=== PATIENT | male | born 1960 | race Caucasian/White ===

== ENCOUNTER 2019-11-23 12:22 | Outpatient (CLI) | payer OTHER, MEDICARE, SELFPAY ==
[2019-11-23 12:43] LABS: Basophils Absolute Auto 0.1 K/mm3 (0.0-0.1); Basophils Percent Auto 0.6 % (0.2-1.2); Eosinophils Absolute Auto 0.2 K/mm3 (0-0.3); Eosinophils Percent Auto 2.2 % (0-4.4); Hematocrit 44.9 % (42.0-52.0); Hemoglobin 15.6 g/dL (14.0-18.0); Immature Granulocyte Absolute 0.02 K/mm3 (0.00-0.031); Immature Granulocyte Percent A 0.2 % (0-0.5); Lymphocytes Absolute Auto 2.57 K/mm3 (0.9-3.2); Lymphocytes Percent Auto 30.2 % (18.3-44.2); Mean Corpuscular HGB Conc 34.7 g/dl (32-36); Mean Corpuscular Hemoglobin 30.1 pg (26-34); Mean Corpuscular Volume 86.5 fl (80-100); Mean Platelet Volume 9.2 fl (7.4-10.4); Monocytes Absolute Auto 0.7 K/mm3 (0.1-0.6); Monocytes Percent Auto 8.5 % (2.6-8.5); Neutrophils Percent Auto 58.3 % (45.5-73.1); Platelet Count Result 249 k/mm3 (150-375); Red Blood Count 5.19 M/mm3 (4.6-6.20); Red Cell Distribution Width 13.9 % (11.5-14.5); White Blood Count 8.5 K/mm3 (4.5-10.0)
== END 2019-11-23 12:23 | disposition home or self-care (01) ==
LOC: ANHLAB 12:32
PROVIDERS: PCP Family Medicine; Visit Provider Internal Medicine Hematology & Oncology
DX: D75.1 Secondary polycythemia (principal); R06.89 Other abnormalities of breathing
CPT/HCPCS: 36415; 85025

== ENCOUNTER 2020-10-27 12:49 | Emergency (ER) | payer OTHER, MEDICARE, SELFPAY ==
[2020-10-27 13:04] VITALS: BP 145/97; PULSE 85; RESP 18; TEMP 36.8; O2SAT 98
--- NOTE | 2020-10-27 14:15 | ED.EPISTAXIS ---
HPI - Epistaxis General Chief complaint: Epistaxis Stated complaint: bloody nose Source: patient Mode of arrival: ambulatory Limitations: no limitations History of Present Illness HPI Narrative: This is a 60-year-old male that presents with epistaxis currently a on presentation had a mild trickle of blood from his left nostril. Apparently patient did go to the emergency room at [facility] in [place] and was treated with Afrin at that time. Patient over the last few hours had a mild nosebleed. Currently, not having any current nose bleeds no headaches no blurry vision no cough no congestion no fever or chills. Patient is currently not on blood thinners does take occasional ibuprofen. MD complaint: epistaxis Location: left nostril Onset (ago): hour(s) Context: history of previous and hypertension Treatment prior to arrival: nose pinching and head tilted back Related Data Home Medications Medication Instructions Recorded Confirmed cyclobenzaprine 10 mg PO TID PRN 10/27/20 10/27/20 furosemide 20 mg PO DAILY 10/27/20 10/27/20 hydrocodone-acetaminophen 1 tablet PO Q4H PRN 10/27/20 10/27/20 lamotrigine 100 mg PO DAILY 10/27/20 10/27/20 Allergies Allergy/AdvReac Type Severity Reaction Status Date / Time methotrexate Allergy Unknown Hives / Verified 07/22/17 14:29 Red Face Review of Systems Review of Systems: All systems reviewed & are unremarkable except as noted in HPI and below PMFSH Past Medical History Medical History HTN (hypertension) Exam Const: General: no acute distress Orientation/consciousness: patient oriented x3 HENMT: Head: normal to inspection General nose exam: Epistaxis present Other: upon visualize of left nostril appears erythematous with no current or active bleeding no visualized bleeding from any blood vessels. Eyes: Conjunctivae: conjunctivae normal Pupils: Equal, round and reactive pupils present Neck: Neck: normal visual inspection, no lymphadenopathy and no meningeal signs Chest: Chest palpation & inspection: normal inspection of the chest Cardio: Rate: regular rate Rhythm: regular rhythm GI: Auscultation: normal bowel sounds Skin: General skin exam: normal color Rashes: no rashes Neuro: General: patient oriented x3 Extrem: General: normal to inspection Psych: Appearance: grossly normal Mental Status: mental status grossly normal Affect: normal affect Course Course Emergency Course: Reassessment of patient after having a nose clamp there is some erythema of his left nostril but no visualized vessels no bleeding currently, advised patient to follow-up with his primary care physician can moisten nostrils and coat with Vaseline, advised also to minimize nose blowing are sneezing if possible. Vital Signs Vital signs: Vital Signs Temperature 36.8 C 10/27/20 13:04 Pulse Rate 85 10/27/20 13:04 Respiratory Rate 18 10/27/20 13:04 Blood Pressure 145/97 H 10/27/20 13:04 Pulse Oximetry 98 10/27/20 13:04 Temperature 36.8 C 10/27/20 13:04 Pulse Rate 85 10/27/20 13:04 Respiratory Rate 18 10/27/20 13:04 Blood Pressure 145/97 H 10/27/20 13:04 Pulse Oximetry 98 10/27/20 13:04 Critical Care Time Critical Care Time Critical Care Time: No Discharge Plan Discharge Clinical Impression: Epistaxis Patient Disposition: Home, Self-Care Condition: Stable Instructions: Antibiotic Form, Nosebleed (ED) Additional Instructions: Follow-up with primary care physician. Advised to use coating of Vaseline and to be applied with a Q-tip to keep nostrils moistened. Prescriptions: No Action cyclobenzaprine 10 mg tablet 10 mg PO TID PRN (Reason: Pain) RF: 0 hydrocodone-acetaminophen 10-325 mg tablet 1 tablet PO Q4H PRN (Reason: Pain) RF: 0 furosemide 20 mg tablet 20 mg PO DAILY RF: 0 lamotrigine 100 mg tablet 100 mg PO DAILY RF: 0 Foll
== END 2020-10-27 14:27 | disposition home or self-care (01) ==
PROVIDERS: Emergency Provider Emergency Medicine; PCP Emergency Medicine
DX: R04.0 Epistaxis (principal)
CPT/HCPCS: 99281; 99282

== ENCOUNTER 2021-12-07 15:54 | Emergency (ER) | payer MEDICARE, SELFPAY ==
[2021-12-07 16:10] VITALS: BP 145/92; PULSE 67; RESP 20; TEMP 35.7; O2SAT 100
--- NOTE | 2021-12-07 16:25 | ED.ALLEREA ---
HPI - Allergic Reaction General Chief complaint: Allergic Reaction Stated complaint: skin itching, blurry eyes-reaction to meds Source: patient Mode of arrival: ambulatory Limitations: no limitations History of Present Illness HPI narrative: this is a 61-year-old gentleman that presents with generalized itching with no rash no shortness of breath no audible wheezing no abdominal pain no nausea vomiting no fever chills. Patient did take Benadryl about 2hours prior to his arrival to the ER. Patient recently had a dose adjustment of his duloxetine by his primary care physician. MD complaint: allergic reaction Onset (ago): hour(s) Exposure: other ( possible increase in medication) Symptoms: itching Severity: mild Treatment prior to arrival: benadryl Previous Allergic Reaction History: none Related Data Home Medications Medication Instructions Recorded Confirmed cyclobenzaprine 10 mg PO TID PRN 10/27/20 10/27/20 furosemide 20 mg PO DAILY 10/27/20 10/27/20 hydrocodone-acetaminophen 1 tablet PO Q4H PRN 10/27/20 10/27/20 lamotrigine 100 mg PO DAILY 10/27/20 10/27/20 Allergies Allergy/AdvReac Type Severity Reaction Status Date / Time methotrexate Allergy Unknown Hives / Verified 07/22/17 14:29 Red Face Review of Systems Review of Systems: All systems reviewed & are unremarkable except as noted in HPI and below PMFSH Past Medical History Medical History HTN (hypertension) Exam Const: General: no acute distress HENMT: Head: normal to inspection Eyes: Conjunctivae: conjunctivae normal Pupils: Equal, round and reactive pupils present Neck: Neck: normal visual inspection, no lymphadenopathy and no meningeal signs Chest: Chest palpation & inspection: normal inspection of the chest Resp: Effort & Inspection: normal respiratory effort Cardio: Rate: regular rate Rhythm: regular rhythm GI: GI Palp: Yes Soft to palpation Percussion: Yes normal to percussion Urinary Catheter: Urinary Catheter: patent and draining Back/Spine/Pelvis: Back: no CVA tenderness Skin: General skin exam: normal color Rashes: no rashes Neuro: General: patient oriented x3 Extrem: General: normal to inspection and no pedal edema Psych: Affect: normal affect Attitude: cooperative Course Course Emergency Course: Patient received 80mg IM Depo-Medrol advised to take Benadryl at home and will prescribe prednisone p.o. and advised patient to discontinue duloxetine and to call his primary care physician to make them aware and possible medication change. Critical Care Time Critical Care Time Critical Care Time: No Discharge Plan Discharge Clinical Impression: Allergic reaction Qualifiers: Encounter type: initial encounter Qualified Code(s): T78.40XA - Allergy, unspecified, initial encounter Patient Disposition: Home, Self-Care Condition: Stable Instructions: Antibiotic Form, Contact Dermatitis (ED) Additional Instructions: Discontinue duloxetine, but call primary care physician to make them aware. And take medicine as prescribed. Prescriptions: New methylprednisolone [Medrol (Aris)] 4 mg tablets,dose pack See Rx Instructions .ROUTE .COMPLEX Qty: 21 RF: 0 diphenhydramine HCl [Benadryl] 25 mg capsule 25 mg PO Q6H PRN (Reason: itching) Qty: 20 RF: 0 No Action cyclobenzaprine 10 mg tablet 10 mg PO TID PRN (Reason: Pain) RF: 0 hydrocodone-acetaminophen 10-325 mg tablet 1 tablet PO Q4H PRN (Reason: Pain) RF: 0 furosemide 20 mg tablet 20 mg PO DAILY RF: 0 lamotrigine 100 mg tablet 100 mg PO DAILY RF: 0 Follow-up/Referrals: Lorenzo,Roberto Caban MD [Primary Care Provider] - Time of Disposition: 16:28
[2021-12-07] MEDS: methylPREDNISolone ACETATE 40 MG/ML VIAL 80 MG IM (16:35)
[2021-12-07 16:47] VITALS: BP 140/88; PULSE 70; RESP 18; TEMP 36.6; O2SAT 99
== END 2021-12-07 16:53 | disposition home or self-care (01) ==
PROVIDERS: Emergency Provider Emergency Medicine; PCP Emergency Medicine
DX: T78.40XA Allergy, unspecified, initial encounter (principal); I10 Essential (primary) hypertension
CPT/HCPCS: 96372; 99283; J1030

== ENCOUNTER 2022-01-19 11:48 | Outpatient (CLI) | payer MEDICARE, SELFPAY ==
--- NOTE | ~2022-01-19 | US_ITS ---
EXAMINATION: US soft tissue head and neck DATE: 01/19/2022 12:11 INDICATION: Left neck lump. TECHNIQUE: Multiple grayscale and Doppler ultrasound images of the neck were obtained. COMPARISON: None FINDINGS: In the left submandibular gland, there is a 1.1 x 0.9 x 0.8 cm irregular mixed solid and cy stic mass. IMPRESSION: 1. 1.1 cm mixed solid and cystic mass in left submandibular gland. The differential diagnosis include s benign masses such as benign mixed tumor or inflammation/infection and primary malignancy. Consider ultrasound-guided fine-needle aspiration. Reviewed, dictated and finalized at location A. IMPRESSION: 1. 1.1 cm mixed solid and cystic mass in left submandibular gland. The differen tial diagnosis includes benign masses such as benign mixed tumor or inflammatio n/infection and primary malignancy. Consider ultrasound-guided fine-needle aspi ration.
== END 2022-01-19 11:49 | disposition home or self-care (01) ==
LOC: CHSIMG 11:50
PROVIDERS: PCP Nurse Practitioner Family; Visit Provider Nurse Practitioner Family
DX: R22.1 Localized swelling, mass and lump, neck (principal)
CPT/HCPCS: 76536

== ENCOUNTER 2022-02-07 12:38 | Outpatient (CLI) | payer MEDICARE, SELFPAY ==
--- NOTE | ~2022-02-07 | US_ITS ---
US soft tissue head and neck DATE: 02/07/2022 13:54 INDICATION: Patient presented for biopsy of 1.1 cm mixed solid and cystic mass of left submandibular gland noted on January 19, 2022 ultrasound examination TECHNIQUE: Real-time imaging and color flow imaging of left submandibular gland COMPARISON: 01/19/2022 left neck ultrasound examination FINDINGS: The previously reported 1.1 cm mixed solid and cystic mass of the left submandibular gland is diminished in size and fluid component since 01/19/2022, currently measuring approximately 5 mm, com pared to up to 10.6 mm on 01/19/2022. Interval diminished size suggests benign process. IMPRESSION: Biopsy canceled due to interval substantially diminished size since 01/19/2022 Reviewed, dictated and finalized at [facility]. Reviewed, dictated and finalized at location A.
== END 2022-02-07 12:39 | disposition home or self-care (01) ==
LOC: CHSIMG 12:40
PROVIDERS: PCP Family Medicine; Visit Provider Nurse Practitioner Family
DX: R22.1 Localized swelling, mass and lump, neck (principal)
CPT/HCPCS: 76536

== ENCOUNTER 2022-03-05 09:15 | Outpatient (CLI) | payer MEDICARE, SELFPAY ==
[2022-03-05 09:30] LABS: Hematocrit 43.2 % (40.0-54.0); Hemoglobin 14.5 g/dL (14.0-18.0); Mean Corpuscular HGB Conc 33.6 g/dL (32.0-36.0); Mean Corpuscular Hemoglobin 32.2 pg (27.0-31.0); Mean Platelet Volume 8.9 fl (8.7-11.0); Platelet Count Result 293 K/mm3 (150-420); Red Cell Distribution Width 13.2 % (11.6-14.4)
[2022-03-05 10:16] LABS: Anion Gap 8 mmol/L (8-16); Blood Urea Nitrogen 11 mg/dL (7-18); Calcium 9.2 mg/dL (8.5-10.1); Carbon Dioxide 32 mmol/L (21-32); Chloride 100 mmol/L (98-108); Creatine Kinase 114 U/L (39-308); Estimated Glomerular Filt Rate > 60; Ferritin 226 ng/mL (26-388); Folic Acid 18.2 ng/mL (8.6->20); Free T4 Free Thyroxine 1.17 ng/dL (0.76-1.46); Glucose 97 mg/dL (70-99); Magnesium 2.1 mg/dL (1.8-2.4); Osmolality Calculated 289 mOsm/kg (285-295); Sodium 140 mmol/L (136-145); Thyroid Stimulating Hormone 1.22 uIU/mL (0.36-3.74); Vitamin B12 1745 pg/mL (193-986)
[2022-03-05 10:18] LABS: Band Neutrophils Percent 0 % (0-6); Basophils Absolute Manual 0.08 K/mm3 (0-0.1); Basophils Percent Manual 1 % (0-1); Eosinophils Absolute Manual 0.24 K/mm3 (0.02-0.5); Eosinophils Percent Manual 3 % (1-6); Lymphocytes Absolute Manual 2.16 K/mm3 (1.1-4.5); Lymphocytes Percent Manual 27 % (18-44); Monocytes Absolute Manual 1.04 K/mm3 (0.1-0.90); Monocytes Percent Manual 13 % (3-9); Neutrophils Absolute Manual 4.48 K/mm3 (1.3-6.7); Neutrophils Percent Manual 56 % (46-73); Total Cells Counted 100
[2022-03-05 10:19] LABS: Platelet Estimate Adequate (Adequate)
[2022-03-05 10:44] LABS: Erythrocyte Sedimentation Rate 18 mm/hr (0-20)
[2022-03-05 17:30] LABS: Alanine Aminotransferase 27 U/L (16-63); Albumin Level 3.9 g/dL (3.4-5.0); Alkaline Phosphatase 88 U/L (46-116); Aspartate Amino Transferase 24 U/L (15-37); Bilirubin Direct 0.2 mg/dL (0-0.2); Bilirubin,Total 0.9 mg/dL (0.00-1.00); Total Protein 7.6 g/dL (6.4-8.2)
[2022-03-07 14:05] LABS: Vitamin D 25 Hydroxy 31 ng/mL (30-100)
== END 2022-03-05 09:16 | disposition home or self-care (01) ==
LOC: CHSLAB 09:19
PROVIDERS: PCP Nurse Practitioner Family; Visit Provider Internal Medicine Rheumatology
DX: E55.9 Vitamin D deficiency, unspecified (principal); E53.8 Deficiency of other specified B group vitamins; D50.9 Iron deficiency anemia, unspecified; R53.83 Other fatigue; M79.10 Myalgia, unspecified site
CPT/HCPCS: 36415; 80048; 80076; 81596; 82306; 82550; 82607; 82728; 82746; 83735; 84439; 84443; 84550; 85025; 85652

== ENCOUNTER 2022-03-09 18:01 | Emergency (ER) | payer MEDICARE, SELFPAY ==
--- NOTE | ~2022-03-09 | XR_ITS ---
EXAMINATION: XR chest 2V DATE: 03/09/2022 18:41 INDICATION: Dyspnea. TECHNIQUE: Frontal and lateral views of the chest were obtained on 3 radiographs. COMPARISON: None. FINDINGS: The chest demonstrates clear lungs without pneumonia, pleural effusion, or pneumothorax. Th e heart size is normal. IMPRESSION: 1. No acute cardiopulmonary disease. Reviewed, dictated and finalized at location A.
--- NOTE | ~2022-03-09 | CT_ITS ---
EXAMINATION: CTA chest PE protocol DATE: 03/09/2022 19:48 INDICATION: Dyspnea. TECHNIQUE: Computed tomography angiography (CTA) of the chest was performed with 100 mL Omnipaque-350 intravenous contrast timed to evaluate the pulmonary arteries. Coronal maximum intensity projection 3D-reconstructions were created by the technologist. Automated exposure control and iterative reconst ruction technique were employed. The dose-length product was 1038.55 mGy-cm. COMPARISON: Chest 2 views 03/09/2022 FINDINGS: The lungs demonstrate mild atelectasis. Right lung lower lobe herniates between two of the ribs. A calcified left lung nodule and calcified left hilar lymph nodes are consistent with old granu lomatous disease. No pleural effusion. The heart size is normal. No pericardial effusion. There are s ubsegmental emboli in right middle lobe and right lower lobe. There are bridging endplate osteophytes at multiple levels in the spine, consistent with diffuse idiopathic skeletal hyperostosis (DISH). Th ere is an old healed right rib fracture. IMPRESSION: 1. Acute subsegmental pulmonary emboli in right middle lobe and right lower lobe. I called this resul t to Dr. Self. Reviewed, dictated and finalized at location A. IMPRESSION: 1. Acute subsegmental pulmonary emboli in right middle lobe and right lower lob e. I called this result to Dr. Self.
--- NOTE | 2022-03-09 18:18 | ED.SOB ---
HPI - SOB/Dyspnea General Chief Complaint: Shortness of Breath/Dyspnea Stated Complaint: sent by PCP for possible blood clot Time Seen by Provider: 03/09/22 18:18 Source: patient and RN notes reviewed Mode of arrival: ambulatory Limitations: no limitations History of Present Illness MD elicited complaint: shortness of breath Pertinent past history: COPD, asthma and diabetes Onset (ago): day(s) (3) Context: occurred during exertion Timing: constant Severity: moderate Exacerbating factors: exertion Known history of: COPD and asthma Associated symptoms: denies other symptoms Treatment prior to arrival: none Related Data Home oxygen amount: none Home Medications Medication Instructions Recorded Confirmed hydrocodone 10 mg-acetaminophen 1 tablet PO Q4H PRN 01/16/22 03/09/22 325 mg tablet upadacitinib 15 mg tablet,extended 15 mg PO DAILY 01/16/22 03/09/22 release 24 hr gabapentin 1,200 mg PO TID 03/09/22 03/09/22 Allergies Allergy/AdvReac Type Severity Reaction Status Date / Time methotrexate Allergy Unknown Hives / Verified 03/07/22 11:08 Red Face Review of Systems Review of Systems: All systems reviewed & are unremarkable except as noted in HPI and below Constitutional: Constitutional: Denies chills and Denies fever(s) ENT: Denies sore throat Cardiovascular: Cardiovascular: Denies chest pain Respiratory: Respiratory: Denies cough and Denies wheezing Gastrointestinal: Gastrointestinal: Denies diarrhea, Denies nausea and Denies vomiting PMFSH Past Medical History Medical History (Updated 03/09/22 @ 20:04 by Wilian Self MD) Asthma COPD (chronic obstructive pulmonary disease) Fibromyalgia HTN (hypertension) Medical marijuana use Morbid obesity CLAUDIO (obstructive sleep apnea) Peripheral neuropathy Rheumatoid arthritis Salivary gland tumor Surgical History Surgical History History of appendectomy History of colonoscopy (~10/2014) History of foot surgery right foot toes cut off in [place] History of incision and drainage (~12/2019) perirectal abscess Social History Social History Smoking status: Current every day smoker Alcohol intake: never Substance use: never Gender identity (if verbalized by the patient): Male Exam Const: General: healthy appearing, no acute distress and alert Nutritional Appearance: well nourished and obese morbidly obese Orientation/consciousness: patient oriented x3 HENMT: Head: normal to inspection Ears: external ears normal Eyes: Conjunctivae: conjunctivae normal Pupils: Equal, round and reactive pupils present EOM: EOMs intact bilaterally Neck: Neck: normal visual inspection Resp: Effort & Inspection: normal respiratory effort Auscultation: clear to auscultation bilaterally Cardio: Rate: regular rate Rhythm: regular rhythm GI: GI Palp: Yes Soft to palpation and No Tenderness to palpation present (GI) Auscultation: normal bowel sounds Back/Spine/Pelvis: Cervical Spine: cervical ROM normal Thoracic/Lumbar Spine: thoraco-lumbar ROM normal Skin: General skin exam: normal color Rashes: no rashes Neuro: General: patient oriented x3, moves all extremities, no focal motor deficits and CN's II-XI intact bilaterally Speech: normal speech Gait exam (Neuro): Normal gait present Extrem: General: normal to inspection and no clubbing, cyanosis or edema Psych: Mental Status: mental status grossly normal Affect: normal affect Attitude: cooperative Thought content: Yes Normal thought content present Course Vital Signs Vital signs: Vital Signs Temperature 36.6 C 03/09/22 18:24 Pulse Rate 70 03/09/22 18:24 Respiratory Rate 18 03/09/22 18:24 Blood Pressure 179/104 H 03/09/22 18:24 Pulse Oximetry 93 03/09/22 18:24 Temperature 36.6 C 03/09/22 20:11 Pulse Rate 78 03/09/22 20:11 Respiratory Rate 20
[2022-03-09 18:24] VITALS: BP 179/104; PULSE 70; RESP 18; TEMP 36.6; O2SAT 93
[2022-03-09 18:38] VITALS: PULSE 73
[2022-03-09 18:39] LABS: Basophils Absolute Auto 0.05 K/mm3 (0.00-0.10); Basophils Percent Auto 0.6 % (0.0-1.0); Eosinophils Absolute Auto 0.24 K/mm3 (0.02-0.50); Hematocrit 42.5 % (40.0-54.0); Hemoglobin 14.3 g/dL (14.0-18.0); Immature Granulocyte Absolute 0.03 K/mm3 (0.00-0.00); Immature Granulocyte Percent A 0.4 % (0.0-0.0); Lymphocytes Absolute Auto 2.19 K/mm3 (1.10-4.50); Lymphocytes Percent Auto 27.7 % (18.0-42.0); Mean Corpuscular HGB Conc 33.6 g/dL (32.0-36.0); Mean Corpuscular Hemoglobin 31.8 pg (27.0-31.0); Mean Corpuscular Volume 94.7 fL (78.0-102.0); Monocytes Absolute Auto 0.97 K/mm3 (0.10-0.90); Monocytes Percent Auto 12.2 % (2.0-11.0); Neutrophils Absolute Auto 4.4 K/mm3 (1.7-7.2); Neutrophils Percent Auto 56.1 % (50.0-70.0); Platelet Count Result 327 K/mm3 (150-420); Red Blood Count 4.49 M/mm3 (4.70-6.10); Red Cell Distribution Width 13.2 % (11.6-14.4); White Blood Count 7.9 K/mm3 (4.8-10.8)
[2022-03-09 18:48] LABS: CRP 2.2 mg/dL (0.0-0.9)
[2022-03-09 18:54] LABS: D Dimer 1.06 mg/L (0.19-0.50)
[2022-03-09 19:00] VITALS: BP 169/90; PULSE 72; RESP 16; TEMP 36.1; O2SAT 95
[2022-03-09 19:01] LABS: Alanine Aminotransferase 36 U/L (16-63); Albumin Level 3.6 g/dL (3.4-5.0); Alkaline Phosphatase 84 U/L (46-116); Anion Gap 7 mmol/L (8-16); Aspartate Amino Transferase 23 U/L (15-37); Bilirubin,Total 0.4 mg/dL (0.00-1.00); Blood Urea Nitrogen 13 mg/dL (7-18); Calcium 9.2 mg/dL (8.5-10.1); Carbon Dioxide 29 mmol/L (21-32); Chloride 103 mmol/L (98-108); Estimated CRCL calculation 94 ml/min; Estimated Glomerular Filt Rate > 60; Glucose 104 mg/dL (70-99); Magnesium 2.1 mg/dL (1.8-2.4); NT Pro B Type Natriuretic Pept 58 pg/mL (0-125); Osmolality Calculated 288 mOsm/kg (285-295); Potassium 4.2 mmol/L (3.5-5.1); Sodium 139 mmol/L (136-145); Total Protein 7.2 g/dL (6.4-8.2)
--- NOTE | 2022-03-09 19:13 | PC.NURSE ---
report to [email or web address]
[2022-03-09 19:41] LABS: Influenza A QL RT-PCR Negative (Negative); Influenza B QL RT-PCR Negative (Negative); SARS-CoV-2 RNA PCR Negative (Negative)
[2022-03-09 19:44] VITALS: BP 168/88; PULSE 78; RESP 20; O2SAT 95
[2022-03-09] MEDS: APIXABAN 2.5 MG TABLET 10 MG PO (20:01)
[2022-03-09 20:11] VITALS: BP 168/90; PULSE 78; RESP 20; TEMP 36.6; O2SAT 95
== END 2022-03-09 20:25 | disposition home or self-care (01) ==
PROVIDERS: Emergency Provider Emergency Medicine; PCP Nurse Practitioner Family
DX: I26.94 Multiple subsegmental thrombotic pulmonary emboli without acute cor pulmonale (principal); J44.9 Chronic obstructive pulmonary disease, unspecified; I10 Essential (primary) hypertension; E66.01 Morbid (severe) obesity due to excess calories; M06.9 Rheumatoid arthritis, unspecified; M79.7 Fibromyalgia; G62.9 Polyneuropathy, unspecified; G47.33 Obstructive sleep apnea (adult) (pediatric); F17.200 Nicotine dependence, unspecified, uncomplicated; Z20.822 Contact with and (suspected) exposure to COVID-19
CPT/HCPCS: 36415; 71046; 71275; 80053; 83735; 83880; 85025; 85380; 86140; 87502; 99284; A9270; C9803; Q9967; U0003; U0005

== ENCOUNTER 2022-03-29 12:28 | Outpatient (CLI) | payer MEDICARE, SELFPAY ==
--- NOTE | ~2022-03-29 | DEXA_ITS ---
Bone Density Report Name: NIYAH ADAMS Age: 61 Sex: Male Ethnicity: White Date of : 1960 Indication: parental hip fracture; height loss; history of glucocorticoids; prior fracture; asthma or emphysema; rheumatoid arthritis; secondary osteoporosis; Referring Provider: TANIA ROWAN Study: Bone densitometry was performed. Exam Date: March 29, 2022 Accession number: [id number] Bone Density: Region BMD T-score Z-score Classification AP Spine(L1, L2, L3) 1.217 1.3 2.0 Normal Femoral Neck (Left) 0.917 -0.1 0.9 Normal Total Hip (Left) 1.127 0.6 1.1 Normal Femoral Neck (Right) 0.882 -0.4 0.6 Normal Total Hip (Right) 1.120 0.6 1.1 Normal Femoral Neck Mean 0.899 -0.2 0.8 Normal Total Hip Mean 1.123 0.6 1.1 Normal World Health Organization criteria for BMD impression classify patients as: Normal (T-score at or above -1.0), Osteopenia (T-score between -1.0 and -2.5), or Osteoporosis (T-score at or below -2.5). 10-year Fracture Risk: FRAX not reported because: All T-scores for Spine Total, Hip Total, Femoral Neck at or above -1.0 Clinical Information Provided by Patient: Has had a low trauma fracture Parent has had a hip fracture Smokes Has taken Glucocorticoids Has rheumatoid arthritis Has secondary osteoporosis Has used the following medications: Fosamax (i.e. alendronate), Calcium Has the following medical conditions: Asthma or Emphysema Patient maximum height was 69 Drinks caffeinated beverages Impression: The patient has normal bone mass. The patient has risk factors, including: parental hip fracture, smoking, previous fracture, history of glucocorticoid therapy. Discussion: BONE DENSITY IS ABOVE THE MINIMUM DESIRABLE LEVEL AT ALL SKELETAL SITES TESTED. This patient?s bone mineral density is above the minimum desirable level (T-score -1.0 or better) at all sites measured. The patient should follow a healthful lifestyle (good nutrition with adequate calcium and vitamin D, and appropriate weight-bearing exercise). Follow-Up: Consider repeating this study in 5 years or sooner if there is some new clinical indication. Reported by: Dr. Pablo Schuster on 03/29/2022 12:56:00 PM. Reviewed, dictated and finalized at location [facility] SANTOS
== END 2022-03-29 12:29 | disposition home or self-care (01) ==
LOC: CHSIMG 12:30
PROVIDERS: PCP Nurse Practitioner Family; Visit Provider Internal Medicine Rheumatology
DX: Z79.52 Long term (current) use of systemic steroids (principal)
CPT/HCPCS: 77080

== ENCOUNTER 2022-04-06 10:25 | Outpatient (CLI) | payer MEDICARE, SELFPAY ==
--- NOTE | ~2022-04-06 | US_ITS ---
EXAMINATION:US venous doppler LE BI INDICATION:Bilateral lower extremity pain and swelling TECHNIQUE: Multiple grayscale, color flow and Doppler images of the right and left lower extremity de ep venous systems were obtained and reviewed. COMPARISON:No prior studies for comparison. FINDINGS: The common femoral, superficial femoral and popliteal veins demonstrate normal respiratory variation, augmentation and compressibility. Color flow is also seen within the posterior tibial, pe roneal, greater saphenous and profunda veins. IMPRESSION: 1: No lower extremity deep venous thrombosis. Reviewed, dictated and finalized at location A.
== END 2022-04-06 10:26 | disposition home or self-care (01) ==
LOC: CHSIMG 10:28
PROVIDERS: PCP Nurse Practitioner Family; Visit Provider Nurse Practitioner Family
DX: I26.99 Other pulmonary embolism without acute cor pulmonale (principal); M79.89 Other specified soft tissue disorders
CPT/HCPCS: 93970

== ENCOUNTER 2022-04-08 16:12 | Emergency (ER) | payer MEDICARE, SELFPAY ==
--- NOTE | ~2022-04-08 | XR_ITS ---
EXAM: XR finger 2nd LT min 2V DATE: 04/08/2022 17:19 HISTORY: distal flexion . COMPARISON: None available. FINDINGS: Normal mineralization. No fracture or dislocation. The left second digit DIP is held in sl ight flexion. No lytic or blastic lesion. Joint spaces are maintained. No erosion or periosteal irwin e. Soft tissues within normal limits. IMPRESSION: Left second digit DIP flexion deformity, may reflect extensor tendon injury. No fracture or dislocation. Reviewed, dictated and finalized at location K. IMPRESSION: Left second digit DIP flexion deformity, may reflect extensor tendo n injury. No fracture or dislocation.
[2022-04-08 16:40] VITALS: BP 155/97; PULSE 86; RESP 18; TEMP 36.6; O2SAT 97
--- NOTE | 2022-04-08 17:08 | ED.UPPEXIN ---
HPI - Extremity Injury (Upper) General Chief Complaint: Extremity Injury, Upper Stated Complaint: finger injury Time Seen by Provider: 04/08/22 16:16 Source: patient and RN notes reviewed Mode of arrival: ambulatory Limitations: no limitations History of Present Illness MD complaint: injury to: left and finger (distal index finger) Onset (ago): hour(s) (1) Other injuries: none Place: home Severity: mild Severity scale (1-10): 2 Relieving factors: immobilization Exacerbating factors: movement of extremity Associated symptoms: denies other symptoms Related Data Home Medications Medication Instructions Recorded Confirmed hydrocodone 10 mg-acetaminophen 1 tablet PO Q4H PRN Back Pain 01/16/22 03/20/22 325 mg tablet gabapentin 600 mg tablet 1,200 mg PO TID 03/09/22 03/20/22 escitalopram oxalate 10 mg tablet 20 mg PO DAILY 03/20/22 03/20/22 lamotrigine 100 mg tablet 100 mg PO .hs 03/20/22 03/20/22 lamotrigine 25 mg tablet 25 mg PO DAILY 03/20/22 03/20/22 meloxicam 15 mg tablet 15 mg PO DAILY 03/20/22 03/20/22 ftjvakbq-[id number] acid 0.4 1 tablet PO DAILY 03/20/22 03/20/22 mg-lycopene 300 mcg-lutein 250 mcg tablet (Anai Mora) turmeric root extract 500 mg 1,000 mg PO DAILY 03/20/22 03/20/22 capsule Allergies Allergy/AdvReac Type Severity Reaction Status Date / Time methotrexate Allergy Unknown Hives / Verified 04/08/22 17:19 Red Face Review of Systems Review of Systems: All systems reviewed & are unremarkable except as noted in HPI and below Constitutional: Constitutional: Reports no additional constitutional complaints Eyes: Eyes: Reports no additional eye complaints ENT: Reports system reviewed and no additional complaints, except as documented Cardiovascular: Cardiovascular: Reports no additional cardiovascular complaints Respiratory: Respiratory: Reports no additional respiratory complaints Gastrointestinal: Gastrointestinal: Reports no additional gastrointestinal complaints Musculoskeletal: Musculoskeletal: Reports no additional musculoskeletal complaints Integumentary/Breasts: Skin/Breast: Reports system reviewed and no additional complaints, except as docu Neurologic: Reports system reviewed and no additional complaints, except as documented Psychiatric: Psychiatric: Reports no additional psychiatric complaints Endocrine: Endocrine: Reports no additional endocrine complaints Hematologic/Lymphatic: Hematologic/Lymphatic: Reports no additional hematologic/lymphatic complaints Allergic/Immunologic: Allergic/Immunologic: Reports no additional allergic/immunologic complaints PMFSH Past Medical History Medical History Asthma Benign paroxysmal positional vertigo COPD (chronic obstructive pulmonary disease) Fibromyalgia Finger tendinitis HTN (hypertension) Medical marijuana use Morbid obesity Nondependent alcohol abuse, in remission CLAUDIO (obstructive sleep apnea) Peripheral neuropathy Personal history of tobacco use Rheumatoid arthritis Salivary gland tumor Surgical History Surgical History History of appendectomy History of colonoscopy (~10/2014) History of foot surgery right foot toes cut off in Jr [facility] History of incision and drainage (~12/2019) perirectal abscess Social History Social History Smoking status: Current every day smoker Alcohol intake: never Substance use: never Gender identity (if verbalized by the patient): Male Exam Const: General: healthy appearing and no acute distress Nutritional Appearance: well nourished Orientation/consciousness: patient oriented x3 Limitations: no limitations HENMT: Head: normal to inspection Ears: external ears normal, TM's normal bilaterally and EAC's normal General nose exam: Normal external nose present and Normal nares present Face and sinus: n
[2022-04-08] MEDS: ACETAMINOPHEN 325 MG TABLET 650 MG PO (17:34)
[2022-04-08 17:42] VITALS: BP 142/81; PULSE 87; RESP 18; TEMP 36.6; O2SAT 98
== END 2022-04-08 17:47 | disposition home or self-care (01) ==
PROVIDERS: Emergency Provider Emergency Medicine; PCP Nurse Practitioner Family
DX: S56.412A Strain of extensor muscle, fascia and tendon of left index finger at forearm level, initial encounter (principal); M79.645 Pain in left finger(s)
CPT/HCPCS: 29130; 73140; 99283; A4565; A9270

== ENCOUNTER 2022-06-08 12:55 | Outpatient (CLI) | payer MEDICARE, SELFPAY ==
--- NOTE | 2022-06-08 12:58 | ECHO_ITS ---
Patient Info Name: Sarabjit Long Age: 62 years : 1960 Gender: Male Ht: 67 in Wt: 314 lbs BSA: 2.68 m2 HR: 81 bpm BP: 149 / 86 mmHg Heart Rhythm: Sinus Rhythm Technical Quality: Fair Exam Date: 06/08/2022 12:54 PM Exam Location: [facility] [place] Patient Status: Outpatient Admit Date: 06/08/2022 Staff Ordering Physician: Rashmi Ramon NP Fireworks Inspector: Sandra Martinez RDCS Attending Provider: Rashmi Ramon NP Referring Physician: Yenny CASTAÑEDA; Exam Type: CA echo doppler color flow Study Info Indications R06.02 - Shortness of breath Complete two-dimensional, color flow and Doppler transthoracic echocardiogram is performed. Summary 1. Complete two-dimensional, color flow and Doppler transthoracic echocardiogram is performed. 2. Left ventricular chamber dimension is normal. 3. Left ventricular systolic function is normal, estimated at 55-60%. 4. The left ventricular diastolic function is grade I diastolic dysfunction. 5. E/e' 7 is not elevated. 6. No pulmonary hypertension, estimated pulmonary arterial systolic pressure is 18 mmHg. Left Ventricle E/e' 7 is not elevated. Left ventricular chamber dimension is normal. Left ventricular systolic function is normal, estimated at 55-60%. The left ventricular diastolic function is grade I diastolic dysfunction. Right Ventricle Right ventricular systolic function is normal and with normal TAPSE 2.2 cm. Right ventricular chamber dimension is normal. Left Atria Left atrial chamber dimension is normal. Right Atria Right atrial chamber dimension is normal. Aortic Valve The aortic valve is trileaflet. There is no aortic valve stenosis. There is no aortic valve regurgitation. Pulmonic Valve There is no pulmonic regurgitation. Mitral Valve There is no mitral valve stenosis. There is no mitral valve regurgitation. Tricuspid Valve There is no tricuspid valve regurgitation. No pulmonary hypertension, estimated pulmonary arterial systolic pressure is 18 mmHg. Pericardium/Pleural There is no pericardial effusion. Inferior Vena Cava Normal inferior vena cava with >50% collapse upon inspiration consistent with normal right atrial pressure, 5 mmHg. Aorta The aortic root size at the sinus of Valsalva is normal. Left Ventricular Outflow Tract Name Value Normal LVOT 2D LVOT Diameter 2.1 cm LVOT Doppler LVOT Peak Velocity 95 cm/s LVOT Peak Gradient 4 mmHg LVOT Mean Gradient 2 mmHg LVOT VTI 16 cm LVOT VTI/AV VTI Ratio 0.7 LVOT Stroke Volume 54 ml Pulmonic Valve Name Value Normal PV Doppler PV Peak Velocity 124 cm/s PV Peak Gradient 6 mmHg Mitral Valve
== END 2022-06-08 12:56 | disposition home or self-care (01) ==
LOC: CHSCARD 12:58
PROVIDERS: PCP Nurse Practitioner Family; Visit Provider Nurse Practitioner Family
DX: R06.02 Shortness of breath (principal); R63.5 Abnormal weight gain
CPT/HCPCS: 93306

== ENCOUNTER 2022-07-10 08:26 | Outpatient (CLI) | payer MEDICARE, SELFPAY ==
[2022-07-10 08:39] LABS: Basophils Absolute Auto 0.08 K/mm3 (0.00-0.10); Basophils Percent Auto 0.7 % (0.0-1.0); Eosinophils Absolute Auto 0.17 K/mm3 (0.02-0.50); Eosinophils Percent Auto 1.5 % (1.0-6.0); Hematocrit 45.4 % (40.0-54.0); Hemoglobin 15.2 g/dL (14.0-18.0); Immature Granulocyte Absolute 0.05 K/mm3 (0.00-0.00); Immature Granulocyte Percent A 0.4 % (0.0-0.0); Lymphocytes Absolute Auto 3.82 K/mm3 (1.10-4.50); Lymphocytes Percent Auto 32.9 % (18.0-42.0); Mean Corpuscular HGB Conc 33.5 g/dL (32.0-36.0); Mean Corpuscular Hemoglobin 29.5 pg (27.0-31.0); Monocytes Absolute Auto 1.08 K/mm3 (0.10-0.90); Monocytes Percent Auto 9.3 % (2.0-11.0); Neutrophils Absolute Auto 6.4 K/mm3 (1.7-7.2); Neutrophils Percent Auto 55.2 % (50.0-70.0); Platelet Count Result 339 K/mm3 (150-420); Red Blood Count 5.16 M/mm3 (4.70-6.10); Red Cell Distribution Width 14.2 % (11.6-14.4); White Blood Count 11.6 K/mm3 (4.8-10.8)
[2022-07-10 08:52] LABS: Hemoglobin A1C 5.7 % (<5.7)
[2022-07-10 09:28] LABS: Alanine Aminotransferase 37 U/L (16-63); Alkaline Phosphatase 83 U/L (46-116); Anion Gap 7 mmol/L (8-16); Aspartate Amino Transferase 21 U/L (15-37); Bilirubin,Total 0.4 mg/dL (0.00-1.00); Blood Urea Nitrogen 19 mg/dL (7-18); Calcium 8.9 mg/dL (8.5-10.1); Carbon Dioxide 29 mmol/L (21-32); Chloride 102 mmol/L (98-108); Estimated Glomerular Filt Rate > 60; NT Pro B Type Natriuretic Pept 44 pg/mL (0-125); Potassium 3.5 mmol/L (3.5-5.1); Sodium 138 mmol/L (136-145); Total Protein 6.9 g/dL (6.4-8.2)
[2022-07-10 09:36] LABS: Thyroid Stimulating Hormone Reflex 1.99 u/IU/mL (0.36-3.74)
[2022-07-10 09:37] LABS: Glucose 98 mg/dL (70-99); Osmolality Calculated 288 mOsm/kg (285-295)
== END 2022-07-10 08:27 | disposition home or self-care (01) ==
LOC: CHSLAB 08:29
PROVIDERS: Nurse Practitioner Family; PCP Family Medicine; Visit Provider Family Medicine
DX: R06.02 Shortness of breath (principal); R63.5 Abnormal weight gain; R73.09 Other abnormal glucose
CPT/HCPCS: 36415; 80053; 83036; 83880; 84443; 85025

== ENCOUNTER 2022-08-30 11:11 | Outpatient (CLI) | payer MEDICARE, SELFPAY ==
[2022-09-03 11:11] LABS: NIL 0.02 IU/mL; Quantiferon TB Plus, 1T NEGATIVE (NEGATIVE)
[2022-09-03 19:11] LABS: Hepatitis B Core Ab Total Nonreactive (Nonreactive)
[2022-09-03 19:12] LABS: Hepatitis B Surface Antigen Nonreactive (Nonreactive)
[2022-09-04 03:10] LABS: Hepatitis C Signal to Cutoff 0.01 ratio (<1.00); Hepatitis C Virus Antibody Nonreactive (Nonreactive)
== END 2022-08-30 11:12 | disposition home or self-care (01) ==
LOC: CHSLAB 11:13
PROVIDERS: PCP Family Medicine; Visit Provider Internal Medicine
DX: M05.79 Rheumatoid arthritis with rheumatoid factor of multiple sites without organ or systems involvement (principal); Z79.899 Other long term (current) drug therapy; R53.83 Other fatigue
CPT/HCPCS: 36415; 86480; 86704

== ENCOUNTER 2022-10-04 19:31 | Emergency (ER) | payer MEDICARE, SELFPAY ==
[2022-10-04 19:50] VITALS: BP 148/100; PULSE 70; RESP 16; TEMP 36.6; O2SAT 100
--- NOTE | 2022-10-04 20:14 | ED.ALLEREA ---
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 Currently there is no shortness of breath no audible wheezing no nausea vomiting no abdominal pain no shortness of breath. MD complaint: allergic reaction Onset (ago): hour(s) Exposure: medication Related Data Home Medications Medication Instructions Recorded Confirmed qfxmtvth-cww-ohibp acid 0.4 1 tablet PO DAILY 03/20/22 10/04/22 mg-lycopene 300 mcg-lutein 250 mcg tablet (Anai Mora) Allergies Allergy/AdvReac Type Severity Reaction Status Date / Time methotrexate Allergy Unknown Hives / Verified 10/11/22 07:50 Red Face Review of Systems Review of Systems: All systems reviewed & are unremarkable except as noted in HPI and below PMFSH Past Medical History Medical History Asthma Benign paroxysmal positional vertigo COPD (chronic obstructive pulmonary disease) Fibromyalgia Finger tendinitis HTN (hypertension) Medical marijuana use Morbid obesity Nondependent alcohol abuse, in remission CLAUDIO (obstructive sleep apnea) Peripheral neuropathy Personal history of tobacco use Rheumatoid arthritis Salivary gland tumor Surgical History Surgical History History of appendectomy History of colonoscopy (~10/2014) History of foot surgery right foot toes cut off in [facility] History of incision and drainage (~12/2019) perirectal abscess Social History Social History Smoking status: Current every day smoker Alcohol intake: never Substance use: never Gender identity (if verbalized by the patient): Male Exam Const: General: cooperative HENMT: Head: normal to inspection Ears: hearing grossly normal bilaterally Face/Nose/Sinus: Normal external nose present Mouth: Yes Normal oral and palatal mucosa present, Yes lip normal and Yes tongue normal Teeth and gingiva: gingiva normal Throat: posterior oropharynx normal and tonsils normal Eyes: General: appearance normal, both eyes and all related structures Alignment and Position: alignment normal Periorbital: periorbital findings normal Eyelids: eyelids normal Conjunctivae: conjunctivae normal Neck: Neck: normal visual inspection, full ROM, no lymphadenopathy and no meningeal signs Chest: Chest palpation & inspection: normal inspection of the chest Resp: Effort & Inspection: normal respiratory effort and able to speak in complete sentences Cardio: Jugular venous distension: no JVD Palpation: normal PMI Rate: regular rate Rhythm: regular rhythm GI: Inspection: normal to inspection : General: Yes bimanual renal exam normal bilaterally Back/Spine/Pelvis: Back: no CVA tenderness Skin: General skin exam: normal color Lesions: no lesions Rashes: no rashes Neuro: General: oriented to person, oriented to place, oriented to time, patient oriented x3, gait normal, tone normal and moves all extremities Extrem: General: normal to inspection, full ROM and capillary refill normal Psych: Appearance: grossly normal Mental Status: mental status grossly normal Speech and movement: Normal speech and movement present Course Course Emergency Course: Reassessment patient after a dose of IM Depo-Medrol, doing well no shortness of breath no audible wheezing no fever chills no nausea vomiting. Vital Signs Vital signs: Vital Signs Temperature 36.6 C 10/04/22
[2022-10-04] MEDS: methylPREDNISolone ACETATE 40 MG/ML VIAL 80 MG IM (20:51)
[2022-10-04 20:57] VITALS: BP 140/88; PULSE 88; RESP 16; TEMP 37; O2SAT 97
== END 2022-10-04 20:58 | disposition home or self-care (01) ==
PROVIDERS: Emergency Provider Emergency Medicine
DX: T78.40XA Allergy, unspecified, initial encounter (principal); M06.9 Rheumatoid arthritis, unspecified; J45.909 Unspecified asthma, uncomplicated; J44.9 Chronic obstructive pulmonary disease, unspecified; I10 Essential (primary) hypertension; G47.33 Obstructive sleep apnea (adult) (pediatric); M79.7 Fibromyalgia; G62.9 Polyneuropathy, unspecified; F17.200 Nicotine dependence, unspecified, uncomplicated; Z79.01 Long term (current) use of anticoagulants; Z79.51 Long term (current) use of inhaled steroids; Z79.891 Long term (current) use of opiate analgesic
CPT/HCPCS: 73140; 96372; 99283; J1030

== ENCOUNTER 2022-10-08 14:00 | Outpatient (CLI) | payer MEDICARE, SELFPAY | END 2022-10-08 14:01 | disposition home or self-care (01) | PROVIDERS: PCP Family Medicine; Visit Provider Internal Medicine | DX: Z51.81 Encounter for therapeutic drug level monitoring (principal); M05.79 Rheumatoid arthritis with rheumatoid factor of multiple sites without organ or systems involvement; Z79.899 Other long term (current) drug therapy | CPT/HCPCS: 36415; 81335 ==

== ENCOUNTER 2022-12-24 12:22 | Outpatient (CLI) | payer MEDICARE, SELFPAY ==
[2022-12-31 10:29] LABS: Barbiturates Negative; Oxidant Negative; pH 6.9
[2022-12-31 10:30] LABS: Benzodiazepines Negative; Cocaine Metabolite Negative; Marijuana Metabolite Negative; Methadone Metabolite Negative
[2022-12-31 10:31] LABS: Opiates Positive
[2022-12-31 10:32] LABS: Hydrocodone 940; Hydromorphone 520; Morphine Negative; Norhydrocodone 2800
== END 2022-12-24 12:23 | disposition home or self-care (01) ==
PROVIDERS: PCP Family Medicine; Visit Provider Internal Medicine
DX: M05.79 Rheumatoid arthritis with rheumatoid factor of multiple sites without organ or systems involvement (principal); Z79.899 Other long term (current) drug therapy
CPT/HCPCS: 80299; 80361; G0480

== ENCOUNTER 2023-04-17 14:55 | Outpatient (CLI) | payer MEDICARE, SELFPAY ==
[2023-04-17 15:16] LABS: Basophils Absolute Auto 0.04 K/mm3 (0.00-0.10); Basophils Percent Auto 0.4 % (0.0-1.0); Eosinophils Absolute Auto 0.07 K/mm3 (0.02-0.50); Eosinophils Percent Auto 0.7 % (1.0-6.0); Hemoglobin 15.6 g/dL (14.0-18.0); Immature Granulocyte Absolute 0.03 K/mm3 (0.00-0.00); Immature Granulocyte Percent A 0.3 % (0.0-0.0); Lymphocytes Absolute Auto 1.58 K/mm3 (1.10-4.50); Lymphocytes Percent Auto 15.9 % (18.0-42.0); Mean Corpuscular HGB Conc 34.7 g/dL (32.0-36.0); Mean Corpuscular Hemoglobin 32.8 pg (27.0-31.0); Mean Corpuscular Volume 94.5 fL (78.0-102.0); Mean Platelet Volume 9.5 fl (8.7-11.0); Monocytes Absolute Auto 0.67 K/mm3 (0.10-0.90); Monocytes Percent Auto 6.8 % (2.0-11.0); Neutrophils Absolute Auto 7.5 K/mm3 (1.7-7.2); Neutrophils Percent Auto 75.9 % (50.0-70.0); Platelet Count Result 282 K/mm3 (150-420); Red Blood Count 4.76 M/mm3 (4.70-6.10); Red Cell Distribution Width 12.9 % (11.6-14.4); White Blood Count 9.9 K/mm3 (4.8-10.8)
[2023-04-17 15:20] LABS: Appearance Urine Clear (Clear); Bilirubin Urine Negative (Negative); Blood Urine Negative (Negative); Color Urine Yellow (Yellow); Glucose Urine UA Negative (Negative); Ketones Urine Trace (Negative); Leukocyte Esterase Ur Negative (Negative); Nitrate Urine Negative (Negative); Protein Urine Negative (Negative); Specific Grav Ur 1.015 (1.010-1.020); pH Urine 6.5 (5.0-8.0)
[2023-04-17 15:24] LABS: Add Urine Microscopic? NO; RBC Urine None seen /hpf (0-2); WBC Urine None seen /hpf (0-3)
[2023-04-17 15:25] LABS: Bacteria Urine Trace /hpf; Mucus Urine Moderate /lpf
[2023-04-17 15:28] LABS: Hemoglobin A1C 5.4 % (<5.7)
[2023-04-17 16:10] LABS: HIV 1 P24 AG Negative (Negative); HIV 1/2 AB Negative (Negative)
[2023-04-17 16:27] LABS: Alanine Aminotransferase 42 U/L (16-63); Albumin Level 4.2 g/dL (3.4-5.0); Alkaline Phosphatase 58 U/L (46-116); Anion Gap 8 mmol/L (8-16); Aspartate Amino Transferase 10 U/L (15-37); Bilirubin,Total 0.8 mg/dL (0.00-1.00); Blood Urea Nitrogen 13 mg/dL (7-18); Calcium 9.2 mg/dL (8.5-10.1); Carbon Dioxide 31 mmol/L (21-32); Chloride 103 mmol/L (98-108); Estimated Glomerular Filt Rate > 60; Glucose 100 mg/dL (70-99); Osmolality Calculated 294 mOsm/kg (285-295); Potassium 4.4 mmol/L (3.5-5.1); Sodium 142 mmol/L (136-145); Total Protein 6.8 g/dL (6.4-8.2); Vitamin B12 706 pg/mL (193-986)
[2023-04-17 16:32] LABS: Folic Acid > 20.0 ng/mL (8.6->20)
[2023-04-19 13:33] LABS: NIL 0.01 IU/mL; Quantiferon TB Plus, 1T NEGATIVE (NEGATIVE); TB1-NIL 0.01 IU/mL
[2023-04-19 19:44] LABS: Hepatitis C RNA, Quant PCR <15 IU/mL
[2023-04-21 04:05] LABS: Hepatitis B Surface Antibody Nonreactive (Nonreactive)
[2023-04-21 06:43] LABS: Vitamin D 25 Hydroxy 29 ng/mL (30-100)
[2023-04-22 02:19] LABS: Hepatitis B Core Ab Total Nonreactive (Nonreactive)
[2023-04-22 02:20] LABS: Hepatitis B Surface Antigen Reactive (Nonreactive)
== END 2023-04-17 14:56 | disposition home or self-care (01) ==
LOC: CHSLAB 14:56
PROVIDERS: PCP Family Medicine; Visit Provider Internal Medicine Rheumatology
DX: E11.9 Type 2 diabetes mellitus without complications (principal); Z11.59 Encounter for screening for other viral diseases; M06.9 Rheumatoid arthritis, unspecified; E55.9 Vitamin D deficiency, unspecified; E53.8 Deficiency of other specified B group vitamins; Z51.81 Encounter for therapeutic drug level monitoring
CPT/HCPCS: 36415; 80053; 81003; 82306; 82607; 82746; 83036; 85025; 86480; 86703; 86704; 86706; 87340; 87522; 87806

== ENCOUNTER 2023-05-09 09:27 | Outpatient (CLI) | payer MEDICARE, SELFPAY ==
--- NOTE | ~2023-05-09 | US_ITS ---
Ultrasound of the right chest/flank CLINICAL HISTORY: Palpable mass TECHNIQUE: Sonographic imaging was performed of the right flank at the area of palpable concern. FINDINGS: At the area of palpable concern, there is heterogeneous area of possible soft tissue promin ence, the imaging features sonographically are very ill-defined. Visualized subjacent liver appears g rossly unremarkable. IMPRESSION: Heterogeneous possible masslike area at the area of clinical concern. This is very nonspecific and in distinct sonographically. If there is clinical concern for soft tissue mass or herniation, then cross -sectional imaging (MR or CT respectively) is advised to better assess. Reviewed, dictated and finalized at location . IMPRESSION: Heterogeneous possible masslike area at the area of clinical concern. This is v eunice nonspecific and indistinct sonographically. If there is clinical concern fo r soft tissue mass or herniation, then cross-sectional imaging (MR or CT respec tively) is advised to better assess.
== END 2023-05-09 09:28 | disposition home or self-care (01) ==
LOC: CHSIMG 09:28
PROVIDERS: PCP Family Medicine; Visit Provider Family Medicine
DX: M79.89 Other specified soft tissue disorders (principal)
CPT/HCPCS: 76604

== ENCOUNTER 2023-05-15 11:40 | Outpatient (CLI) | payer MEDICARE, SELFPAY ==
--- NOTE | ~2023-05-15 | CT_ITS ---
Clinical Indication: Right chest soft tissue mass CT Scan of the Chest with Contrast: Technique: Contiguous sections were acquired throughout the chest after intravenous administration of 75 cc of Omnipaque 350. Dose reduction technique was used on this scan by utilizing automated exposu re control and iterative reconstruction technique. The dose-length product (DLP) was 619.02 mGy-cm. COMPARISON: 03/09/2022 Findings: There is no evidence of any significant mediastinal, hilar or axillary lymphadenopathy. There is no f illing defect in the pulmonary arterial tree to suggest pulmonary embolus. There is no evidence of ao rtic dissection or aneurysm. There is no evidence of pleural or pericardial effusion. There is herniation of portion of the right lower lobe between the right eighth and ninth ribs, just superior to the diaphragm (coronal image 86 for example), similar to prior exam. No pulmonary nodule or consolidation seen. No pneumothorax. Images through the upper abdomen reveal no abnormalities. Impression: Herniation of portion of the right lower lobe between the right eighth and ninth ribs laterally, as d etailed above, similar to prior exam. No pulmonary nodule or consolidation. Reviewed, dictated and finalized at location . Impression: Herniation of portion of the right lower lobe between the right eighth and nint h ribs laterally, as detailed above, similar to prior exam. No pulmonary nodule or consolidation.
== END 2023-05-15 11:41 | disposition home or self-care (01) ==
LOC: CHSIMG 11:42
PROVIDERS: PCP Family Medicine; Visit Provider Family Medicine
DX: M79.89 Other specified soft tissue disorders (principal)
CPT/HCPCS: 71260; Q9967

== ENCOUNTER 2023-06-13 10:09 | Emergency (ER) | payer MEDICARE, SELFPAY ==
--- NOTE | ~2023-06-13 | XR_ITS ---
XR shoulder LT min 2V 06/13/2023 10:42 Indication: Left shoulder pain. Limited range of motion. Procedure: 4 views left shoulder Comparison: No prior studies for comparison. Findings: There is severe left glenohumeral joint osteoarthritis. No fracture, subluxation or disloca tion. No significant soft tissue abnormality. No foreign bodies. Impression: 1: Severe left glenohumeral joint osteoarthritis. Reviewed, dictated and finalized at location L. Impression: 1: Severe left glenohumeral joint osteoarthritis.
--- NOTE | ~2023-06-13 | XR_ITS ---
XR chest 2V 06/13/2023 10:42 Indication: Cough with wheezing Procedure: 2 view chest Comparison: 03/09/2022 Findings: Heart size normal. No focal air space disease, pulmonary edema, pleural effusion or suspect ed pneumothorax. No acute osseous abnormality. There is dextroscoliosis. Impression: 1: No acute cardiopulmonary disease. Reviewed, dictated and finalized at location L. Impression: 1: No acute cardiopulmonary disease.
[2023-06-13 10:14] VITALS: BP 123/82; PULSE 86; RESP 20; TEMP 36.6; O2SAT 98
--- NOTE | 2023-06-13 10:15 | ED.GENADULT ---
HPI - General Adult General Chief complaint: Extremity Injury, Upper Stated complaint: left arm pain Source: patient and family Mode of arrival: ambulatory Limitations: no limitations History of Present Illness HPI narrative: Patient woke up this morning around 6:00 a.m. pain left shoulder hurts to move radiates down his biceps says he has some numbness in his left hand but no numbness anywhere else denies any change in his back or neck pain rates the pain as a 8/10. Took [place] earlier this morning. Could not drive himself off her move his arm it hurts so much. Denies any other symptoms of cough shortness of breath chest pain nausea vomiting diaphoresis. Denies any Problems walking talking seeing or hearing dizziness lightheadedness rash or itching lumps or bumps or swelling. Denies any problems eating or drinking voiding or stooling or any other complaints. Related Data Home Medications Medication Instructions Recorded Confirmed pnjqsodh-fxe-uagpi acid 0.4 1 tablet PO DAILY 03/20/22 06/13/23 mg-lycopene 300 mcg-lutein 250 mcg tablet (Anai Mora) cyclobenzaprine 10 mg tablet 10 mg PO TID PRN Muscle Spasm 06/13/23 06/13/23 hydrocodone 10 mg-acetaminophen 1 tablet PO DAILY 06/13/23 06/13/23 325 mg tablet lamotrigine 100 mg tablet 100 mg PO DAILY 06/13/23 06/13/23 lisinopril 10 mg tablet 10 mg PO DAILY 06/13/23 06/13/23 rivaroxaban 10 mg tablet (Xarelto) 10 mg PO DAILY 06/13/23 06/13/23 venlafaxine 75 mg capsule,extended 75 mg PO DAILY 06/13/23 06/13/23 release 24 hr Allergies Allergy/AdvReac Type Severity Reaction Status Date / Time tocilizumab [From Actemra] Allergy Severe Itching Verified 06/13/23 10:20 methotrexate Allergy Unknown Hives / Verified 06/13/23 10:20 Red Face Review of Systems Review of Systems: All systems reviewed & are unremarkable except as noted in HPI and below PMFSH Past Medical History Medical History (Updated 06/13/23 @ 11:53 by Roberto Riggins MD) Asthma Benign paroxysmal positional vertigo COPD (chronic obstructive pulmonary disease) Fibromyalgia Finger tendinitis HTN (hypertension) Medical marijuana use Morbid obesity Nondependent alcohol abuse, in remission CLAUDIO (obstructive sleep apnea) Peripheral neuropathy Personal history of tobacco use Rheumatoid arthritis Salivary gland tumor Surgical History Surgical History History of appendectomy History of colonoscopy (~10/2014) History of foot surgery right foot toes cut off in [facility] [employer] History of incision and drainage (~12/2019) perirectal abscess Social History Social History Smoking status: Current every day smoker Alcohol intake: never Substance use: never Living arrangements: with family Gender identity (if verbalized by the patient): Male Exam Narrative: White male patient no apparent distress unless he tries to move the left shoulder, than he has left shoulder pain.? Head normocephalic, atraumatic.? Eyes conjunctiva pink sclera nonicteric.? Extraocular movements are intact.? Ears externally normal.? Oropharynx is clear with moist mucous membranes without exudates.? Neck is supple full range of motion, nontender no lymphadenopathy.? Back is nontender.? Lungs are clear.? Heart is regular rate and rhythm without murmurs gallops or rubs.? Chest wall is nontender.? Abdomen is soft and nontender no hepatosplenomegaly or masses no CVA tenderness no abdominal bruits.? Extremities no cyanosis clubbing or edema. Left shoulder diffusely tender pain with any range of motion. Left elbow is nontender and has full range of motion is not tender with movement. His wrist and hand has full range of motion. Radial pulses +2. He has decreased light touch to his left hand compared to his right hand. Deltoid nerve testing was normal for motor and sensation the left shoulder.? Skin is warm and dry wi
[2023-06-13] MEDS: HYDROcodone/acetaminophen (*CRX) 10-325 MG TABLET 1 TAB PO (10:34)
[2023-06-13 12:00] VITALS: BP 118/79; PULSE 70; RESP 20; TEMP 36.9; O2SAT 97
== END 2023-06-13 12:02 | disposition home or self-care (01) ==
PROVIDERS: Emergency Provider Emergency Medicine; PCP Family Medicine
DX: M19.012 Primary osteoarthritis, left shoulder (principal); F17.200 Nicotine dependence, unspecified, uncomplicated; Z79.891 Long term (current) use of opiate analgesic; Z79.899 Other long term (current) drug therapy; Z79.01 Long term (current) use of anticoagulants
CPT/HCPCS: 71046; 73030; 99284; A9270

== ENCOUNTER 2023-07-23 11:30 | Outpatient (CLI) | payer MEDICARE, SELFPAY ==
[2023-07-23 12:23] LABS: Prostate Specific Antigen 0.4 ng/mL (< OR = 4.0)
== END 2023-07-23 11:31 | disposition home or self-care (01) ==
LOC: CHSLAB 11:32
PROVIDERS: PCP Family Medicine; Visit Provider Family Medicine
DX: Z12.5 Encounter for screening for malignant neoplasm of prostate (principal); Z87.898 Personal history of other specified conditions
CPT/HCPCS: 36415; 84153; G0103

== ENCOUNTER 2023-10-10 09:26 | Outpatient (CLI) | payer MEDICARE, SELFPAY ==
[2023-10-10 09:41] LABS: Basophils Absolute Auto 0.08 K/mm3 (0.00-0.10); Eosinophils Absolute Auto 0.17 K/mm3 (0.02-0.50); Hemoglobin 14.8 g/dL (14.0-18.0); Immature Granulocyte Absolute 0.04 K/mm3 (0.00-0.00); Immature Granulocyte Percent A 0.5 % (0.0-0.0); Lymphocytes Absolute Auto 2.77 K/mm3 (1.10-4.50); Lymphocytes Percent Auto 33.2 % (18.0-42.0); Mean Corpuscular HGB Conc 33.6 g/dL (32.0-36.0); Mean Corpuscular Hemoglobin 30.5 pg (27.0-31.0); Mean Corpuscular Volume 90.5 fL (78.0-102.0); Mean Platelet Volume 8.9 fl (8.7-11.0); Monocytes Percent Auto 8.4 % (2.0-11.0); Neutrophils Absolute Auto 4.6 K/mm3 (1.7-7.2); Neutrophils Percent Auto 54.9 % (50.0-70.0); Platelet Count Result 314 K/mm3 (150-420); Red Blood Count 4.86 M/mm3 (4.70-6.10); Red Cell Distribution Width 13.5 % (11.6-14.4); White Blood Count 8.4 K/mm3 (4.8-10.8)
[2023-10-10 10:24] LABS: Alanine Aminotransferase 26 U/L (16-63); Albumin Level 3.7 g/dL (3.4-5.0); Alkaline Phosphatase 80 U/L (46-116); Anion Gap 6 mmol/L (8-16); Aspartate Amino Transferase 16 U/L (15-37); Bilirubin,Total 0.4 mg/dL (0.00-1.00); Blood Urea Nitrogen 10 mg/dL (7-18); CRP 1.3 mg/dL (0.0-0.9); Calcium 9.1 mg/dL (8.5-10.1); Carbon Dioxide 32 mmol/L (21-32); Chloride 101 mmol/L (98-108); Estimated Glomerular Filt Rate > 60; Glucose 93 mg/dL (70-99); Osmolality Calculated 287 mOsm/kg (285-295); Potassium 4.1 mmol/L (3.5-5.1); Prostate Specific Antigen 0.3 ng/mL (< OR = 4.0); Sodium 139 mmol/L (136-145); Total Protein 6.8 g/dL (6.4-8.2)
[2023-10-10 10:30] LABS: Thyroid Stimulating Hormone Reflex 1.23 u/IU/mL (0.36-3.74)
== END 2023-10-10 09:27 | disposition home or self-care (01) ==
LOC: CHSLAB 09:27
PROVIDERS: PCP Family Medicine; Visit Provider Family Medicine
DX: R35.1 Nocturia (principal); E11.9 Type 2 diabetes mellitus without complications; M06.9 Rheumatoid arthritis, unspecified; Z12.5 Encounter for screening for malignant neoplasm of prostate; Z87.898 Personal history of other specified conditions
CPT/HCPCS: 36415; 80053; 84153; 84443; 85025; 86140; G0103

== ENCOUNTER 2023-10-14 12:28 | Outpatient (NON) | payer MEDICARE, SELFPAY ==
[2023-10-14 13:13] LABS: Occult Blood Negative (Negative)
[2023-10-14 13:13] LABS: Occult Blood Negative (Negative)
[2023-10-14 13:14] LABS: Occult Blood Negative (Negative)
== END 2023-10-14 12:29 | disposition home or self-care (01) ==
LOC: CHSLAB 12:31
PROVIDERS: Visit Provider Family Medicine
DX: R63.4 Abnormal weight loss (principal)
CPT/HCPCS: 82272

== ENCOUNTER 2024-03-17 08:49 | Outpatient (CLI) | payer MEDICARE, SELFPAY ==
--- NOTE | ~2024-03-17 | XR_ITS ---
Clinical Indication: Shortness of breath PA and lateral views of the chest: Comparison: 06/13/2023 Findings: The lungs are clear, without evidence of focal consolidation or pleural effusion. Cardiome diastinal silhouette is within normal limits. Bones and soft tissues are unremarkable. Impression: Normal chest. Reviewed, dictated and finalized at location . Impression: Normal chest.
[2024-03-17 09:20] LABS: Basophils Absolute Auto 0.06 K/mm3 (0.00-0.10); Basophils Percent Auto 0.6 % (0.0-1.0); Eosinophils Absolute Auto 0.25 K/mm3 (0.02-0.50); Eosinophils Percent Auto 2.6 % (1.0-6.0); Hematocrit 42.5 % (40.0-54.0); Hemoglobin 13.7 g/dL (14.0-18.0); Immature Granulocyte Absolute 0.03 K/mm3 (0.00-0.00); Immature Granulocyte Percent A 0.3 % (0.0-0.0); Lymphocytes Absolute Auto 2.54 K/mm3 (1.10-4.50); Lymphocytes Percent Auto 26.6 % (18.0-42.0); Mean Corpuscular HGB Conc 32.2 g/dL (32-36); Mean Corpuscular Hemoglobin 30.8 pg (27.0-31.0); Mean Corpuscular Volume 95.5 fL (78.0-102.0); Mean Platelet Volume 8.7 fl (8.7-11.0); Monocytes Absolute Auto 0.94 K/mm3 (0.10-0.90); Monocytes Percent Auto 9.8 % (2.0-11.0); Neutrophils Absolute Auto 5.74 K/mm3 (1.70-7.20); Neutrophils Percent Auto 60.1 % (50.0-70.0); Platelet Count Result 244 K/mm3 (150-420); Red Blood Count 4.45 M/mm3 (4.70-6.10); Red Cell Distribution Width 13.6 % (11.6-14.4); White Blood Count 9.6 K/mm3 (4.8-10.8)
[2024-03-17 09:42] LABS: Alanine Aminotransferase 24 U/L (16-63); Albumin Level 3.7 g/dL (3.4-5.0); Alkaline Phosphatase 51 U/L (46-116); Anion Gap 10 mmol/L (4-12); Aspartate Amino Transferase 20 U/L (15-37); Blood Urea Nitrogen 12 mg/dL (7-18); Calcium 8.8 mg/dL (8.5-10.1); Carbon Dioxide 31 mmol/L (21-32); Chloride 102 mmol/L (98-108); Estimated Glomerular Filt Rate > 60; Glucose 90 mg/dL (70-99); NT Pro B Type Natriuretic Pept 58 pg/mL (0-125); Osmolality Calculated 295 mOsm/kg (285-295); Potassium 3.7 mmol/L (3.5-5.1); Sodium 143 mmol/L (136-145); Total Protein 6.5 g/dL (6.4-8.2); Troponin I 6.6 ng/L (0.00-60.4)
[2024-03-17 10:00] LABS: SARS-CoV-2 RNA PCR Negative (Negative)
[2024-03-17 10:03] LABS: Influenza A QL RT-PCR Negative (Negative); Influenza B QL RT-PCR Negative (Negative); RSV RNA, RT-PCR Negative (Negative)
== END 2024-03-17 08:50 | disposition home or self-care (01) ==
LOC: CHSLAB 08:50
PROVIDERS: PCP Family Medicine; Visit Provider Family Medicine
DX: R06.00 Dyspnea, unspecified (principal); R06.02 Shortness of breath
CPT/HCPCS: 36415; 71046; 80053; 83880; 84484; 85025; 87637

== ENCOUNTER 2024-05-12 07:04 | Outpatient (CLI) | payer MEDICARE, SELFPAY ==
[2024-05-12 08:09] LABS: Cholesterol 169 mg/dL (0-200); HDL Direct 53 mg/dL (40-60); LDL Cholesterol Calculated 89 mg/dL (<130); Triglycerides 136 mg/dL (0-150)
== END 2024-05-12 07:05 | disposition home or self-care (01) ==
LOC: CHSLAB 07:07
PROVIDERS: PCP Family Medicine; Visit Provider Internal Medicine Rheumatology
DX: E78.5 Hyperlipidemia, unspecified (principal)
CPT/HCPCS: 36415; 80061

== ENCOUNTER 2024-07-08 12:23 | Outpatient (CLI) | payer MEDICARE, SELFPAY ==
--- NOTE | ~2024-07-08 | CT_ITS ---
EXAMINATION: CT abdomen pelvis w con DATE: 07/08/2024 13:54 INDICATION: Right groin abscess. TECHNIQUE: Computed tomography (CT) of the abdomen and pelvis was performed with 100 mL Omnipaque 350 intravenous contrast. Automated exposure control and iterative reconstruction technique were employe d. The dose-length product was 1629.40 mGy-cm. COMPARISON: None. FINDINGS: The visualized portions of the lung bases are clear without pneumonia or pleural effusion. The heart size is normal. No pericardial effusion. Calcifications in the liver and spleen are consist ent with old granulomatous disease. The gallbladder is distended. The pancreas, adrenal glands, and k idneys are normal. There is a left inguinal hernia containing fat. There are no dilated loops of gisel l. The appendix is not visualized. There are no pathologically enlarged lymph nodes. There is no free intraperitoneal fluid. There is an umbilical hernia containing fat. There are bilateral hydroceles. There is moderate lower lumbar spondylosis. IMPRESSION: 1. No abscess. 2. Gallbladder distention, which may be secondary to fasting. Correlate with physical exam to exclude acute cholecystitis. Reviewed, dictated and finalized at location A. IMPRESSION: 1. No abscess. 2. Gallbladder distention, which may be secondary to fasting. Correlate with ph ysical exam to exclude acute cholecystitis.
[2024-07-08 12:42] LABS: Basophils Absolute Auto 0.07 K/mm3 (0.00-0.10); Basophils Percent Auto 0.9 % (0.0-1.0); Eosinophils Percent Auto 2.5 % (1.0-6.0); Hematocrit 44.6 % (37.0-46.0); Hemoglobin 15.7 g/dL (12.4-15.3); Immature Granulocyte Absolute 0.02 K/mm3 (0.00-0.00); Immature Granulocyte Percent A 0.3 % (0.0-0.0); Lymphocytes Absolute Auto 2.79 K/mm3 (1.10-4.50); Lymphocytes Percent Auto 35.5 % (18.0-42.0); Mean Corpuscular HGB Conc 35.2 g/dL (32-36); Mean Corpuscular Hemoglobin 32.4 pg (27.0-31.0); Monocytes Absolute Auto 1.05 K/mm3 (0.10-0.90); Monocytes Percent Auto 13.4 % (2.0-11.0); Neutrophils Absolute Auto 3.72 K/mm3 (1.70-7.20); Neutrophils Percent Auto 47.4 % (50.0-70.0); Platelet Count Result 265 K/mm3 (150-420); Red Blood Count 4.85 M/mm3 (4.70-6.10); Red Cell Distribution Width 12.9 % (11.6-14.4); White Blood Count 7.9 K/mm3 (4.8-10.8)
[2024-07-08 13:32] LABS: Estimated Glomerular Filt Rate > 60
[2024-07-08 13:36] LABS: Alanine Aminotransferase 46 U/L (16-63); Albumin Level 4.5 g/dL (3.4-5.0); Alkaline Phosphatase 62 U/L (46-116); Anion Gap 10 mmol/L (4-12); Aspartate Amino Transferase 26 U/L (15-37); Bilirubin,Total 1.6 mg/dL (0.00-1.00); Blood Urea Nitrogen 10 mg/dL (7-18); Calcium 9.7 mg/dL (8.5-10.1); Carbon Dioxide 31 mmol/L (21-32); Chloride 100 mmol/L (98-108); Glucose 95 mg/dL (70-99); Osmolality Calculated 291 mOsm/kg (285-295); Sodium 141 mmol/L (136-145)
== END 2024-07-08 12:24 | disposition home or self-care (01) ==
LOC: CHSLAB 12:24
PROVIDERS: PCP Nurse Practitioner Family; Visit Provider Nurse Practitioner Family
DX: L02.214 Cutaneous abscess of groin (principal)
CPT/HCPCS: 36415; 74177; 80053; 85025; 87070; 87075; 87147; 87205; Q9967

== ENCOUNTER 2024-08-10 14:13 | Outpatient (CLI) | payer MEDICARE, SELFPAY ==
--- NOTE | ~2024-08-10 | XR_ITS ---
EXAMINATION: XR foot RT min 3V DATE: 08/10/2024 14:36 INDICATION: Right foot pain TECHNIQUE: Dorsoplantar, two oblique and lateral views of the right foot were obtained. COMPARISON: None. FINDINGS: Right great toe amputation across the head of the first proximal phalanx with corticated osteotomy ma rgin. Bone alignment is otherwise normal. No fracture. No cortical erosions, osteolysis or periosteal reaction to suggest osteomyelitis. Mild polyarticular osteoarthritis at multiple joints in the mid a nd forefoot. Moderate-sized Achilles and plantar calcaneal spurs. Additional enthesophyte at the tip of the lateral malleolus. Small heterotopic ossicle near the tip the medial malleolus likely sequela of chronic deltoid ligament sprain. IMPRESSION: 1. Mild polyarticular osteoarthritis in the right mid and forefoot with chronic partial right great t oe amputation. No acute osseous abnormality. Reviewed, dictated and finalized at location A. IMPRESSION: 1. Mild polyarticular osteoarthritis in the right mid and forefoot with chronic partial right great toe amputation. No acute osseous abnormality.
[2024-08-10 14:56] LABS: Alanine Aminotransferase 35 U/L (16-63); Albumin Level 4.2 g/dL (3.4-5.0); Alkaline Phosphatase 51 U/L (46-116); Anion Gap 12 mmol/L (4-12); Aspartate Amino Transferase 13 U/L (15-37); Blood Urea Nitrogen 11 mg/dL (7-18); Calcium 9.2 mg/dL (8.5-10.1); Carbon Dioxide 25 mmol/L (21-32); Chloride 104 mmol/L (98-108); Estimated Glomerular Filt Rate > 60; Glucose 121 mg/dL (70-99); Iron 134 ug/dL (65-175); Magnesium 2.1 mg/dL (1.8-2.4); Osmolality Calculated 292 mOsm/kg (285-295); Percent Iron Saturation 34 % (12-57); Potassium 4.2 mmol/L (3.5-5.1); Sodium 141 mmol/L (136-145)
== END 2024-08-10 14:14 | disposition home or self-care (01) ==
LOC: CHSLAB 14:14
PROVIDERS: PCP Family Medicine; Visit Provider Nurse Practitioner Family
DX: M79.671 Pain in right foot (principal); R25.2 Cramp and spasm; Z79.899 Other long term (current) drug therapy; M19.071 Primary osteoarthritis, right ankle and foot; Z89.411 Acquired absence of right great toe; R71.8 Other abnormality of red blood cells
CPT/HCPCS: 36415; 73630; 80053; 83540; 83550; 83735

== ENCOUNTER 2024-09-07 07:56 | Outpatient (CLI) | payer MEDICARE, SELFPAY ==
[2024-09-07 09:10] LABS: Vitamin B12 1256 pg/mL (193-986)
[2024-09-07 09:18] LABS: Folic Acid > 20.0 ng/mL (8.6->20)
[2024-09-08 10:17] LABS: Basophils Absolute Auto 0.04 K/mm3 (0.00-0.10); Basophils Percent Auto 0.6 % (0.0-1.0); Eosinophils Absolute Auto 0.29 K/mm3 (0.02-0.50); Eosinophils Percent Auto 4.6 % (1.0-6.0); Hematocrit 46.3 % (37.0-46.0); Hemoglobin 14.9 g/dL (12.4-15.3); Immature Granulocyte Absolute 0.02 K/mm3 (0.00-0.00); Immature Granulocyte Percent A 0.3 % (0.0-0.0); Lymphocytes Absolute Auto 2.87 K/mm3 (1.10-4.50); Lymphocytes Percent Auto 45.8 % (18.0-42.0); Mean Corpuscular HGB Conc 32.2 g/dL (32-36); Mean Corpuscular Hemoglobin 31.9 pg (27.0-31.0); Mean Corpuscular Volume 99.1 fL (78.0-102.0); Mean Platelet Volume 9.7 fl (8.7-11.0); Monocytes Absolute Auto 0.68 K/mm3 (0.10-0.90); Monocytes Percent Auto 10.9 % (2.0-11.0); Neutrophils Absolute Auto 2.36 K/mm3 (1.70-7.20); Neutrophils Percent Auto 37.8 % (50.0-70.0); Platelet Count Result 257 K/mm3 (150-420); Red Blood Count 4.67 M/mm3 (4.70-6.10); Red Cell Distribution Width 13.2 % (11.6-14.4); White Blood Count 6.3 K/mm3 (4.8-10.8)
[2024-09-08 10:21] LABS: Alanine Aminotransferase 41 U/L (16-63); Albumin Level 4.2 g/dL (3.4-5.0); Alkaline Phosphatase 50 U/L (46-116); Anion Gap 13 mmol/L (4-12); Aspartate Amino Transferase 22 U/L (15-37); Bilirubin Direct 0.2 mg/dL (0-0.2); Bilirubin,Total 1.2 mg/dL (0.00-1.00); Blood Urea Nitrogen 9 mg/dL (7-18); Calcium 8.9 mg/dL (8.5-10.1); Carbon Dioxide 26 mmol/L (21-32); Chloride 103 mmol/L (98-108); Estimated Glomerular Filt Rate > 60; Glucose 102 mg/dL (70-99); Osmolality Calculated 292 mOsm/kg (285-295); Potassium 3.8 mmol/L (3.5-5.1); Sodium 142 mmol/L (136-145); Total Protein 6.5 g/dL (6.4-8.2)
== END 2024-09-07 07:57 | disposition home or self-care (01) ==
LOC: CHSLAB 07:57
PROVIDERS: Internal Medicine Rheumatology; PCP Family Medicine; Visit Provider Family Medicine
DX: E53.8 Deficiency of other specified B group vitamins (principal)
CPT/HCPCS: 36415; 80048; 80076; 82607; 82746; 85025

== ENCOUNTER 2024-10-01 07:13 | Outpatient (CLI) | payer MEDICARE, SELFPAY | END 2024-10-01 07:14 | disposition home or self-care (01) | LOC: CHSIMG 07:17 | PROVIDERS: PCP Family Medicine; Visit Provider Family Medicine | DX: Z51.81 Encounter for therapeutic drug level monitoring (principal); M75.101 Unspecified rotator cuff tear or rupture of right shoulder, not specified as traumatic | CPT/HCPCS: 99199 ==

== ENCOUNTER 2024-10-22 08:51 | Emergency (ER) | payer MEDICARE, SELFPAY ==
[2024-10-22] VITALS (13 sets, daily range): BP systolic 103–131; BP diastolic 59–86; PULSE 62–75; RESP 13–20; TEMP 36.1; O2SAT 93–97
--- NOTE | ~2024-10-22 | XR_ITS ---
EXAMINATION: XR chest 1V portable DATE: 10/22/2024 09:35 INDICATION: Left sided chest pain TECHNIQUE: frontal view of the chest was obtained. COMPARISON: Chest radiograph dated 03/17/2024 FINDINGS: The lungs remain clear with no focal airspace opacities, pulmonary edema, pleural effusion or pneumot horax. The cardiomediastinal silhouette is normal. IMPRESSION: 1. No acute cardiopulmonary disease. Reviewed, dictated and finalized at location B. ANICAL SYSTEMS DESIGN ENGINEER
--- NOTE | 2024-10-22 08:57 | ECG_ITS ---
Test Date: 2024-10-22 09:08:16 Measurements Intervals Ira Rate: 68 P: 69 MN: 175 QRS: 78 QRSD: 90 T: 64 QT: 365 QTc: 389 Interpretive Statements SINUS RHYTHM No previous ECG available for comparison Electronically Signed On 10-23-2024 12:28:21 DEVELOPMENT MGR by Mala Arevalo M.D.
--- NOTE | 2024-10-22 09:14 | ED.CHESTPAIN ---
HPI - Chest Pain General Chief Complaint: Chest Pain Stated Complaint: chest pain, headache Time Seen by Provider: 10/22/24 08:57 Source: patient and family Mode of arrival: ambulatory Limitations: no limitations History of Present Illness HPI narrative: Patient is a 64-year-old male with some left-sided chest pain with intermittent events that started about a month ago. He was having chest pain this morning and decided to come to the ER for further evaluation. No associated symptoms such as shortness of breath. The pain is sharp and comes in episodes lasting a few minutes. He takes Xarelto for prior blood clots. Patient has been having constipation issues and that actually resolved some the pain when he relieves the stool. MD complaint: chest pain Pertinent past history: other ( rheumatoid arthritis, DVTs, hypertension) Onset (ago): month(s) (1) Timing of current episode: episodic, daily and now resolved Prior episodes: Yes Onset: during rest and during exertion Pain location: substernal and left chest Pain radiation: none Severity: moderate Pain scale (0-10): 4 Quality: sharp Relieving factors: nothing and other ( self-limiting) Exacerbating factors: nothing Context: history of DVT/PE ( Xarelto) Associated symptoms: other ( none) Treatment prior to arrival: none Risk Factors Coronary artery disease risk factors: hypertension Thoracic aortic dissection risk factors: none Pulmonary embolism risk factors: history of deep vein thrombosis ( on Xarelto) Related Data Home Medications ?Medication ?Instructions ?Recorded ?Confirmed ?Last Taken ?Type lrmtphrb-yef-hcfqc acid 0.4 1 tablet PO DAILY 03/20/22 10/15/24 Unknown History mg-lycopene 300 mcg-lutein [facility] tocilizumab 162 mg/0.9 mL 162 mg subcut WEEKLY 03/17/24 10/15/24 Unknown History subcutaneous syringe (Actemra) Allergies Allergy/AdvReac Type Severity Reaction Status Date / Time methotrexate Allergy Unknown Hives / Verified 10/22/24 09:35 Red Face Review of Systems Review of Systems: All systems reviewed & are unremarkable except as noted in HPI and below Constitutional: Constitutional: Reports no additional constitutional complaints Eyes: Eyes: Reports no additional eye complaints ENT: Reports system reviewed and no additional complaints, except as documented Cardiovascular: Cardiovascular: Reports no additional cardiovascular complaints Respiratory: Respiratory: Reports no additional respiratory complaints Gastrointestinal: Gastrointestinal: Reports no additional gastrointestinal complaints Genitourinary: Genitourinary: Reports no additional male genitourinary complaints Musculoskeletal: Musculoskeletal: Reports no additional musculoskeletal complaints Integumentary/Breasts: Skin/Breast: Reports system reviewed and no additional complaints, except as docu Neurologic: Reports system reviewed and no additional complaints, except as documented Psychiatric: Psychiatric: Reports no additional psychiatric complaints Endocrine: Endocrine: Reports no additional endocrine complaints Hematologic/Lymphatic: Hematologic/Lymphatic: Reports no additional hematologic/lymphatic complaints Allergic/Immunologic: Allergic/Immunologic: Reports no additional allergic/immunologic complaints [facility] Past Medical History Medical History Finger tendinitis Personal history of tobacco use Nondependent alcohol abuse, in remission Benign paroxysmal positional vertigo Salivary gland tumor Medical marijuana use CLAUDIO (obstructive sleep apnea) Rheumatoid arthritis Peripheral neuropathy Morbid obesity Fibromyalgia Asthma COPD (chronic obstructive pulmonary disease) HTN (hypertension) Surgical History Surgical History History of incision and drainage (~12/2019) perirectal abscess History of foot surgery right foot toes cut off in Jr [employer] History of colonoscopy (~10/2014) History of appendectomy Social History Social History Smoking status: Current every day smoker Alcohol intake: never Substance use: never Living arrangements: with family Gender identity (if verbalized by the patient): Male Exam Const: General: healthy appearing Nutritional Appearance: well nourished Orientation/consciousness: patient oriented x3 Limitations: no limitations HENMT: Head: normal to inspection Ears: external ears normal Face/Nose/Sinus: Normal external nose present Eyes: Conjunctivae: conjunctivae normal Pupils: Equal, round and reactive pupils present EOM: EOMs intact bilaterally Neck: Neck: normal visual inspection Chest: Chest palpation & inspection: normal inspection of the chest Resp: Effort & Inspection: normal respiratory effort and not labored Auscultation: clear to auscultation bilaterally and no crackles Cardio: Rate: regular rate Rhythm: regular rhythm Heart sounds: no murmurs GI: Inspection: non-distended GI Palp: Yes Soft to palpation and No Tenderness to palpation present (GI) Auscultation: normal bowel sounds : General: Yes bladder normal to palpation Back/Spine/Pelvis: Back: no CVA tenderness Skin: General skin exam: normal color and jaundice Rashes: no rashes Wounds: no wounds Neuro: General: patient oriented x3 and moves all extremities Cranial nerves: Yes Nystagmus not present Speech: normal speech Gait exam (Neuro): Normal gait present Extrem: General: normal to inspection Psych: Mental Status: mental status grossly normal Affect: normal affect Attitude: cooperative Course Vital Signs Vital signs: Vital Signs Temperature 36.1 C L 10/22/24 08:57 Pulse Rate 71 10/22/24 08:57 Respiratory Rate 16 10/22/24 08:57 Blood Pressure 129/85 10/22/24 08:57 Pulse Oximetry 97 10/22/24 08:57 Oxygen Delivery Room Air 10/22/24 08:57 Temperature 36.1 C L 10/22/24 08:57 Pulse Rate 68 10/22/24 09:31 Respiratory Rate 16 10/22/24 09:31 Blood Pressure 131/79 10/22/24 09:25 Pulse Oximetry 96 10/22/24 09:31 Oxygen Delivery Room Air 10/22/24 09:25 MDM - Chest Pain MDM Narrative Medical decision making narrative: patient is a 64-year-old male with some intermittent chest pain. We will go ahead and do a cardiac workup at this time. Chest pain has resolved at this time. Using the restroom to have a bowel movement resolves a lot of his discomfort. Lab Data Attestation: I reviewed the patient's lab results. 10/22/24 09:28 10/22/24 09:28 Labs: Lab Results 10/22/24 10/22/24 Range/Units 09:00 09:28 WBC 8.8 (4.8-10.8) K/mm3 RBC 4.61 L (4.70-6.10) M/mm3 Hgb 14.5 (12.4-15.3) g/dL Hct 42.9 (37.0-46.0) % MCV 93.1 (78.0-102.0) fL MCH 31.5 H (27.0-31.0) pg MCHC 33.8 (32-36) g/dL RDW 13.2 (11.6-14.4) % Plt Count 298 (150-420) K/mm3 MPV 8.8 (8.7-11.0) fl Immature Gran % (Auto) 0.5 H (0.0-0.0) % Neut % (Auto) 53.7 (50.0-70.0) % Lymph % (Auto) 36.1 (18.0-42.0) % [place] % (Auto) 5.9 (2.0-11.0) % Eos % (Auto) 3.2 (1.0-6.0) % Baso % (Auto) 0.6 (0.0-1.0) % Lymph # (Auto) 3.16 (1.10-4.50) K/mm3 [place] # (Auto) 0.52 (0.10-0.90) K/mm3 Eos # (Auto) 0.28 (0.02-0.50) K/mm3 Baso # (Auto) 0.05 (0.00-0.10) K/mm3 Abs Immat Gran (auto) 0.04 H (0.00-0.00) K/mm3 Absolute Neuts (auto) 4.71 (1.70-7.20) K/mm3 Absolute Nucleated RBC 0.00 (0.00-0.00) K/mm3 Nucleated RBC % 0.0 (0-0.0) % PT 10.8 (9.50-12.1) Seconds INR 1.0 APTT 22.4 L (23.9-30.70) Sec Sodium 142 (136-145) mmol/L Potassium 3.8 (3.5-5.1) mmol/L Chloride 104 (98-108) mmol/L Carbon Dioxide 30 (21-32) mmol/L Anion Gap 8 (4-12) mmol/L BUN 18 (7-18) mg/dL Creatinine 1.05 (0.70-1.30) mg/dL Estim Creat Clear Calc 72 ml/min Estimated GFR > 60 (59 - ) Glucose 116 H (70-99) mg/dL Calculated Osmolality 296 H (285-295) mOsm/kg Calcium 8.9 (8.5-10.1) mg/dL Total Bilirubin 0.8 (0.00-1.00) mg/dL AST 14 L (15-37) U/L ALT 37 (16-63) U/L Alkaline Phosphatase 45 L (46-116) U/L Troponin I 6.5 (0.00-60.4) ng/L NT-Pro-B Natriuret Pep 96 (0-125) pg/mL Total Protein 6.0 L (6.4-8.2) g/dL Albumin 3.6 (3.4-5.0) g/dL Lipase 33 (16-77) U/L Urine Color Light yellow (Yellow) Urine Appearance Clear (Clear) Urine pH 6.0 (5.0-8.0) Ur Specific Walsh 1.020 (1.010-1.020) Urine Protein Negative (Negative) Urine Glucose (UA) Negative (Negative) Urine Ketones Negative (Negative) Ur Blood (Man) Negative (Negative) Urine Nitrate Negative (Negative) Urine Bilirubin Negative (Negative) Urine Urobilinogen 0.2 (0.2-1.0) mg/dL Leukocyte Esterase Rfl Negative (Negative) YARED/UL Imaging Data Attestation: I personally reviewed and interpreted this imaging study as follows: Radiologist's impression: Chest x-rays negative for acute process ECG Data EKG #1: Attestation: I personally reviewed and interpreted this ECG as follows: ECG completion date: 10/22/24 ECG completion time: 09:21 EKG Interpretation: normal rate, sinus rhythm, no ectopy, no ST changes, normal QRS, normal QT, NL axis and no acute changes Discharge Plan Discharge Clinical Impression: Atypical chest pain Patient Disposition: Home, Self-Care Condition: Stable Instructions: Chest Pain (ED) Additional Instructions: please follow-up with primary doctor in the next week. I suggest further cardiac testing such as a stress test as an outpatient. Patient Language: Latvian Prescriptions: No Action Actemra 162 mg/0.9 mL syringe 162 mg subcut WEEKLY diazepam 2 mg tablet 2 mg PO QHS PRN (Reason: anxiety) Qty: 3 0RF Sentry Senior 0.4 mg-300 mcg- 250 mcg tablet 1 tablet PO DAILY lidocaine (PF) 10 mg/mL (1 %) solution 4 ml intra-articular ONCE Qty: 1 0RF hydroxyzine HCl 25 mg tablet 25 mg PO TID PRN (Reason: itching) Qty: 30 0RF doxycycline hyclate 100 mg tablet 100 mg PO BID Qty: 10 0RF prednisone 50 mg tablet 50 mg PO DAILY Qty: 5 0RF hydrocodone-acetaminophen 10-325 mg tablet 1 tablet PO TID PRN (Reason: pain (scale score 7-10)) Qty: 10 0RF zinc oxide 20 % ointment 1 applic topical QID PRN (Reason: skin irritation) Qty: 500 0RF Xarelto 10 mg tablet 10 mg PO DAILY Qty: 90 0RF lisinopril 10 mg tablet See Rx Instructions .ROUTE .COMPLEX Qty: 90 0RF Dose Instruction: TAKE 1 TABLET BY MOUTH EVERY DAY Rx Instructions: TAKE 1 TABLET BY MOUTH EVERY DAY cyclobenzaprine 10 mg tablet See Rx Instructions .ROUTE .COMPLEX Qty: 90 1RF Dose Instruction: TAKE 1 TABLET BY MOUTH THREE TIMES A DAY NEEDED FOR PAIN Rx Instructions: TAKE 1 TABLET BY MOUTH THREE TIMES A DAY NEEDED FOR PAIN albuterol sulfate 90 mcg/actuation HFA aerosol inhaler 2 puff INHALATION Q4H MDD 12 puffs PRN (Reason: shortness of breath or wheezing) Qty: 8.5 0RF amitriptyline 50 mg tablet See Rx Instructions .ROUTE .COMPLEX Qty: 90 0RF Dose Instruction: TAKE 1 TABLET BY MOUTH AT BEDTIME Rx Instructions: TAKE 1 TABLET BY MOUTH AT BEDTIME ipratropium bromide 42 mcg (0.06 %) spray,non-aerosol 2 spray intranasal TID PRN (Reason: allergy symptoms) Qty: 15 5RF Rx Instructions: administer into each nostril lamotrigine 100 mg tablet See Rx Instructions .ROUTE .COMPLEX Qty: 90 1RF Dose Instruction: TAKE 1 TABLET BY MOUTH EVERYDAY AT BEDTIME Rx Instructions: TAKE 1 TABLET BY MOUTH EVERYDAY AT BEDTIME Follow-up/Referrals: Dinesh Castillo DO [Primary Care Provider] - Time of Disposition: 10:07
[2024-10-22 09:20] LABS: Add Urine Microscopic? NO; Appearance Urine Clear (Clear); Bilirubin Urine Negative (Negative); Blood Urine Negative (Negative); Color Urine Light Yellow (Yellow); Glucose Urine UA Negative (Negative); Ketones Urine Negative (Negative); Leukocyte Esterase Ur Negative LEU/UL (Negative); Nitrate Urine Negative (Negative); Protein Urine Negative (Negative); Urobilinogen Urine 0.2 mg/dL (0.2-1.0)
[2024-10-22 09:34] LABS: Basophils Absolute Auto 0.05 K/mm3 (0.00-0.10); Basophils Percent Auto 0.6 % (0.0-1.0); Eosinophils Absolute Auto 0.28 K/mm3 (0.02-0.50); Eosinophils Percent Auto 3.2 % (1.0-6.0); Hematocrit 42.9 % (37.0-46.0); Hemoglobin 14.5 g/dL (12.4-15.3); Immature Granulocyte Absolute 0.04 K/mm3 (0.00-0.00); Immature Granulocyte Percent A 0.5 % (0.0-0.0); Lymphocytes Absolute Auto 3.16 K/mm3 (1.10-4.50); Lymphocytes Percent Auto 36.1 % (18.0-42.0); Mean Corpuscular HGB Conc 33.8 g/dL (32-36); Mean Corpuscular Hemoglobin 31.5 pg (27.0-31.0); Mean Corpuscular Volume 93.1 fL (78.0-102.0); Mean Platelet Volume 8.8 fl (8.7-11.0); Monocytes Absolute Auto 0.52 K/mm3 (0.10-0.90); Monocytes Percent Auto 5.9 % (2.0-11.0); Neutrophils Absolute Auto 4.71 K/mm3 (1.70-7.20); Neutrophils Percent Auto 53.7 % (50.0-70.0); Platelet Count Result 298 K/mm3 (150-420); Red Blood Count 4.61 M/mm3 (4.70-6.10); Red Cell Distribution Width 13.2 % (11.6-14.4); White Blood Count 8.8 K/mm3 (4.8-10.8)
[2024-10-22 09:48] LABS: Partial Thromboplastin Time 22.4 Sec (23.9-30.70); Prothrombin Time 10.8 Seconds (9.50-12.1)
[2024-10-22 10:00] LABS: Alanine Aminotransferase 37 U/L (16-63); Albumin Level 3.6 g/dL (3.4-5.0); Alkaline Phosphatase 45 U/L (46-116); Anion Gap 8 mmol/L (4-12); Aspartate Amino Transferase 14 U/L (15-37); Bilirubin,Total 0.8 mg/dL (0.00-1.00); Blood Urea Nitrogen 18 mg/dL (7-18); Calcium 8.9 mg/dL (8.5-10.1); Carbon Dioxide 30 mmol/L (21-32); Chloride 104 mmol/L (98-108); Estimated CRCL calculation 72 ml/min; Estimated Glomerular Filt Rate > 60; Glucose 116 mg/dL (70-99); Lipase 33 U/L (16-77); NT Pro B Type Natriuretic Pept 96 pg/mL (0-125); Osmolality Calculated 296 mOsm/kg (285-295); Potassium 3.8 mmol/L (3.5-5.1); Sodium 142 mmol/L (136-145)
[2024-10-22 10:01] LABS: Troponin I 6.5 ng/L (0.00-60.4)
== END 2024-10-22 10:17 | disposition home or self-care (01) ==
PROVIDERS: Emergency Provider Emergency Medicine; PCP Family Medicine
DX: R07.89 Other chest pain (principal); I10 Essential (primary) hypertension; M06.9 Rheumatoid arthritis, unspecified; Z86.718 Personal history of other venous thrombosis and embolism; F17.210 Nicotine dependence, cigarettes, uncomplicated; Z79.01 Long term (current) use of anticoagulants
CPT/HCPCS: 36415; 71045; 80053; 81003; 83690; 83880; 84484; 85025; 85610; 85730; 93005; 99284

== ENCOUNTER 2024-11-10 13:23 | Outpatient (CLI) | payer MEDICARE, SELFPAY ==
--- NOTE | ~2024-11-10 | US_ITS ---
EXAM: Focused ultrasound examination of the soft tissues of the left upper extremity HISTORY: R22.32 - Localized swelling, mass and lump, left upper limb TECHNIQUE: Sonographic evaluation of the soft tissues of the left upper extremity were performed asse ssing grayscale appearance and color Doppler flow. COMPARISON: None. FINDINGS: Sonographic evaluation of the soft tissues of the left upper cavity demonstrate benign fibrofatty and fibromuscular elements without a cystic or solid lesion of concern. IMPRESSION: No sonographic abnormality is appreciated on focused ultrasound examination of the area of clinical c oncern within the left upper extremity, as detailed above.. Reviewed, dictated and finalized at location A. STRINGER IMPRESSION: No sonographic abnormality is appreciated on focused ultrasound examination of the area of clinical concern within the left upper extremity, as detailed above ..
[2024-11-10 13:50] LABS: Basophils Absolute Auto 0.06 K/mm3 (0.00-0.10); Basophils Percent Auto 0.6 % (0.0-1.0); Eosinophils Absolute Auto 0.07 K/mm3 (0.02-0.50); Eosinophils Percent Auto 0.7 % (1.0-6.0); Hematocrit 46.3 % (37.0-46.0); Hemoglobin 15.5 g/dL (12.4-15.3); Immature Granulocyte Absolute 0.04 K/mm3 (0.00-0.00); Immature Granulocyte Percent A 0.4 % (0.0-0.0); Lymphocytes Absolute Auto 1.59 K/mm3 (1.10-4.50); Mean Corpuscular HGB Conc 33.5 g/dL (32-36); Mean Corpuscular Hemoglobin 31.4 pg (27.0-31.0); Mean Corpuscular Volume 93.7 fL (78.0-102.0); Mean Platelet Volume 8.4 fl (8.7-11.0); Monocytes Absolute Auto 0.66 K/mm3 (0.10-0.90); Neutrophils Absolute Auto 6.95 K/mm3 (1.70-7.20); Neutrophils Percent Auto 74.3 % (50.0-70.0); Platelet Count Result 295 K/mm3 (150-420); Red Blood Count 4.94 M/mm3 (4.70-6.10); Red Cell Distribution Width 13.1 % (11.6-14.4); White Blood Count 9.4 K/mm3 (4.8-10.8)
[2024-11-10 14:37] LABS: Alanine Aminotransferase 35 U/L (16-63); Albumin Level 4.3 g/dL (3.4-5.0); Alkaline Phosphatase 50 U/L (46-116); Anion Gap 6 mmol/L (4-12); Aspartate Amino Transferase 15 U/L (15-37); Bilirubin Direct 0.2 mg/dL (0-0.2); Bilirubin,Total 1.2 mg/dL (0.00-1.00); Blood Urea Nitrogen 15 mg/dL (7-18); Calcium 9.8 mg/dL (8.5-10.1); Carbon Dioxide 32 mmol/L (21-32); Chloride 100 mmol/L (98-108); Estimated Glomerular Filt Rate > 60; Glucose 97 mg/dL (70-99); Osmolality Calculated 286 mOsm/kg (285-295); Potassium 4.5 mmol/L (3.5-5.1); Sodium 138 mmol/L (136-145); Total Protein 6.9 g/dL (6.4-8.2)
== END 2024-11-10 13:24 | disposition home or self-care (01) ==
LOC: CHSIMG 13:25
PROVIDERS: PCP Nurse Practitioner Family; Visit Provider Nurse Practitioner Family
DX: R22.32 Localized swelling, mass and lump, left upper limb (principal); Z51.81 Encounter for therapeutic drug level monitoring
CPT/HCPCS: 36415; 76882; 80048; 80076; 85025

== ENCOUNTER 2024-12-15 09:22 | Outpatient (CLI) | payer MEDICARE, SELFPAY ==
--- NOTE | ~2024-12-15 | CT_ITS ---
EXAMINATION: CT diagnostic chest w con DATE: 12/15/2024 11:05 INDICATION: LowCHST/UPABD distention w/pain TECHNIQUE: Computed tomography (CT) of the chest was performed with 100 mL Omnipaque-350 intravenous contrast. Additional 3D reconstructions utilizing coronal maximum intensity projection (MIP) were per formed. Automated exposure control and iterative reconstruction technique were employed. The dose-marion gth product was 1350.99 mGy-cm. COMPARISON: 05/15/2023 FINDINGS: Again seen is widening of the with lateral intercostal space between the right eighth and ninth ribs both of which demonstrate old healed fractures. There is unchanged mild herniation of the right lower lobe into the widened intercostal space. This extends caudally with herniation of right upper quadra nt fat into the defect resulting from the widened intercostal space. This appears to result from dist raction of an either fracture or surgical defect of the ninth rib costal cartilage. There are a coupl e small calcified nodules in the left lower lobe which along with calcified bilateral hilar and media stinal lymph nodes are consistent with old granulomatous disease. No other suspicious noncalcified pu lmonary nodules, pneumonia, pulmonary edema or pleural effusion. Heart size is normal. Small amount o f atherosclerotic coronary artery calcific lesion. No pericardial effusion. Thoracic aorta is normal in caliber with no dissection. No pathologically enlarged thoracic lymphadenopathy. Mild bilateral gy necomastia. A few small hepatic and splenic calcifications consistent with old granulomatous disease. Gallbladder, pancreas, bilateral adrenal glands and left kidney are normal. 2 mm nonobstructing righ t renal stone. Visualized portions of bowels are unremarkable. Mild thoracic and lumbar spondylosis w ith bridging osteophytes at multiple levels consistent with diffuse idiopathic skeletal hyperostosis (DISH). IMPRESSION: 1. Chronic herniation of a portion of the right lower lobe and more caudal right upper quadrant intra -abdominal fat into the widened intercostal space between the right eighth and ninth ribs. This appea rs to result from distraction of either a chronic fracture or surgical defect of the anterior ninth r ib costal cartilage. 2. No acute cardiopulmonary disease. Reviewed, dictated and finalized at location B. GENCY CARE ATTENDANT IMPRESSION: 1. Chronic herniation of a portion of the right lower lobe and more caudal righ t upper quadrant intra-abdominal fat into the widened intercostal space between the right eighth and ninth ribs. This appears to result from distraction of ei ther a chronic fracture or surgical defect of the anterior ninth rib costal car tilage. 2. No acute cardiopulmonary disease.
[2024-12-15 09:52] LABS: Basophils Absolute Auto 0.06 K/mm3 (0.00-0.10); Basophils Percent Auto 0.6 % (0.0-1.0); Eosinophils Absolute Auto 0.18 K/mm3 (0.02-0.50); Eosinophils Percent Auto 1.9 % (1.0-6.0); Hemoglobin 14.3 g/dL (12.4-15.3); Immature Granulocyte Absolute 0.03 K/mm3 (0.00-0.00); Immature Granulocyte Percent A 0.3 % (0.0-0.0); Lymphocytes Absolute Auto 2.05 K/mm3 (1.10-4.50); Lymphocytes Percent Auto 21.6 % (18.0-42.0); Mean Corpuscular HGB Conc 33.3 g/dL (32-36); Mean Corpuscular Hemoglobin 31.8 pg (27.0-31.0); Mean Corpuscular Volume 95.6 fL (78.0-102.0); Mean Platelet Volume 9.2 fl (8.7-11.0); Monocytes Percent Auto 11.5 % (2.0-11.0); Neutrophils Absolute Auto 6.09 K/mm3 (1.70-7.20); Neutrophils Percent Auto 64.1 % (50.0-70.0); Platelet Count Result 257 K/mm3 (150-420); Red Cell Distribution Width 12.7 % (11.6-14.4); White Blood Count 9.5 K/mm3 (4.8-10.8)
[2024-12-15 09:57] LABS: Monocytes Absolute Auto 2.05 K/mm3 (0.10-0.90)
[2024-12-15 10:05] LABS: Estimated Glomerular Filt Rate > 60
[2024-12-15 10:08] LABS: Alanine Aminotransferase 35 U/L (16-63); Albumin Level 3.8 g/dL (3.4-5.0); Alkaline Phosphatase 82 U/L (46-116); Anion Gap 7 mmol/L (4-12); Aspartate Amino Transferase 19 U/L (15-37); Bilirubin Direct 0.2 mg/dL (0-0.2); Bilirubin,Total 0.9 mg/dL (0.00-1.00); Blood Urea Nitrogen 14 mg/dL (7-18); Calcium 9.1 mg/dL (8.5-10.1); Carbon Dioxide 31 mmol/L (21-32); Chloride 104 mmol/L (98-108); Glucose 96 mg/dL (70-99); Osmolality Calculated 294 mOsm/kg (285-295); Potassium 3.8 mmol/L (3.5-5.1); Sodium 142 mmol/L (136-145); Total Protein 7.2 g/dL (6.4-8.2)
--- OUTSIDE RECORDS SUMMARY | 2024-12-15 10:22 | XMS_ITS | Clinical Summary ---
Author Organization [facility] [place] Address [address] [place] [address] Care Team Providers Care Food Editor Name Role Phone Cynthia Cano MD Primary Care Provider [phone] Allergies Active Allergy Reactions Criticality Noted Date Comments Methotrexate Analogues Rash Low 11/23/2019 Medications HYDROcodone-aceta minophen (NORCO) 10-325 mg Tablet Take 1 Tablet by mouth every 4 hours as needed for Pain, Moderate. Active glucosamine-chond roitin (ARTHX DS) 500-400 mg Capsule Take 1 Capsule by mouth 2 times daily as needed. Active pneumococcal polysaccharide vaccine, PPSV23, (Pneumovax 23) 25 mcg/0.5 mL Syringe Pneumovax 23 25 mcg/0.5 mL injection syringe TO BE ADMINISTERED BY PHARMACIST FOR IMMUNIZATION Active folic acid (FOLVITE) 1 mg tablet folic acid 1 mg tablet Active flu vaccine quadrivalent (6 mo+)(PF)(FUARIX QUAD,FLULAVAL QUAD/FLUZONE QUAD) 60 mcg/0.5 mL IM syringe Fluzone Quad (PF) 60 mcg (15 mcg x 4)/0.5 mL IM syringe TO BE ADMINISTERED BY PHARMACIST FOR IMMUNIZATION Active cycloSPORINE (Restasis) 0.05 % emulsion Restasis 0.05 % eye drops in a dropperette Active cyclobenzaprine (FLEXERIL) 10 mg tablet cyclobenzaprine 10 mg tablet TAKE 1 TABLET BY MOUTH 3 TIMES A DAY NEEDED FOR BACK SPASMS Active nicotine (NICODERM CQ) 21 mg/24 hr patch Apply 1 Patch to skin as directed every 24 hours. 30 Patch 1 11/23/19 20 Active albuterol sulfate 90 mcg/Actuation inhaler Take 2 Puffs by inhalation. 06/11/20 22 Active lisinopriL (PRINIVIL) 10 mg tablet Take 10 mg by mouth daily. Active rivaroxaban (Xarelto) 10 mg Tablet Take 10 mg by mouth daily with supper. Active Active Problems Problem Noted Date Diagnosed Date History of pulmonary embolism 06/07/2023 RA (rheumatoid arthritis) 06/07/2023 Herniation of right lung 06/07/2023 Morbid obesity with BMI of 40.0-44.9, adult 06/21 Obesity (BMI 35.0-39.9 without comorbidity) 06/21 Tobacco use 07/02/2017 Encounters Date Type Department Care Team Description 12/14/2024 Orders Only [facility] Cardiovas and Thor Surg at [facility] [place] [address] [facility] [id number] [place] [address] Christie Gauthier, PAM Herniation of right lung (Primary Dx) from Last 3 Months Family History Medical History Relation Name Comments No Known Problems Brother No Known Problems Father Cancer Mother No Known Problems Sister 1 No Known Problems Sister 2 No Known Problems Sister 3 Relation Name Status Comments Brother Alive Father Alive Mother Sister 1 Alive Sister 2 Alive Sister 3 Alive Social History Tobacco Use Types Packs/Day Years Used Date Smoking Tobacco: Every Day Cigarettes 1 30 Tobacco Cessation:Ready to Q uit: Not Asked; Counseling Given: Not Answered Alcohol Use Standard Drinks/Week Comments No 0 (1 standard drink = 0.6 oz pur e alcohol) Sex and Gender Information Value Date Recorded Sex Assigned at Not on file Legal Sex Male 10:34 AM CDT Gender Identity Not on file Sexual Orientation Not on file Last Filed Vital Signs Vital Sign Reading Time Taken Comments Blood Pressure 108/70 06/07/2023 10:37 AM CDT Pulse 91 06/07/2023 10:37 AM CDT Temperature 36.6 C (97.8 F) 09/20/2022 2:08 PM INSTRUCTIONAL LEADER Respiratory Rate 18 09/20/2022 2:08 PM INSTRUCTIONAL LEADER Oxygen Saturation 99% 06/07/2023 10:37 AM CDT Inhaled Oxygen Concentration - - Weight 122.5 kg (270 lb) 06/07/2023 10:37 AM CDT Height 175.3 cm (5' 9 ) 06/07/2023 10:37 AM CDT Body Mass Index 39.87 06/07/2023 10:37 AM CDT Plan of Treatment Health Maintenance Due Date Last Done Comments Pre-Diabetes and Diabetes Screening 1960 FIT-DNA Q 3 years 2004 FIT/FOBT Q 1 year 2004 Flex Sig/CT Colonography Q 5 years 2004 ZOSTER VACCINE (2 of 3) 11/15/2014 09/20/2014 RSV VACCINE (60+ or ) (1 - Risk 60-74 years 1-dose series) 2019 COLORECTAL SCREENING 04/10/2022 04/10/2012 Colorectal Cancer Screening 04/10/2022 INFLUENZA VACCINE (#1) 2024 , 10/10/2019, 10/26/2016 PNEUMOCOCCAL VACCINE 65+ YEA RS (3 of 3 - PCV20 or PCV21) 10/12/2024 10/12/2019, 10/26/2016, 10/06/2014 Medicare Advantage ([place]) Prev entative Visit/Annual Wellness Visit 10/21/2024 DTAP/TDAP/TD VACCINES (2 - T d or Tdap) 07/31/2031 07/31/[address] [place] [id number] [facility] [id number] Care Teams Food Editor Relationship Specialty Start Date End Date Cynthia Cano MD PCP - General Family Practice 06/20/17
--- OUTSIDE RECORDS SUMMARY | 2024-12-15 10:22 | XMS_ITS ---
Author Organization [facility] Address [address] [place], [place] [id number] Care Team Providers Care Technology Applications Teacher Name Role Phone RADHA CYNTHIA Unavailable [phone] Wendy Mitchell Unavailable Unavailable REASON FOR VISIT bilateral ft pain Vital Signs Height 70.00 in 09/26/2023 Weight 300 lbs 09/26/2023 BMI 43.04 kg/m2 09/26/2023 Height-cm 177.80 cm 09/26/2023 Weight-kg 136.08 kg 09/26/2023 Encounters Encounter Location Date Provider Diagnosis [facility] [address], [place] [id number] 09/26/2023 CYNTHIA GARCIA Other hammer toe(s) (acquired), right foot M20.41 ; Metatarsalgia of left foot M77.42 ; Other hammer toe(s) (acquired), left foot M20.42 ; Acquired keratosis [keratoderma] palmaris et plantaris L85.1 ; Unspecified atherosclerosis of [place] arteries of extremities, bilateral legs I70.203 ; Pain in right foot M79.671 and Pain in left foot M79.672 Assessments Encounter Date Diagnosis (ICD Code) Assessment Notes Treatment Notes Treatment Clinical Notes Section Notes 09/26/2023 Other hammer toe(s) (acquired), right foot (ICD-10 - M20.41) The patient was educated regarding how to mechanically stabilize their deformity. The patient was given education about shoe recommendations specific for the condition. The patient was educated about custom orthotics and how appropriate shoes and orthotics can prevent further worsening of the deformity. The patient was educated about how bad shoe habits can worsen the condition. NSAIDS, P.T., injections and other conservative treatments were discussed. Both surgical and non surgical treatments were discussed, but conservative options were emphasized. 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 After removal of overlying extensive hyperkeratosis, healthy tissue was noted and care was taken to assure that no undermining or probing was present. It should be noted that no probing was noted and no infection or drainage was noted. 09/26/2023 Unspecified atherosclerosis of g[place] arteries of extremities, bilateral legs (ICD-10 - I70.203) Patient educated on risks and aggravating factors of PVD, including conservative treatment options such as a diet and exercise regimen to aid in slowing progression of vascular disease 09/26/2023 Pain in right foot (ICD-10 - M79.671) 09/26/2023 Pain in left foot (ICD-10 - M79.672) Plan Of Treatment Treatment Notes Assessment Notes Other hammer toe(s) (acquired), right fo ot The patient was educated regarding how to mechanically stabilize their deformity. The patient was given education about shoe recommendations specific for the condition. The patient was educated about custom orthotics and how appropriate shoes and orthotics can prevent further worsening of the deformity. The patient was educated about how bad shoe habits can worsen the condition. NSAIDS, P.T., injections and other conservative treatments were discussed. Both surgical and non surgical treatments were discussed, but conservative options were emphasized. 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 After removal of overlying extensive hyperkeratosis, healthy tissue was noted and care was taken to assure that no undermining or probing was present. It should be noted that no probing was noted and no infection or drainage was noted. Unspecified atherosclerosis of g[place] arteries of extremities, bilateral legs Patient educated on risks and aggravating factors of PVD, including conservative treatment options such as a diet and exercise regimen to aid in slowing progression of vascular disease Next Appt Details Follow Up: 3 Months, Reason: Progress Notes * NIYAH ADAMS LDOB:[birth year] (63 yo M)Acc No.[id number]:09/26/2023 Patient: NIYAH COLORADO Provider: Mane GARCIA :1960 A ge:63 Y S ex:Male Date:09/26/2023 Address:[address] [place] [address] [place] [id number] Subjective: * Chief Complaints: * 1 . Bilateral ft pain. * HPI: H PI: New Complaint E stablished patient presents with a new complaint. P atient complains of lumps on his left foot for the last few years. Patient states he is having pain to bottom of left foot at callus site underneath outside of foot. 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 States the pain to left ball of foot is worse when walking bare foot. Pt complains of constant pain in the ball of his right foot. D uration of problem is years.. * ROS: G eneral / Constitutional: Patient denies w eakness. R espiratory: Patient denies c hronic cough, shortness of breath, sputum production. C ardiovascular: Patient denies c hest pain, history of [place], irregular heartbeat. M usculoskeletal: Patient complains of h ammertoes. P eripheral Vascular: Patient denies b lanching of skin, cold extremities, decreased sensation in extremities. S kin: Patient complains of c alluses and corns. N eurologic: Patient denies d izziness, gait abnormality, headache.? * Medical History: Objective: * Vitals: W t:300lbs, Wt-k.08 kg, Ht: 70.00 in, Ht-cm: 177.80 cm, BMI:43.04Index, Body Surface Area: 2.59. * Examination: P hysical Examination: V ascular: Dorsalis Pedis pulse noted at 1/4 right foot and 1/4 left foot and Posterior Tibial pulse noted at 1/4 right foot and 1/4 left foot, Capillary refill times noted to be less than three seconds x ten, Temperature gradient noted to be warm to cool to bilateral foot, pedal hair present to bilateral foot and no varicosities are noted Dermatologic: there are no open lesions, no signs of active clinical infection, no erythema noted, no ecchymoses, nails are at hygienic length x ten, hyperkeratotic lesions noted sub fifth metatarsal head bilateral foot Musculoskeletal: there is no pain to palpation onto nail plate x ten, no calf pain noted bilaterally, arch height noted at 2/5 non-weight bearing bilaterally, first metatarsophalangeal joint range of motion 30 deg non-weight bearing bilaterally, pain to palpation hyperkeratotic lesion sub fifth metatarsal head bilateral foot, flexible fifth digit hammer toe deformity noted to bilateral foot reducible with kelikian push up test Neurology: protective sensation intact to light touch bilateral digits one through five, vibratory sensation intact to first metatarsophalangeal joint bilaterally. Assessment: * Assessment: 1. O ther hammer toe(s) (acquired), right foot - M20.41 (Primary) 2 . M etatarsalgia of left foot - M77.42 3 . O ther hammer toe(s) (acquired), left foot - M20.42 4 . A cquired keratosis [keratoderma] palmaris et plantaris - L85.1 5 . U nspecified atherosclerosis of g[place] arteries of extremities, bilateral legs - I70.203 6 . P ain in right foot - M79.671 7 . P ain in left foot - M79.672 Plan: * Treatment: 2. 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 After removal of overlying extensive hyperkeratosis, healthy tissue was noted and care was taken to assure that no undermining or probing was present. It should be noted that no probing was noted and no infection or drainage was noted. 3. U nspecified atherosclerosis of g[place] arteries of extremities, bilateral legs Notes: Patient educated on risks and aggravating factors of PVD, including conservative treatment options such as a diet and exercise regimen to aid in slowing progression of vascular disease ? * Procedure Codes: 2 9540 STRAPPING OF ANKLE AND/OR FT, Modifiers: LT * Follow Up: 3 Months * Billing Information: * Visit Code: 57340 Office Visit, Est Pt., Level 3. * Procedure Codes: 09098 STRAPPING OF ANKLE AND/OR FT. Modifiers: LT * SS DATABASE DEVELOPER Sign off status: Completed true * Provider: Mane GARCIA Date: 1 11/27/2022 Generated for Maida mirza/Mark/Zuleyka on: 0 12/15/2024 10:22 AM ACCESS DATABASE DEVELOPER History and Physical Notes * HPI (History of Present Illness) Category Sub-Category Detail Notes Category Not es HPI New Complaint Established sis ent presents with a new complaint.Patient complains of lumps on his left foot for the last few years. Patient states he is having pain to bottom of left foot at callus site underneath outside of foot. 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 States the pain to left ball of foot is worse when walking bare foot. Pt complains of constant pain in the ball of his right foot.Duration of problem is years. Examination Category Sub-Category Detail Notes Category Not es Physical Examination Vascular: Dorsalis Pedis pulse noted at 1/4 right foot and 1/4 left foot and Posterior Tibial pulse noted at 1/4 right foot and 1/4 left foot, Capillary refill times noted to be less than three seconds x ten, Temperature gradient noted to be warm to cool to bilateral foot, pedal hair present to bilateral foot and no varicosities are noted Dermatologic: there are no open lesions, no signs of active clinical infection, no erythema noted, no ecchymoses, nails are at hygienic length x ten, hyperkeratotic lesions noted sub fifth metatarsal head bilateral foot Musculoskeletal: there is no pain to palpation onto nail plate x ten, no calf pain noted bilaterally, arch height noted at 2/5 non-weight bearing bilaterally, first metatarsophalangeal joint range of motion 30 deg non-weight bearing bilaterally, pain to palpation hyperkeratotic lesion sub fifth metatarsal head bilateral foot, flexible fifth digit hammer toe deformity noted to bilateral foot reducible with kelikian push up test Neurology: protective sensation intact to light touch bilateral digits one through five, vibratory sensation intact to first metatarsophalangeal joint bilaterally
--- OUTSIDE RECORDS SUMMARY | 2024-12-15 10:22 | XMS_ITS | Encounter Summary ---
Author Organization [facility] Address 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 Encounter Details Date Type Department Care Team (Late st Contact Info) Description 12/14/2024 Orders Only [facility] Cardiovas and Thor Surg at [facility] [address] [place] [address] Christie Gauthier NP [address] [address] Herniation of right lung (Primary Dx) Social History Tobacco Use Types Packs/Day Years Used Date Smoking Tobacco: Every Day Cigarettes 1 30 Alcohol Use Standard Drinks/Week Comments No 0 (1 standard drink = 0.6 oz pur e alcohol) Sex and Gender Information Value Date Recorded Sex Assigned at Not on file Legal Sex Male 10:34 AM CDT Gender Identity Not on file Sexual Orientation Not on file documented as of this encounter Plan of Treatment Scheduled Orders Name Type Priority Associated Diagnoses Orde r Schedule CT CHEST W CONTRAST Imaging Routine Herniation of right lung Expected: 12/15/2024 (Approximate), Expires: 12/14/2025 documented as of this encounter Visit Diagnoses Diagnosis Herniation of right lung- Primary documented in this encounter Care Teams Layout Mechanic Relationship Specialty Start Date End Date Cynthia Cano MD PCP - General Family Practice 06/20/17 documented as of this encounter
--- OUTSIDE RECORDS SUMMARY | 2024-12-15 10:23 | XMS_ITS | Referral Summary ---
Author Organization [facility] [employer] Address [address] [place] [address] Care Team Providers Care Dip Brazier Name Role Phone Unknown, Provider Primary Care Provider Unavaila ble Source Comments [facility] [employer],non-owned Affiliates and Associated Physician Practices is amultiple site organization consisting of ambulatory clinics and hospital sitesin [place], [place], [place] and [place]. This disclosure is being madepursuant to the Care Everywhere program and may not contain all information available regarding this patient. Last updated 18.[facility] [employer] Immunizations Name Administration Dates Next Due FLU VACCINE QUAD IIV4 PF ID 10/26/2016 Pneumococcal Pcv13 Conj 10/26/2016 Social History Tobacco Use Types Packs/Day Years Used Date Smoking Tobacco: Never Assessed Sex and Gender Information Value Date Recorded Sex Assigned at Not on file Gender Identity Not on file Sexual Orientation Not on file Plan of Treatment Not on file Care Teams Dip Brazier Relationship Specialty Start Date End Date Unknown, Provider PCP - General 10/26/16
--- OUTSIDE RECORDS SUMMARY | 2024-12-15 10:23 | XMS_ITS | Clinical Summary ---
Author Organization [facility] Address [address] [place] [address] Care Team Providers Care Grout Machine Tender Name Role Phone Luisito Mcmillan MD Unavailable [phone] Kvng Liu MD Unavailable Andi Plasencia MD Unavailable [phone] Chris Wu MD Unavailable Morgan Land MD Unavailable [phone] Dinesh Castillo DO Primary Care Provider [phone] Allergies No known active allergies Medications cyclobenzaprine 10 MG tabletIndicatio ns:Fibromyalgia Take 1 tablet (10 mg total) by mouth 3 (three) times daily as needed for Muscle Spasms. 90 tablet 11/07/2021 Active HYDROcodone-nimco taminophen 10-325 MG tabletIndicatio ns:Chronic Pain Take 1 tablet by mouth every 6 (six) hours as needed for Pain. Indications: Chronic Pain 120 tablet 11/07/2021 Active lisinopril (PRINIVIL) 10 MG tablet Take 1 tablet (10 mg total) by mouth daily. 01/03/2023 Active XARELTO 10 MG Tab tablet Take 1 tablet (10 mg total) by mouth daily. 03/27/2023 Active ipratropium (ATROVENT) 0.06 % nasal spray 1 spray by Nasal route nightly. 06/18/2023 Active amitriptyline (ELAVIL) 50 MG tablet Take 1 tablet (50 mg total) by mouth nightly at bedtime. at bedtime. 10/10/2023 Active Eszopiclone 3 MG Tab 3 mg. 12/31/2023 Active lamoTRIgine (LAMICTAL) 100 MG tablet Take 1 tablet (100 mg total) by mouth nightly at bedtime. at bedtime. 05/01/2024 Active predniSONE (DELTASONE) 1 MG tablet Take 2 tablets (2 mg total) by mouth daily. 03/09/2024 Active tocilizumab (ACTEMRA) injection Inject 0.9 mLs (162 mg total) into the skin every 7 days. Active Active Problems Problem Noted Date Diagnosed Date Lumbar radiculopathy 04/04/2023 Overview (04/04/2023): Added automatically from request for surgery [id number] Sprain of lateral collateral ligament of left knee, initial encounter 11/10/2021 Bipolar disorder, in partial remission, most recent episode depressed ([facility]) 09/27/2021 Primary osteoarthritis of right knee 08/25/2021 Bilateral primary osteoarthritis of knee 021 Assessment & Plan (12/21/2020 11:36 AM CHRISTIAN SCIENCE NURSE): Will continue meloxicam. Physical therapy order placed. Will call patient once we receive pre auth for synvisc. 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 Plasencia. Multifactorial: Obstructive sleep apnea, obesity, chronic cigarette smoking. CLAUDIO (obstructive sleep apnea) 01/13/2019 Essential hypertension 01/13/2019 Dyspnea on exertion 01/13/2019 Morbid obesity with body mas s index of 40.0-44.9 in adult ([facility]) 07/09/2017 Cigarette nicotine dependence without complicati on 07/02/2017 Right flank pain 03/06/2017 Rheumatoid arthritis ([facility]) 7 Fibrosis, lung ([facility]) 11/27/2016 Overview (12/17/2019): Description: on ct scan Contusion of rib 11/27/2016 Smokers' cough ([facility]) 11/27/2016 Depressive disorder 08/19/2013 Overview (09/16/2020): Anxiety and depression History of substance abuse ([facility]) Overview (03/16/2020): Hx of substance abuse Benign prostatic hyperplasia 08/19/2013 Overview (03/16/2020): BPH (benign prostatic hyperplasia) Chronic obstructive lung disease ([facility]) Resolved Problems Problem Noted Date Diagnosed Date Resolved Date Current smoker 12/21/2020 09/27/2021 Assessment & Plan (12/21/2020 11:35 AM CHRISTIAN SCIENCE NURSE): We discussed smoking cessation. Should TKA be necessary in the future smoking will increase the risk of postoperative complication and infection. Recommended patient discuss smoking cessation with PCP. Dry eyes 09/16/2020 09/27/2021 Expiratory wheezing 09/16/2020 12/03/19 21 Fatigue 09/16/2020 09/27/2021 Foreign body in foot 09/16/2020 021 Pain in joint 09/16/2020 09/27/2021 Hip pain 09/16/2020 09/27/2021 Streptococcal sore throat 09/16/2020 Bipolar affective disorder, currently depressed, moderate ([facility]) 03/19/2020 Perineal abscess 01/06/2020 03/16/2020 Abscess 12/24/2019 03/16/2020 Overview (12/24/2019): Added automatically from request for surgery [id number] Low back pain 12/17/2019 09/27/2021 Gastroesophageal reflux dise ase with esophagitis 12/17/2019 12/03/2020 Chronic pain of both knees 12/17/2019 1 11/28/2020 Neck pain 12/17/2019 09/27/2021 Prostate cancer screening 12/17/2019 Syncope and collapse 01/13/2019 020 Tobacco abuse counseling 01/13/2019 Pharyngitis 12/04/2016 12/03/2020 Abnormal chest xray 11/27/2016 12/17/19 20 Obesity, morbid, BMI 40.0-49 .9 ([facility]) 11/27/2016 09/27/2021 Assessment & Plan (12/21/2020 11:40 AM CHRISTIAN SCIENCE NURSE): We discussed the adverse effects of weight on osteoarthritis of the knee. We discussed the need to decrease BMI to <40 to decrease risk of post operative complications if in the future he would like to proceed with TKA. Sleep apnea 11/27/2016 09/27/2021 Encounter for preventive health examination 04/13/2016 12/17/2019 Hypogonadism 08/19/2013 09/27/2021 Overview (09/16/2020): Hypogonadism male Finding of prostate 03/12/2012 12/03/19 21 Encounters Date Type Department Care Team Description 11/27/2024 9:40 AM CHRISTIAN SCIENCE NURSE - 11/27/2024 10:00 AM [facility] Surgery [facility] [place] [address] [id number] Judi Livingston MD INJECTION EPIDURAL TRANSFORAMINAL l45 and [id number] 11/27/2024 8:50 AM CHRISTIAN SCIENCE NURSE - 11/27/2024 9:45 AM CHRISTIAN SCIENCE NURSE Hospital Encounter [facility] [place] [address] [id number] Judi Livingston MD Discharge Disposition: Home or Self Care (Routine Discharge) 11/27/2024 Travel 11/24/2024 Telephone [facility] [place] [address] [id number] Madelaine Verdin, RN Follow Up (/) 11/03/2024 2:15 PM CHRISTIAN SCIENCE NURSE Office Visit [facility] [address] [place] [id number] Letty Mcdonald, CORPORATE PLANNING MANAGER-BC Injection; Knee Pain (BILATERAL) 11/03/2024 Travel from Last 3 Months Immunizations Name Administration Dates Next Due Fluzone 6 Months+ Quad (0.5 mL Prefilled Syringe) 06/15/2020,10/10/2019 Influenza (Generic) 08/14/2013 Influenza Adult (Generic) 06/15/2020,10/26/2016, 08/14/2013 PFIZER COVID-19 (ORIGINAL FO RMULATION, PURPLE CAP) mRNA, LNP-S, PF, 30 MCG/0.3 ML DOSE 05/20/2021 Pneumococcal (Pneumovax 23) 10/12/2019, 4 Pneumococcal (Prevnar 13) 10/26/2016 Tdap (Generic) 07/31/2021 Zoster (Zostavax) 31146 Unt/0.65Ml 09/20/2014 Family History Medical History Relation Comments Diabetes Brother No Known Problems Father Heart Disease Mother Stroke Mother COVID Son choked Downs Son Heart Son Relation Status Comments Brother Alive Father Alive no issues Mother Son Social History Tobacco Use Types Packs/Day Years Used Date Smoking Tobacco: Every Day Cigarettes 1 53.2 Started: 1971 Smokeless Tobacco: Never Tobacco Cessation:Ready to Q uit: Not Asked; Counseling Given: Not Answered Comments:quit for 2 years in 2014, back smoking again. Recommended smoking cessatio, he verbalized understanding of benefits of quitting. Alcohol Use Standard Drinks/Week Comments No 0 (1 standard drink = 0.6 oz pur e alcohol) AUDIT-C Answer Date Recorded Frequency of Alcohol Consumption Never 01/12/2019 Average Number of Drinks Not on file 019 Frequency of Binge Drinking Not on file 12/20 PHQ-2 Answer Date Recorded PHQ-2 Score - If the patient scores above 3, please move on to questions 3-9 3 11/07/2021 Sex and Gender Information Value Date Recorded Sex Assigned at Male 11/27/2024 8:48 AM CHRISTIAN SCIENCE NURSE Legal Sex Male 6:03 PM CDT Gender Identity Not on file Sexual Orientation Not on file Last Filed Vital Signs Vital Sign Reading Time Taken Comments Blood Pressure 148/83 11/27/2024 9:41 AM CHRISTIAN SCIENCE NURSE Pulse 81 11/27/2024 9:41 AM CHRISTIAN SCIENCE NURSE Temperature 37.1 C (98.7 F) 11/27/2024 9:10 AM CHRISTIAN SCIENCE NURSE Respiratory Rate 20 11/27/2024 9:41 AM CHRISTIAN SCIENCE NURSE Oxygen Saturation 100% 11/27/2024 9:41 AM CHRISTIAN SCIENCE NURSE Inhaled Oxygen Concentration - - Weight 127.5 kg (281 lb) 11/27/2024 9:10 AM CHRISTIAN SCIENCE NURSE Height 175.3 cm (5' 9 ) 11/27/2024 9:10 AM CHRISTIAN SCIENCE NURSE Body Mass Index 41.5 11/27/2024 9:10 AM CHRISTIAN SCIENCE NURSE Plan of Treatment Health Maintenance Due Date Last Done Comments Colorectal Cancer Screening Colonoscopy (10 Years) 1960 Zoster Vaccines (2 of 3) 11/15/2014 09/20/2014 RSV Immunization or 60+ Years (1 - Risk 60-74 years 1-dose series) 2019 Lung Cancer Screening 12/14/2021 12/14/2020 COVID-19 Vaccine ( - 2023- season) 2024 07/01/2021, 05/20/2021 Influenza Adult (#1) 2024 06/15/2020, 06/15/2020, 10/10/2019, Additional history exists Pneumococcal Vaccine: 65+ Years (3 of 3 - PPSV23 or PCV20) 10/12/2024 10/12/2019, 10/26/2016, 10/06/2014 Pneumococcal Vaccine: Pediatrics (0 to 5 Years) and At-Risk Patients (6 to 64 Years) (3 of 3 - PPSV23 or PCV20) 10/12/2024 10/12/2019, 10/26/2016, 10/06/2014 PHQ-2 ([facility]ician [facility]) 10/21/2024 DTaP, Tdap and Td Vaccines (2 - Td or Tdap) 07/31/2031 07/31/2021 Hepatitis C Completed 11/10/2019 AAA SCREENING Completed 08/01/2021, 11/22, 07/04/2020 Meningococcal B Vaccine Aged Out No l onger eligible based on patient's age to complete this topic Meningococcal Vaccine Aged Out No mark kamar eligible based on patient's age to complete this topic RSV Immunizations Under 20 Months Aged Out No longer eligible based on patient's age to complete this topic Medical Devices Implanted Type Area Rubber Cutter And Shape Carver Device Identifier Shelf Expiration Date Model / Serial / Lot Medt Implantable Loop Recorder-2018 Implanted:10/06 by Chris Wu MD (Quantity not on file) Explanted:Qty: 1 on 07/12/2020 by Chris Wu MD Implantable Loop Recorder [employer] CARDIAC RHYTHM AND HEART FAILURE - DIV M [id number] / [id number] / Procedures Procedure Name Priority Date/Time Associated Diagnosis Comments NJX AA&/STRD TFRML EPI LUMBAR/SACRAL 1 LEVEL 11/27/2024 9:26 AM CHRISTIAN SCIENCE NURSE Lumbar radiculopathy XR PAIN CLINIC C-ARM Today 11/27/2024 8:55 AM CHRISTIAN SCIENCE NURSE CTA CHEST Routine 08/01/2021 11:51 AM CDT Mass of right chest wall Intercostal pain CT CHEST W CON Routine 12/14/2020 11:28 AM CHRISTIAN SCIENCE NURSE Mass of right chest wall HEPATITIS C ANTIBODY Routine 11/10/2019 12:06 PM CHRISTIAN SCIENCE NURSE Screening examination for poliomyelitis from Last 3 Months or Most Recently Relevant to Health Maintenance Results * XR PAIN CLINIC C-ARM (11/27/2024 8:55 AM CHRISTIAN SCIENCE NURSE) Narrative Radiology, Technologist - 11/27/2024 8:55 AM CHRISTIAN SCIENCE NURSE This report does not contain a radiologist's interpretation. Please review associated procedure and/or operative report. Judi Livingston MD GENERAL IMAGING Final Result * CTA CHEST (08/01/2021 11:51 AM CDT) Anatomical Region Laterality Modality Chest Computed Tomogra phy 08/01/2021 3:22 PM CDT Impressions 08/01/2021 3:34 PM CDT IMPRESSION: 1. No CT evidence of proximal pulmonary arterial emboli. Exam is slightly limited due to respiratory motion. 2. No infiltrate or effusion. No pneumothorax. Mild scar formation in right lung base. This mild scar is adjacent to prior healed rib fractures. Probably due to posttraumatic change is a small area of lung herniation adjacent to the right eighth rib. Seen on axial images #74 through 79 of 137. This area of benign lung herniation measures 5.8 x 1.6 cm. Markers placed on study. 3. No chest wall mass. Overlying muscular planes are well-maintained. 4. Atherosclerotic aorta without dilatation. No pericardial effusion. No pathologic lymphadenopathy or pulmonary nodules. 5. Upper abdomen with normal adrenals. Fatty superior liver. Mild elevation of the right hemidiaphragm. Normal gallbladder. Degenerative change in thoracic spine. Referred By: WENDY VALERIO Interpreted By: Gus Tijerina, 08/01/2021 3:22 PM Narrative 08/01/2021 3:34 PM CDT IMAGING STUDIES: CTA CHEST DATE: 08/01/2021 10:42 AM COMPARISON STUDIES: No comparisons. CLINICAL HISTORY: Chest pain, nonspecific . Pain in the right upper chest. Recent fall. Mass of the right chest wall. CONTRAST: 100 cc Isovue 370 IV. Radiation dose reduction technique was utilized. Procedure Note Tony Tijerina MD - 08/01/2021 IMAGING STUDIES: CTA CHEST DATE: 08/01/2021 10:42 AM COMPARISON STUDIES: No comparisons. CLINICAL HISTORY: Chest pain, nonspecific . Pain in the right upperchest. Recent fall. Mass of the right chest wall. CONTRAST: 100 cc Isovue 370 IV. Radiation dose reduction technique wasutilized. IMPRESSION: 1. No CT evidence of proximal pulmonary arterial emboli. Exam isslightly limited due to respiratory motion. 2. No infiltrate or effusion. No pneumothorax. Mild scar formation inright lung base. This mild scar is adjacent to prior healed rib fractures.Probably due to posttraumatic change is a small area of lung herniationadjacent to the right eighth rib. Seen on axial images #74 through 79 of137. This area of benign lung herniation measures 5.8 x 1.6 cm. Markersplaced on study. 3. No chest wall mass. Overlying muscular planes are well-maintained. 4. Atherosclerotic aorta without dilatation. No pericardial effusion. Nopathologic lymphadenopathy or pulmonary nodules. 5. Upper abdomen with normal adrenals. Fatty superior liver. Mildelevation of the right hemidiaphragm. Normal gallbladder. Degenerativechange in thoracic spine. Referred By: WENDY VALERIO Interpreted By: Gus Tijerina, 08/01/2021 3:22 PM us Wendy Valerio FUEL TRUCK DRIVER CT Final Resul t * CT CHEST W CON (12/14/2020 11:28 AM CHRISTIAN SCIENCE NURSE) Anatomical Region Laterality Modality Chest Computed Tomogra phy 12/14/2020 12:2 1 PM CHRISTIAN SCIENCE NURSE Impressions 12/14/2020 12:27 PM CHRISTIAN SCIENCE NURSE IMPRESSION: Healed right posterior ninth and lateral eighth rib fractures. There is widening, laterally between the right eighth and ninth rib and the lung protrudes through this region. There is also asymmetry with fat protruding laterally along the right flank of the upper abdomen with eventration of the musculature. This combination of findings may account for the palpable abnormality. No subcutaneous mass or drainable fluid collection. No airspace disease or significant soft tissue attenuation pulmonary nodule or mass. Scattered interstitial fibrosis with bibasilar predominance, worse on the right. No endotracheal lesion. Normal heart size. Hepatic fatty infiltration. Adrenal glands are unremarkable. Multilevel degenerative changes present within spine. Referred By: WENDY VALERIO Interpreted By: Cristhian Fletcher, 12/14/2020 12:21 PM Narrative 12/14/2020 12:27 PM CHRISTIAN SCIENCE NURSE IMAGING STUDIES: CT CHEST W CON DATE: 12/14/2020 11:00 AM INDICATION: Chest wall pain Soft tissue mass, chest, US/xray nondiagnostic . COMPARISON: CT abdomen and pelvis 07/04/2020. CONTRAST DOSE: 75 mL Isovue-370 IV Radiation dose reduction technique was utilized. Procedure Note Cristhian Fletcher MD - 12/14/2020 IMAGING STUDIES: CT CHEST W CON DATE: 12/14/2020 11:00 AM INDICATION: Chest wall pain Soft tissue mass, chest, US/xray nondiagnostic . COMPARISON: CT abdomen and pelvis 07/04/2020. CONTRAST DOSE: 75 mL Isovue-370 IV Radiation dose reduction technique was utilized. IMPRESSION: Healed right posterior ninth and lateral eighth rib fractures. There is widening, laterally between the right eighth and ninth rib andthe lung protrudes through this region. There is also asymmetry with fat protruding laterally along the right flank of the upper abdomen with eventration of the musculature. This combination of findings may account for the palpable abnormality. No subcutaneous mass or drainable fluid collection. No airspace disease or significant soft tissue attenuation pulmonarynodule or mass. Scattered interstitial fibrosis with bibasilar predominance,worse on the right. No endotracheal lesion. Normal heart size. Hepatic fatty infiltration. Adrenal glands are unremarkable. Multilevel degenerative changes present within spine. Referred By: WENDY VALERIO Interpreted By: Cristhian Fletcher, 12/14/2020 12:21 PM Wendy Valerio FUEL TRUCK DRIVER CT Final Resul t * HEPATITIS C ANTIBODY (11/10/2019 12:06 PM CHRISTIAN SCIENCE NURSE) HEPATITIS C AB NON-REACTI VE NON-REACTI VE 11/10/2019 8:33 PM CHRISTIAN SCIENCE NURSE [facility] 11/10/2019 12:0 6 PM CHRISTIAN SCIENCE NURSE us Kvng Liu MD LABORATORY Final Result [facility] [address] [place] [address], [place] [phone] from Last 3 Months or Most Recently Relevant to Health Maintenance Insurance [employer] Care Teams Grout Machine Tender Relationship Specialty Start Date End Date Dinesh Castillo DO [address] [place] [address] PCP - General FAMILY PRACTICE 04/27/22 Luisito Mcmillan MD [facility] [address] [place], [place] [id number] [place] Blood [facility] Technologist CARDIOVASCULAR DISEASE 12/31/18 [place] [address] [place] [address] Referring Physician RHEUMATOLOGY 12/17/19 Andi Plasencia MD [address] [facility] [address] [place] [address] Consulting Physician HEMATOLOGY/ONCOLOGY 12/17/19 Chris Wu MD [address] [facility] [address] [place], [place] [id number] Consulting Physician CLINICAL CARDIAC ELECTROPHYSIOLOGY 12/17/19 Morgan Land MD [address] [address] UROLOGY 07/14/21
--- OUTSIDE RECORDS SUMMARY | 2024-12-15 10:23 | XMS_ITS | Patient Health Record ---
Author Organization [facility] Address [address] [place], [place] [id number] Care Team Providers Care Air Traffic Supervisor Name Role Phone CYNTHIA GARCIA Unavailable [phone] Wendy Mitchell Unavailable Unavailable Reason For Referral No Information Plan Of Treatment No Information Insurance Providers Payer Name Payer Address Payer Phone Subscriber Number Group Number Insured Name Patient Relationship to Insured Coverage Start Date Coverage End Date [facility] [address] [address] [place], [place] [id number] NIYAH ADAMS Self - patient is the insured
--- OUTSIDE RECORDS SUMMARY | 2024-12-15 10:23 | XMS_ITS | Clinical Summary ---
Author Organization [facility] Care Team Providers Care Wet Finisher Wool Name Role Phone Unavailable Primary Care Provider Unavailabl e Medications omeprazole (PRILOSEC) 40 MG CAPSULE DELAYED RELEASE Take 40 mg by mouth daily. Active Social History Tobacco Use Types Packs/Day Years Used Date Smoking Tobacco: Never Assessed Sex and Gender Information Value Date Recorded Sex Assigned at Not on file Legal Sex Male 9:14 PM CDT Gender Identity Not on file Sexual Orientation Not on file Plan of Treatment Health Maintenance Due Date Last Done Comments Hepatitis C Virus (HCV) Screening 1960 TdaP Immunization 1960 Colonoscopy 2004 Colorectal Cancer Screening 2004 Cologuard 2009 Immunochemical Fecal Occult Blood 2009 Pneumococcal Immunization (5 0+ years) (1 of 1 - PCV) 2009 Zoster Immunization (1 of 2) 2009 PSA Discussion 2014 Influenza Immunization (#1) 2024 SARS-COV-2 Immunization ( - 2023- season) 2024 Respiratory Syncytial Virus (RSV) Immunization (Adult) (1 - 1-dose 75+ series) 2034 Hepatitis B Immunization Aged Out No longer eligible based on patient's age to complete this topic Meningococcal Immunization (ACWY) Aged Out No longer eligible based on patient's age to complete this topic Pneumococcal Immunization Combined Aged Out No longer eligible based on patient's age to complete this topic Rotavirus Immunization Aged Out No lo nger eligible based on patient's age to complete this topic
--- OUTSIDE RECORDS SUMMARY | 2024-12-15 10:23 | XMS_ITS | Encounter Summary ---
Author Organization [facility] Address [facility] [place] [address] Care Team Providers Care Flame Cutter Name Role Phone Luisito Mcmillan MD Unavailable [phone] Cynthia Meadows MD Primary Care Provider [phone] Kvng Liu MD Unavailable Andi Plasencia MD Unavailable [phone] Chris Wu MD Unavailable Roberto Ventura MD Primary Care Provider [phone] Wendy Mitchell TAILERCPA Primary Care Provider Unav ailable EmeryMorgan ackerman MD Unavailable [phone] [facility] Primary Care Provider + Dinesh Castillo DO Primary Care Provider [phone] Encounter Details Date Type Department Care Team (Late st Contact Info) Description 03/28/2019 Abstract [facility] CONVERSION [address] [place] [address] , Generic Conversion, Social History Tobacco Use Types Packs/Day Years Used Date Smoking Tobacco: Every Day Cigarettes Smokeless Tobacco: Never Alcohol Use Standard Drinks/Week Comments No 0 (1 standard drink = 0.6 oz pur e alcohol) AUDIT-C Answer Date Recorded Frequency of Alcohol Consumption Never 01/12/2019 Average Number of Drinks Not on file 019 Frequency of Binge Drinking Not on file 12/20 Sex and Gender Information Value Date Recorded Sex Assigned at Male 11/27/2024 8:48 AM CALL WORKER PERSON Legal Sex Male 6:03 PM CDT Gender Identity Not on file Sexual Orientation Not on file documented as of this encounter Plan of Treatment Not on file documented as of this encounter Visit Diagnoses Not on filedocumented in this encounter Care Teams Flame Cutter Relationship Specialty Start Date End Date Cynthia Meadows MD [address] [place] [address] PCP - General FAMILY PRACTICE 01/01/19 12/16/19 Roberto Ventura MD [facility] [address] [place] [address] PCP - General INTERNAL MEDICINE 12/17/19 07/10/20 Wendy Mitchell NP [facility] [address] [place] [address] PCP - General NURSE PRACTITIONER 07/11/20 09/04/21 [facility] [address] [place], [place] [address] PCP - General Nurse Practitioner [facility] 09/05/2104/26 Dinesh Castillo DO [address] [place], [place] [phone] PCP - General FAMILY PRACTICE 04/27/22 Luisito Mcmillan MD [facility] [address] [place], [place] [phone] [place] Director CARDIOVASCULAR DISEASE 12/31/18 [place] [address] [place] [address] Referring Physician RHEUMATOLOGY 12/17/19 Andi Plasencia MD [address] [facility] [address] [place] [address] Consulting Physician HEMATOLOGY/ONCOLOGY 12/17/19 Chris Wu MD [facility]. [address] [id number] Consulting Physician CLINICAL CARDIAC ELECTROPHYSIOLOGY 12/17/19 Morgan Land MD [address] [address] UROLOGY 07/14/21 documented as of this encounter
--- OUTSIDE RECORDS SUMMARY | 2024-12-15 10:23 | XMS_ITS | Encounter Summary ---
Author Organization [facility] Address [facility] [place] [address] Care Team Providers Care Marketing Operations Coordinator Name Role Phone Unknown, Provider Primary Care Provider Unavaila ble Encounter Details Date Type Department Care Team (Late st Contact Info) Description 08/03/2024 Lab Requisition [facility] - DermPath Lab [address] [place] [address] Ki Dover MD [facility] DERMATOLOGY [address] [place] [phone] Neoplasm of uncertain behavior of skin Social History Tobacco Use Types Packs/Day Years Used Date Smoking Tobacco: Never Assessed Sex and Gender Information Value Date Recorded Sex Assigned at Not on file Gender Identity Not on file Sexual Orientation Not on file documented as of this encounter Plan of Treatment Not on file documented as of this encounter Procedures Procedure Name Priority Date/Time Associated Diagnosis Comments DERMATOPATHOLOGY Routine 08/03/2024 3:33 AM CDT Neoplasm of uncertain behavior of skin documented in this encounter Results * DERMATOPATHOLOGY (08/03/2024 3:33 AM CDT) Case Report Dermatopathology Report Case: [id number] Authorizing Provider: Ki Dover MD Collected: 08/03/2024 03:33 AM Ordering Location: [facility] - Received: 08/04/2024 11:08 AM DermPath Lab Pathologist: Yen Arredondo MD Specimen: Skin, right frontal scalp 11:27 AM T DERMATOPATHOLOGY LABORATORY Final Diagnosis Specimen A. SKIN, right frontal scalp: HYPERPLASTIC (HYPERTROPHIC) ACTINIC KERATOSIS, LICHENOID (L57.0) 11:27 AM T DERMATOPATHOLOGY LABORATORY Clinical History SCC vs ISK 11:27 AM T DERMATOPATHOLOGY LABORATORY Gross Description Specimen A: Received is one formalin filled container labeled with the patient's name and designated right frontal scalp. The specimen consists of a shave biopsy measuring 8x7x2 mm. Jar 0. 11:27 AM T DERMATOPATHOLOGY LABORATORY Microscopic Description Specimen A. SKIN, right frontal scalp: There is hyperkeratosis alternating with parakeratosis. There is epidermal hyperplasia with disorderly maturation of keratinocytes with nuclear pleomorphism confined to the lower half of the epidermis. The dermis shows a band-like, chronic inflammatory infiltrate with occasional apoptotic keratinocytes and some basal vacuolar alteration. 11:27 AM T DERMATOPATHOLOGY LABORATORY Disclaimer An external and internal positive and negative controls are appropriate for the histochemical, immunohistochemical and immunofluorescence stain(s) in this case (if any), except where stated explicitly. The performance characteristics of the stain(s) cited in this report were developed and its performance characteristic determined by the Dermatopathology Laboratory at [facility], directed by Dr. Philippe Klein. These tests need not be, and therefore are not, approved by the [place] Food and Drug Administration. The tests are used for clinical purposes. Billing Codes Specimen Charges Stain Charges 82208 1 11:27 AM CDT DERMATOPATHOLOGY LABORATORY Embedded Images 11:27 AM CDT DERMATOPATHOLOGY LABORATORY Pathology/Cytolo gy TISSUE SPECIMEN FROM SKIN / Unknown 08/03/2024 3:33 AM CDT 08/04/2024 11:08 AM CDT Ki Dover MD LAB - PATHOLOGY/CYTO LOGY ORDERABLES DERMATOPATHOLOGY LABORATORY [facility] - Department of Dermatology [address], [address] [phone] documented in this encounter Visit Diagnoses Diagnosis Neoplasm of uncertain behavior of skin documented in this encounter Care Teams Marketing Operations Coordinator Relationship Specialty Start Date End Date Unknown, Provider PCP - General 10/26/16 documented as of this encounter
--- OUTSIDE RECORDS SUMMARY | 2024-12-15 10:23 | XMS_ITS ---
Author Organization [facility] Address [address] [place], [place] [phone] Care Team Providers Care Jv Baseball Coach Name Role Phone CYNTHIA GARCIA Unavailable [phone] Wendy Mitchell Unavailable Unavailable REASON FOR VISIT *General care Encounters Encounter Location Date Provider Diagnosis [place] [place], [place] [id number] 11/28/2023 CYNTHIA GARCIA Plan Of Treatment No Information Progress Notes * NIYAH ADAMS LDOB:[birth year] (64 yo M)Acc No.[id number]:11/28/2023 Patient: Yadiel RASMUSSENNIYAH Provider: Mane GARCIA :1960 A ge:63 Y S ex:Male Date:11/28/2023 Address:[address] [place], [place] [id number] Subjective: * Chief Complaints: * 1 . *General care. * Medical History: Objective: * Vitals: Assessment: Plan: * Treatment: * Billing Information: * Visit Code: * Procedure Codes: * Electronic signature of DOUG GARCIA DPM on 12/15/2024 at 10:22 AM EXECUTIVE ADMINISTRATOR Sign off status: Pending * Provider: Mane GARCIA Date: 11/28/2023 Generated for Maida mirza/Mark/Zuleyka on: 12/15/2024 10:22 AM EXECUTIVE ADMINISTRATOR
--- OUTSIDE RECORDS SUMMARY | 2024-12-15 10:23 | XMS_ITS | Encounter Summary ---
Author Organization [facility] Address [facility] [place] [address] Care Team Providers Care Technology Program Manager Name Role Phone Luisito Mcmillan MD Unavailable [phone] Kvng Liu MD Unavailable Andi Plasencia MD Unavailable [phone] Chris Wu MD Unavailable Morgan Land MD Unavailable [phone] Dinesh Castillo DO Primary Care Provider [phone] Reason for Visit * Reason Onset Date Comments Joint Pain 06/01/2022 He was wanting t o know about getting a brace for his RIGHT knee Encounter Details Date Type Department Care Team (Late st Contact Info) Description 06/01/2022 Telephone [facility] [address] [id number] [place] [phone] Jesenia Jeronimo LPN Joint Pain (He was wanting to know about getting a brace for his RIGHT knee) Social History Tobacco Use Types Packs/Day Years Used Date Smoking Tobacco: Every Day Cigarettes 1 53.2 Started: 1972 Smokeless Tobacco: Never Comments:quit for 2 years in 2014, back [...] Sex Assigned at Male 11/27/2024 8:48 AM WHITE SUGAR PAN TANK OPERATOR Legal Sex Male 6:03 PM CDT Gender Identity Not on file Sexual Orientation Not on file COVID-19 Exposure Response Date Recorded In the last 10 days, have yo u been in contact with someone who was confirmed or suspected to have Coronavirus/COVID-19? No / Unsure 05/02/2022 12:14 PM CDT documented as of this encounter Progress Notes * Jesenia Jeronimo LPN - 06/01/2022 2:34 PM CDT Spoke with patient got him an appointment set up for 06/12/2022 at 11:15am * ASHUTOSH Durán - 06/01/2022 2:18 PM CDT He will need to come back in to be seen to see if his examination demonstrates a need for a Playmaker brace as well as documentation for his insurance to approve of the brace. * Jesenia Jeronimo LPN - 06/01/2022 1:51 PM CDT Patient called and is wanting to know if he can get a play maker brace for his RIGHT knee. He stated that he already has one for the LEFT. documented in this encounter Plan of Treatment Not on file documented as of this encounter Visit Diagnoses Not on filedocumented in this encounter Additional Health Concerns Assessment Noted Time PHQ-9 Depression Total Score: 16 022 4:21 PM WHITE SUGAR PAN TANK OPERATOR documented as of this encounter Care Teams Technology Program Manager Relationship Specialty Start Date End Date Dinesh Castillo DO [address] [place] [address] PCP - General FAMILY PRACTICE 04/27/22 Luisito Mcmillan MD Three [facility]. [address] [place] [address] Anselmo Egg Processor CARDIOVASCULAR DISEASE 12/31/18 [place] [address] [place], [place] [phone] Referring Physician RHEUMATOLOGY 12/17/19 Andi Plasencia MD [address] [address] Consulting Physician HEMATOLOGY/ONCOLOGY 12/17/19 Chris Wu MD [facility]. [facility] [address] [place] [address] Consulting Physician CLINICAL CARDIAC ELECTROPHYSIOLOGY 12/17/19 Morgan Land MD Three [facility]. [facility] [address] [place] [address] UROLOGY 07/14/21 documented as of this encounter
--- OUTSIDE RECORDS SUMMARY | 2024-12-15 10:23 | XMS_ITS | Encounter Summary ---
Author Organization [facility] Address [facility] [place] [address] Care Team Providers Care Purchasing Administrative Assistant Name Role Phone Luisito Mcmillan MD Unavailable [phone] Kvng Liu MD Unavailable Andi Plasencia MD Unavailable [phone] Chris Wu MD Unavailable Morgan Land MD Unavailable [phone] Stefanie Franco [facility] Primary Care Provider + Dinesh Castillo DO Primary Care Provider [phone] Encounter Details Date Type Department Care Team (Late st Contact Info) Description 03/15/2022 Telephone [facility] [place] [address] [id number] Taryn Marshall, RN Social History Tobacco Use Types Packs/Day Years [...] Sex Assigned at Male 11/27/2024 8:48 AM MINER PICK Legal Sex Male 6:03 PM CDT Gender Identity Not on file Sexual Orientation Not on file documented as of this encounter Plan of Treatment Not on file documented as of this encounter Visit Diagnoses Not on filedocumented in this encounter Additional Health Concerns Assessment Noted Time PHQ-9 Depression Total Score: 16 022 4:21 PM MINER PICK documented as of this encounter Care Teams Purchasing Administrative Assistant Relationship Specialty Start Date End Date Stefanie [facility]. [address] [place], [place] [address] PCP - General Nurse Practitioner Family 09/05/2104/26 Dinesh Castillo DO [address] [place], [place] [phone] PCP - General FAMILY PRACTICE 04/27/22 Luisito Mcmillan MD [facility]. [address] [place], [place] [phone] [place] Checkering Machine Adjuster CARDIOVASCULAR DISEASE 12/31/18 [place] [address] [place] [address] Referring Physician RHEUMATOLOGY 12/17/19 Andi Plasencia MD [facility] [address] [place] [phone] Consulting Physician HEMATOLOGY/ONCOLOGY 12/17/19 Chris Wu MD [facility]. [address] [place], [place] [address] Consulting Physician CLINICAL CARDIAC ELECTROPHYSIOLOGY 12/17/19 Morgan Land MD [facility]. [address] [address] UROLOGY 07/14/21 documented as of this encounter
--- OUTSIDE RECORDS SUMMARY | 2024-12-15 10:23 | XMS_ITS | Encounter Summary ---
Author Organization [facility] Address [facility] [place] [address] Care Team Providers Care Power Barker Name Role Phone Luisito Mcmillan MD Unavailable [phone] Kvng Liu MD Unavailable Andi Plasencia MD Unavailable [phone] Chris Wu MD Unavailable Morgan Land MD Unavailable [phone] Stefanie Franco [facility] Primary Care Provider + Dinesh Castillo DO Primary Care Provider [phone] Reason for Visit * Reason Onset Date Comments Follow Up 03/15/2022 Encounter Details Date Type Department Care Team (Late st Contact Info) Description 03/15/2022 Telephone [facility] Interventional [place] [address] [id number] Taryn Marshall, RN Follow Up Social History Tobacco Use Types Packs/Day Years [...] Sex Assigned at Male 11/27/2024 8:48 AM CREATIVE STRATEGIST Legal Sex Male 6:03 PM CDT Gender Identity Not on file Sexual Orientation Not on file documented as of this encounter Progress Notes * Taryn Marshall RN - 03/15/2022 12:17 PM CDT THIS NURSE CALLED PT TO OBTAIN % OF RELIEF. PT STATED HE HAS 100% RELIEF FOR A FEW HOURS AT A TIME,OTHERWISE, HIS BASELINE % OF RELIEF IS 65%. THE PT STATED HIS ACTIVITIES HAVE IMPROVED, HE IS SLEEPING WELL, AND DOING HIS STRETCHES. PT IS TAKING HYDROCODONE FOR PAIN. PT ALSO MENTIONED HE HAS RECENTLY BEEN PLACED ON ELIQUIS. THIS NURSE EXPLAINED TO PT THAT WE WILL NEED TO DISCUSS THIS WITH THE ORDERING PROVIDER WE NEED AN AUTHORIZATION TO HOLD THE BLOOD THINNERBEFORE HE CAN COME IN FOR AN INJECTION. PT HAS BEEN TAKEN OFF OF SCHEDULE AT THIS TIME. documented in this encounter Plan of Treatment Not on file documented as of this encounter Visit Diagnoses Not on filedocumented in this encounter Additional Health Concerns Assessment Noted Time PHQ-9 Depression Total Score: 16 022 4:21 PM CREATIVE STRATEGIST documented as of this encounter Care Teams Power Barker Relationship Specialty Start Date End Date Stefan[facility] [address] [place] [address] PCP - General Nurse Practitioner Family 09/05/2104/26 Dinesh Castillo DO [address] [place] [address] PCP - General FAMILY PRACTICE 04/27/22 Luisito Mcmillan MD [facility]. [facility] [address] [place] [address] [place] Outside Plant Field Engineer CARDIOVASCULAR DISEASE 12/31/18 [place] [address] [place] [address] Referring Physician RHEUMATOLOGY 12/17/19 Andi Plasencia MD [address] [facility] [address] [place] [address] Consulting Physician HEMATOLOGY/ONCOLOGY 12/17/19 Chris Wu MD [address] [phone] Consulting Physician CLINICAL CARDIAC ELECTROPHYSIOLOGY 12/17/19 Morgan Land MD [address] [address] UROLOGY 07/14/21 documented as of this encounter
--- OUTSIDE RECORDS SUMMARY | 2024-12-15 10:23 | XMS_ITS | Encounter Summary ---
Author Organization [facility] Address [facility] [place] [address] Care Team Providers Care Dressage Instructor Name Role Phone Luisito Mcmillan MD Unavailable [phone] Cynthia Meadows MD Primary Care Provider [phone] Kvng Liu MD Unavailable Andi Plasencia MD Unavailable [phone] Chris Wu MD Unavailable Roberto Ventura MD Primary Care Provider [phone] Wendy Mitchell TICKET AGENT Primary Care Provider Unav ailable Morgan Land MD Unavailable [phone] Stefanie Franco [facility] Primary Care Provider + Dinesh Castillo DO Primary Care Provider [phone] Encounter Details Date Type Department Care Team (Late st Contact Info) Description 12/15/2015 Abstract [facility] CONVERSION [address] [place], [place] [phone] , Wesley Cadet MD Social History Tobacco Use Types Packs/Day Years Used Date Smoking Tobacco: Never Assessed Sex and Gender Information Value Date Recorded Sex Assigned at Male 11/27/2024 8:48 AM PMO PROJECT MANAGER Legal Sex Male 6:03 PM CDT Gender Identity Not on file Sexual Orientation Not on file documented as of this encounter Plan of Treatment Not on file documented as of this encounter Visit Diagnoses Not on filedocumented in this encounter Care Teams Dressage Instructor Relationship Specialty Start Date End Date Cynthia Meadows MD [address] [place] [address] PCP - General FAMILY PRACTICE 01/01/19 12/16/19 Roberto Ventura MD [facility] [address] [place] [address] PCP - General INTERNAL MEDICINE 12/17/19 07/10/20 Wendy Mitchell NP [facility] [address] [place] [address] PCP - General NURSE PRACTITIONER 07/11/20 09/04/21 [facility] [address] [place] [address] PCP - General Nurse Practitioner [facility] 09/05/2104/26 Dinesh Castillo DO [address] [place] [address] PCP - General FAMILY PRACTICE 04/27/22 Luisito Mcmillan MD [facility] [address] [place], [place] [address] [employer]aughter Technical Sme CARDIOVASCULAR DISEASE 12/31/18 [place] [address] [place] [address] Referring Physician RHEUMATOLOGY 12/17/19 Andi Plasencia MD [address] [facility] [address] [place] [address] Consulting Physician HEMATOLOGY/ONCOLOGY 12/17/19 Chris Wu MD Three [facility]. [address] [address] Consulting Physician CLINICAL CARDIAC ELECTROPHYSIOLOGY 12/17/19 Morgan Land MD Three [facility]. [address] [address] UROLOGY 07/14/21 documented as of this encounter
--- OUTSIDE RECORDS SUMMARY | 2024-12-15 10:23 | XMS_ITS | Patient Health Summary ---
Author Organization [facility] Address [address] [place] [address] Care Team Providers Care Slash Trimmer Name Role Phone Unknown, Provider Primary Care Provider Unavaila ble Note from [facility],non-owned Affiliates and Associated Physician Practices is amultiple site organization consisting of ambulatory clinics and hospital sitesin [place], [place], [place] and [place]. This disclosure is being madepursuant to the Care Everywhere program and may not contain all information available regarding this patient. Last updated 18.[facility] Immunizations * FLU VACCINE QUAD IIV4 PF ID(Given 10/26/2016) * Pneumococcal Pcv13 Conj(Given 10/26/2016) Social History Tobacco Use Types Packs/Day Years Used Date Smoking Tobacco: Never Assessed Sex and Gender Information Value Date Recorded Sex Assigned at Not on file Gender Identity Not on file Sexual Orientation Not on file Procedures * DERMATOPATHOLOGY(Performed 08/03/2024) Performed for Neoplasm of uncertain behavior of skin Results * DERMATOPATHOLOGY (08/03/2024 3:33 AM CDT) Case Report Dermatopathology Report Case: [id number] Authorizing Provider: Ki Dover MD Collected: 08/03/2024 03:33 AM Ordering Location: [facility] - Received: 08/04/2024 11:08 AM DermPath Lab Pathologist: Yen Arredondo MD Specimen: Skin, right frontal scalp 11:27 AM CDT DERMATOPATHOLOGY LABORATORY Final Diagnosis Specimen A. SKIN, right frontal scalp: HYPERPLASTIC (HYPERTROPHIC) ACTINIC KERATOSIS, LICHENOID (L57.0) 11:27 AM CDT DERMATOPATHOLOGY LABORATORY Clinical History SCC vs ISK 11:27 AM CDT DERMATOPATHOLOGY LABORATORY Gross Description Specimen A: Received is one formalin filled container labeled with the patient's name and designated right frontal scalp. The specimen consists of a shave biopsy measuring 8x7x2 mm. Jar 0. 11:27 AM CDT DERMATOPATHOLOGY LABORATORY Microscopic Description Specimen A. SKIN, right frontal scalp: There is hyperkeratosis alternating with parakeratosis. There is epidermal hyperplasia with disorderly maturation of keratinocytes with nuclear pleomorphism confined to the lower half of the epidermis. The dermis shows a band-like, chronic inflammatory infiltrate with occasional apoptotic keratinocytes and some basal vacuolar alteration. 11:27 AM CDT DERMATOPATHOLOGY LABORATORY Disclaimer An external and internal positive and negative controls are appropriate for the histochemical, immunohistochemical and immunofluorescence stain(s) in this case (if any), except where stated explicitly. The performance characteristics of the stain(s) cited in this report were developed and its performance characteristic determined by the Dermatopathology Laboratory at [facility], directed by Dr. Philippe Klein. These tests need not be, and therefore are not, approved by the [place] Food and Drug Administration. The tests are used for clinical purposes. Billing Codes Specimen Charges Stain Charges 33737 1 11:27 AM CDT DERMATOPATHOLOGY LABORATORY Embedded Images 11:27 AM CDT DERMATOPATHOLOGY LABORATORY Pathology/Cytolo gy TISSUE SPECIMEN FROM SKIN / Unknown 08/03/2024 3:33 AM CDT 08/04/2024 11:08 AM CDT Ki Dover MD LAB - PATHOLOGY/CYTO LOGY ORDERABLES DERMATOPATHOLOGY LABORATORY [facility] - Department of Dermatology [address] [phone] Care Teams Slash Trimmer Relationship Specialty Start Date End Date Unknown, Provider PCP - General 10/26/16
--- OUTSIDE RECORDS SUMMARY | 2024-12-15 10:23 | XMS_ITS | Encounter Summary ---
Author Organization [facility] Address [facility] [place] [address] Care Team Providers Care Life Teacher Name Role Phone Luisito Mcmillan MD Unavailable [phone] Cynthia Meadows MD Primary Care Provider [phone] Kvng Liu MD Unavailable Andi Plasencia MD Unavailable [phone] Chris Wu MD Unavailable Roberto Ventura MD Primary Care Provider [phone] Wendy Mitchell BRINE TANK SEPARATOR OPERATOR Primary Care Provider Unav ailable Morgan Land MD Unavailable [phone] Stefanei Franco [facility] Primary Care Provider + Dinesh Castillo DO Primary Care Provider [phone] Encounter Details Date Type Department Care Team (Late st Contact Info) Description 04/03/2016 Abstract [facility] CONVERSION [address] [place], [place] [phone] , Wesley Cadet MD Social History Tobacco Use Types Packs/Day Years Used Date Smoking Tobacco: Never Assessed Sex and Gender Information Value Date Recorded Sex Assigned at Male 11/27/2024 8:48 AM BEADER Legal Sex Male 6:03 PM CDT Gender Identity Not on file Sexual Orientation Not on file documented as of this encounter Plan of Treatment Not on file documented as of this encounter Visit Diagnoses Not on filedocumented in this encounter Care Teams Life Teacher Relationship Specialty Start Date End Date Cynthia Meadows MD [address] [place] [address] PCP - General FAMILY PRACTICE 01/01/19 12/16/19 Roberto Ventura MD [facility] [address] [place] [address] PCP - General INTERNAL MEDICINE 12/17/19 07/10/20 Wendy Mitchell NP [facility] [address] [place] [address] PCP - General NURSE PRACTITIONER 07/11/20 09/04/21 [facility] [address] [place] [address] PCP - General Nurse Practitioner [facility] 09/05/2104/26 Dinesh Castillo DO [address] [place] [address] PCP - General FAMILY PRACTICE 04/27/22 Luisito Mcmillan MD [facility] [address] [place], [place] [address] [employer] Fire Specialist CARDIOVASCULAR DISEASE 12/31/18 [place] [address] [place] [address] Referring Physician RHEUMATOLOGY 12/17/19 Andi Plasencia MD [address] [facility] [address] [place] [address] Consulting Physician HEMATOLOGY/ONCOLOGY 12/17/19 Chris Wu MD Three [facility]. [address] [address] Consulting Physician CLINICAL CARDIAC ELECTROPHYSIOLOGY 12/17/19 Morgan Land MD Three [facility]. [address] [address] UROLOGY 07/14/21 documented as of this encounter
--- OUTSIDE RECORDS SUMMARY | 2024-12-15 10:23 | XMS_ITS | Clinical Summary ---
Author Organization [facility] Address [address] [place] [address] Care Team Providers Care Relay Shop Tester Name Role Phone Unknown, Provider Primary Care Provider Unavaila ble Source Comments [facility],non-owned Affiliates and Associated Physician Practices is amultiple site organization consisting of ambulatory clinics and hospital sitesin [place], [place], [place] and [place]. This disclosure is being madepursuant to the Care Everywhere program and may not contain all information available regarding this patient. Last updated 18.[facility] Immunizations Name Administration Dates Next Due FLU VACCINE QUAD IIV4 PF ID 10/26/2016 Pneumococcal Pcv13 Conj 10/26/2016 Social History Tobacco Use Types Packs/Day Years Used Date Smoking Tobacco: Never Assessed Sex and Gender Information Value Date Recorded Sex Assigned at Not on file Gender Identity Not on file Sexual Orientation Not on file Plan of Treatment Health Maintenance Due Date Last Done Comments COLOGUARD (AGES 45-75) - COL ON CA SCREENING 1959 COLON MONITORING 1959 COLONOSCOPY - COLON CA SCREENING 1959 CT COLONOGRAPHY - COLON CA SCREENING 1959 Colorectal Cancer Screening 1959 FIT - COLON CA SCREENING 1959 FLEX SIG - COLON CA SCREENING 1959 LIPID TESTING 1959 HIV SCREENING 1974 HEPATITIS C SCREENING 04/30/1977 DTAP/TDAP/TD VACCINES (1 - Tdap) 1978 ZOSTER VACCINE (1 of 2) 2009 PNEUMOCOCCAL VACCINE 50+ (2 of 2 - PPSV23) 10/26/2017 10/26/2016 COVID-19 VACCINE (1 - 2024-2 5 season) 2024 INFLUENZA VACCINE (#1) 2024 10/26/2016 DEPRESSION SCREENING 10/21/2024 MEDICARE AWV CALENDAR YEAR 2024 Respiratory Syncytial Virus (RSV) Vaccine Pt: or over 60 yrs (1 - 1-dose 75+ series) 2034 HEPATITIS B VACCINE Aged Out No longe r eligible based on patient's age to complete this topic HIB VACCINE Aged Out No longer eligi ble based on patient's age to complete this topic HPV VACCINE Aged Out No longer eligi ble based on patient's age to complete this topic MENINGOCOCCAL (Group B) VACCINE Aged Out No longer eligible based on patient's age to complete this topic MENINGOCOCCAL VACCINE Aged Out No mark kamar eligible based on patient's age to complete this topic Care Teams Relay Shop Tester Relationship Specialty Start Date End Date Unknown, Provider PCP - General 10/26/16
--- OUTSIDE RECORDS SUMMARY | 2024-12-15 10:23 | XMS_ITS | CONTINUITY OF CARE DOCUMENT ---
Author Name belle odonnell Address Unknown Organization [facility] Address [address] [place] [address] [address] [place] [address] Phone [phone] Care Team Providers Care Procedures Analyst Name Role Phone belle odonnell Unavailable Unavailable INSURANCE PROVIDERS Payer name Policy type / Coverage type [place] red constitution party ID CIGROSE American [employer] 2 Go insurance Wish [id number]
--- OUTSIDE RECORDS SUMMARY | 2024-12-15 10:23 | XMS_ITS | Encounter Summary ---
Author Organization [facility] Address Critical access [facility] [place] [address] Care Team Providers Care Piano Technician Name Role Phone Luisito Mcmillan MD Unavailable [phone] Kvng Liu MD Unavailable Andi Plasencia MD Unavailable [phone] Chris Wu MD Unavailable [place] Land MD Unavailable [phone] Dinesh Castillo DO Primary Care Provider [phone] Encounter Details Date Type Department Care Team (Late st Contact Info) Description 05/27/2023 Therapy Plan [facility] [address] [place] [address] Kvng Liu MD [address] [place] [address] Social History Tobacco Use Types Packs/Day Years [...] Sex Assigned at Male 11/27/2024 8:48 AM VICE PRESIDENT DIVERSITY Legal Sex Male 6:03 PM CDT Gender Identity Not on file Sexual Orientation Not on file documented as of this encounter Plan of Treatment Not on file documented as of this encounter Visit Diagnoses Diagnosis Rheumatoid arthritis (CMS/HCC HHS/HCC)- Primary documented in this encounter Additional Health Concerns Assessment Noted Time PHQ-9 Depression Total Score: 16 022 4:21 PM VICE PRESIDENT DIVERSITY documented as of this encounter Care Teams Piano Technician Relationship Specialty Start Date End Date Dinesh Castillo DO [address] [place] [address] PCP - General FAMILY PRACTICE 04/27/22 Luisito Mcmillan MD [facility] [place] [address] [place] Unix Consultant CARDIOVASCULAR DISEASE 12/31/18 [place] [address] [place], [place] [id number] Referring Physician RHEUMATOLOGY 12/17/19 Andi Plasencia MD [address] [facility] [address] [place] [address] Consulting Physician HEMATOLOGY/ONCOLOGY 12/17/19 hCris Wu MD [facility]. [address] [place], [place] [address] Consulting Physician CLINICAL CARDIAC ELECTROPHYSIOLOGY 12/17/19 [place] Land MD [facility]. [address] [place] [address] UROLOGY 07/14/21 documented as of this encounter
--- OUTSIDE RECORDS SUMMARY | 2024-12-15 10:23 | XMS_ITS | Encounter Summary ---
Author Organization [facility] Address On license of [facility] [place] [address] Care Team Providers Care Clinical Education Assistant Name Role Phone Luisito Mcmillan MD Unavailable [phone] Cynthia Meadows MD Primary Care Provider [phone] Kvng Liu MD Unavailable Andi Plasencia MD Unavailable [phone] Chris Wu MD Unavailable Roberto Ventura MD Primary Care Provider [phone] Wendy Mitchell NP Primary Care Provider Unav ailable [place] MD Unavailable Stefanie Franco [facility] Primary Care Provider + Dinesh Castillo DO Primary Care Provider [phone] Encounter Details Date Type Department Care Team (Late st Contact Info) Description 01/22/2019 [facility] at [address] [address] Larry Quezada [place] Social History Tobacco Use Types Packs/Day Years [...] Sex Assigned at Male 11/27/2024 8:48 AM CRAS Legal Sex Male 6:03 PM CDT Gender Identity Not on file Sexual Orientation Not on file documented as of this encounter Plan of Treatment Not on file documented as of this encounter Procedures Procedure Name Priority Date/Time Associated Diagnosis Comments CRP (OUTSIDE LAB) Routine 12/18/2018 CBC (OUTSIDE LAB) Routine 12/18/2018 BASIC METABOLIC PANEL Routine 12/18/2018 LIPID PANEL Routine 12/18/2018 THYROID STIM HORMONE TSH Routine 12/18/2018 CK (CPK) Routine 12/18/2018 documented in this encounter Results * CRP (OUTSIDE LAB) (12/18/2018) CRP 0.90 12/18/2018 [facility] LAB-OUTSIDE/ABSTRACTED Final Result * CK (CPK) (12/18/2018) CPK 140 12/18/2018 [facility] LABORATORY Final Result * LIPID PANEL (12/18/2018) CHOLESTEROL 147 HDL 29 TRIGLYCERIDES 220 NON HDL CHOLESTEROL 118 LDL (CALCULATED) 74 12/18/2018 [facility] LABORATORY Final Result * BASIC METABOLIC PANEL (12/18/2018) SODIUM S/P/B 141 POTASSIUM S/P/B 4.3 CO2 27.5 CHLORIDE S/P/B 102 GLUCOSE 99 mg/dL CALCIUM S/P/B 8.5 BUN 12 CREATININE S/P/B 0.96 0.7 - 1.3 EGFR AFR. AMER. >90 EGFR NON-AFR. AMER. 86 <=90 12/18/2018 [facility] LABORAT[facility] Final Result * THYROID STIM HORMONE, TSH (12/18/2018) TSH 0.749 12/18/2018 us [facility] LABORATORY Final Result * CBC (OUTSIDE LAB) (12/18/2018) WBC 6.9 HGB 15.2 HCT 44.4 PLT 236 12/18/2018 us [facility] Abstract LAB-OUTSIDE/ABSTRACTED Edite d Result - Final documented in this encounter Visit Diagnoses Not on filedocumented in this encounter Care Teams Clinical Education Assistant Relationship Specialty Start Date End Date Cynthia Meadows MD [address] [place] [address] PCP - General FAMILY PRACTICE 01/01/19 12/16/19 Roberto Ventura MD [address] [address] PCP - General INTERNAL MEDICINE 12/17/19 07/10/20 Wendy Mitchell, BRAZER ASSEMBLER [address] [address] PCP - General NURSE PRACTITIONER 07/11/20 09/04/21 Stefanie Franco FNP- [address] [address] PCP - General Nurse Practitioner Family 09/05/2104/26 Dinesh Castillo DO [facility] [place] [address] PCP - General FAMILY PRACTICE 04/27/22 Luisito Mcmillan MD [facility]. [address] [place] [address] [place] Personal Counselor CARDIOVASCULAR DISEASE 12/31/18 [place] [address] [place] [address] Referring Physician RHEUMATOLOGY 12/17/19 Andi Plasencia MD [address] [facility] [address] [place] [address] Consulting Physician HEMATOLOGY/ONCOLOGY 12/17/19 Chris Wu MD [facility]. [address] [place] [address] Consulting Physician CLINICAL CARDIAC ELECTROPHYSIOLOGY 12/17/19 [place] Land MD [facility]. [address] [place] [address] UROLOGY 07/14/21 documented as of this encounter
== END 2024-12-15 09:23 | disposition home or self-care (01) ==
PROVIDERS: PCP Nurse Practitioner Family
DX: Z51.81 Encounter for therapeutic drug level monitoring (principal); R92.8 Other abnormal and inconclusive findings on diagnostic imaging of breast
CPT/HCPCS: 36415; 71260; 74160; 80048; 80076; 85025; Q9967

== ENCOUNTER 2025-03-11 07:22 | Emergency (ER) | payer MEDICARE, SELFPAY ==
[2025-03-11] VITALS (48 sets, daily range): BP systolic 75–157; BP diastolic 53–124; PULSE 66–83; RESP 12–22; TEMP 36.4–36.6; O2SAT 91–100
--- NOTE | ~2025-03-11 | XR_ITS ---
EXAMINATION: XR chest 1V portable 03/11/2025 07:50 INDICATION: Chest pain PROCEDURE: AP portable chest COMPARISON: Comparison to multiple prior studies sequentially, with oldest reviewed study dated 06/13. FINDINGS: The lungs are clear. The cardiomediastinal silhouette is within normal limits. There are no pleural effusions. There is no pneumothorax suspected. IMPRESSION: 1: NO ACUTE CARDIOPULMONARY DISEASE. Reviewed, dictated and finalized at location []
--- NOTE | 2025-03-11 07:25 | ECG_ITS ---
Test Date: 2025-03-11 07:25:13 Measurements Intervals [place] Rate: 77 P: 70 SD: 165 QRS: 70 QRSD: 81 T: 68 QT: 341 QTc: 387 Interpretive Statements SINUS RHYTHM WITH OCCASIONAL VENTRICULAR PREMATURE COMPLEXES Compared to ECG 10/22/2024 09:08:16 Ventricular premature complex(es) now present Electronically Signed On 03-11-2025 14:06:41 CDT by Tal Alfaro M.D.
--- OUTSIDE RECORDS SUMMARY | 2025-03-11 07:25 | XMS_ITS | Patient Health Record ---
Author Organization [facility] Address [address] [place] [address] Care Team Providers Care Flat Finisher Name Role Phone Elvira Tucker Primary Care Provider [phone] Reason For Referral No Information Medications Medication SIG (Take, Route, Frequency, Duration) Notes Start Date End Date Status LORazepam 1 MG 1 daily Orally Once a day for 30 days 05/29/2016 Active LaMICtal 100 MG 1 tablet Orally once daily for 30 days 10/03/2016 Active LaMICtal ODT 100 MG one table Orally Onc e a day for 30 days 05/29/2016 Active HYDROcodone-Acetaminophen 10-325 MG 1 tablet as needed Orally every 6 hrs Active Gabapentin 100 MG 1 capsule Orally Thr ee times a day Active LORazepam 1 MG 1/2 - 1 tablet Orall y Once a day prn for 30 days 10/03/2016 Active Problems Problem Type SNOMED Code ICD Code Onset Dates Problem Status W/U Status Risk Notes Problem [id number] Mood disorder (F39) Active confirmed Plan Of Treatment No Information Insurance Providers Payer Name Payer Address Payer Phone Subscriber Number Group Number Insured Name Patient Relationship to Insured Coverage Start Date Coverage End Date [facility] [address] [place] [address] [phone] [id number] Sarabjit Long Self - patient is the insured 6 Medical (General) History Medical History History ICD Code Parkison's Disease
--- OUTSIDE RECORDS SUMMARY | 2025-03-11 07:25 | XMS_ITS | Clinical Summary ---
Author Organization [facility] Address [address] [place] [address] Care Team Providers Care Manager Financial Planning Name Role Phone Cynthia Cano MD Primary Care Provider [phone] Allergies Active Allergy Reactions Criticality Noted Date [...] mg by mouth daily with supper. Active predniSONE (DELTASONE) 5 mg tablet Take 15 mg by mouth 1 time daily as needed for Pain. RA flare Active lamoTRIgine (LaMICtal) 100 mg tablet Take 100 mg by mouth daily at bedtime. Active multivitamin (DAILY-SHUN) tablet Take 1 Tablet by mouth daily. Active Active Problems Problem Noted Date Diagnosed Date History of pulmonary embolism 06/07/2023 RA (rheumatoid arthritis) 06/07/2023 Herniation of right lung 06/07/2023 Morbid obesity with BMI of 40.0-44.9, adult 06/21 Obesity (BMI 35.0-39.9 without comorbidity) 06/21 Tobacco use 07/02/2017 Encounters Date Type Department Care Team Description 03/11/2025 External Device Data [facility] ABSTRACTION Provider, Abstract 03/10/2025 External Device Data [facility] ABSTRACTION Provider, Abstract 01/06/2025 External Device Data [facility] ABSTRACTION Provider, Abstract 12/26/2024 External Device Data [facility] ABSTRACTION Provider, Abstract 12/25/2024 External Device Data [facility] ABSTRACTION Provider, Abstract 12/22/2024 1:15 PM LEAD TELLER Office Visit [facility] Cardiovas and Thor Surg at [address] [phone] Wilian Zambrano MD Herniation of right lung (Primary Dx) 12/15/2024 Orders Only [facility] Thor Surg at [address] [phone] Christie Gauthier NP Herniation of right lung (Primary Dx) 12/14/2024 Orders Only [facility] Thor Surg at [address] [phone] Christie Gauthier NP Herniation of right lung (Primary Dx) from [...] Used Date Smoking Tobacco: Every Day Cigarettes 0.8 30 Alcohol Use Standard Drinks/Week Comments No 0 (1 standard drink = 0.6 oz pur e alcohol) Sex and Gender Information Value Date Recorded Sex Assigned at Not on file Legal Sex Male 10:34 AM CDT Gender Identity Not on file Sexual Orientation Not on file Last Filed Vital Signs Vital Sign Reading Time Taken Comments Blood Pressure 124/76 12/22/2024 1:26 PM LEAD TELLER Pulse 76 12/22/2024 1:26 PM LEAD TELLER Temperature 36.6 C (97.8 F) 09/20/2022 2:08 PM LEAD TELLER Respiratory Rate 18 09/20/2022 2:08 PM LEAD TELLER Oxygen Saturation 96% 12/22/2024 1:26 PM LEAD TELLER Inhaled Oxygen Concentration - - Weight 124.7 kg (275 lb) 12/22/2024 1:26 PM LEAD TELLER Height 175.3 cm (5' 9 ) 12/22/2024 1:26 PM LEAD TELLER Body Mass Index 40.61 12/22/2024 1:26 PM LEAD TELLER Plan of Treatment Health Maintenance Due Date Last Done Comments Pre-Diabetes and Diabetes Screening 1959 FIT-DNA Q 3 years 2004 FIT/FOBT Q 1 year 2004 Flex Sig/CT Colonography Q 5 years 2004 Lung Cancer Screening 2009 ZOSTER VACCINE (2 of 3) 11/15/2014 09/20/2014 RSV VACCINE (60+ or ) (1 - Risk 60-74 years 1-dose series) 2019 COLORECTAL SCREENING 04/10/2022 04/10/2012 Colorectal Cancer Screening 04/10/2022 INFLUENZA VACCINE (#1) 2024 , 10/10/2019, 10/26/2016 PNEUMOCOCCAL VACCINE 50+ YEA RS (3 of 3 - PCV20 or PCV21) 10/12/2024 10/12/2019, 10/26/2016, 10/06/2014 DTAP/TDAP/TD VACCINES (2 - T d or Tdap) 07/31/2031 07/31/2021 Abdominal Aortic Aneurysm (A AA) Screening Completed 08/09/2020, 07/04/2020 Insurance 61Lety Francis JOSSIE DAVALOS, [facility] [id number] [id number] [facility] [id number] Care Teams Manager Financial Planning Relationship Specialty Start Date End Date Cynthia Cano MD PCP - General Family Practice 06/20/17
--- OUTSIDE RECORDS SUMMARY | 2025-03-11 07:25 | XMS_ITS | Encounter Summary ---
Author Organization [facility] Address [address] [place] [address] Care Team Providers Care Independent Contractor Name Role Phone Cynthia Cano MD Primary Care Provider [phone] Encounter Details Date Type Department Care Team (Late st Contact Info) Description 03/10/2025 External Device Data [facility] ABSTRACTION Provider, Abstract NO ADDRESS ON FILE Social History Tobacco Use Types Packs/Day Years [...] on filedocumented in this encounter Care Teams Independent Contractor Relationship Specialty Start Date End Date Cynthia Cano MD PCP - General Family Practice 06/20/17 documented as of this encounter
--- OUTSIDE RECORDS SUMMARY | 2025-03-11 07:25 | XMS_ITS | Clinical Summary ---
Author Organization [facility] Address [address] [place] [address] Care Team Providers Care Before And After School Daycare Worker Name Role Phone Unknown, Provider Primary Care Provider Unavaila ble Source Comments [facility],non-owned Affiliates and Associated Physician Practices is amultiple site organization consisting of ambulatory clinics and hospital sitesin [place], [place], [place] and [place]. This disclosure is being madepursuant to the Care Everywhere program and may not contain all information available regarding this patient. 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 Gender Identity Not on file Sexual Orientation [...] 2 - PPSV23) 10/26/2017 10/26/2016 COVID-19 VACCINE (2023-2 5 season) 2024 DEPRESSION SCREENING 10/21/2024 MEDICARE AWV CALENDAR YEAR 2024 INFLUENZA VACCINE (Season Ended) 2025 10/26/19 17 Respiratory Syncytial Virus (RSV) Vaccine Pt: or [...] to complete this topic MENINGOCOCCAL (Group B) VACC INE SHARED DECISION-MAKING Aged Out No longer eligibl e based on patient's age to complete this topic MENINGOCOCCAL GROUPS A/C/Y/W VACCINE Aged Out No longer eligible b ased on patient's age to complete this topic Insurance [facility] Address: [facility] [id number] [place] [address] MEDICARE MEDICARE UHC MANAGED MEDICARE ADV Care Teams Before And After School Daycare Worker Relationship Specialty Start Date End Date Unknown, Provider PCP - General 10/26/16
--- OUTSIDE RECORDS SUMMARY | 2025-03-11 07:25 | XMS_ITS | Encounter Summary ---
Author Organization [facility] Address [facility] [place] [address] Care Team Providers Care Nuclear Medicine Medical Director Name Role Phone Unknown, Provider Primary Care Provider Unavaila ble Encounter Details Date Type Department Care Team (Late st Contact Info) Description 08/03/2024 Lab Requisition [facility] - DermPath Lab [address] [place] [address] iK Dover MD [facility] DERMATOLOGY [address] [place] [phone] Neoplasm of uncertain behavior of skin Social History Tobacco Use Types Packs/Day Years Used Date Smoking Tobacco: Never Assessed Sex and Gender Information Value Date Recorded Sex Assigned at Not on file Legal Sex Male 1:07 PM TOWER HAND Gender Identity Not on file Sexual Orientation Not on file documented as of this encounter Plan of Treatment Not on file documented as of this encounter Procedures Procedure Name Priority Date/Time Associated Diagnosis Comments DERMATOPATHOLOGY Routine 08/03/2024 3:33 AM CDT Neoplasm of uncertain behavior of skin documented in this encounter Results * DERMATOPATHOLOGY (08/03/2024 3:33 AM CDT) Case Report Dermatopathology Report Case: [id number] Authorizing Provider: Ki Dover MD Collected: 08/03/2024 03:33 AM Ordering Location: [facility] - Received: 08/04/2024 11:08 AM DermPath Lab Pathologist: Yen Arredondo MD Specimen: Skin, right frontal scalp 11:27 AM CDT DERMATOPATHOLOGY LABORATORY Final Diagnosis Specimen A. SKIN, right frontal scalp: HYPERPLASTIC (HYPERTROPHIC) ACTINIC KERATOSIS, LICHENOID (L57.0) 11:27 AM CDT DERMATOPATHOLOGY LABORATORY at 1127 CDT Clinical History SCC vs ISK 11:27 AM [...] characteristic determined by the Dermatopathology Laboratory at [facility], directed by Dr. Philippe Klein. These tests need not be, and therefore are not, approved by the [place] Food and Drug Administration. The tests are used for clinical purposes. Billing Codes Specimen Charges Stain Charges 42301 1 11:27 AM CDT DERMATOPATHOLOGY LABORATORY Embedded Images 11:27 AM CDT DERMATOPATHOLOGY LABORATORY Pathology/Cytolo gy TISSUE SPECIMEN FROM SKIN / Unknown 08/03/2024 3:33 AM CDT 08/04/2024 11:08 AM CDT us Ki Dover MD LAB - PATHOLOGY/CYTOLOGY [facility]DE [facility]GE Final Result DERMATOPATHOLOGY LABORATORY Stephen - Department of Dermatology [facility] [address] [facility], [address] [phone] documented in this encounter Visit Diagnoses Diagnosis Neoplasm of uncertain behavior of skin documented in this encounter Care Teams Nuclear Medicine Medical Director Relationship Specialty Start Date End Date Unknown, Provider PCP - General 10/26/16 documented as of this encounter
--- OUTSIDE RECORDS SUMMARY | 2025-03-11 07:25 | XMS_ITS | CONTINUITY OF CARE DOCUMENT ---
Author Name belle odonnell Address Unknown Organization [facility] Address [address] [place] [address] [address] [place] [address] Phone [phone] Care Team Providers Care Archery Equipment Hay Sorter Name Role Phone belle odonnell Unavailable Unavailable INSURANCE PROVIDERS Payer name Policy type / Coverage type [place] red democrat ID CIGROSE [employer] insurance [employer] [id number]
--- OUTSIDE RECORDS SUMMARY | 2025-03-11 07:25 | XMS_ITS | Clinical Summary ---
Author Organization [facility] Care Team Providers Care Motor Equipment Commanding Officer Name Role Phone Unavailable Primary Care Provider [...] Immunization (#1) 2024 SARS-COV-2 Immunization ( - 2023-25 season) 2024 Respiratory Syncytial Virus (RSV) Immunization [...]
--- OUTSIDE RECORDS SUMMARY | 2025-03-11 07:25 | XMS_ITS | Patient Health Record ---
Author Organization [facility] Address [address] [place], [place] [id number] Care Team Providers Care Third Shift Lieutenant Name Role Phone CYNTHIA GARCIA Unavailable [phone] Wendy Mitchell Unavailable Unavailable Reason For Referral No Information Plan Of Treatment No Information Insurance Providers Payer Name Payer Address Payer Phone Subscriber Number Group Number Insured Name Patient Relationship to Insured Coverage Start Date Coverage End Date [facility] [address] [address] [place], [place] [id number] NIYAH ADAMS Self - patient is the insured
--- OUTSIDE RECORDS SUMMARY | 2025-03-11 07:25 | XMS_ITS ---
Author Organization [facility] Address [address] [place], [place] [id number] Care Team Providers Care Open Pit Quarry Supervisor Name Role Phone CYNTHIA GARCIA Unavailable [phone] Wendy Mitchell Unavailable Unavailable REASON FOR VISIT *General care Encounters Encounter Location Date Provider Diagnosis [place] [address] [place], [place] [id number] 11/28/2023 CYNTHIA GARCIA Plan Of Treatment No Information Progress Notes * NIYAH ADAMS LDOB:[birth year] (64 yo M)Acc No.[id number]:11/28/2023 Patient: Yadiel RASMUSSENNIYAH Provider: Mane GARCIA :1960 A ge:63 Y S ex:Male Date:11/28/2023 Address:[address] [place], [place] [id number] Subjective: * Chief Complaints: * 1 . *General care. * Medical History: Objective: * Vitals: Assessment: Plan: * Treatment: * Billing Information: * Visit Code: * Procedure Codes: * Electronic signature of DOUG GARCIA DPM on 03/11/2025 at 07:25 AM CDT Sign off status: Pending * Provider: Mane GARCIA Date: 0 11/28/2023 Generated for Maida mirza/Mark/Zuleyka on: 0 03/11/2025 07:25 AM CDT
--- OUTSIDE RECORDS SUMMARY | 2025-03-11 07:25 | XMS_ITS | Encounter Summary ---
Author Organization [employer] Address [address] [place] [address] Care Team Providers Care Fly Rail Operator Name Role Phone Cynthia Cano MD Primary Care Provider [phone] Encounter Details Date Type Department Care Team (Late st Contact Info) Description 03/11/2025 External Device Data STL ABSTRACTION [...] on filedocumented in this encounter Care Teams Fly Rail Operator Relationship Specialty Start Date End Date Cynthia Cano MD PCP - General Family Practice 06/20/17 documented as of this encounter
[2025-03-11] MEDS: ASPIRIN 81 MG CHEWABLE TABLET 324 MG PO (07:43)
[2025-03-11] MEDS: NITROGLYCERIN SL 0.4 MG TABLET SUBLINGUAL (07:44)
[2025-03-11 07:48] LABS: Hematocrit 46.5 % (37.0-46.0); Mean Corpuscular HGB Conc 30.1 g/dL (32-36); Mean Corpuscular Volume 103.1 fL (78.0-102.0); Mean Platelet Volume 9.1 fl (8.7-11.0); Platelet Count Result 284 K/mm3 (150-420); Red Blood Count 4.51 M/mm3 (4.70-6.10); Red Cell Distribution Width 13.3 % (11.6-14.4); White Blood Count 12.2 K/mm3 (4.8-10.8)
[2025-03-11] MEDS: SODIUM CHLORIDE 0.9% IV 1,000 ML 999 ML IV CONT (07:50)
[2025-03-11 07:59] LABS: Band Neutrophils Percent 0 % (0-6); Lymphocytes Absolute Manual 3.17 K/mm3 (1.1-4.5); Lymphocytes Percent Manual 26 % (18-44); Monocytes Absolute Manual 0.73 K/mm3 (0.1-0.90); Monocytes Percent Manual 6 % (3-9); Neutrophils Absolute Manual 8.29 K/mm3 (1.3-6.7); Neutrophils Percent Manual 68 % (46-73); Platelet Estimate Adequate (Adequate); Total Cells Counted 100
[2025-03-11 08:01] LABS: Alanine Aminotransferase 26 U/L (6-50); Albumin Level 4.6 g/dL (3.5-5.1); Alkaline Phosphatase 79 U/L (38-126); Anion Gap 4 mmol/L (4-12); Aspartate Amino Transferase 27 U/L (17-59); Bilirubin,Total 0.9 mg/dL (0.2-1.3); Blood Urea Nitrogen 11 mg/dL (9-20); Calcium 9.2 mg/dL (8.4-10.2); Carbon Dioxide 31 mmol/L (22-30); Chloride 104 mmol/L (98-107); D Dimer 0.19 mg/L (0.19-0.50); Estimated CRCL calculation 109 ml/min; Estimated Glomerular Filt Rate > 60; Glucose 80 mg/dL (65-110); INR 0.9; Lipase 68 U/L (23-300); Osmolality Calculated 286 mOsm/kg (285-295); Potassium 4.2 mmol/L (3.4-5.0); Prothrombin Time 10.3 Seconds (9.50-12.1); Sodium 139 mmol/L (137-145); Total Protein 7.1 g/dL (6.3-8.2)
--- OUTSIDE RECORDS SUMMARY | 2025-03-11 08:09 | XMS_ITS | Clinical Summary ---
Author Organization [facility] Address [address] [place] [address] Care Team Providers Care Metal Casket Assembler Name Role Phone Unknown, Provider Primary Care Provider Unavaila ble Source Comments [facility],non-owned Affiliates and Associated Physician Practices is amultiple site organization consisting of ambulatory clinics and hospital sitesin [place], [place], [place] and [place]. This disclosure is being madepursuant to the Care Everywhere program and may not contain all information available regarding this patient. 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
--- OUTSIDE RECORDS SUMMARY | 2025-03-11 08:09 | XMS_ITS | Encounter Summary ---
Author Organization [facility] Address [address] [place] [address] Care Team Providers Care Global Account Executive Name Role Phone Cynthia Cano MD Primary Care Provider [phone] Encounter Details Date Type Department Care Team [...] on filedocumented in this encounter Care Teams Global Account Executive Relationship Specialty Start Date End Date Cynthia Cano MD PCP - General Family Practice 06/20/17 documented as of this encounter
--- OUTSIDE RECORDS SUMMARY | 2025-03-11 08:09 | XMS_ITS | Clinical Summary ---
Author Organization [facility] [place] Address [address] [place] [address] Care Team Providers Care Sales And Service Officer Name Role Phone Cynthia Cano MD Primary Care Provider [phone] Allergies Active Allergy Reactions Criticality Noted Date [...] STL ABSTRACTION Provider, Abstract 12/22/2024 1:15 PM LENS DOTTER Office Visit [facility] at [address] [phone] Wilian Zambrano MD Herniation of right lung (Primary Dx) 12/15/2024 Orders Only [facility] at [address] [phone] Christie Gauthier NP Herniation of right lung (Primary Dx) 12/14/2024 Orders Only [facility] at [address] [phone] Christie Gauthier NP Herniation of right lung [...] Comments Blood Pressure 124/76 12/22/2024 1:26 PM LENS DOTTER Pulse 76 12/22/2024 1:26 PM LENS DOTTER Temperature 36.6 C (97.8 F) 09/20/2022 2:08 PM LENS DOTTER Respiratory Rate 18 09/20/2022 2:08 PM LENS DOTTER Oxygen Saturation 96% 12/22/2024 1:26 PM LENS DOTTER Inhaled Oxygen Concentration - - Weight 124.7 kg (275 lb) 12/22/2024 1:26 PM LENS DOTTER Height 175.3 cm (5' 9 ) 12/22/2024 1:26 PM LENS DOTTER Body Mass Index 40.61 12/22/2024 1:26 PM LENS DOTTER Plan of Treatment Health Maintenance Due Date [...] 08/09/2020, 07/04/2020 Insurance 61Lety Francis JOSSIE DAVALOS, [facility] [id number] [facility] [id number] Care Teams Sales And Service Officer Relationship Specialty Start Date End Date Cynthia Cano MD PCP - General Family Practice 06/20/17
--- OUTSIDE RECORDS SUMMARY | 2025-03-11 08:09 | XMS_ITS | Encounter Summary ---
Author Organization [employer] Address [address] [place] [address] Care Team Providers Care Horseback Riding Instructor Name Role Phone Cynthia Cano MD Primary Care Provider [phone] Encounter Details Date Type Department Care Team [...] on filedocumented in this encounter Care Teams Horseback Riding Instructor Relationship Specialty Start Date End Date Cynthia Cano MD PCP - General Family Practice 06/20/17 documented as of this encounter
--- OUTSIDE RECORDS SUMMARY | 2025-03-11 08:09 | XMS_ITS | CONTINUITY OF CARE DOCUMENT ---
Author Name belle odonnell Address Unknown Organization [facility] Address [address] [place] [address] [address] [place] [address] Phone [phone] Care Team Providers Care Park Recreation Manager Name Role Phone belle odonnell Unavailable Unavailable INSURANCE PROVIDERS Payer name Policy type / Coverage type [place] red constitution party ID [employer] [id number]
--- OUTSIDE RECORDS SUMMARY | 2025-03-11 08:09 | XMS_ITS | Clinical Summary ---
Author Organization [facility] Care Team Providers Care Scraper Hand Name Role Phone Unavailable Primary Care Provider [...]
--- OUTSIDE RECORDS SUMMARY | 2025-03-11 08:09 | XMS_ITS | Encounter Summary ---
Author Organization [facility] Address [facility] [facility] [place] [address] Care Team Providers Care Hand Presser Name Role Phone Unknown, Provider Primary Care Provider Unavaila ble Encounter Details Date Type Department Care Team (Late st Contact Info) Description 08/03/2024 Lab Requisition [facility] - DermPath Lab [address] [place] [address] Ki Dover MD [facility] [address] [place] [phone] Neoplasm of uncertain behavior of skin Social History Tobacco Use Types Packs/Day Years Used Date Smoking Tobacco: Never Assessed Sex and Gender Information Value Date Recorded Sex Assigned at Not on file Legal Sex Male 1:07 PM EXTRACT PULLER Gender Identity Not on file Sexual Orientation Not on file documented as of this encounter Plan of Treatment Not on file documented as of this encounter Procedures Procedure Name Priority Date/Time Associated Diagnosis Comments DERMATOPATHOLOGY Routine 08/03/2024 3:33 AM CDT Neoplasm of uncertain behavior of skin documented in this encounter Results * DERMATOPATHOLOGY (08/03/2024 3:33 AM CDT) Case Report Dermatopathology Report Case: [id number] Authorizing Provider: Ki Dover MD Collected: 08/03/2024 03:33 AM Ordering Location: [facility] - Received: 08/04/2024 11:08 [...] characteristic determined by the Dermatopathology Laboratory at [facility], directed by Dr. Philippe Klein. These tests need not be, and therefore are not, approved by the [place] Food and Drug Administration. The tests are used for clinical purposes. Billing Codes Specimen Charges Stain Charges 08486 1 11:27 AM CDT DERMATOPATHOLOGY LABORATORY Embedded Images 11:27 AM CDT DERMATOPATHOLOGY LABORATORY Pathology/Cytolo gy TISSUE SPECIMEN FROM SKIN / Unknown 08/03/2024 3:33 AM CDT 08/04/2024 11:08 AM CDT us Ki Dover MD LAB - PATHOLOGY/CYTOLOGY [facility]DE [facility]GE Final Result DERMATOPATHOLOGY LABORATORY [facility] - Department of Dermatology [facility] [address] [facility] [phone] documented in this encounter Visit Diagnoses Diagnosis Neoplasm of uncertain behavior of skin documented in this encounter Care Teams Hand Presser Relationship Specialty Start Date End Date Unknown, Provider PCP - General 10/26/16 documented as of this encounter
[2025-03-11 08:12] LABS: NT Pro B Type Natriuretic Pept < 20 pg/mL (19.9-100); Troponin I < 0.012 ng/mL (0.000-0.034)
--- NOTE | 2025-03-11 08:26 | ED.CHESTPAIN ---
HPI - Chest Pain General Chief Complaint: Chest Pain Stated Complaint: chestpain Time Seen by Provider: 03/11/25 07:23 Source: patient and family Mode of arrival: ambulatory Limitations: no limitations History of Present Illness HPI narrative: this is a 64-year-old male with no significant history for heart disease, is a smoker hypertensive and has a history of rheumatoid arthritis presents with left-sided chest discomfort reproducible with palpation midsternal with no radiation of his pain no shortness of breath no nausea vomiting no fever chills no cough for congestion. Pain started around 5 in the morning has been constant reproducible no abdominal pain no diarrhea constipation no dysuria. complaint: chest pain and chest discomfort Onset (ago): hour(s) Timing of current episode: constant Prior episodes: No Onset: during rest Pain location: substernal and left chest Pain radiation: none Severity: severe Quality: aching Relieving factors: nothing Risk Factors Coronary artery disease risk factors: smoking history and hypertension Related Data Home Medications ?Medication ?Instructions ?Recorded ?Confirmed ?Last Taken ?Type rbmxhyqa-olo-mtzqi acid 0.4 1 tablet PO DAILY 03/20/22 11/02/24 Unknown History mg-lycopene 300 mcg-lutein 250 mcg tablet ([facility]) apixaban 5 mg tablet 5 mg PO BID 02/17/25 Unknown History Allergies Allergy/AdvReac Type Severity Reaction Status Date / Time methotrexate Allergy Unknown Hives / Verified 03/11/25 07:32 Red Face Review of Systems Review of Systems: All systems reviewed & are unremarkable except as noted in HPI and below PMFSH Past Medical History Medical History Finger tendinitis Personal history of tobacco use Nondependent alcohol abuse, in remission Benign paroxysmal positional vertigo Salivary gland tumor Medical marijuana use CLAUDIO (obstructive sleep apnea) Rheumatoid arthritis Peripheral neuropathy Morbid obesity Fibromyalgia Asthma COPD (chronic obstructive pulmonary disease) HTN (hypertension) Surgical History Surgical History History of incision and drainage (~12/2019) perirectal abscess History of foot surgery right foot toes cut off in Jr High History of colonoscopy (~10/2014) History of appendectomy Social History Social History Smoking status: Current every day smoker Alcohol intake: never Substance use: never Living arrangements: with family Gender identity (if verbalized by the patient): Male Exam Const: General: healthy appearing and no acute distress Nutritional Appearance: well nourished and obese Orientation/consciousness: patient oriented x3 Limitations: no limitations HENMT: Head: normal to inspection Eyes: Conjunctivae: conjunctivae normal Neck: Neck: normal visual inspection, no lymphadenopathy and no meningeal signs Chest: Chest palpation & inspection: normal inspection of the chest Resp: Effort & Inspection: normal respiratory effort Auscultation: clear to auscultation bilaterally GI: GI Palp: Yes Soft to palpation Auscultation: normal bowel sounds : General: Yes bladder normal to palpation Skin: General skin exam: normal color Rashes: no rashes Wounds: no wounds Neuro: General: patient oriented x3, moves all extremities and no meningeal signs Extrem: General: normal to inspection and no clubbing, cyanosis or edema Course Course Emergency Course: Patient received triglyceride sublingual for 10 10 chest pain, after administration did not relieve his chest discomfort, chest discomfort is reproducible with palpation. EKG normal sinus rhythm occasional PVCs, troponins 1st set negative D-dimer is negative. Chest x-ray shows no acute cardiopulmonary abnormalities. White count elevated at 12.5. Patient received IV fluids after his blood pressure had decreased after receiving nitroglycerin sublingual. Patient currently receiving a normal saline fluid bolus. For pain administer 2mg of morphine IV. Vital Signs Vital signs: Vital Signs Pulse Rate 75 03/11/25 07:25 Temperature 36.6 C 03/11/25 09:00 Pulse Rate 83 03/11/25 11:47 Respiratory Rate 18 03/11/25 11:47 Blood Pressure 157/105 H 03/11/25 11:47 Pulse Oximetry 91 03/11/25 11:47 Oxygen Delivery Room Air 03/11/25 07:31 MDM - Chest Pain Lab Data 03/11/25 07:44 03/11/25 07:44 Labs: Lab Results 03/11/25 03/11/25 03/11/25 Range/Units 07:23 07:33 07:44 WBC 12.2 H (4.8-10.8) K/mm3 RBC 4.51 L (4.70-6.10) M/mm3 Hgb 14.0 (12.4-15.3) g/dL Hct 46.5 H (37.0-46.0) % MCV 103.1 H (78.0-102.0) fL MCH 31.0 (27.0-31.0) pg MCHC 30.1 L (32-36) g/dL RDW 13.3 (11.6-14.4) % Plt Count 284 (150-420) K/mm3 MPV 9.1 (8.7-11.0) fl Immature Gran % (Auto) Not Reportable Neut % (Auto) Not Reportable Lymph % (Auto) Not Reportable Baldwin % (Auto) Not Reportable Eos % (Auto) Not Reportable Baso % (Auto) Not Reportable Lymph # (Auto) Not Reportable Baldwin # (Auto) Not Reportable Eos # (Auto) Not Reportable Baso # (Auto) Not Reportable Abs Immat Gran (auto) Not Reportable Absolute Neuts (auto) Not Reportable Absolute Nucleated RBC Not Reportable Total Counted 100 Neutrophils % (Manual) 68 (46-73) % Band Neutrophils % 0 (0-6) % Lymphocytes % (Manual) 26 (18-44) % Monocytes % (Manual) 6 (3-9) % Nucleated RBC % Not Reportable Abs Neuts (Manual) 8.29 H (1.3-6.7) K/mm3 Abs Lymphs (Manual) 3.17 (1.1-4.5) K/mm3 Abs Monocytes (Manual) 0.73 (0.1-0.90) K/mm3 Platelet Estimate Adequate (Adequate) Schistocytes Not Reportable PT 10.3 (9.50-12.1) Seconds INR 0.9 APTT 28.0 (23.9-30.70) Sec D-Dimer 0.19 (0.19-0.50) mg/L Sodium 139 (137-145) mmol/L Potassium 4.2 (3.4-5.0) mmol/L Chloride 104 (98-107) mmol/L Carbon Dioxide 31 H (22-30) mmol/L Anion Gap 4 (4-12) mmol/L BUN 11 (9-20) mg/dL Creatinine 0.77 (0.7-1.3) mg/dL Estim Creat Clear Calc 109 ml/min Estimated GFR > 60 (59 - ) Glucose 80 (65-110) mg/dL Calculated Osmolality 286 (285-295) mOsm/kg Calcium 9.2 (8.4-10.2) mg/dL Total Bilirubin 0.9 (0.2-1.3) mg/dL AST 27 (17-59) U/L ALT 26 (6-50) U/L Alkaline Phosphatase 79 (38-126) U/L Troponin I < 0.012 (0.000-0.034) ng/mL NT-Pro-B Natriuret Pep < 20 (19.9-100) pg/mL Total Protein 7.1 (6.3-8.2) g/dL Albumin 4.6 (3.5-5.1) g/dL Lipase 68 (23-300) U/L Urine Color Yellow (Yellow) Urine Appearance Clear (Clear) Urine pH 6.0 (5.0-8.0) Ur Specific [place] 1.025 H (1.010-1.020) Urine Protein 1+ H (Negative) Urine Glucose (UA) Negative (Negative) Urine Ketones Negative (Negative) Ur Blood (Man) Negative (Negative) Urine Nitrate Negative (Negative) Urine Bilirubin Negative (Negative) Urine Urobilinogen 0.2 (0.2-1.0) mg/dL Leukocyte Esterase Rfl Negative (Negative) YARED/UL Urine RBC 3-5 H (0-2) /hpf Urine WBC None seen (0-3) /hpf Urine Bacteria Trace (None) /hpf Urine Mucus Moderate H /lpf Influenza A (RT-PCR) Negative (Negative) Influenza B (RT-PCR) Negative (Negative) RSV (RT-PCR) Negative (Negative) SARS-CoV-2 RNA (RT-PCR) Negative (Negative) 03/11/25 03/11/25 Range/Units 07:53 10:53 WBC (4.8-10.8) K/mm3 RBC (4.70-6.10) M/mm3 Hgb (12.4-15.3) g/dL Hct (37.0-46.0) % MCV (78.0-102.0) fL MCH (27.0-31.0) pg MCHC (32-36) g/dL RDW (11.6-14.4) % Plt Count (150-420) K/mm3 MPV (8.7-11.0) fl Immature Gran % (Auto) Neut % (Auto) Lymph % (Auto) Baldwin % (Auto) Eos % (Auto) Baso % (Auto) Lymph # (Auto) Baldwin # (Auto) Eos # (Auto) Baso # (Auto) Abs Immat Gran (auto) Absolute Neuts (auto) Absolute Nucleated RBC Total Counted Neutrophils % (Manual) (46-73) % Band Neutrophils % (0-6) % Lymphocytes % (Manual) (18-44) % Monocytes % (Manual) (3-9) % Nucleated RBC % Abs Neuts (Manual) (1.3-6.7) K/mm3 Abs Lymphs (Manual) (1.1-4.5) K/mm3 Abs Monocytes (Manual) (0.1-0.90) K/mm3 Platelet Estimate (Adequate) Schistocytes PT (9.50-12.1) Seconds INR APTT (23.9-30.70) Sec D-Dimer (0.19-0.50) mg/L Sodium (137-145) mmol/L Potassium (3.4-5.0) mmol/L Chloride (98-107) mmol/L Carbon Dioxide (22-30) mmol/L Anion Gap (4-12) mmol/L BUN (9-20) mg/dL Creatinine (0.7-1.3) mg/dL Estim Creat Clear Calc ml/min Estimated GFR (59 - ) Glucose (65-110) mg/dL Calculated Osmolality (285-295) mOsm/kg Calcium (8.4-10.2) mg/dL Total Bilirubin (0.2-1.3) mg/dL AST (17-59) U/L ALT (6-50) U/L Alkaline Phosphatase (38-126) U/L Troponin I < 0.012 (0.000-0.034) ng/mL NT-Pro-B Natriuret Pep Cancelled (19.9-100) pg/mL Total Protein (6.3-8.2) g/dL Albumin (3.5-5.1) g/dL Lipase (23-300) U/L Urine Color (Yellow) Urine Appearance (Clear) Urine pH (5.0-8.0) Ur Specific [place] (1.010-1.020) Urine Protein (Negative) Urine Glucose (UA) (Negative) Urine Ketones (Negative) Ur Blood (Man) (Negative) Urine Nitrate (Negative) Urine Bilirubin (Negative) Urine Urobilinogen (0.2-1.0) mg/dL Leukocyte Esterase Rfl (Negative) YARED/UL Urine RBC (0-2) /hpf Urine WBC (0-3) /hpf Urine Bacteria (None) /hpf Urine Mucus /lpf Influenza A (RT-PCR) (Negative) Influenza B (RT-PCR) (Negative) RSV (RT-PCR) (Negative) SARS-CoV-2 RNA (RT-PCR) (Negative) Critical Care Time Critical Care Time Critical Care Time: No Discharge Plan Discharge Clinical Impression: Atypical chest pain, URI, acute Patient Disposition: Home Condition: Stable Instructions: Antibiotic Form, Costochondritis (ED), Upper Respiratory Infection (ED), Chest Wall Pain (ED) Additional Instructions: advised to take Tylenol as needed for chest discomfort, take antibiotics and follow with primary care within the next 3 to 5 days for further evaluation and treatment. Patient Language: Faroese Prescriptions: No Action Sentry Senior 0.4 mg-300 mcg- 250 mcg tablet 1 tablet PO DAILY lidocaine (PF) 10 mg/mL (1 %) solution 4 ml intra-articular ONCE Qty: 1 0RF prednisone 50 mg tablet 50 mg PO DAILY Qty: 5 0RF hydrocodone-acetaminophen 10-325 mg tablet 1 tablet PO TID PRN (Reason: pain (scale score 7-10)) Qty: 10 0RF zinc oxide 20 % ointment 1 applic topical QID PRN (Reason: skin irritation) Qty: 500 0RF albuterol sulfate 90 mcg/actuation HFA aerosol inhaler 2 puff INHALATION Q4H MDD 12 puffs PRN (Reason: shortness of breath or wheezing) Qty: 8.5 0RF ipratropium bromide 42 mcg (0.06 %) spray,non-aerosol 2 spray intranasal TID PRN (Reason: allergy symptoms) Qty: 15 5RF Rx Instructions: administer into each nostril amitriptyline 50 mg tablet 100 mg .ROUTE .COMPLEX Qty: 90 1RF Rx Instructions: 100 mg; cyclobenzaprine 10 mg tablet See Rx Instructions .ROUTE .COMPLEX Qty: 90 1RF Dose Instruction: TAKE 1 TABLET BY MOUTH THREE TIMES A DAY NEEDED FOR PAIN Rx Instructions: TAKE 1 TABLET BY MOUTH THREE TIMES A DAY NEEDED FOR PAIN lisinopril 10 mg tablet See Rx Instructions .ROUTE .COMPLEX Qty: 90 0RF Dose Instruction: TAKE 1 TABLET BY MOUTH EVERY DAY Rx Instructions: TAKE 1 TABLET BY MOUTH EVERY DAY lamotrigine 100 mg tablet See Rx Instructions .ROUTE .COMPLEX Qty: 90 1RF Dose Instruction: TAKE 1 TABLET BY MOUTH EVERYDAY AT BEDTIME Rx Instructions: TAKE 1 TABLET BY MOUTH EVERYDAY AT BEDTIME apixaban 5 mg tablet 5 mg PO BID Follow-up/Referrals: Dinesh Castillo DO [Primary Care Provider] - Time of Disposition: 11:47
[2025-03-11] MEDS: MORPHINE SULFATE (*CRX) 2 MG/ML INJ IV PUSH (08:27)
[2025-03-11 08:47] LABS: Influenza A QL RT-PCR Negative (Negative); Influenza B QL RT-PCR Negative (Negative); RSV RNA, RT-PCR Negative (Negative); SARS-CoV-2 RNA PCR Negative (Negative)
[2025-03-11 08:49] LABS: Add Urine Microscopic? YES; Appearance Urine Clear (Clear); Bilirubin Urine Negative (Negative); Blood Urine Negative (Negative); Color Urine Yellow (Yellow); Glucose Urine UA Negative (Negative); Ketones Urine Negative (Negative); Leukocyte Esterase Ur Negative LEU/UL (Negative); Nitrate Urine Negative (Negative); Protein Urine 1+ (Negative); Specific Grav Ur 1.025 (1.010-1.020); Urobilinogen Urine 0.2 mg/dL (0.2-1.0)
[2025-03-11 08:56] LABS: Bacteria Urine Trace /hpf; Mucus Urine Moderate /lpf; WBC Urine None seen /hpf (0-3)
[2025-03-11 11:44] LABS: Troponin I < 0.012 ng/mL (0.000-0.034)
== END 2025-03-11 11:54 | disposition home or self-care (01) ==
PROVIDERS: Emergency Provider Emergency Medicine; PCP Family Medicine
DX: R07.89 Other chest pain (principal); J06.9 Acute upper respiratory infection, unspecified; I11.9 Hypertensive heart disease without heart failure; M06.9 Rheumatoid arthritis, unspecified; F17.200 Nicotine dependence, unspecified, uncomplicated; Z20.822 Contact with and (suspected) exposure to COVID-19
CPT/HCPCS: 36415; 71045; 80053; 81001; 83690; 83880; 84484; 85025; 85380; 85610; 85730; 87637; 93005; 96361; 96374; 99284; A9270; J2270; J7030

== ENCOUNTER 2025-04-09 08:38 | Outpatient (CLI) | payer MEDICARE, SELFPAY ==
--- NOTE | ~2025-04-09 | CT_ITS ---
Clinical Indication: Herniation of right lung CT Scan of the Chest with Contrast: Technique: Contiguous sections were acquired throughout the chest after intravenous administration of 75 cc of Omnipaque 350. Dose reduction technique was used on this scan by utilizing automated exposu re control and iterative reconstruction technique. The dose-length product (DLP) was 952.21 mGy-cm. COMPARISON: 12/15/2024 Findings: There is no evidence of any significant mediastinal, hilar or axillary lymphadenopathy. There is no f illing defect in the pulmonary arterial tree to suggest pulmonary embolus. There is no evidence of ao rtic dissection or aneurysm. There is no evidence of pleural or pericardial effusion. The lungs are clear. No pulmonary nodules or infiltrates are noted. There is stable herniation of the right lung laterally between the eighth and ninth ribs. Stable right-sided chronic rib fracture defo rmities. Images through the upper abdomen reveal no abnormalities. Impression: Stable herniation of right lung between the right eighth and ninth ribs. Reviewed, dictated and finalized at [facility]. Impression: Stable herniation of right lung between the right eighth and ninth ribs.
== END 2025-04-09 08:39 | disposition home or self-care (01) ==
LOC: CHSIMG 08:40
PROVIDERS: PCP Family Medicine
DX: J98.4 Other disorders of lung (principal)
CPT/HCPCS: 71260; Q9967

== ENCOUNTER 2025-05-10 12:43 | Outpatient (CLI) | payer MEDICARE, SELFPAY ==
--- NOTE | ~2025-05-10 | CT_ITS ---
EXAMINATION: CTA chest PE protocol DATE: 05/10/2025 14:31 CDT INDICATION: Chest pain TECHNIQUE: Computed tomographic angiography (CTA) of the chest was performed with 100 mL Omnipaque-35 0 intravenous contrast. The dose-length product was 982.11 mGy-cm. Maximum intensity projection 3D-re constructions of the aorta and other arteries were constructed by the technologist on a separate work station. COMPARISON: 04/09/2025 FINDINGS/OBSERVATIONS: PULMONARY ARTERIES: No filling defect is identified within the main or proximal pulmonary artery. The main pulmonary artery is not enlarged. THORACIC AORTA: No aneurysmal dilatation or dissection is present. The great vessels are intact LUNGS: Interval development of a large right-sided pleural effusion, with adjacent compressive atelec tasis, when compared with previous examination. Redemonstration of herniation of the right pulmonary parenchyma between the right eighth and ninth ri bs, unchanged from prior. MEDIASTINUM: No morphologically suspicious or pathologically enlarged lymph nodes are identified with in the mediastinum or bilateral axilla. BONES OF THE CHEST: No acute fracture. Redemonstration of a prior fracture deformity within the poste rior margin of the right ninth rib No lytic or blastic lesions. There are bridging endplate osteophytes at multiple levels in the spine, consistent with diffuse idio pathic skeletal hyperostosis (DISH). HEART: The heart is of normal size, without pericardial effusion. IMPRESSION: No pulmonary embolus. No thoracic aortic dissection. Interval development of a large right-sided pleural effusion with adjacent compressive atelectasis wh en compared with previous examination dated 04/09/2025. Redemonstration of herniation of the right pulmonary parenchyma between the right eighth and ninth ri bs, unchanged from prior. Reviewed, dictated and finalized at location A. IMPRESSION: No pulmonary embolus. No thoracic aortic dissection. Interval development of a large right-sided pleural effusion with adjacent comp ressive atelectasis when compared with previous examination dated 04/09/2025. Redemonstration of herniation of the right pulmonary parenchyma between the rig ht eighth and ninth ribs, unchanged from prior.
--- OUTSIDE RECORDS SUMMARY | 2025-05-10 12:49 | XMS_ITS | Clinical Summary ---
Author Organization [facility] Address [address] [place] [address] Care Team Providers Care Underground [employer]er Name Role Phone Luisito Mcmillan MD Unavailable [phone] Kvng Liu MD Unavailable Andi Plasencia MD Unavailable [phone] Chris Wu MD Unavailable Morgan Land MD Unavailable [phone] Dinesh Castillo DO Primary Care Provider [phone] Allergies No known active allergies Medications cyclobenzaprine [...] (04/04/2023): Added automatically from request for surgery [id number] Sprain of lateral collateral ligament of left knee, initial encounter 11/10/2021 Bipolar disorder, in partial remission, most recent episode depressed ([facility]) 09/27/2021 Primary osteoarthritis of right knee 08/25/2021 Antinuclear factor positive 09/16/2020 Chronic prostatitis 09/16/2020 Polyuria 09/16/2020 Primary osteoarthritis of left knee 09/16/2020 Assessment & Plan (02/03/2025 2:10 PM CDT): >>ASSESSMENT AND PLAN FOR BILATERAL PRIMARY OSTEOARTHRITIS OF KNEE WRITTEN ON 12/21/2020 11:36 AM BY RICKI SOTOMAYOR NP Will continue meloxicam. Physical therapy order placed. Will call patient once we receive pre auth for synvisc. 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 Plasencia. Multifactorial: Obstructive sleep apnea, obesity, chronic cigarette smoking. CLAUDIO (obstructive sleep apnea) 01/13/2019 Essential hypertension 01/13/2019 Dyspnea on exertion 01/13/2019 Morbid obesity with body mass index of 40.0-44.9 in adult 07/09/2017 Cigarette nicotine dependence without complicati on 07/02/2017 RA (rheumatoid arthritis) ([facility]) 03/0 04/2017 Fibrosis, lung ([facility]) 11/27/2016 Overview (12/17/2019): Description: on ct scan Depressive disorder 08/19/2013 Overview (09/16/2020): Anxiety and depression History of substance abuse 08/19/2013 Overview (03/16/2020): Hx of substance abuse Benign prostatic hyperplasia 08/19/2013 Overview (03/16/2020): BPH (benign prostatic hyperplasia) Chronic obstructive lung disease ([facility]) Resolved Problems Problem Noted Date Diagnosed Date Resolved Date Herniation of right lung 06/07/2023 History of pulmonary embolism 06/07/2023 02/03/2025 Current smoker 12/21/2020 09/27/2021 Assessment & Plan (12/21/2020 11:35 AM LOG DRIVER): We discussed smoking cessation. Should TKA be necessary in the future smoking will increase the risk of postoperative complication and infection. Recommended patient discuss smoking cessation with PCP. Dry eyes 09/16/2020 09/27/2021 Expiratory wheezing 09/16/2020 12/03/19 21 Fatigue 09/16/2020 09/27/2021 Foreign body in foot 09/16/2020 021 Pain in joint 09/16/2020 09/27/2021 Hip pain 09/16/2020 09/27/2021 Gastroesophageal reflux disease 09/16/2020 02/03/2025 Tension-type headache 09/16/20202024 Streptococcal sore throat 09/16/2020 Bipolar affective disorder, currently depressed, moderate ([facility]) 03/19/2020 Perineal abscess 01/06/2020 03/16/2020 Abscess 12/24/2019 03/16/2020 Overview (12/24/2019): Added automatically from request for surgery [id number] Other chronic pain 12/17/2019 5 Low back pain 12/17/2019 09/27/2021 Gastroesophageal reflux dise ase with esophagitis 12/17/2019 12/03/2020 Chronic pain of both knees 12/17/2019 1 11/28/2020 Neck pain 12/17/2019 09/27/2021 Prostate cancer screening 12/17/2019 Syncope and collapse 01/13/2019 020 Tobacco abuse counseling 01/13/2019 Right flank pain 03/06/2017 02/03/2025 Pharyngitis 12/04/2016 12/03/2020 Abnormal chest xray 11/27/2016 12/17/19 20 Obesity, morbid, BMI 40.0-49.9 11/27/2016 09/27/2021 Assessment & Plan (12/21/2020 11:40 AM LOG DRIVER): We discussed the adverse effects of weight on osteoarthritis of the knee. We discussed the need to decrease BMI to <40 to decrease risk of post operative complications if in the future he would like to proceed with TKA. Contusion of rib 11/27/2016 02/03/2025 Smokers' cough ([facility]) 11/27/2016 02/03/2025 Sleep apnea 11/27/2016 09/27/2021 Encounter for preventive health examination 04/13/2016 12/17/2019 Hypogonadism 08/19/2013 09/27/2021 Overview (09/16/2020): Hypogonadism male Finding of prostate 03/12/2012 12/03/19 21 Encounters Date Type Department Care Team Description 03/05/2025 Hospital Encounter [facility] [place] [address] [phone] Judi Livingston MD from Last 3 Months Immunizations Immunization Administration Dates Next Due Fluzone 6 Months+ Quad (0.5 mL Prefilled Syringe) 06/15/2020,10/10/2019 Influenza (Generic) 08/14/2013 Influenza Adult (Generic) 06/15/2020,10/26/2016, 08/14/2013 PFIZER COVID-19 (ORIGINAL FO RMULATION, PURPLE CAP) mRNA, LNP-S, PF, 30 MCG/0.3 ML DOSE 05/20/2021 Pneumococcal (Pneumovax 23) 10/12/2019, 4 Pneumococcal (Prevnar 13) 10/26/2016 Tdap (Generic) 07/31/2021 Zoster (Zostavax) 82905 Unt/0.65Ml 09/20/2014 Family History Medical History Relation Comments Diabetes Brother No Known Problems Father Heart Disease Mother Stroke Mother COVID Son choked Downs Son Heart Son Relation Status Comments Brother Alive Father Alive no issues Mother Son Social History Tobacco Use Types Packs/Day Years Used Date Smoking Tobacco: Every Day Cigarettes 1 53.6 Started: 1972 Smokeless Tobacco: Never Tobacco Cessation:Ready [...] Sex Assigned at Male 11/27/2024 8:48 AM LOG DRIVER Legal Sex Male 6:03 PM CDT Gender Identity Not on file Sexual Orientation Not on file Last Filed Vital Signs Vital Sign Reading Time Taken Comments Blood Pressure 148/83 11/27/2024 9:41 AM LOG DRIVER Pulse 81 11/27/2024 9:41 AM LOG DRIVER Temperature 37.1 C (98.7 F) 11/27/2024 9:10 AM LOG DRIVER Respiratory Rate 20 11/27/2024 9:41 AM LOG DRIVER Oxygen Saturation 100% 11/27/2024 9:41 AM LOG DRIVER Inhaled Oxygen Concentration - - Weight 127.5 kg (281 lb) 02/03/2025 1:19 PM CDT Height 175.3 cm (5' 9) 02/03/2025 1:19 PM CDT Body Mass Index 41.5 02/03/2025 1:19 PM CDT Plan of Treatment Health Maintenance Due Date Last Done Comments Colorectal Cancer Screening Colonoscopy (10 Years) 1960 Zoster Vaccines (2 of 3) 11/15/2014 09/20/2014 RSV Immunization or 60+ Years (1 - Risk 60-74 years 1-dose series) 2019 Lung Cancer Screening 12/14/2021 12/14/2020 Annual Medicare Wellness Visit 2024 COVID-19 Vaccine (3 - 2023-2 5 season) 2024 07/01/2021, 05/20/2021 Pneumococcal Vaccine: 50+ Years (3 of 3 - PCV20 or PCV21) 10/12/2024 10/12/2019, 10/26/2016, 10/06/2014 PHQ-2 (Physician [place]) 10/21/2024 DTaP, Tdap and Td Vaccines ( 2 - Td or Tdap) 07/31/2031 07/31/2021 Hepatitis C Completed 11/10/2019 AAA SCREENING Completed 08/01/2021, 12/14/2020, 07/04/2020 Meningococcal B Vaccine Aged Out No l onger eligible based on patient's age to complete this topic Meningococcal Vaccine Aged Out No mark kamar eligible based on patient's age to complete this topic RSV Immunizations Under 20 Months Aged Out No longer eligible b ased on patient's age to complete this topic Medical Devices Implanted Type Area Shoe Puller Device Identifier Shelf Expiration Date Model / Serial / Lot Medt Implantable Loop Recorder-2018 Implanted:10/06 by Chris Wu MD (Quantity not on file) Explanted:Qty: 1 on 07/12/2020 by Chris Wu MD Implantable Loop Recorder [employer] CARDIAC RHYTHM AND HEART FAILURE - DIV M [id number] / [id number] / Procedures Procedure Name Priority Date/Time Associated Diagnosis Comments CTA CHEST Routine 08/01/2021 11:51 AM CDT Mass of right chest wall Intercostal pain CT CHEST W CON Routine 12/14/2020 11:28 AM LOG DRIVER Mass of right chest wall HEPATITIS C ANTIBODY Routine 11/10/2019 12:06 PM LOG DRIVER Screening examination for poliomyelitis from Last 3 Months or Most Recently Relevant to Health Maintenance Results * CTA CHEST (08/01/2021 11:51 AM CDT) [...] [place], 08/01/2021 3:22 PM us Wendy Valerio SHIP ERECTOR CT Final Resul t * CT CHEST W CON (12/14/2020 11:28 AM LOG DRIVER) Anatomical Region Laterality Modality Chest Computed Tomogra phy 12/14/2020 12:2 1 PM LOG DRIVER Impressions 12/14/2020 12:27 PM LOG DRIVER IMPRESSION: Healed right posterior ninth and lateral [...] 12/14/2020 12:21 PM Narrative 12/14/2020 12:27 PM LOG DRIVER IMAGING STUDIES: CT CHEST W CON DATE: [...] Cristhian Fletcher, 12/14/2020 12:21 PM Wendy Valerio SHIP ERECTOR CT Final Resul t * HEPATITIS C ANTIBODY (11/10/2019 12:06 PM LOG DRIVER) HEPATITIS C AB NON-REACTI VE NON-REACTI VE 11/10/2019 8:33 PM LOG DRIVER [facility] 11/10/2019 12:0 6 PM LOG DRIVER Kvng Liu MD LABORATORY Final Result [facility] [address] [place] [address], from Last 3 Months or Most Recently Relevant to Health Maintenance Insurance [facility] Care Teams Underground Miner Relationship Specialty Start Date End Date Dinesh Castillo DO [address] [place] [address] PCP - General FAMILY PRACTICE 04/27/22 Luisito Mcmillan MD [address] [facility] [address] [place] [address] [place] Information And Referral Director CARDIOVASCULAR DISEASE 12/31/18 [place] [address] [place] [address] Referring Physician RHEUMATOLOGY 12/17/19 Andi Plasencia MD [address] [phone] Consulting Physician HEMATOLOGY/ONCOLOGY 12/17/19 Chris Wu MD [address] [address] Consulting Physician CLINICAL CARDIAC ELECTROPHYSIOLOGY 12/17/19 Morgan Land MD [address] [id number] UROLOGY 07/14/21
--- OUTSIDE RECORDS SUMMARY | 2025-05-10 12:49 | XMS_ITS | Clinical Summary ---
Author Organization [facility] [place] Address [address] [place] [address] Care Team Providers Care Scholarship Counselor Name Role Phone Cynthia Cano MD Primary Care Provider [phone] Allergies Active Allergy Reactions Criticality Noted Date Comments Methotrexate Analogues Rash Low 11/23/2019 Medications glucosamine-chond roitin (ARTHX DS) 500-400 mg Capsule [...] A DAY NEEDED FOR BACK SPASMS Active albuterol sulfate 90 mcg/Actuation inhaler Take 2 Puffs by inhalation. 022 Active lisinopriL (PRINIVIL) 10 mg tablet Take [...] Take 1 Tablet by mouth daily. Active amitriptyline (ELAVIL) 50 mg tablet Take 100 mg by mouth daily at bedtime. 023 Active acetaminophen (TYLENOL) 325 mg tablet Take 2 Tablets (650 mg) by mouth every 6 hours as needed for Pain, Mild / Temperature. 025 Active naloxone (NARCAN) 4 mg/spray [place], Non-Aerosol EMERGENCY USE ONLY: Administer 1 spray (4 mg) in one nostril one time. May repeat in alternating nostrils every 2-3 min until responsive or EMS arrives. 2 Each 3 025 Active HYDROcodone-aceta minophen (NORCO) 10-325 mg TabletIndications :Acute post-operative pain,Herniation of right lung Take 1 Tablet by mouth every 4 hours as needed for Pain, Moderate. Max Daily Amount: 6 Tablets 20 Tablet 025 Active traMADol (ULTRAM) 50 mg tabletIndications :Acute post-operative pain,Herniation of right lung Take 1 Tablet (50 mg) by mouth every 6 hours as needed for Pain or Pain, Moderate. 20 Tablet 025 2024 Active gabapentin (NEURONTIN) 300 mg capsuleIndication s:Acute post-operative pain,Herniation of right lung Take 1 Capsule (300 mg) by mouth 3 times daily. 270 Capsule 3 025 Active HYDROcodone-aceta minophen (NORCO) 10-325 mg Tablet Take 1 Tablet by mouth every 4 hours as needed for Pain, Moderate. 2024 Discontin ued(Reord er) traMADol (ULTRAM) 50 mg tabletIndications :Acute post-operative pain Take 1 Tablet (50 mg) by mouth every 6 hours as needed for break-through pain. 15 Tablet 5 1:25 PM CDT 025 2024 Discontin ued(Reord er) gabapentin (NEURONTIN) 100 mg capsule Take 1 Capsule (100 mg) by mouth every 8 hours. 90 Capsule 5 1:25 PM CDT 025 2024 Discontin ued(Alter boo therapy prescribe d) HYDROcodone-aceta minophen (NORCO) 5-325 mg tabletIndications :Acute post-operative pain Take 1 Tablet by mouth every 4 hours as needed for Pain, Moderate. Max Daily Amount: 6 Tablets 30 Tablet 025 2024 traMADol (ULTRAM) 50 mg tabletIndications :Acute post-operative pain Take 1 Tablet (50 mg) by mouth every 6 hours as needed for Pain, Mild or Pain, Break-Through. 15 Tablet 025 2024 traMADol (ULTRAM) 50 mg tabletIndications :Acute post-operative pain Take 1 Tablet (50 mg) by mouth every 6 hours as needed for Pain or Pain, Moderate. 20 Tablet 025 2024 Discontin ued(Reord er) Active Problems Problem Noted Date Diagnosed Date History of pulmonary embolism 06/07/2023 RA (rheumatoid arthritis) 06/07/2023 Herniation of right lung 06/07/2023 Morbid obesity with BMI of 40.0-44.9, adult 06/21 Obesity (BMI 35.0-39.9 without comorbidity) 06/21 Tobacco use 07/02/2017 Encounters Date Type Department Care Team Description 05/10/2025 Refill [facility] at [address] [phone] Janet Gardner, PAM Acute post-operative pain (Primary Dx); Herniation of right lung 05/06/2025 Telephone [facility] at [address] [phone] Christie Gauthier NP Pain 2025 External Device Data STL ABSTRACTION Provider, Abstract 05/04/2025 External Device Data STL ABSTRACTION Provider, Abstract 04/30/2025 Telephone [facility] Thor Surg at [address] [phone] Nick Zambrano MD Hospital Follow Up; Pain 04/26/2025 1:00 PM CDT Office Visit [facility] Thor [facility]urg at [facility] [address] [facility] [address] [place] [address] Christie Gauthier, PAM Herniation of right lung (Primary Dx); Acute post-operative pain 04/26/2025 Abstract [facility] at [facility] [address] [facility] [address] [place] [address] Ncik Zambrano MD 04/20/2025 External Device Data STL ABSTRACTION Provider, Abstract 04/20/2025 External Device Data STL ABSTRACTION Provider, Abstract 04/20/2025 External Device Data STL ABSTRACTION Provider, Abstract 04/19/2025 11:10 AM CDT - 04/19/2025 2:30 PM CDT Surgery [facility] CV Operating Room [address] [place] [phone] Nick Zambrano MD RIGHT CHEST WALL HERNIA REPAIR 04/19/2025 9:50 AM CDT Anesthesia Event [facility] CV Operating Room [address] [place] [phone] Josh Huizar MD Buechler, Anne H, ANP 04/19/2025 8:09 AM CDT - 04/20/2025 4:09 PM CDT Hospital Encounter [facility] Progressive Care [address] [place] [address] Nick Zambrano MD Discharge Disposition: Home or Self Care 04/06/2025 3:00 PM CDT - 04/06/2025 11:59 PM CDT Hospital Encounter [place] [id number] [place] [address] Nick Zambrano MD Discharge Disposition: Home or Self Care 04/06/2025 2:15 PM CDT Office Visit [facility] Thor Surg at [facility] [address] [facility] [address] [place] [address] Nick Zambrano MD Herniation of right lung (Primary Dx) 04/06/2025 External Device Data STL ABSTRACTION Provider, Abstract 03/16/2025 External Device Data STL ABSTRACTION Provider, Abstract 03/11/2025 External Device Data STL ABSTRACTION Provider, Abstract 03/10/2025 External Device Data STL ABSTRACTION Provider, Abstract from Last 3 Months Family History Medical [...] Smoking Tobacco: Every Day Cigarettes 0.8 30 Smokeless Tobacco: Never Tobacco Cessation:Ready to Q [...] Sign Reading Time Taken Comments Blood Pressure 125/79 04/20/2025 12:09 PM CDT Pulse 76 04/20/2025 12:09 PM CDT Temperature 37.1 C (98.7 F) 04/20/2025 12:09 PM CDT Respiratory Rate 16 04/20/2025 12:09 PM CDT Oxygen Saturation 95% 04/20/2025 2:40 PM CDT Inhaled Oxygen Concentration - - Weight 126.1 kg (278 lb) 04/19/2025 8:56 AM CDT Height 175.3 cm (5' 9) 04/19/2025 8:56 AM CDT Body Mass Index 41.05 04/19/2025 8:56 AM CDT Plan of Treatment Upcoming Encounters Date Type Department Care Team (Late st Contact Info) Description 05/18/2025 11:15 AM CDT Video Visit [facility] Thor [facility]urg at [facility] [address] [facility] [address] [place] [phone] Nick Zambrano MD [address] [facility] [address] [place] [address] Health Maintenance Due Date Last Done Comments Pre-Diabetes and Diabetes Screening 1960 FIT-DNA Q 3 years 2004 FIT/FOBT Q 1 year 2004 Flex Sig/CT Colonography Q 5 years 2004 Lung Cancer Screening 2009 ZOSTER VACCINE (2 of 3) 11/15/2014 09/20/2014 RSV VACCINE (60+ or ) (1 - Risk 60-74 years 1-dose series) 2019 COLORECTAL SCREENING 04/10/2022 04/10/2012 Colorectal Cancer Screening 04/10/2022 PNEUMOCOCCAL VACCINE 50+ YEA RS (3 of 3 - PCV20 or PCV21) 10/12/2024 10/12/2019, 10/26/2016, 10/06/2014 Medicare [place]) Prev entative Visit/Annual Wellness Visit 10/21/2024 INFLUENZA VACCINE (#1) 2025 0, 10/10/2019, 10/26/2016 DTAP/TDAP/TD VACCINES (2 - T d or Tdap) 07/31/2031 07/31/2021 Abdominal Aortic Aneurysm (A AA) Screening Completed 08/09/2020, 07/04/2020 Medical Devices Implanted Type Area Nurse Assistant Device Identifier Shelf Expiration Date Model / Serial / Lot Mesh 1s [id number] Vent Hernia [id number] - [id number] Implanted:Qty : 1 on 04/19/2025 by Nick Zambrano MD at [facility] Biological Right: Chest HUMERA BIO [id number] 05/20/2026 [id number] / / [id number] Procedures Procedure Name Priority Date/Time Associated Diagnosis Comments TELEMETRY REPORT 04/21/2025 4:36 PM CDT XR CHEST PA OR AP 1 VW Routine 04/20/2025 1:45 PM CDT XR CHEST PA OR AP 1 VW Routine 04/20/2025 7:08 AM CDT BASIC METABOLIC PANEL Routine 04/20/2025 4:11 AM CDT CBC WITH DIFFERENTIAL Routine 04/20/2025 4:11 AM CDT XR CHEST PA OR AP 1 VW Stat 04/19/2025 12:53 PM CDT IR INJECTION Routine 04/19/2025 12:15 PM CDT THORACOTOMY 04/19/2025 11:10 AM CDT CHEST WALL HERNIA ND RMVL NONINFCT MESH/PROSTH AA/PARASTOMAL HRNA RPR 04/19/2025 11:10 AM CDT CHEST WALL HERNIA ND ANES INSERT CATH, ART, PERCUT, SHORTTERM Routine 04/19/2025 10:30 AM CDT ND ANES INSERT ENDOTRACHEAL AIRWAY Routine 04/19/2025 10:08 AM CDT ND ANESTHESIA BLOCK PB PLACEHOLDER CHARGE Routine 04/19/2025 9:57 AM CDT VERIFICATION BLOOD GROUP Stat 04/19/2025 8:15 AM CDT Encounter for blood typing PERIPHERAL IV ADULT Routine 04/19/2025 7 :13 AM CDT ND ANES VNPNXR 3 YEARS/> PHYS/QHP SKILL Routine 04/19/2025 7:13 AM CDT EKG 12-LEAD Routine 04/06/2025 4:05 PM CDT TYPE AND SCREEN Routine 04/06/2025 3:37 PM CDT BASIC METABOLIC PANEL Routine 04/06/2025 3:37 PM CDT PROTIME-INR Routine 04/06/2025 3:37 PM CDT PTT Routine 04/06/2025 3:37 PM CDT CBC WITH DIFFERENTIAL Routine 04/06/2025 3:37 PM CDT from Last 3 Months Results * TELEMETRY REPORT (04/21/2025 4:36 PM CDT) us Provider Scanning ECG ORDERABLES Final Result * XR CHEST PA OR AP 1 VW (04/20/2025 1:45 PM CDT) Only the most recent of3 resultswithin the time period is included. Anatomical Region Laterality Modality Chest Computed Radiogr aphy 04/20/2025 2:31 PM CDT Impressions 04/21/2025 8:25 AM CDT IMPRESSION: No acute finding or significant change. No radiographic evidence of pneumothorax. DICTATION LOCATION: Location 4 Narrative 04/21/2025 8:25 AM CDT XR CHEST PA OR AP 1 VW Exam date: 04/20/2025 1:45 PM INDICATION: Post-Operative TECHNIQUE: AP view chest COMPARISON: 04/20/2025 FINDINGS: Lower inspiratory lung volumes. Cardiomediastinal silhouette is enlarged but unchanged. Similar appearance of central vascular congestion and interstitial opacities. There is bibasilar atelectasis versus infiltrate, similar. No radiographic evidence of pneumothorax. No pleural effusions. No acute osseous abnormality. Procedure Note Lynette Byrne MD - 04/21/2025 XR CHEST PA OR AP 1 VW Exam date: 04/20/2025 1:45 PM INDICATION: Post-Operative TECHNIQUE: AP view chest COMPARISON: 04/20/2025 FINDINGS: Lower inspiratory lung volumes. Cardiomediastinal silhouette is enlarged but unchanged. Similar appearance of central vascular congestion and interstitial opacities. There is bibasilar atelectasis versus infiltrate, similar. No radiographic evidence of pneumothorax. No pleural effusions. No acute osseous abnormality. IMPRESSION: No acute finding or significant change. No radiographic evidence of pneumothorax. DICTATION LOCATION: Location 4 Christie Gauthier NP DIAGNOSTIC IMAGING ORDERABL ES Final Result * (ABNORMAL) CBC WITH DIFFERENTIAL (04/20/2025 4:11 AM CDT) Only the most recent of2 resultswithin the time period is included. WBC 16.2(H) 4.0 - 9.8 K/uL 04/20/2025 4:55 AM CDT [facility] - [facility] RBC 4.67 4.50 - 5.40 M/uL 04/20/2025 4:55 AM CDT [facility] HEMOGLOBIN 14.2 13.6 - 16.5 g/dL 04/20/2025 4:55 AM CDT [facility] HEMATOCRIT 44.5 40.0 - 48.0 % 04/20/2025 4:55 AM CDT [facility] - . [facility] MCV 95.3 82.0 - 99.0 fL 04/20/2025 4:55 AM CDT [facility] MCH 30.4 27.2 - 32.6 pg 04/20/2025 4:55 AM CDT [facility] MCHC 31.9 31.5 - 35.5 g/dL 04/20/2025 4:55 AM CDT [facility] RDW 13.6 11.5 - 14.5 % 04/20/2025 4:55 AM CDT [facility] RDW-STDEV 47.6 37.1 - 48.7 fL 04/20/2025 4:55 AM CDT [facility] PLATELETS 315 140 - 350 K/uL 04/20/2025 4:55 AM CDT [facility] MPV 9.5 9.3 - 12.4 fL 04/20/2025 4:55 AM CDT [facility] - . [facility] NEUTROPHILS 78 % 04/20/2025 4:55 AM CDT [facility] LYMPHOCYTES 11 % 04/20/2025 4:55 AM CDT [facility] - [facility] MONOCYTES 10 % 04/20/2025 4:55 AM CDT [facility] EOSINOPHILS 0 % 04/20/2025 4:55 AM CDT [facility] BASOPHILS 0 % 04/20/2025 4:55 AM CDT [facility] IMMATURE GRANULOCYTES 0 % 04/20/2025 4:55 AM CDT [facility] - [facility] NEUTROPHIL ABSOLUTE 12.65(H) 1.90 - 7.00 K/uL 04/20/2025 4:55 AM CDT [facility]ORATORY SERVICES - [facility] LYMPHOCYTE ABSOLUTE 1.81 0.70 - 4.50 K/uL 04/20/2025 4:55 AM CDT [facility] MONOCYTE ABSOLUTE 1.63(H) 0.10 - 1.30 K/uL 04/20/2025 4:55 AM CDT [facility]ORATORY SERVICES - [facility] EOSINOPHIL ABSOLUTE 0.01 0.00 - 0.70 K/uL 04/20/2025 4:55 AM CDT [facility]ATORY SERVICES - [facility] BASOPHILS ABSOLUTE 0.02 0.00 - 0.20 K/uL 04/20/2025 4:55 AM CDT [facility]ATORY SERVICES - [facility] IMMATURE GRANULOCYTES ABSOLUTE 0.05(H) 0.00 - 0.03 K/uL 04/20/2025 4:55 AM CDT [facility]ATORY SERVICES - [facility] Blood Venipuncture / Unknown 04/20/2025 4:11 AM CDT 04/20/2025 4:40 AM CDT us Christie Gauthier NP HEMATOLOGY ORDERABLES Final Result [facility] [employer] [facility]# [id number] [address] [place], [place] [address] [place] [address] * (ABNORMAL) BASIC METABOLIC PANEL (04/20/2025 4:11 AM CDT) Only the most recent of2 resultswithin the time period is included. SODIUM 138 136 - 145 mmol/L 04/20/2025 5:32 AM CDT [facility]ORATORY SERVICES - . [facility] POTASSIUM 4.6 3.5 - 5.0 mmol/L 04/20/2025 5:32 AM CDT [facility] - . [facility] CHLORIDE 99 98 - 107 mmol/L 04/20/2025 5:32 AM CDT [facility]ATORY SERVICES - . [facility] CO2 28 22 - 29 mmol/L 04/20/2025 5:32 AM CDT [facility] LABORATORY SERVICES - . [facility] CALCIUM 8.9 8.6 - 10.2 mg/dL 04/20/2025 5:32 AM CDT [facility] LABORATORY [facility] BUN 11 8 - 23 mg/dL 04/20/2025 5:32 AM T [facility] LABORATORY [facility] CREATININE 0.84 0.67 - 1.17 mg/dL 04/20/2025 5:32 AM T [facility] GLUCOSE 118(H) 74 - 99 mg/dL 04/20/2025 5:32 AM T [facility] GFR >60 >=60 mL/min/1.7 3 sq meter 04/20/2025 5:32 AM T [facility] LABORATORY [facility] Comment:eGFR calculated with 2020 CKD-EPI equation. Vegetarian diet, extremely high or low muscle mass, and may affect results. Cystatin C with Glomerular Filtration Rate is a suitable alternative for these patients. ANION GAP 11 8 - 16 mmol/L 04/20/2025 5:32 AM T [facility] Blood Venipuncture / Unknown 04/20/2025 4:11 AM CDT 04/20/2025 4:40 AM CDT Christie Gauthier NP CHEMISTRY ORDERABLES Final Result [facility]# [id number] [address] [facility] [place] [id number] * IR INJECTION (04/19/2025 12:15 PM CDT) Narrative 04/20/2025 8:31 AM CDT Order information only. Exam was auto-finalized. us Josh Huizar MD IR ORDERABLES Final Result * ND ANES INSERT CATH, ART, PERCUT, SHORTTERM (04/19/2025 10:30 AM CDT) Narrative Josh Huizar MD - 04/19/2025 10:30 AM CDT Josh Huizar MD 04/19/2025 10:30 AM Arterial Line Insertion End Time: 04/19/2025 7:15 AM Patient location during procedure: OR Staffing Performed: Anesthesiologist (/) Authorized by: Josh Huizar MD Performed by: Josh Huizar MD time out called Patient was prepped and draped in usual sterile fashion Indications: multiple ABGs and hemodynamic monitoring Local Anesthetic: lidocaine 1% without epinephrine Anesthetic total: 1 mL Hand hygiene performed prior to procedure Sterile Barriers: cap and mask Preparation: skin prepped with ChloraPrep Skin prep agent dried: skin prep agent completely dried prior to procedure Patient position: flat Location: left radial Seldinger technique used Catheter type: radial kit Catheter size: 20 G Catheter Length (in.): 1.75Number of attempts: 1 Successful placement: yes Assessment: blood return through port Procedure uneventful Post-procedure: line secured, dressing applied and antibiotic disc placed Josh Huizar MD PROCEDURE/MINOR SURGICAL ORD ERABLES Final Result * ND ANES INSERT ENDOTRACHEAL AIRWAY (04/19/2025 10:08 AM CDT) Narrative Josh Huizar MD - 04/19/2025 10:08 AM CDT Josh Huizar MD 04/19/2025 10:29 AM Airway Date/Time: 04/19/2025 10:08 AM Location: OR Plan: routine intubation Patient Identity Confirmed by: Verbally with patient and armband Airway: not difficult Staffing Performed: Anesthesiologist (/) Authorized by: Josh Huizar MD Performed by: Josh Huizar MD Indications and Patient Condition: Indications for Airway Management: Anesthesia Sedation Level: general anesthesia Preoxygenated: yes Patient Position: Sniffing Mask Difficulty Assessment: 2 - vent by mask + OA or adjuvant +/- NMBA Oral Airway: 100mm Plan to extubate at end of case: Yes Final Airway Details: Final Airway Type: Endotracheal airway ETT - double lumen left Cuffed: Yes Technique Used for Successful ETT Placement: Direct laryngoscopy Devices/Methods Used in Placement: Intubating stylet Blade Type: curved blade Blade Size: 3 Insertion Site: Oral ETT Double Lumen (fr): 39 Measured from: Teeth Tube secured with: Tape Placement Verified by: auscultation, end tidal CO2 and chest rise Cormack-Lehane Classification: Grade IIb - view of arytenoids or posterior of glottis only Number of Attempts at Approach: 1 Additional Procedure Information: atraumatic and dentition unchanged Josh Huizar MD PROCEDURE/MINOR SURGICAL ORD ERABLES Final Result * ND ANESTHESIA BLOCK PB PLACEHOLDER CHARGE (04/19/2025 9:57 AM CDT) Narrative Josh Huizar MD - 04/19/2025 9:57 AM CDT Josh Huizar MD 04/19/2025 9:58 AM End time: 04/19/2025 9:52 AM Reason for block: at surgeon's request and post-op pain management Staffing Performed: Anesthesiologist (/) Authorized by: Josh Huizar MD Performed by: Josh Huizar MD Preanesthetic Checklist Completed: patient identified, IV checked, site marked, risks and benefits discussed, surgical consent, monitors and equipment checked, pre-op evaluation and timeout performed Hand hygiene performed prior to procedure Patient was prepped and draped in usual sterile fashion Patient position: Sitting Prep: ChloraPrep Patient monitoring: Continuous pulse oximetry, EKG, Heart rate and Non-invasive blood pressure Block Region: Truncal Block Block Type: Erector Spinae Laterality: Right Injection technique: Single-shot [employer] [facility] Identification: ultrasound guided Local injected: Bupivacaine 0.25% Total Volume Injected (mL): 40 Needle Needle type: Short-bevel Needle gauge: 21 G Needle length: 6 cm Needle localization: Ultrasound Guidance us Josh Huizar MD PROCEDURE/MINOR SURGICAL ORD ERABLES Final Result * VERIFICATION BLOOD GROUP (04/19/2025 8:15 AM CDT) ABO GROUP O 04/19/2025 10:03 AM CDT [email or web address] -- [facility] RH (D) TYPE Negative 04/19/2025 10:03 AM CDT [facility] -- [facility] Blood Venipuncture / Unknown 04/19/2025 8:15 AM CDT 04/19/2025 8:27 AM CDT Domingo Stewart MD BLOOD BANK ORDERABLES Final Result [facility]# [id number] [address] [place] [address] [place] [id number] * ND ANES VNPNXR 3 YEARS/> PHYS/QHP SKILL, PERIPHERAL IV ADULT (04/19/2025 7:13 AM CDT) Narrative Josh Huizar MD - 04/19/2025 7:13 AM CDT Josh Huizar MD 04/19/2025 10:29 AM Peripheral Line Insertion Date/Time: 04/19/2025 7:13 AM Patient location during procedure: OR Staffing Performed: Anesthesiologist (/) Authorized by: Josh Huizar MD Performed by: Josh Huizar MD Preparation: Skin prepped with alcohol Skin prep agent dried: skin prep agent completely dried prior to procedure Hand hygiene: hand hygiene performed prior to procedure Location: right dorsal forearm Catheter size: 18 gauge Number of attempts: 1 Successful placement: yes Assessment: effective initial placement and positive blood return Procedure uneventful Josh Huizar MD PROCEDURE/MINOR SURGICAL ORD ERABLES Final Result * EKG 12-LEAD (04/06/2025 4:05 PM CDT) 04/06/2025 4:05 PM CDT Narrative INTERFACE SYSTEM - 04/06/2025 4:[address] PM [address] [address] Test Date: 2025-04-06 Pat Name: NIYAH ADAMS Department: 100 Room: Gender: Male Agile Test Lead: Bomam1 : 1960 Requested By: NICK Huddleston Order Number: [id number] Andres MD: Sarthak Petersen Measurements Intervals Manning Rate: 70 P: 63 ND: 182 QRS: 67 QRSD: 94 T: 58 QT: 357 QTc: 385 Interpretive Statements SINUS RHYTHM Electronically Signed On 04-06-2025 16:55:31 CDT by Sarthak Petersen Procedure Note Sarthak Petersen MD - 04/06/[address] [address] Test Date: 2025-04-06 Pat Name: NIYAH ADAMS Department: 100 Room: Gender: Male Agile Test Lead: Hong : 1960 Requested By: NICK Huddleston Order Number: [id number] Reading MD: Sarthak Petersen Measurements Intervals Manning Rate: 70 P: 63 ND: 182 QRS: 67 QRSD: 94 T: 58 QT: 357 QTc: 385 Interpretive Statements SINUS RHYTHM Electronically Signed On 04-06-2025 16:55:31 CDT by Sarthak Petersen us Juanis Toscano ANP ECG ORDERABLES Final Result INTERFACE SYSTEM Refer to clinic/hospital department * (ABNORMAL) PTT (04/06/2025 3:37 PM CDT) PTT 37.0(H) 24.4 - 36.4 seconds 04/06/2025 4:25 PM CDT [facility] [employer] [facility] Comment: PTT Therapeutic Range: Heparin Level PTT (seconds) <0.10 units/mL <55.8 0.10 - 0.30 units/mL 55.8 - 74.3 0.30 - 0.70 units/mL* 74.3 - 111.2* 0.70 - 1.00 units/mL 111.2 - 138.9 *corresponds to therapeutic range for unfractionated heparin Blood Venipuncture / Unknown 04/06/2025 3:37 PM CDT 04/06/2025 4:05 PM CDT us Janet Gardner CAFE TEAM MEMBER HEMATOLOGY ORDERABLES Final Result [facility] [employer] [facility] CLIA# [id number] [address] [place] [id number] * (ABNORMAL) PROTIME-INR (04/06/2025 3:37 PM CDT) PROTIME 18.2(H) 12.7 - 15.1 Seconds 04/06/2025 4:25 PM CDT [facility] LABORATORY SERVICES - [facility] INR 1.5(H) 0.9 - 1.1 04/06/2025 4:25 PM CDT [facility] LAB[facility]ATORY SERVICES - [facility] Blood Venipuncture / Unknown 04/06/2025 3:37 PM CDT 04/06/2025 4:05 PM CDT Narrative [facility] LABORATORY SERVICES - [facility] - 04/06/2025 4:25 PM CDT INR Therapeutic Range: Adult: 2.0 - 3.0 for pulmonary embolism or prophylaxis against venous thrombosis or systemic embolization. 2.0 - 3.0 for patients with tissue heart valves. 2.5 - 3.5 for patients with mechanical heart valves or post VA. Pediatric (12 years and under): 1.5 - 3.0 Although the target range in children is not well established, INR values of 1.5 - 3.0 are recommended for most patients. Higher values have been used in children with prosthetic cardiac valves and hereditary clotting disorders. (<3 days) therapeutic ranges have not been established. us Janet Gardner NP HEMATOLOGY ORDERABLES Final Result [facility] [employer] [facility] CLIA# [id number] [address] [place] [address] * TYPE AND SCREEN (04/06/2025 3:37 PM CDT) ABO GROUP O 04/06/2025 5:31 PM CDT [facility] RH (D) TYPE Negative 04/06/2025 5:31 PM CDT [facility] ANTIBODY SCREEN Negative 04/06/2025 5:31 PM CDT [facility] Blood Venipuncture / Unknown 04/06/2025 3:37 PM CDT 04/06/2025 4:05 PM CDT us Nick Zambrano MD BLOOD BANK ORDERABLES Edited R esult - Final [facility] ST[place]IE PEGUEOR# [id number] [address] [place] S[place] [id number] from Last 3 Months Insurance Erick DAVALOS, [facility] [address] [facility] Address: [place] [address] [address] DAVALOS, [place] [address] RX [employer] RX Member Subscriber Plan / Payer (Ef fective 2021-Present) Name:Niyah Adams Relation to Subscriber:Self Name:Niyah Adams Payer ID:Not on file Group ID:[id number] Type:RX Medicare Part D Address: [place]ON[place] Advance Directives For more information, please contact: [phone] * Full Code (Latest Code Status on File) Date Activated Date Inactivated Comments 04/19/2025 1:49 PM 04/20/2025 6:19 PM * Full Code Date Activated Date Inactivated Comments 04/19/2025 8:12 AM 04/19/2025 1:49 PM Care Teams Scholarship Counselor Relationship Specialty Start Date End Date Cynthia Cano MD PCP - General Family Practice 06/20/17
--- OUTSIDE RECORDS SUMMARY | 2025-05-10 12:49 | XMS_ITS | Encounter Summary ---
Author Organization [facility] Address [facility] [place] [address] Care Team Providers Care Appellate Court Judge Name Role Phone Luisito Mcmillan MD Unavailable [phone] Kvng Liu MD Unavailable Andi Plasencia MD Unavailable [phone] Chris Wu MD Unavailable Morgan Land MD Unavailable [phone] Dinesh Castillo DO Primary Care Provider [phone] Reason for Visit * Reason Onset Date Comments Joint Pain 06/01/2022 He was wanting t o know about getting a brace for his RIGHT knee Encounter Details Date Type Department Care Team (Late st Contact Info) Description 06/01/2022 Telephone [facility] [place] [id number] [place] [id number] Jesenia Jeronimo LPN Joint Pain (He was wanting to know about getting a brace for his RIGHT knee) Social History Tobacco Use Types Packs/Day Years Used Date Smoking Tobacco: Every Day Cigarettes 1 53.6 Started: 1972 Smokeless Tobacco: Never Comments:quit for [...] Sex Assigned at Male 11/27/2024 8:48 AM PERSONNEL GENERALIST MANAGER Legal Sex Male 6:03 PM CDT [...] Depression Total Score: 16 022 4:21 PM PERSONNEL GENERALIST MANAGER documented as of this encounter Care Teams Appellate Court Judge Relationship Specialty Start Date End Date Dinesh Castillo DO [address] [place] [address] PCP - General FAMILY PRACTICE 04/27/22 Luisito Mcmillan MD Three [facility]. [address] [place] [address] [place] Leader Tier CARDIOVASCULAR DISEASE 12/31/18 [place] [address] [place], [place] [address] Referring Physician RHEUMATOLOGY 12/17/19 Anid Plasencia MD [address] [address] Consulting Physician HEMATOLOGY/ONCOLOGY 12/17/19 Chris Wu MD [facility]. [facility] [address] [place] [address] Consulting Physician CLINICAL CARDIAC ELECTROPHYSIOLOGY 12/17/19 Morgan Land MD Three [facility]. [facility] [address] [place] [address] UROLOGY 07/14/21 documented as of this encounter
--- OUTSIDE RECORDS SUMMARY | 2025-05-10 12:49 | XMS_ITS | Encounter Summary ---
Author Organization [facility] Address [facility] [place] [address] Care Team Providers Care Seals Engraver Name Role Phone Luisito Mcmillan MD Unavailable [phone] Cynthia Meadows MD Primary Care Provider [phone] Kvng Liu MD Unavailable Andi Plasencia MD Unavailable [phone] Chris Wu MD Unavailable Roberto Ventura MD Primary Care Provider [phone] Wendy Mitchell DEVELOPER ADVISOR Primary Care Provider Unav ailable EmeryMorgan ackerman MD Unavailable [phone] [facility] Primary Care Provider + Dinesh Castillo DO Primary Care Provider [phone] Encounter Details Date Type Department Care Team (Late st Contact Info) Description 03/28/2019 Abstract [facility] CONVERSION [address] [place] [address] , Generic Conversion, Social History [...] Sex Assigned at Male 11/27/2024 8:48 AM BINDERY PRODUCTION MANAGER Legal Sex Male 6:03 PM CDT Gender Identity Not on file Sexual Orientation Not on file documented as of this encounter Plan of Treatment Not on file documented as of this encounter Visit Diagnoses Not on filedocumented in this encounter Care Teams Seals Engraver Relationship Specialty Start Date End Date Cynthia Meadows MD [address] [place] [address] PCP - General FAMILY PRACTICE 01/01/19 12/16/19 Roberto Ventura MD [facility] [address] [place] [address] PCP - General INTERNAL MEDICINE 12/17/19 07/10/20 Wendy Mitchell NP [facility] [address] [place] [address] PCP - General NURSE PRACTITIONER 07/11/20 09/04/21 [facility] [address] [place], [place] [address] PCP - General Nurse Practitioner [facility] 09/05/2104/26 Dinesh Castillo DO [address] [place], [place] [address] PCP - General FAMILY PRACTICE 04/27/22 Luisito Mcmillan MD [facility] [address] [place], [place] [address] [place] Landscaping And Groundskeeping Laborer CARDIOVASCULAR DISEASE 12/31/18 [place] [address] [place] [address] Referring Physician RHEUMATOLOGY 12/17/19 Andi Plasencia MD [address] [facility] [address] [place] [address] Consulting Physician HEMATOLOGY/ONCOLOGY 12/17/19 Chris Wu MD [facility]. [address] [id number] Consulting Physician CLINICAL CARDIAC ELECTROPHYSIOLOGY 12/17/19 Morgan Land MD [address] [address] UROLOGY 07/14/21 documented as of this encounter
--- OUTSIDE RECORDS SUMMARY | 2025-05-10 12:49 | XMS_ITS | Encounter Summary ---
Author Organization [facility] Address [address] [place] [address] Care Team Providers Care Coal Drier Operator Name Role Phone Cynthia Cano MD Primary Care Provider [phone] Reason for Visit * Reason Onset Date Comments Medication Refill 05/10/2025 Encounter Details Date Type Department Care Team (Late st Contact Info) Description 05/10/2025 Refill [facility] Cardiovas and Thor Surg at [facility] [address] [facility] [address] [place] [address] Janet Gardner NP [address] [facility] [address] [place] [address] Acute post-operative pain (Primary Dx); Herniation of right lung Social History Tobacco Use Types Packs/Day Years Used Date Smoking Tobacco: Every Day Cigarettes 0.8 30 Smokeless Tobacco: Never Alcohol Use Standard Drinks/Week Comments No 0 (1 standard drink = 0.6 oz pur e alcohol) Sex and Gender Information Value Date Recorded Sex Assigned at Not on file Legal Sex Male 10:34 AM CDT Gender Identity Not on file Sexual Orientation Not on file documented as of this encounter Miscellaneous Notes * Telephone Encounter - Janet Gardner NP - 05/10/2025 10:00 AM CDT Pt calling for refills on gabapentin, tramadol, and norco. We will send in scripts. Increased gabapentin to 300 TID documented in this encounter Plan of Treatment Upcoming Encounters Date Type Department Care Team (Late st Contact Info) Description 05/18/2025 11:15 AM CDT Video Visit [facility] Cardiovas and Thor Surg at [facility] [address] [facility] [address] [place] [address] Wilian Zambrano MD [address] [facility] [address] [place] [address] documented as of this encounter Visit Diagnoses Diagnosis Acute post-operative pain- Primary Herniation of right lung documented in this encounter Care Teams Coal Drier Operator Relationship Specialty Start Date End Date Cynthia Cano MD PCP - General Family Practice 06/20/17 documented as of this encounter
--- OUTSIDE RECORDS SUMMARY | 2025-05-10 12:49 | XMS_ITS | Encounter Summary ---
Author Organization [facility] Address [facility] [place] [address] Care Team Providers Care Teaching Associate Name Role Phone Luisito Mcmillan MD Unavailable [phone] Kvng Liu MD Unavailable Andi Plasencia MD Unavailable [phone] Chris Wu MD Unavailable Morgan Land MD Unavailable [phone] Dinesh Castillo DO Primary Care Provider [phone] Encounter Details Date Type Department Care Team (Late st Contact Info) Description 05/27/2023 Therapy Plan [facility] [address] [place] [address] Kvng Liu MD [address] [place] [address] Social History Tobacco Use Types [...] Sex Assigned at Male 11/27/2024 8:48 AM ROBOTICS APPLICATION ENGINEER Legal Sex Male 6:03 PM CDT Gender Identity Not on file Sexual Orientation Not on file documented as of this encounter Plan of Treatment Not on file documented as of this encounter Visit Diagnoses Diagnosis Rheumatoid arthritis (CMS/HCC HHS/HCC)- Primary documented in this encounter Additional Health Concerns Assessment Noted Time PHQ-9 Depression Total Score: 16 022 4:21 PM ROBOTICS APPLICATION ENGINEER documented as of this encounter Care Teams Teaching Associate Relationship Specialty Start Date End Date Dinesh Castillo DO [address] [place] [address] PCP - General FAMILY PRACTICE 04/27/22 Luisito Mcmillan MD [facility]. [address] [place] [address] [place] Outside Machinist Helper CARDIOVASCULAR DISEASE 12/31/18 [place] [address] [place], [place] [address] Referring Physician RHEUMATOLOGY 12/17/19 Andi Plasencia MD [address] [facility] [address] [place] [address] Consulting Physician HEMATOLOGY/ONCOLOGY 12/17/19 Chris Wu MD [facility]. [address] [place], [place] [address] Consulting Physician CLINICAL CARDIAC ELECTROPHYSIOLOGY 12/17/19 Morgan Land MD [facility]. [address] [place] [address] UROLOGY 07/14/21 documented as of this encounter
--- OUTSIDE RECORDS SUMMARY | 2025-05-10 12:49 | XMS_ITS | Clinical Summary ---
Author Organization [facility] Care Team Providers Care Wheel Adjuster Name Role Phone Unavailable Primary Care Provider [...] Virus (HCV) Screening 1960 TdaP Immunization 1959 Cologuard 2004 Colonoscopy 2004 Colorectal Cancer Screening 2004 Immunochemical Fecal Occult Blood 2004 Pneumococcal Immunization (5 0+ years) (1 of 1 - PCV) 2009 Zoster Immunization (1 of 2) 2009 SARS-COV-2 Immunization ( - 2023- season) 2024 Influenza Immunization (#1) 2025 Respiratory Syncytial Virus (RSV) Immunization (Adult) (1 - 1-dose 75+ series) 2034 Hepatitis B Immunization Aged Out No longer eligible based on patient's age to complete this topic Human Papillomavirus (HPV) Immunization Aged Out No longer eligible b ased on patient's age to complete this topic Meningococcal Immunization (ACWY) Aged Out No longer eligible based on patient's age to complete this topic Rotavirus Immunization Aged Out No lo nger eligible based on patient's age to complete this topic
--- OUTSIDE RECORDS SUMMARY | 2025-05-10 12:49 | XMS_ITS | Encounter Summary ---
Author Organization [facility] Address [facility] [place] [address] Care Team Providers Care Harnessmaker Name Role Phone Luisito Mcmillan MD Unavailable [phone] Cynthia Meadows MD Primary Care Provider [phone] Kvng Liu MD Unavailable Andi Plasencia MD Unavailable [phone] Chris Wu MD Unavailable Roberto Ventura MD Primary Care Provider [phone] Wendy Mitchell LOGISTICS RESEARCH ENGINEER Primary Care Provider Unav ailable Morgan Land MD Unavailable [phone] Stefanie Franco [facility] Primary Care Provider + Dinesh Castillo DO Primary Care Provider Encounter Details Date Type Department Care Team (Late st Contact Info) Description 04/03/2016 Abstract [facility] CONVERSION [address] [place], [place] [id number] , Wesley Cadet MD Social History Tobacco Use Types Packs/Day Years Used Date Smoking Tobacco: Never Assessed Sex and Gender Information Value Date Recorded Sex Assigned at Male 11/27/2024 8:48 AM DEMO COORDINATOR Legal Sex Male 6:03 PM CDT Gender Identity Not on file Sexual Orientation Not on file documented as of this encounter Plan of Treatment Not on file documented as of this encounter Visit Diagnoses Not on filedocumented in this encounter Care Teams Harnessmaker Relationship Specialty Start Date End Date Cynthia Meadows MD [address] [place] [address] PCP - General FAMILY PRACTICE 01/01/19 12/16/19 Roberto Ventura MD [facility] [address] [place] [address] PCP - General INTERNAL MEDICINE 12/17/19 07/10/20 Wendy Mitchell NP [facility] [address] [place] [address] PCP - General NURSE PRACTITIONER 07/11/20 09/04/21 Stefanie Franco [facility] [address] [place] [address] PCP - General Nurse Practitioner [facility] 09/05/2104/26 Dinesh Castillo DO [address] [place] [address] PCP - General FAMILY PRACTICE 04/27/22 Luisito Mcmillan MD [facility] [address] [place], [place] [address] [place] Solar Manufacturer'S Representative CARDIOVASCULAR DISEASE 12/31/18 [place] [address] [place] [address] Referring Physician RHEUMATOLOGY 12/17/19 Andi Plasencia MD [address] [facility] [address] [place] [address] Consulting Physician HEMATOLOGY/ONCOLOGY 12/17/19 Chris Wu MD Three [facility]. [address] [address] Consulting Physician CLINICAL CARDIAC ELECTROPHYSIOLOGY 12/17/19 Morgan Land MD Three [facility]. [address] [address] UROLOGY 07/14/21 documented as of this encounter
--- OUTSIDE RECORDS SUMMARY | 2025-05-10 12:49 | XMS_ITS | Encounter Summary ---
Author Organization [facility] Address [facility] [place] [address] Care Team Providers Care Nursing Home Aide Name Role Phone Luisito Mcmillan MD Unavailable [phone] Kvng Liu MD Unavailable Andi Plasencia MD Unavailable [phone] Chris Wu MD Unavailable Morgan Land MD Unavailable [phone] Stefanie Franco [facility] Primary Care Provider + Dinesh Castillo DO Primary Care Provider [phone] Encounter Details Date Type Department Care Team (Late st Contact Info) Description 03/15/2022 Telephone [facility] [place] [address] [id number] Taryn Marshall, RN Social History Tobacco Use [...] Sex Assigned at Male 11/27/2024 8:48 AM HAT BAND ATTACHER Legal Sex Male 6:03 PM CDT Gender Identity Not on file Sexual Orientation Not on file documented as of this encounter Plan of Treatment Not on file documented as of this encounter Visit Diagnoses Not on filedocumented in this encounter Additional Health Concerns Assessment Noted Time PHQ-9 Depression Total Score: 16 022 4:21 PM HAT BAND ATTACHER documented as of this encounter Care Teams Nursing Home Aide Relationship Specialty Start Date End Date Stefanie Franco [facility]. [address] [place], [place] [address] PCP - General Nurse Practitioner Family 09/05/2104/26 Dinesh Castillo DO [address] [place], [place] [address] PCP - General FAMILY PRACTICE 04/27/22 Luisito Mcmillan MD [facility]. [address] [place], [place] [address] [place] Game Protector CARDIOVASCULAR DISEASE 12/31/18 [place] [address] [place] [address] Referring Physician RHEUMATOLOGY 12/17/19 Andi Plasencia MD [facility] [address] [place] [address] Consulting Physician HEMATOLOGY/ONCOLOGY 12/17/19 Chris Wu MD [facility]. [address] [place], [place] [address] Consulting Physician CLINICAL CARDIAC ELECTROPHYSIOLOGY 12/17/19 Morgan Land MD [facility]. [address] [address] UROLOGY 07/14/21 documented as of this encounter
--- OUTSIDE RECORDS SUMMARY | 2025-05-10 12:49 | XMS_ITS | Encounter Summary ---
Author Organization [facility] Address [facility] [place] [address] Care Team Providers Care Abe Teacher Name Role Phone Luisito Mcmillan MD Unavailable [phone] Kvng Liu MD Unavailable Andi Plasencia MD Unavailable [phone] Chris Wu MD Unavailable Morgan Land MD Unavailable [phone] Dinesh Castillo DO Primary Care Provider [phone] Reason for Visit * Auth/Cert (Routine) Specialty Diagnoses / Procedures Referred By Contac t Referred To Contact Diagnoses Lumbar radiculopathy lr Procedures NJX AA&/STRD TFRML EPI LUMBAR/SACRAL 1 LEVEL INJECTION EPIDURAL TRANSFORAMINAL l45 and l5s1 Judi Livingston MD Three [facility] [address] [place] [address] Phone: tel: fax: Referral ID Status Reason Start Date Expiration Date Visits Re quested Visits Authorized [id number] 1 1 Encounter Details Date Type Department Care Team (Late st Contact Info) Description 03/05/2025 Hospital Encounter [facility] [place] [address] [phone] Judi Livingston MD Three [facility] [address] [place] [address] Social History Tobacco Use Types Packs/Day Years [...] Sex Assigned at Male 11/27/2024 8:48 AM AUDIO/VIDEO TECHNICIAN Legal Sex Male 6:03 PM CDT Gender Identity Not on file Sexual Orientation Not on file documented as of this encounter Plan of Treatment Not on file documented as of this encounter Visit Diagnoses Diagnosis Lumbar radiculopathy- Primary Thoracic or lumbosacral neuritis or radiculitis, unspecified documented in this encounter Admitting Diagnoses Diagnosis Lumbar radiculopathy Thoracic or lumbosacral neuritis or radiculitis, unspecified documented in this encounter Additional Health Concerns Assessment Noted Time PHQ-9 Depression Total Score: 16 022 4:21 PM AUDIO/VIDEO TECHNICIAN documented as of this encounter Care Teams Abe Teacher Relationship Specialty Start Date End Date Dinesh Castillo DO [address] [place] [address] PCP - General FAMILY PRACTICE 04/27/22 Luisito Mcmillan MD [facility]. [address] [address] [place] Silk Screen Etcher CARDIOVASCULAR DISEASE 12/31/18 [place] [address] [place] [address] Referring Physician RHEUMATOLOGY 12/17/19 Andi Plasencia MD [address] [facility] [address] [place] [address] Consulting Physician HEMATOLOGY/ONCOLOGY 12/17/19 Chris Wu MD [address] [place] [address] [phone] Consulting Physician CLINICAL CARDIAC ELECTROPHYSIOLOGY 12/17/19 Morgan Land MD [address] [place] [address] [phone] UROLOGY 07/14/21 documented as of this encounter
--- OUTSIDE RECORDS SUMMARY | 2025-05-10 12:49 | XMS_ITS | Encounter Summary ---
Author Organization [facility] Address [facility] [place] [address] Care Team Providers Care Answering Service Telephone Operator Name Role Phone Luisito Mcmillan MD Unavailable [phone] Cynthia Meadows MD Primary Care Provider Kvng Liu MD Unavailable Andi Plasencia MD Unavailable [phone] Chris Wu MD Unavailable Roberto Ventura MD Primary Care Provider [phone] Wendy Mitchell SOLAR SALES REPRESENTATIVE Primary Care Provider Unav ailable Morgan Land MD Unavailable [phone] Stefanie Franco [facility] Primary Care Provider + Dinesh Castillo DO Primary Care Provider [phone] Encounter Details Date Type Department Care Team (Late st Contact Info) Description 12/15/2015 Abstract [facility] CONVERSION [address] [place], [place] [id number] , Wesley Cadet MD Social History Tobacco Use Types Packs/Day Years Used Date Smoking Tobacco: Never Assessed Sex and Gender Information Value Date Recorded Sex Assigned at Male 11/27/2024 8:48 AM PROFESSOR OF KINESIOLOGY Legal Sex Male 6:03 PM CDT Gender Identity Not on file Sexual Orientation Not on file documented as of this encounter Plan of Treatment Not on file documented as of this encounter Visit Diagnoses Not on filedocumented in this encounter Care Teams Answering Service Telephone Operator Relationship Specialty Start Date End Date Cynthia Meadows MD [address] [place] [address] PCP - General FAMILY PRACTICE 01/01/19 12/16/19 Roberto Ventura MD [facility] [address] [place] [address] PCP - General INTERNAL MEDICINE 12/17/19 07/10/20 Wendy Mitchell NP [facility] [address] [place] [address] PCP - General NURSE PRACTITIONER 07/11/20 09/04/21 Stefanie [facility] [address] [place] [address] PCP - General Nurse Practitioner [facility] 09/05/2104/26 Dinesh Castillo DO [address] [place] [address] PCP - General FAMILY PRACTICE 04/27/22 Luisito Mcmillan MD [facility] [address] [place], [place] [address] [place] Experimental Psychologist CARDIOVASCULAR DISEASE 12/31/18 [place] [address] [place] [address] Referring Physician RHEUMATOLOGY 12/17/19 Andi Plasencia MD [address] [facility] [address] [place] [address] Consulting Physician HEMATOLOGY/ONCOLOGY 12/17/19 Chris Wu MD Three [facility]. [address] [address] Consulting Physician CLINICAL CARDIAC ELECTROPHYSIOLOGY 12/17/19 Morgan Land MD Three [facility]. [address] [address] UROLOGY 07/14/21 documented as of this encounter
--- OUTSIDE RECORDS SUMMARY | 2025-05-10 12:49 | XMS_ITS | Clinical Summary ---
Author Organization [facility] Address [address] [place] [address] Care Team Providers Care Political Director Name Role Phone Unknown, Provider Primary Care Provider Unavaila ble Source Comments [facility],non-owned Affiliates and Associated Physician Practices is amultiple site organization consisting of ambulatory clinics and hospital sitesin [place], [place], [place] and [place]. This disclosure is being madepursuant to the Care Everywhere program and may not contain all information available regarding this patient. Last updated 18.[facility] [employer] Immunizations Immunization Administration Dates Next Due FLU VACCINE QUAD IIV4 PF ID 10/26/2016 Pneumococcal Pcv13 Conj 10/26/2016 Social History Tobacco Use Types Packs/Day Years Used Date Smoking Tobacco: Never Assessed Sex and Gender Information Value Date Recorded Sex Assigned at Not on file Legal Sex Male 1:07 PM MANUFACTURING DESIGN ENGINEER Gender Identity Not on file Sexual Orientation [...] PNEUMOCOCCAL VACCINE 50+ (2 of 2 - PCV20 or PCV21) 10/26/2017 10/26/2016 COVID-19 VACCINE ( - 2023-2 5 season) 2024 DEPRESSION SCREENING 10/21/2024 MEDICARE AWV CALENDAR YEAR 2024 INFLUENZA VACCINE (#1) 2025 10/26/2016 Respiratory Syncytial Virus (RSV) Vaccine Pt: or [...] age to complete this topic Insurance AET MEDICARE MEDICARE UHC MANAGED MEDICARE ADV Care Teams Political Director Relationship Specialty Start Date End Date Unknown, Provider PCP - General 10/26/16
--- OUTSIDE RECORDS SUMMARY | 2025-05-10 12:49 | XMS_ITS | Encounter Summary ---
Author Organization [facility] Address [facility]ly [facility], [facility] [place] [address] Care Team Providers Care Vehicle Operator Name Role Phone Luisito Mcmillan MD Unavailable [phone] Kvng Liu MD Unavailable Andi Plasencia MD Unavailable [phone] Chris Wu MD Unavailable Morgan Land MD Unavailable [phone] Stefanie Franco [facility] Primary Care Provider + Dinesh Castillo DO Primary Care Provider [phone] Reason for Visit * Reason Onset Date Comments Follow Up 03/15/2022 Encounter Details Date Type Department Care Team (Late st Contact Info) Description 03/15/2022 Telephone [facility] [place] [address] [id number] Taryn Marshall, RN Follow Up Social History [...] Sex Assigned at Male 11/27/2024 8:48 AM AGENT CONTRACT CLERK Legal Sex Male 6:03 PM CDT Gender [...] Depression Total Score: 16 022 4:21 PM AGENT CONTRACT CLERK documented as of this encounter Care Teams Vehicle Operator Relationship Specialty Start Date End Date Stefanie Franco [facility]. [facility] [address] [place] [address] PCP - General Nurse Practitioner Family 09/05/2104/26 Diensh Castillo DO [address] [place] [address] PCP - General FAMILY PRACTICE 04/27/22 Luisito Mcmillan MD [facility]. [facility] [address] [place] [address] [place] [facility] Bevel Operator CARDIOVASCULAR DISEASE 12/31/18 [place] [address] [place] [address] Referring Physician RHEUMATOLOGY 12/17/19 Andi Plasencia MD [address] [facility] [address] [place] [address] Consulting Physician HEMATOLOGY/ONCOLOGY 12/17/19 Chris Wu MD [address] [id number] Consulting Physician CLINICAL CARDIAC ELECTROPHYSIOLOGY 12/17/19 Morgan Land MD Three [address] [address] UROLOGY 07/14/21 documented as of this encounter
--- OUTSIDE RECORDS SUMMARY | 2025-05-10 12:49 | XMS_ITS | Encounter Summary ---
Author Organization [facility] Address [facility] [place] [address] Care Team Providers Care Dip Guider Stoves Name Role Phone Luisito Mcmillan MD Unavailable [phone] Cynthia Meadows MD Primary Care Provider [phone] Kvng Liu MD Unavailable Andi Plasencia MD Unavailable [phone] Chris Wu MD Unavailable Roberto Ventura MD Primary Care Provider [phone] Wendy Mitchell NP Primary Care Provider Unav ailable Morgan Land MD Unavailable [phone] Stefanie Franco [facility] Primary Care Provider + Dinesh Castillo DO Primary Care Provider [phone] Encounter Details Date Type Department Care Team (Late st Contact Info) Description 01/22/2019 [facility] at [address] [address] Larry Quezada MA Social History Tobacco Use [...] Sex Assigned at Male 11/27/2024 8:48 AM CERTIFIED PUBLIC ACCOUNTANT Legal Sex Male 6:03 PM CDT Gender [...] on filedocumented in this encounter Care Teams Dip Guider Stoves Relationship Specialty Start Date End Date Cynthia Meadows MD [address] [place] [address] PCP - General FAMILY PRACTICE 01/01/19 12/16/19 Roberto Ventura MD [address] [address] PCP - General INTERNAL MEDICINE 12/17/19 07/10/20 Wendy Mitchell, SLIP PRESSER [address] [address] PCP - General NURSE PRACTITIONER 07/11/20 09/04/21 Stefanie Franco FNP- [address] [address] PCP - General Nurse Practitioner Family 09/05/2104/26 Dinesh Castillo [place] [address] PCP - General FAMILY PRACTICE 04/27/22 Luisito Mcmillan MD [facility]. [place] [address] [place] [address] [place] [employer] Field Technician CARDIOVASCULAR DISEASE 12/31/18 [place] [address] [place] [address] Referring Physician RHEUMATOLOGY 12/17/19 Andi Plasencia MD [address] [facility] [address] [place] [address] Consulting Physician HEMATOLOGY/ONCOLOGY 12/17/19 Chris Wu MD [facility]. [place] [address] [place] [address] Consulting Physician CLINICAL CARDIAC ELECTROPHYSIOLOGY 12/17/19 Morgan Land MD [facility]. [place] [address] [place] [address] UROLOGY 07/14/21 documented as of this encounter
--- OUTSIDE RECORDS SUMMARY | 2025-05-10 12:49 | XMS_ITS | Encounter Summary ---
Author Organization [facility] Address [facility] [address] Care Team Providers Care Clinical Safety Specialist Name Role Phone Unknown, Provider Primary Care Provider Unavaila ble Encounter Details Date Type Department Care Team (Late st Contact Info) Description 08/03/2024 Lab Requisition [facility] - DermPath Lab [address] [place] [address] Ki Dover MD [facility] DERMATOLOGY [address] [place] [phone] Neoplasm of uncertain behavior of skin Social History Tobacco Use Types Packs/Day Years Used Date Smoking Tobacco: Never Assessed Sex and Gender Information Value Date Recorded Sex Assigned at Not on file Legal Sex Male 1:07 PM ASSISTANT COOK Gender Identity Not on file Sexual Orientation Not on file documented as of this encounter Plan of Treatment Not on file documented as of this encounter Procedures Procedure Name Priority Date/Time Associated Diagnosis Comments DERMATOPATHOLOGY Routine 08/03/2024 3:33 AM CDT Neoplasm of uncertain behavior of skin documented in this encounter Results * DERMATOPATHOLOGY (08/03/2024 3:33 AM CDT) Case Report Dermatopathology Report Case: [id number] Authorizing Provider: Ki Dover MD Collected: 08/03/2024 03:33 AM Ordering Location: [facility] - Received: 08/04/2024 11:08 [...] characteristic determined by the Dermatopathology Laboratory at [facility], directed by Dr. hPilippe Klein. These tests need not be, and therefore are not, approved by the [place] Food and Drug Administration. The tests are used for clinical purposes. Billing Codes Specimen Charges Stain Charges 71527 1 11:27 AM CDT DERMATOPATHOLOGY LABORATORY Embedded Images 11:27 AM CDT DERMATOPATHOLOGY LABORATORY Pathology/Cytolo gy TISSUE SPECIMEN FROM SKIN / Unknown 08/03/2024 3:33 AM CDT 08/04/2024 11:08 AM CDT us Ki Dover MD LAB - PATHOLOGY/CYTOLOGY ORDE GEORGE Final Result DERMATOPATHOLOGY LABORATORY [facility] - Department [facility] [address] [facility], 3rd Floor [address] [phone] documented in this encounter Visit Diagnoses Diagnosis Neoplasm of uncertain behavior of skin documented in this encounter Care Teams Clinical Safety Specialist Relationship Specialty Start Date End Date Unknown, Provider PCP - General 10/26/16 documented as of this encounter
[2025-05-10 13:36] LABS: Estimated Glomerular Filt Rate > 60
== END 2025-05-10 12:44 | disposition home or self-care (01) ==
LOC: CHSIMG 12:47
PROVIDERS: PCP Family Medicine; Visit Provider Nurse Practitioner Family
DX: R06.02 Shortness of breath (principal); R07.81 Pleurodynia; J98.4 Other disorders of lung; J90 Pleural effusion, not elsewhere classified; J98.11 Atelectasis
CPT/HCPCS: 71275; Q9967

== ENCOUNTER 2025-06-09 11:50 | Outpatient (CLI) | payer MEDICARE, SELFPAY ==
--- NOTE | ~2025-06-09 | XR_ITS ---
EXAM/PROCEDURE: XR chest 2V - 06/09/2025 12:20 CDT HISTORY: 65 years old Male with chronic pain TECHNIQUE: Two view(s) of the chest. COMPARISON: None available. FINDINGS: LUNGS/ PLEURA: Small right pleural effusion. 8.4 x 4.0 x 7.1 cm opacity in the right midlung zone may represent loculated pleural effusion versus a pulmonary mass. Right lung base consolidation. HEART/ MEDIASTINUM: Heart appears normal in size. BONES: Degenerative changes. OTHER: Visualized upper abdomen is unremarkable. IMPRESSION: 1. 8.4 x 4.0 x 7.1 cm opacity in the right midlung zone may represent loculated pleural effusion versus a pulmonary mass. 2. Right lung base consolidation. Findings can represent pneumonia in appropriate clinical settings. Clinical correlation si recommended. Short-term follow-up chest radiograph is recommended after appropriate clinical therapy to document stability and/or resolution. 3. Small right pleural effusion. Reviewed, dictated and finalized at location A. IMPRESSION: 1. 8.4 x 4.0 x 7.1 cm opacity in the right midlung zone may represent loculate d pleural effusion versus a pulmonary mass. 2. Right lung base consolidation. Findings can represent pneumonia in appropri ate clinical settings. Clinical correlation si recommended. Short-term follow-u p chest radiograph is recommended after appropriate clinical therapy to documen t stability and/or resolution. 3. Small right pleural effusion.
--- NOTE | ~2025-06-09 | XR_ITS ---
EXAM/ PROCEDURE: XR shoulder LT min 2V, XR shoulder RT min 2V - 06/09/2025 12:20 CDT HISTORY: 65 years old Male with M25.519 - Pain in unspecified shoulder COMPARISON: None available TECHNIQUE: Four view(s) FINDINGS/ IMPRESSION: There are no fractures or dislocations.Joint space narrowing, subchondral sclerosis, subchondral cyst formation and osteophyte formation, compatible with mild osteoarthritis. Reviewed, dictated and finalized at location A.
[2025-06-09 12:11] LABS: Hematocrit 43.0 % (37.0-46.0); Hemoglobin 13.7 g/dL (12.4-15.3); Immature Granulocyte Percent A 0.2 % (0.0-0.0); Lymphocytes Absolute Auto 2.02 K/mm3 (1.10-4.50); Mean Corpuscular HGB Conc 31.9 g/dL (32-36); Mean Corpuscular Hemoglobin 29.3 pg (27.0-31.0); Mean Corpuscular Volume 92.1 fL (78.0-102.0); Nucleated Red Blood Cells Absolute Auto 0.00 K/mm3 (0.00-0.00); Nucleated Red Blood Cells Perc 0.0 % (0-0.0); Platelet Count Result 269 K/mm3 (150-420); Red Blood Count 4.67 M/mm3 (4.70-6.10); White Blood Count 5.5 K/mm3 (4.8-10.8)
--- OUTSIDE RECORDS SUMMARY | 2025-06-09 12:16 | XMS_ITS | Clinical Summary ---
Author Organization [facility] Address [address] [place] [address] Care Team Providers Care Silk Spooler Name Role Phone Luisito Mcmillan MD Unavailable [phone] Kvng Liu MD Unavailable Andi Plasencia MD Unavailable [phone] Chris Wu MD Unavailable Morgan Land MD Unavailable [phone] Dinesh Castillo DO Primary Care Provider [phone] Allergies No known active allergies Medications cyclobenzaprine [...] (04/04/2023): Added automatically from request for surgery [id number] Sprain of lateral collateral ligament of left knee, initial encounter 11/10/2021 Bipolar disorder, in partial remission, most recent episode depressed ([facility] HHS/HCC) 09/27/2021 Primary osteoarthritis of right knee [...] without complicati on 07/02/2017 RA (rheumatoid arthritis) ([facility]) 03/0 04/2017 Fibrosis, lung ([facility]) 11/27/2016 Overview (12/17/2019): Description: on ct scan Depressive disorder 08/19/2013 Overview (09/16/2020): Anxiety and depression History of substance abuse 08/19/2013 Overview (03/16/2020): Hx of substance abuse Benign prostatic hyperplasia 08/19/2013 Overview (03/16/2020): BPH (benign prostatic hyperplasia) Chronic obstructive lung disease ([facility] C) Resolved Problems Problem Noted Date Diagnosed Date Resolved Date Herniation of right lung 06/07/2023 History of pulmonary embolism 06/07/2023 02/03/2025 Current smoker 12/21/2020 09/27/2021 Assessment & Plan (12/21/2020 11:35 AM DECORATIVE ENGRAVER): We discussed smoking cessation. Should TKA be [...] 09/16/2020 Bipolar affective disorder, currently depressed, moderate ([facility]) 03/19/2020 Perineal abscess 01/06/2020 03/16/2020 Abscess 12/24/2019 03/16/2020 Overview (12/24/2019): Added automatically from request for surgery [id number] Other chronic pain 12/17/2019 5 Low back [...] 09/27/2021 Assessment & Plan (12/21/2020 11:40 AM DECORATIVE ENGRAVER): We discussed the adverse effects of weight on osteoarthritis of the knee. We discussed the need to decrease BMI to <40 to decrease risk of post operative complications if in the future he would like to proceed with TKA. Contusion of rib 11/27/2016 02/03/2025 Smokers' cough ([facility]) 11/27/2016 02/03/2025 Sleep apnea 11/27/2016 09/27/2021 Encounter for preventive health examination 04/13/2016 12/17/2019 Hypogonadism 08/19/2013 09/27/2021 Overview (09/16/2020): Hypogonadism male Finding of prostate 03/12/2012 12/03/19 21 Immunizations Immunization Administration Dates Next Due Fluzone 6 Months+ Quad (0.5 mL Prefilled Syringe) 06/15/2020,10/10/2019 Influenza (Generic) 08/14/2013 Influenza Adult (Generic) 06/15/2020,10/26/2016, 08/14/2013 PFIZER COVID-19 (ORIGINAL FO RMULATION, PURPLE CAP) mRNA, LNP-S, PF, 30 MCG/0.3 ML DOSE 05/20/2021 Pneumococcal (Pneumovax 23) 10/12/2019, 4 Pneumococcal (Prevnar 13) 10/26/2016 Tdap (Generic) 07/31/2021 Zoster (Zostavax) 87810 Unt/0.65Ml 09/20/2014 Family History Medical History Relation [...] Sex Assigned at Male 11/27/2024 8:48 AM DECORATIVE ENGRAVER Legal Sex Male 6:03 PM CDT Gender Identity Not on file Sexual Orientation Not on file Last Filed Vital Signs Vital Sign Reading Time Taken Comments Blood Pressure 148/83 11/27/2024 9:41 AM DECORATIVE ENGRAVER Pulse 81 11/27/2024 9:41 AM DECORATIVE ENGRAVER Temperature 37.1 C (98.7 F) 11/27/2024 9:10 AM DECORATIVE ENGRAVER Respiratory Rate 20 11/27/2024 9:41 AM DECORATIVE ENGRAVER Oxygen Saturation 100% 11/27/2024 9:41 AM DECORATIVE ENGRAVER Inhaled Oxygen Concentration - - Weight 127.5 kg (281 lb) 02/03/2025 1:19 PM CDT Height 175.3 cm (5' 9) 02/03/2025 1:19 PM CDT Body Mass Index 41.5 02/03/2025 1:19 PM CDT Plan of Treatment Upcoming Encounters Date Type Department Care Team (Late st Contact Info) Description 06/14/2025 Orders Only [facility] [place] [address] [address] Letty Mcdonald, [facility]- [address] [place] [address] 06/14/2025 11:15 AM CDT Office Visit [facility] [place] [address] [facility] [address] [place] [address] Letty Mcdonald [facility] [address] [place] [address] Health Maintenance Due Date Last Done Comments [...] PCV20 or PCV21) 10/12/2024 10/12/2019, 10/26/2016, 10/06/2014 DTaP, Tdap and Td Vaccines ( 2 [...] this topic Medical Devices Implanted Type Area Billboard Poster Helper Device Identifier Shelf Expiration Date Model / Serial / Lot Medt Implantable Loop Recorder-2018 Implanted:10/06 by Chris Wu MD (Quantity not on file) Explanted:Qty: 1 on 07/12/2020 by Chris Wu MD Implantable Loop Recorder [employer] CARDIAC RHYTHM AND HEART FAILURE - DIV M [id number] / [id number] / Procedures Procedure Name Priority Date/Time Associated Diagnosis Comments CTA CHEST Routine 08/01/2021 11:51 AM CDT Mass of right chest wall Intercostal pain CT CHEST W CON Routine 12/14/2020 11:28 AM DECORATIVE ENGRAVER Mass of right chest wall HEPATITIS C ANTIBODY Routine 11/10/2019 12:06 PM DECORATIVE ENGRAVER Screening examination for poliomyelitis from Last 3 [...] [place], 08/01/2021 3:22 PM us Wendy Valerio DIRECTOR SALES CT Final Resul t * CT CHEST W CON (12/14/2020 11:28 AM DECORATIVE ENGRAVER) Anatomical Region Laterality Modality Chest Computed Tomogra phy 12/14/2020 12:2 1 PM DECORATIVE ENGRAVER Impressions 12/14/2020 12:27 PM DECORATIVE ENGRAVER IMPRESSION: Healed right posterior ninth and lateral [...] 12/14/2020 12:21 PM Narrative 12/14/2020 12:27 PM DECORATIVE ENGRAVER IMAGING STUDIES: CT CHEST W CON DATE: [...] Interpreted By: Cristhian Fletcher, 12/14/2020 12:21 PM us Wendy Valerio DIRECTOR SALES CT Final Resul t * HEPATITIS C ANTIBODY (11/10/2019 12:06 PM DECORATIVE ENGRAVER) HEPATITIS C AB NON-REACTI VE NON-REACTI VE 11/10/2019 8:33 PM DECORATIVE ENGRAVER [facility] 11/10/2019 12:0 6 PM DECORATIVE ENGRAVER Kvng Liu MD LABORATORY Final Result [facility] [address] [place] [address], from Last 3 Months or Most Recently Relevant to Health Maintenance Insurance [facility] Care Teams Silk Spooler Relationship Specialty Start Date End Date Dinesh Castillo DO [address] [place] [address] PCP - General FAMILY PRACTICE 04/27/22 Luisito Mcmillan MD [facility] [place] [address] [place] [address] [place] Facilities Supervisor CARDIOVASCULAR DISEASE 12/31/18 [place] [address] [place] [address] Referring Physician RHEUMATOLOGY 12/17/19 Andi Plasencia MD [address] [facility] [address] [place] [address] Consulting Physician HEMATOLOGY/ONCOLOGY 12/17/19 Chris Wu MD [address] [address] Consulting Physician CLINICAL CARDIAC ELECTROPHYSIOLOGY 12/17/19 Morgan Land MD [address] [address] UROLOGY 07/14/21
--- OUTSIDE RECORDS SUMMARY | 2025-06-09 12:16 | XMS_ITS | Encounter Summary ---
Author Organization [facility] Address [facility] [place] [address] Care Team Providers Care Research Executive Name Role Phone Luisito Mcmillan MD Unavailable [phone] Kvng Liu MD Unavailable Andi Plasencia MD Unavailable [phone] Chris Wu MD Unavailable Morgan Land MD Unavailable [phone] Dinesh Castillo DO Primary Care Provider [phone] Reason for Visit * Reason Onset Date Comments Joint Pain 06/01/2022 He was wanting t o know about getting a brace for his RIGHT knee Encounter Details Date Type Department Care Team (Late st Contact Info) Description 06/01/2022 Telephone [facility] [place] [id number] [place] [phone] Jesenia Jeronimo LPN Joint Pain (He was [...] Sex Assigned at Male 11/27/2024 8:48 AM DATA TRANSCRIBER Legal Sex Male 6:03 PM CDT Gender [...] st Contact Info) Description 06/14/2025 Orders Only [facility] [address] [facility] [address] [place] [address] Letty Mcdonald FNP-BC [address] [place] [address] [place] [address] 06/14/2025 11:15 AM CDT Office Visit [facility] [address] [facility] [address] [place] [address] Letty Mcdonald, [facility]- [address] [place] [address] documented as of this encounter Visit Diagnoses Not on filedocumented in this encounter Additional Health Concerns Assessment Noted Time PHQ-9 Depression Total Score: 16 022 4:21 PM DATA TRANSCRIBER documented as of this encounter Care Teams Research Executive Relationship Specialty Start Date End Date Dinesh Castillo DO [address] [place] [address] PCP - General FAMILY PRACTICE 04/27/22 Luisito Mcmillan MD [facility]. [facility] [address] [place], [place] [address] [place] Staying Machine Operator CARDIOVASCULAR DISEASE 12/31/18 [place] [address] [place] [address] Referring Physician RHEUMATOLOGY 12/17/19 Andi Plasencia MD [address] [facility] [address] [place] [address] Consulting Physician HEMATOLOGY/ONCOLOGY 12/17/19 Chris Wu MD Three [facility]. [facility] [address] [place], [place] [address] Consulting Physician CLINICAL CARDIAC ELECTROPHYSIOLOGY 12/17/19 Morgan Land MD [facility]. [facility] [address] [place], [place] [address] UROLOGY 07/14/21 documented as of this encounter
--- OUTSIDE RECORDS SUMMARY | 2025-06-09 12:16 | XMS_ITS | Encounter Summary ---
Author Organization [facility] Address [address] [place] [address] Care Team Providers Care Idea Man Name Role Phone Unavailable Primary Care Provider Unavailabl e Encounter Details Date Type Department Care Team (Late st Contact Info) Description 06/08/2025 External Device Data [facility] ABSTRACTION Provider, Abstract [...]
--- OUTSIDE RECORDS SUMMARY | 2025-06-09 12:16 | XMS_ITS | Encounter Summary ---
Author Organization [facility] Address [facility] [place] [address] Care Team Providers Care Manager Reading Name Role Phone Unknown, Provider Primary Care Provider Unavaila ble Encounter Details Date Type Department Care Team (Late st Contact Info) Description 08/03/2024 Lab Requisition [facility] - DermPath Lab [address] [place] [address] Ki Dover MD [facility] DERMATOLOGY [address] [place] [phone] Neoplasm of uncertain behavior of skin Social History Tobacco Use Types Packs/Day Years Used Date Smoking Tobacco: Never Assessed Sex and Gender Information Value Date Recorded Sex Assigned at Not on file Legal Sex Male 1:07 PM DIGITAL RETOUCHER Gender Identity Not on file Sexual Orientation Not on file documented as of this encounter Plan of Treatment Not on file documented as of this encounter Procedures Procedure Name Priority Date/Time Associated Diagnosis Comments DERMATOPATHOLOGY Routine 08/03/2024 3:33 AM CDT Neoplasm of uncertain behavior of skin documented in this encounter Results * DERMATOPATHOLOGY (08/03/2024 3:33 AM CDT) Case Report Dermatopathology Report Case: [id number] Authorizing Provider: Ki Dover MD Collected: 08/03/2024 03:33 AM Ordering Location: [facility] - Received: 08/04/2024 11:08 [...] characteristic determined by the Dermatopathology Laboratory at [facility], directed by Dr. Philippe Klein. These tests need not be, and therefore are not, approved by the [place] Food and Drug Administration. The tests are used for clinical purposes. Billing Codes Specimen Charges Stain Charges 44942 1 11:27 AM CDT DERMATOPATHOLOGY LABORATORY Embedded Images 11:27 AM CDT DERMATOPATHOLOGY LABORATORY Pathology/Cytolo gy TISSUE SPECIMEN FROM SKIN / Unknown 08/03/2024 3:33 AM CDT 08/04/2024 11:08 AM CDT us Ki Dover MD LAB - PATHOLOGY/CYTOLOGY ORDE GEORGE Final Result DERMATOPATHOLOGY LABORATORY [facility] - Department [facility] [address] [facility], 3rd Floor [address] [phone] documented in this encounter Visit Diagnoses Diagnosis Neoplasm of uncertain behavior of skin documented in this encounter Care Teams Manager Reading Relationship Specialty Start Date End Date Unknown, Provider PCP - General 10/26/16 documented as of this encounter
--- OUTSIDE RECORDS SUMMARY | 2025-06-09 12:16 | XMS_ITS | Encounter Summary ---
Author Organization [facility] Address [facility] [place] [address] Care Team Providers Care Loan Operations Specialist Name Role Phone Luisito Mcmillan MD Unavailable [phone] Kvng Liu MD Unavailable Andi Plasencia MD Unavailable [phone] Chris Wu MD Unavailable Morgan Land MD Unavailable [phone] Stefanie Franco [facility] Primary Care Provider + Dinesh Castillo DO Primary Care Provider [phone] Encounter Details Date Type Department Care Team (Late st Contact Info) Description 03/15/2022 Telephone [facility] [place] [address] [id number] Taryn Marshall, RN Social History Tobacco Use [...] Sex Assigned at Male 11/27/2024 8:48 AM HAND CUTTER APPRENTICE Legal Sex Male 6:03 PM CDT Gender Identity Not on file Sexual Orientation Not on file documented as of this encounter Plan of Treatment Upcoming Encounters Date Type Department Care Team (Late st Contact Info) Description 06/14/2025 Orders Only [address] [address] Letty Mcdonald, [facility]- [address] [place] [address] 06/14/2025 11:15 AM CDT Office Visit [address] [address] Letty Mcdonald, [facility]- [address] [place] [address] documented as of this encounter Visit Diagnoses Not on filedocumented in this encounter Additional Health Concerns Assessment Noted Time PHQ-9 Depression Total Score: 16 022 4:21 PM HAND CUTTER APPRENTICE documented as of this encounter Care Teams Loan Operations Specialist Relationship Specialty Start Date End Date Stefanie Franco [facility] [address] [place], [place] [address] PCP - General Nurse Practitioner Family 09/05/2104/26 Dinesh Castillo DO [address] [place] [address] PCP - General FAMILY PRACTICE 04/27/22 Luisito Mcmillan MD [facility] [address] [place] [address] [place] Workforce Development Specialist CARDIOVASCULAR DISEASE 12/31/18 [place] [address] [place] [address] Referring Physician RHEUMATOLOGY 12/17/19 Andi Plasencia MD [address] [facility] [address] [place] [address] Consulting Physician HEMATOLOGY/ONCOLOGY 12/17/19 Chris Wu MD [address] [address] Consulting Physician CLINICAL CARDIAC ELECTROPHYSIOLOGY 12/17/19 Morgan Land MD [address] [address] UROLOGY 07/14/21 documented as of this encounter
--- OUTSIDE RECORDS SUMMARY | 2025-06-09 12:16 | XMS_ITS | Encounter Summary ---
Author Organization [facility] Address [facility] [place] [address] Care Team Providers Care Political Worker Name Role Phone Luisito Mcmillan MD Unavailable [phone] Cynthia Meadows MD Primary Care Provider [phone] Kvng Liu MD Unavailable Andi Plasencia MD Unavailable [phone] Chris Wu MD Unavailable Roberto Ventura MD Primary Care Provider [phone] Wendy Mitchell NP Primary Care Provider Unav ailable Morgan Land MD Unavailable [phone] Stefanie Franco [facility] Primary Care Provider + Dinesh Castillo DO Primary Care Provider [phone] Encounter Details Date Type Department Care Team (Late st Contact Info) Description 01/22/2019 [facility] at [address] [address] Larry Quezada MA Social History Tobacco Use [...] Sex Assigned at Male 11/27/2024 8:48 AM HEAD ATHLETIC TRAINER/STRENGTH COACH Legal Sex Male 6:03 PM CDT Gender Identity Not on file Sexual Orientation Not on file documented as of this encounter Plan of Treatment Upcoming Encounters Date Type Department Care Team (Late st Contact Info) Description 06/14/2025 Orders Only [address] 1 [place] [address] Letty Mcdonald, PASTE WORKER-BC [address] [place] [address] 06/14/2025 11:15 AM CDT Office Visit [address] 1 [place] [address] Letty Mcdonald, PASTE WORKER-BC [address] [place] [address] documented as of this encounter Procedures Procedure [...] Final Result * BASIC METABOLIC PANEL (12/18/2018) Pathologist [facility] SODIUM S/P/B 141 POTASSIUM S/P/B 4.3 CO2 27.5 CHLORIDE S/P/B 102 GLUCOSE 99 mg/dL CALCIUM S/P/B 8.5 BUN 12 CREATININE S/P/B 0.96 0.7 - 1.3 EGFR AFR. AMER. >90 EGFR NON-AFR. AMER. 86 <=90 12/18/2018 us Doc [facility] Final Result * THYROID STIM HORMONE, TSH (12/18/2018) Pathologist [facility] TSH 0.749 12/18/2018 us Doc [facility] Final Result * CBC (OUTSIDE LAB) (12/18/2018) Pathologist [facility] WBC 6.9 HGB 15.2 HCT 44.4 PLT 236 12/18/2018 us Doc [facility] LAB-OUTSIDE/ABSTRACTED Edite d Result - Final documented in this encounter Visit Diagnoses Not on filedocumented in this encounter Care Teams Political Worker Relationship Specialty Start Date End Date Cynthia Meadows MD [address] [place] [address] PCP - General FAMILY PRACTICE 01/01/19 12/16/19 Roberto Ventura MD [address] [address] PCP - General INTERNAL MEDICINE 12/17/19 07/10/20 Wendy Mitchell NP [facility] [address] [place] [address] PCP - General NURSE PRACTITIONER 07/11/20 09/04/21 Stefanie Franco, [facility] [address] [place] [address] PCP - General Nurse Practitioner Family 09/05/2104/26 Dinesh Castillo DO [address] [place] [address] PCP - General FAMILY PRACTICE 04/27/22 Luisito Mcmillan MD [facility] [address] [place] [address] Wishek Cashiers [employer] CARDIOVASCULAR DISEASE 12/31/18 [place] [address] [place] [address] Referring Physician RHEUMATOLOGY 12/17/19 Andi Plasencia MD [address] [place] [address] [place] [id number] Consulting Physician HEMATOLOGY/ONCOLOGY 12/17/19 Chris Wu MD [facility] [address] [place] [address] Consulting Physician CLINICAL CARDIAC ELECTROPHYSIOLOGY 12/17/19 Morgan Land MD [facility] [address] [place] [address] UROLOGY 07/14/21 documented as of this encounter
--- OUTSIDE RECORDS SUMMARY | 2025-06-09 12:16 | XMS_ITS | Encounter Summary ---
Author Organization [facility] Address [facility] [place] [address] Care Team Providers Care Fats And Oils Loader Name Role Phone Luisito Mcmillan MD Unavailable [phone] Cynthia Meadows MD Primary Care Provider [phone] Kvng Liu MD Unavailable Andi Plasencia MD Unavailable [phone] Chris Wu MD Unavailable Roberto Ventura MD Primary Care Provider [phone] Wendy Mitchell ER NURSE Primary Care Provider Unav ailable Morgan Land MD Unavailable [phone] Stefanie Franco [facility] Primary Care Provider + Dinesh Castillo DO Primary Care Provider [phone] Encounter Details Date Type Department Care Team (Late Contact Info) Description 04/03/2016 Abstract [facility] CONVERSION [address] [place], [place] [id number] , Generic Conversion, Social History Tobacco Use Types Packs/Day Years Used Date Smoking Tobacco: Never Assessed Sex and Gender Information Value Date Recorded Sex Assigned at Male 11/27/2024 8:48 AM CARE WORKER Legal Sex Male 6:03 PM CDT Gender Identity Not on file Sexual Orientation Not on file documented as of this encounter Plan of Treatment Upcoming Encounters Date Type Department Care Team (Late Contact Info) Description 06/14/2025 Orders Only [address], [place] [phone] Letty Mcdonald FNP-BC [address] [facility] [place] [address] 06/14/2025 11:15 AM CDT Office Visit [facility] [address] [facility] [address] [place] [address] Letty Mcdonald [facility] [address] [place] [address] documented as of this encounter Visit Diagnoses Not on filedocumented in this encounter Care Teams Fats And Oils Loader Relationship Specialty Start Date End Date Cynthia Meadows MD [address] [place] [address] PCP - General FAMILY PRACTICE 01/01/19 12/16/19 Roberto Ventura MD [facility] [address] [place] [address] PCP - General INTERNAL MEDICINE 12/17/19 07/10/20 Wendy Mitchell NP [facility] [address] [place] [address] PCP - General NURSE PRACTITIONER 07/11/20 09/04/21 [facility] [address] [place] [address] PCP - General Nurse Practitioner Family 09/05/2104/26 Dinesh Castillo DO [address] [place] [address] PCP - General FAMILY PRACTICE 04/27/22 Luisito Mcmillan MD [facility] [place] [address] [place] [address] [employer] Intern [employer] CARDIOVASCULAR DISEASE 12/31/18 [place] [address] [place] [address] Referring Physician RHEUMATOLOGY 12/17/19 Andi Plasencia MD [address] [facility] [address] [place] [address] Consulting Physician HEMATOLOGY/ONCOLOGY 12/17/19 Chris Wu MD Three [facility]. [address] [place], [place] [address] Consulting Physician CLINICAL CARDIAC ELECTROPHYSIOLOGY 12/17/19 Morgan Land MD Three [facility]. [address] [place], [place] [address] UROLOGY 07/14/21 documented as of this encounter
--- OUTSIDE RECORDS SUMMARY | 2025-06-09 12:16 | XMS_ITS | Encounter Summary ---
Author Organization [facility] Address [facility] [place] [address] Care Team Providers Care Senior Label Specialist Name Role Phone Luisito Mcmillan MD Unavailable [phone] Kvng Liu MD Unavailable Andi Plasencia MD Unavailable [phone] Chris Wu MD Unavailable Morgan Land MD Unavailable [phone] Dinesh Castillo DO Primary Care Provider [phone] Encounter Details Date Type Department Care Team (Late st Contact Info) Description 05/27/2023 Therapy Plan [facility] [address] [place] [address] Kvng Liu MD [address] [place] [address] Social History Tobacco Use Types [...] Sex Assigned at Male 11/27/2024 8:48 AM OPERATIONS ADMINISTRATIVE ASSISTANT Legal Sex Male 6:03 PM CDT Gender Identity Not on file Sexual Orientation Not on file documented as of this encounter Plan of Treatment Upcoming Encounters Date Type Department Care Team (Late st Contact Info) Description 06/14/2025 Orders Only [address] [address] Letty Mcdonald, [facility] [address] [place] [address] 06/14/2025 11:15 AM CDT Office Visit [address] [address] Letty Mcdonald, [facility] [address] [place] [address] documented as of this encounter Visit Diagnoses Diagnosis Rheumatoid arthritis (CMS/HCC HHS/HCC)- Primary Primary osteoarthritis of left knee- Primary Primary localized osteoarthrosis, lower leg Primary osteoarthritis of right knee Primary localized osteoarthrosis, lower leg documented in this encounter Additional Health Concerns Assessment Noted Time PHQ-9 Depression Total Score: 16 022 4:21 PM OPERATIONS ADMINISTRATIVE ASSISTANT documented as of this encounter Care Teams Senior Label Specialist Relationship Specialty Start Date End Date Dinesh Castillo DO [address] [place] [address] PCP - General FAMILY PRACTICE 04/27/22 Luisito Mcmillan MD Three [facility]. [address] [address] Lisa Head Of Ict CARDIOVASCULAR DISEASE 12/31/18 [place] [address] [place] [address] Referring Physician RHEUMATOLOGY 12/17/19 Andi Plasencia MD [address] [address] Consulting Physician HEMATOLOGY/ONCOLOGY 12/17/19 Chris Wu MD [address] [id number] Consulting Physician CLINICAL CARDIAC ELECTROPHYSIOLOGY 12/17/19 Morgan Land MD [address] [address] UROLOGY 07/14/21 documented as of this encounter
--- OUTSIDE RECORDS SUMMARY | 2025-06-09 12:16 | XMS_ITS | Clinical Summary ---
Author Organization [facility] Care Team Providers Care Medical Technologist Blood Bank Name Role Phone Unavailable Primary Care Provider [...]
--- OUTSIDE RECORDS SUMMARY | 2025-06-09 12:16 | XMS_ITS | Encounter Summary ---
Author Organization [facility] Address [facility] [place] [address] Care Team Providers Care Print Designer Name Role Phone Luisito Mcmillan MD Unavailable [phone] Cynthia Meadows MD Primary Care Provider [phone] Kvng Liu MD Unavailable Andi Plasencia MD Unavailable [phone] Chris Wu MD Unavailable Roberto Ventura MD Primary Care Provider [phone] Wendy Mitchell DATA NETWORK ARCHITECT Primary Care Provider Unav ailable EmeryMorgan ackerman MD Unavailable [phone] Stefanie Franco [facility] Primary Care Provider + Dinesh Castillo DO Primary Care Provider [phone] Encounter Details Date Type Department Care Team (Late st Contact Info) Description 03/28/2019 Abstract [facility] [address] [place] [address] , Generic Conversion, Social History [...] Sex Assigned at Male 11/27/2024 8:48 AM FREIGHT MANAGER Legal Sex Male 6:03 PM CDT Gender Identity Not on file Sexual Orientation Not on file documented as of this encounter Plan of Treatment Upcoming Encounters Date Type Department Care Team (Late st Contact Info) Description 06/14/2025 Orders Only [address] [address] Letty Mcdonald, [facility] [address] [place] [address] 06/14/2025 11:15 AM CDT Office Visit [address] [address] Letty Mcdonald, [facility]- [address] [place] [address] documented as of this encounter Visit Diagnoses Not on filedocumented in this encounter Care Teams Print Designer Relationship Specialty Start Date End Date Cynthia Meadows MD [address] [place] [address] PCP - General FAMILY PRACTICE 01/01/19 12/16/19 Roberto Ventura MD [address] [id number] PCP - General INTERNAL MEDICINE 12/17/19 07/10/20 Wendy Mitchell, [facility] [address] [place] [address] PCP - General NURSE PRACTITIONER 07/11/20 09/04/21 Stefanie Franco [facility] [address] [place] [address] PCP - General Nurse Practitioner Family 09/05/2104/26 Dinesh Castillo DO [address] [place] [address] PCP - General FAMILY PRACTICE 04/27/22 Luisito Mcmillan MD Three [facility]. [place] [address] [place] [address] [place] Front Desk Coordinator CARDIOVASCULAR DISEASE 12/31/18 [place] [address] [place] [address] Referring Physician RHEUMATOLOGY 12/17/19 Andi Plasencia MD [address] [facility] [address] [place] [address] Consulting Physician HEMATOLOGY/ONCOLOGY 12/17/19 Chris Wu MD [facility]. [place] [address] [place] [address] Consulting Physician CLINICAL CARDIAC ELECTROPHYSIOLOGY 12/17/19 Morgan Land MD [facility]. [place] [address] [place] [address] UROLOGY 07/14/21 documented as of this encounter
--- OUTSIDE RECORDS SUMMARY | 2025-06-09 12:16 | XMS_ITS | Encounter Summary ---
Author Organization [facility] Address [facility] [place] [address] Care Team Providers Care Polymerization Oven Operator Name Role Phone Luisito Mcmillan MD Unavailable [phone] Cynthia Meadows MD Primary Care Provider [phone] Kvng Liu MD Unavailable Andi Plasencia MD Unavailable [phone] Chris Wu MD Unavailable Roberto Ventura MD Primary Care Provider [phone] Wendy Mitchell SURGERY SCHEDULING COORDINATOR Primary Care Provider Unav ailable Morgan Land MD Unavailable Stefanie Franco [facility] Primary Care Provider + Dinesh Castillo DO Primary Care Provider [phone] Encounter Details Date Type Department Care Team (Late Contact Info) Description 12/15/2015 Abstract [facility] CONVERSION [address] [place], [place] [id number] , Generic Conversion, Social History Tobacco Use Types Packs/Day Years Used Date Smoking Tobacco: Never Assessed Sex and Gender Information Value Date Recorded Sex Assigned at Male 11/27/2024 8:48 AM FARMWORKER VEGETABLE Legal Sex Male 6:03 PM CDT Gender Identity Not on file Sexual Orientation Not on file documented as of this encounter Plan of Treatment Upcoming Encounters Date Type Department Care Team (Late Contact Info) Description 06/14/2025 Orders Only [address], [place] [phone] Letty Mcdonald FNP-BC [address] [facility] [address] 06/14/2025 11:15 AM CDT Office Visit [facility] [address] [facility] [address] [address] [place] [address] Letty Mcdonald [facility] [address] [place] [address] documented as of this encounter Visit Diagnoses Not on filedocumented in this encounter Care Teams Polymerization Oven Operator Relationship Specialty Start Date End Date Cynthia Meadows MD [address] [place] [address] PCP - General FAMILY PRACTICE 01/01/19 12/16/19 Roberto Ventura MD [facility] [address] [place] [address] PCP - General INTERNAL MEDICINE 12/17/19 07/10/20 Wendy Mitchell NP [facility] [address] [place] [address] PCP - General NURSE PRACTITIONER 07/11/20 09/04/21 [facility] [address] [place] [address] PCP - General Nurse Practitioner Family 09/05/2104/26 Dinesh Castillo DO [address] [place] [address] PCP - General FAMILY PRACTICE 04/27/22 Luisito Mcmillan MD [facility] [place] [address] [place] [address] [place] Senior Net Application Developer CARDIOVASCULAR DISEASE 12/31/18 [place] [address] [place] [address] Referring Physician RHEUMATOLOGY 12/17/19 Andi Plasencia MD [address] [facility] [address] [place] [address] Consulting Physician HEMATOLOGY/ONCOLOGY 12/17/19 Chris Wu MD Three [facility]. [address] [place], [place] [address] Consulting Physician CLINICAL CARDIAC ELECTROPHYSIOLOGY 12/17/19 Morgan Land MD Three [facility]. [address] [place], [place] [address] UROLOGY 07/14/21 documented as of this encounter
--- OUTSIDE RECORDS SUMMARY | 2025-06-09 12:16 | XMS_ITS | Encounter Summary ---
Author Organization [facility] Address [facility] [place] [address] Care Team Providers Care Chemical Plant Worker Name Role Phone Luisito Mcmillan MD Unavailable [phone] Kvng Liu MD Unavailable Andi Plasencia MD Unavailable [phone] Chris Wu MD Unavailable Morgan Land MD Unavailable [phone] Dinesh Castillo DO Primary Care Provider [phone] Reason for Visit * Auth/Cert (Routine) Specialty Diagnoses / Procedures Referred By Contac t Referred To Contact Diagnoses Lumbar radiculopathy lr Procedures NJX AA&/STRD TFRML EPI LUMBAR/SACRAL 1 LEVEL INJECTION EPIDURAL TRANSFORAMINAL l45 and l5s1 Judi Livingston MD Three [facility] [address] [place] [address] Phone: tel: fax: Referral ID Status Reason Start Date Expiration Date Visits Re quested Visits Authorized [id number] 1 1 Encounter Details Date Type Department Care Team (Late st Contact Info) Description 03/05/2025 Hospital Encounter [facility] Interventional [place] [address] [id number] Judi Livingston MD Three [facility] [address] [place] [address] Social History Tobacco Use Types Packs/Day [...] Sex Assigned at Male 11/27/2024 8:48 AM WELFARE ELIGIBILITY WORKER Legal Sex Male 6:03 PM CDT Gender Identity Not on file Sexual Orientation Not on file documented as of this encounter Plan of Treatment Upcoming Encounters Date Type Department Care Team (Late st Contact Info) Description 06/14/2025 Orders Only [address] [address] Letty Mcdonald, LEASE ANALYST-BC [address] [place] [address] 06/14/2025 11:15 AM CDT Office Visit [address] [address] Letty Mcdonald FNP-BC [address] [place] [address] documented as of this encounter Visit Diagnoses Diagnosis Lumbar radiculopathy- Primary Thoracic or lumbosacral neuritis or radiculitis, unspecified Primary osteoarthritis of left knee- Primary Primary localized osteoarthrosis, lower leg Primary osteoarthritis of right knee Primary localized osteoarthrosis, lower leg documented in this encounter Admitting Diagnoses Diagnosis Lumbar radiculopathy Thoracic or lumbosacral neuritis or radiculitis, unspecified documented in this encounter Additional Health Concerns Assessment Noted Time PHQ-9 Depression Total Score: 16 022 4:21 PM WELFARE ELIGIBILITY WORKER documented as of this encounter Care Teams Chemical Plant Worker Relationship Specialty Start Date End Date Dinesh Castillo DO [address] [place] [address] PCP - General FAMILY PRACTICE 04/27/22 Luisito Mcmillan MD Three [facility]. [place] [address] [place] [address] Ione Tray Service Worker CARDIOVASCULAR DISEASE 12/31/18 [place] [address] [place], [place] [id number] Referring Physician RHEUMATOLOGY 12/17/19 Andi Plasencia MD [address] [facility] [address] [place] [address] Consulting Physician HEMATOLOGY/ONCOLOGY 12/17/19 Chris Wu MD Three [facility]. [place] [address] [place] [address] Consulting Physician CLINICAL CARDIAC ELECTROPHYSIOLOGY 12/17/19 Morgan Land MD Three [facility]. [place] [address] [place] [address] UROLOGY 07/14/21 documented as of this encounter
--- OUTSIDE RECORDS SUMMARY | 2025-06-09 12:16 | XMS_ITS | Encounter Summary ---
Author Organization [facility] Address [facility] [place] [address] Care Team Providers Care Value Advisor Name Role Phone Luisito Mcmillan MD Unavailable [phone] Kvng Liu MD Unavailable Andi Plasencia MD Unavailable [phone] Chris Wu MD Unavailable Morgan Land MD Unavailable [phone] Stefanie Franco CONTINUOUS IMPROVEMENT [facility] Primary Care Provider + Dinesh Castillo DO Primary Care Provider [phone] Reason for Visit * Reason Onset Date Comments Follow Up 03/15/2022 Encounter Details Date Type Department Care Team (Late st Contact Info) Description 03/15/2022 Telephone [facility] Interventional [place] [address] [id number] Taryn Marshall, RN Follow Up Social History [...] Sex Assigned at Male 11/27/2024 8:48 AM PEWTER CASTER Legal Sex Male 6:03 PM CDT Gender [...] st Contact Info) Description 06/14/2025 Orders Only [address] [address] Letty Mcdonald FNP-MINH [address] [place] [address] 06/14/2025 11:15 AM CDT Office Visit [address] [address] Letty Mcdonald FNP-MINH [address] [place] [address] documented as of this encounter Visit Diagnoses Not on filedocumented in this encounter Additional Health Concerns Assessment Noted Time PHQ-9 Depression Total Score: 16 022 4:21 PM PEWTER CASTER documented as of this encounter Care Teams Value Advisor Relationship Specialty Start Date End Date Stefanie Franco FNP-BC [address] [place] [address] [place] [address] PCP - General Nurse Practitioner Family 09/05/2104/26 Dinesh Castillo DO [address] [place], [place] [address] PCP - General FAMILY PRACTICE 04/27/22 Luisito [facility]millan MD [facility] [place] [address] [place] [address] [place] Metal Pattern Maker CARDIOVASCULAR DISEASE 12/31/18 [place] [address] [place], [place] [id number] Referring Physician RHEUMATOLOGY 12/17/19 Andi Plasencia MD [facility] [address] [place] [address] Consulting Physician HEMATOLOGY/ONCOLOGY 12/17/19 Chris Wu MD Three [facility]. [place] [address] [place] [address] Consulting Physician CLINICAL CARDIAC ELECTROPHYSIOLOGY 12/17/19 Morgan Land MD Three [facility]. [place] [address] [place] [address] UROLOGY 07/14/21 documented as of this encounter
--- OUTSIDE RECORDS SUMMARY | 2025-06-09 12:16 | XMS_ITS | Clinical Summary ---
Author Organization [facility] Address [address] [place] [address] Care Team Providers Care Advertising Job Titles Name Role Phone Unknown, Provider Primary Care Provider Unavaila ble Source Comments [facility],non-owned Affiliates and Associated Physician Practices is amultiple site organization consisting of ambulatory clinics and hospital sitesin [place], [place], [place] and [place]. This disclosure is being madepursuant to the Care Everywhere program and may not contain all information available regarding this patient. Last updated 18.[facility] [employer] Immunizations Immunization Administration Dates Next Due FLU VACCINE QUAD IIV4 PF ID 10/26/2016 Pneumococcal Pcv13 Conj 10/26/2016 Social History Tobacco Use Types Packs/Day Years Used Date Smoking Tobacco: Never Assessed Sex and Gender Information Value Date Recorded Sex Assigned at Not on file Legal Sex Male 1:07 PM [employer] Gender Identity Not on file Sexual Orientation [...] COLON CA SCREENING 1959 LIPID TESTING 1959 HEPATITIS C SCREENING 04/30/1977 DTAP/TDAP/TD VACCINES (1 - Tdap) 1978 ZOSTER VACCINE (1 of 2) 2009 PNEUMOCOCCAL VACCINE 50+ (2 of 2 - PCV20 or PCV21) 10/26/2017 10/26/2016 COVID-19 VACCINE (2023-2 5 season) [...] patient's age to complete this topic Insurance [employer] MEDICARE MEDICARE [employer] MANAGED MEDICARE ADV Care Teams Advertising Job Titles Relationship Specialty Start Date End Date Unknown, Provider PCP - General 10/26/16
--- OUTSIDE RECORDS SUMMARY | 2025-06-09 12:16 | XMS_ITS | Clinical Summary ---
Author Organization [facility] Address [address] [place] [address] Care Team Providers Care Senior Sustainability Advisor Name Role Phone Unavailable Primary Care Provider Unavailabl e Allergies Active Allergy Reactions Criticality Noted Date Comments Methotrexate Analogues Rash Low 11/23/2019 Medications glucosamine-sidney droitin (ARTHX DS) 500-400 mg Capsule Take 1 [...] mg by mouth daily with supper. Active lamoTRIgine (LaMICtal) 100 mg tablet Take 100 mg by mouth daily at bedtime. Active multivitamin (DAILY-SHUN) tablet Take 1 Tablet by mouth daily. Active amitriptyline (ELAVIL) 50 mg tablet Take 100 mg by mouth daily at bedtime. 023 Active acetaminophen (TYLENOL) 325 mg tablet Take 2 Tablets (650 mg) by mouth every 6 hours as needed for Pain, Mild / Temperature. Active naloxone (NARCAN) 4 mg/spray [place], Non-Aerosol EMERGENCY USE ONLY: Administer 1 spray (4 mg) in one nostril one time. May repeat in alternating nostrils every 2-3 min until responsive or EMS arrives. 2 Each 3 Active gabapentin (NEURONTIN) 300 mg capsuleIndicatio ns:Acute post-operative pain,Herniation of right lung Take 1 Capsule (300 mg) by mouth 3 times daily. 270 Capsule 3 025 Active fluticasone-umec lidinium-vilante rol (Trelegy Ellipta) 100-62.5-25 mcg Disk with Device Starting 05/14: Take 1 Puff by inhalation daily. 60 Each 05/13/20 3:23 PM CDT 025 Active predniSONE (DELTASONE) 20 mg tablet Starting 05/14: Take 2 Tablets (40 mg) by mouth daily with breakfast for 3 days, THEN 1.5 Tablets (30 mg) daily with breakfast for 1 day, THEN 1 Tablet (20 mg) daily with breakfast for 1 day, THEN 0.5 Tablets (10 mg) daily with breakfast. 23 Tablet 05/13/20 3:23 PM CDT 025 2024 Active ondansetron (ZOFRAN) 4 mg Tablet Take 1 Tablet (4 mg) by mouth every 6 hours as needed for Nausea/Vomiting. 30 Tablet 05/13/20 3:23 PM CDT 025 Active famotidine (PEPCID) 20 mg tablet Take 1 Tablet (20 mg) by mouth 2 times daily. 60 Tablet 05/13/20 3:23 PM CDT 025 Active amoxicillin-clav ulanate (AUGMENTIN) 875-125 mg tablet Take 1 Tablet by mouth every 12 hours. 10 Tablet 025 Active HYDROcodone-acet aminophen (NORCO) 10-325 mg TabletIndication s:Acute post-operative pain,Herniation of right lung Take 1 Tablet by mouth every 4 hours as needed for Pain, Moderate. Max Daily Amount: 6 Tablets 20 Tablet 025 2024 Discontinued traMADol (ULTRAM) 50 mg tabletIndication s:Acute post-operative pain,Herniation of right lung Take 1 Tablet (50 mg) by mouth every 6 hours as needed for Pain or Pain, Moderate. 20 Tablet 025 2024 Discontinued amoxicillin-clav ulanate (AUGMENTIN) 875-125 mg tablet Take 1 Tablet by mouth every 12 hours. 10 Tablet 025 2024 Discontinued( Reorder) saccharomyces boulardii (FLORASTOR) 250 mg Capsule Take 1 Capsule (250 mg) by mouth 2 times daily for 5 days. 10 Capsule 05/13/20 3:23 PM CDT 025 2024 Active Problems Problem Noted Date Diagnosed Date Chronic obstructive lung disease 05/12/2025 Tobacco abuse disorder 05/12/2025 Pleural effusion, right 05/12/2025 History of pulmonary embolism 06/07/2023 RA (rheumatoid arthritis) 06/07/2023 Lumbar radiculopathy 04/04/2023 Overview (05/12/2025): Added automatically from request for surgery [id number] Bipolar disorder, in partial remission, most recent episode depressed 09/27/2021 Chronic prostatitis 09/16/2020 Insomnia 09/16/2020 Primary osteoarthritis of left knee 09/16/2020 Prostate nodule 01/06/2020 Peripheral polyneuropathy 12/17/2019 Restless legs syndrome 12/17/2019 Essential hypertension 01/13/2019 CLAUDIO (obstructive sleep apnea) 01/13/2019 Morbid obesity with BMI of 40.0-44.9, adult 06/21 Obesity (BMI 35.0-39.9 without comorbidity) 06/21 Tobacco use 07/02/2017 Cigarette nicotine dependence without complicati on 07/02/2017 Fibrosis, lung 11/27/2016 Overview (05/12/2025): Description: on ct scan Benign prostatic hyperplasia 08/19/2013 Overview (05/12/2025): BPH (benign prostatic hyperplasia) History of substance abuse 08/19/2013 Overview (05/12/2025): Hx of substance abuse Depressive disorder 08/19/2013 Overview (05/12/2025): Anxiety and depression Resolved Problems Problem Noted Date Diagnosed Date Resolved Date Dyspnea on exertion 05/11/2025 05/13/20 Pleural effusion 05/11/2025 05/13/2025 Herniation of right lung 06/07/2023 Encounters Date Type Department Care Team Description 06/08/2025 External Device Data [facility]STRACTION Provider, Abstract 05/18/2025 External Device Data [facility]CTION Provider, Abstract 05/18/2025 External Device Data [facility] Provider, Abstract 05/18/2025 External Device Data [facility]STRACTION Provider, Abstract 05/14/2025 Orders Only [facility] Thor Surg at [address] [phone] Christie Gauthier NP 05/11/2025 External Device Data [facility] ABSTRACTION Provider, Abstract 05/11/2025 External Device Data [facility]STRACTION Provider, Abstract 05/11/2025 External Device Data [facility]STRACTION Provider, Abstract 05/10/2025 6:14 PM CDT - 05/13/2025 4:37 PM CDT Hospital Encounter [facility] [address] [place] [phone] Dany Henson MD Dunn, Scott M, MD Hassan, MD Danish Poe, MD Dave Keith Sabrina, MD Pleural effusion, right Discharge Disposition: Home or Self Care 05/10/2025 Travel 05/10/2025 Refill [facility]urg at [address] [place] [phone] Janet Gardner NP Acute post-operative pain (Primary Dx); Herniation of right lung 05/06/2025 Telephone [facility] Thor Surg at [address] [place] [phone] Christie Gauthier, PAM Pain 2025 External Device Data [facility]STRACTION Provider, Abstract 05/04/2025 External Device Data [facility]STRACTION Provider, Abstract 04/30/2025 Telephone [facility] Thor [facility]urg at [address] [place] [phone] Wilian Zambrano MD Hospital Follow Up; Pain 04/26/2025 1:00 PM CDT Office Visit [facility] Thor [facility]urg at [address] [phone] Christie Guathier NP Herniation of right lung (Primary Dx); Acute post-operative pain 04/26/2025 Abstract [facility]urg at [address] [place] [phone] Wilian Zambrano MD 04/20/2025 External Device Data [facility]STRACTION Provider, Abstract 04/20/2025 External Device Data [facility]STRA[facility] Provider, Abstract 04/20/2025 External Device Data [facility]STRACTION Provider, Abstract 04/19/2025 11:10 AM CDT - 04/19/2025 2:30 PM CDT Surgery [facility] CV Operating Room [address] [place] [phone] Wilian Zambrano MD RIGHT CHEST WALL HERNIA REPAIR 04/19/2025 9:50 AM CDT Anesthesia Event [facility] CV Operating Room [address] [place] [phone] Josh Huizar MD Buechler, Anne H, ANP 04/19/2025 8:09 AM CDT - 04/20/2025 4:09 PM CDT Hospital Encounter [facility] [address] [place] [phone] Wilian Zambrano MD Discharge Disposition: Home or Self Care 04/06/2025 3:00 PM CDT - 04/06/2025 11:59 PM CDT Hospital Encounter [facility] [address] [place] [phone] Wilian Zambrano MD Discharge Disposition: Home or Self Care 04/06/2025 2:15 PM CDT Office Visit [facility] Cardi[facility]as and Thor Surg at [facility] [address] [place] [phone] Wilian Zambrano MD Herniation of right lung [...] Sign Reading Time Taken Comments Blood Pressure 106/69 05/13/2025 11:33 AM CDT Pulse 86 05/13/2025 11:33 AM CDT Temperature 36.7 C (98 F) 05/13/2025 11:33 AM CDT Respiratory Rate 21 05/13/2025 11:33 AM CDT Oxygen Saturation 94% 05/13/2025 2:00 PM CDT Inhaled Oxygen Concentration - - Weight 113.4 kg (250 lb) 05/10/2025 4:56 PM CDT Height 175.3 cm (5' 9) 05/10/2025 4:56 PM CDT Body Mass Index 36.92 05/10/2025 4:56 PM CDT Plan of Treatment Health Maintenance Due Date Last Done Comments FIT-DNA Q 3 years 2004 FIT/FOBT Q [...] PCV20 or PCV21) 10/12/2024 10/12/2019, 10/26/2016, 10/06/2014 INFLUENZA VACCINE (#1) 2025 , 10/10/2019, 10/26/2016 Pre-Diabetes and Diabetes Screening 05/12/202805/12 DTAP/TDAP/TD VACCINES (2 - T d or Tdap) 07/31/2031 07/31/2021 Abdominal Aortic Aneurysm (A AA) Screening Completed 08/09/2020, 07/04/2020 Medical Devices Implanted Type Area [employer] Device Identifier Shelf Expiration Date Model / Serial / Lot Mesh 1s [id number] Vent Hernia [id number] - [id number] Implanted:Qty : 1 on 04/19/2025 by Wilian Zambrano MD at [facility] Biological Right: Chest HUMERA BIO [id number] 05/20/2026 [id number] 20P / / [id number] Procedures Procedure Name Priority Date/Time Associated Diagnosis Comments TELEMETRY REPORT 05/14/2025 3:06 PM CDT ECHOCARDIOGRAM W/ CONTRAST AGENT Routine 05/13/2025 3:35 PM CDT BASIC METABOLIC PANEL Routine 05/13/2025 2:11 AM CDT CBC WITH DIFFERENTIAL Routine 05/13/2025 2:11 AM CDT OT EVAL AND TREAT Routine 05/12/2025 11: 30 AM CDT XR CHEST PA OR AP 1 VW Routine 10:44 AM CDT HEMOGLOBIN A1C Routine 05/12/2025 3:20 AM CDT LACTATE DEHYDROGENASE Routine 05/12/2025 3:20 AM CDT BASIC METABOLIC PANEL Routine 05/12/2025 3:20 AM CDT CBC WITH DIFFERENTIAL Routine 05/12/2025 3:20 AM CDT SPUTUM CULTURE WITH GRAM STAIN Routine 05/11/2025 4:19 PM CDT XR CHEST PA OR AP 1 VW Stat 3:51 PM CDT CYTOLOGY, NON GYNE Pathology 05/11/2025 2 :03 PM CDT CELL COUNT WITH DIFFERENTIAL, BODY FLUID Routine 05/11/2025 2:03 PM CDT TRIGLYCERIDE, BODY FLUID Routine 05/11/2025 2:03 PM CDT PROTEIN, BODY FLUID Routine 05/11/2025 2 :03 PM CDT PH, BODY FLUID Routine 05/11/2025 2:03 PM CDT GLUCOSE, BODY FLUID Routine 05/11/2025 2 :03 PM CDT LACTATE DEHYDROGENASE, BODY FLUID Routine 05/11/2025 2:03 PM CDT AMYLASE, BODY FLUID Routine 05/11/2025 2 :03 PM CDT ANAEROBIC/AEROBIC CULTURE W GRAM STAIN Routine 05/11/2025 2:03 PM CDT PROTIME-INR Routine 05/11/2025 12:23 PM CDT BLOOD CULTURE Routine 05/11/2025 12:23 PM CDT BLOOD CULTURE Routine 05/11/2025 12:23 PM CDT PROCALCITONIN Routine 05/11/2025 12:16 PM CDT C-REACTIVE PROTEIN Routine 05/11/2025 12 :16 PM CDT CBC WITH DIFFERENTIAL Routine 05/11/2025 12:16 PM CDT TRIGLYCERIDE Routine 05/11/2025 12:16 PM CDT PROTEIN TOTAL Routine 05/11/2025 12:16 PM CDT LACTATE DEHYDROGENASE Routine 05/11/2025 12:16 PM CDT BLOOD CULTURE Routine 05/11/2025 12:16 PM CDT BLOOD CULTURE Routine 05/11/2025 12:16 PM CDT RESPIRATORY PATHOGEN PCR PANEL Routine 05/11/2025 10:[address] CHEST WO CONTRAST Stat 05/10/2025 7:52 PM CDT BRAIN NATRIURETIC PEPTIDE, BNP OR PROBNP Stat 05/10/2025 6:33 PM CDT CBC WITH DIFFERENTIAL Stat 05/10/2025 6:33 PM CDT COMPREHENSIVE METABOLIC PANEL Stat 05/10/2025 6:33 PM CDT EKG 12-LEAD Stat 05/10/2025 5:19 PM CDT TELEMETRY REPORT 04/21/2025 4:36 PM CDT XR CHEST PA OR AP 1 VW Routine 1:45 PM CDT XR CHEST PA OR AP 1 VW Routine 7:08 AM CDT BASIC METABOLIC PANEL Routine 04/20/2025 4:11 AM CDT CBC WITH DIFFERENTIAL Routine 04/20/2025 4:11 AM CDT XR CHEST PA OR AP 1 VW Stat 12:53 PM CDT IR INJECTION Routine 04/19/2025 12:15 PM CDT THORACOTOMY 04/19/2025 11:10 AM CDT CHEST WALL HERNIA WV RMVL NONINFCT MESH/PROSTH AA/PARASTOMAL HRNA RPR 04/19/2025 11:10 AM CDT CHEST WALL HERNIA WV ANES INSERT CATH, ART, PERCUT, SHORTTERM Routine 04/19/2025 10:30 AM CDT WV ANES INSERT ENDOTRACHEAL AIRWAY Routine 04/19/2025 10:08 AM CDT WV ANESTHESIA BLOCK PB PLACEHOLDER CHARGE Routine 04/19/2025 9:57 AM CDT VERIFICATION BLOOD GROUP Stat 04/19/2025 8:15 AM CDT Encounter for blood typing PERIPHERAL IV ADULT Routine 04/19/2025 7 :13 AM CDT WV ANES VNPNXR 3 YEARS/> PHYS/QHP SKILL Routine 04/19/2025 7:13 AM CDT EKG 12-LEAD Routine 04/06/2025 4:05 PM CDT TYPE AND SCREEN Routine 04/06/2025 3:37 PM CDT BASIC METABOLIC PANEL Routine 04/06/2025 3:37 PM CDT PROTIME-INR Routine 04/06/2025 3:37 PM CDT PTT Routine 04/06/2025 3:37 PM CDT CBC WITH DIFFERENTIAL Routine 04/06/2025 3:37 PM CDT from Last 3 Months Results * TELEMETRY REPORT (05/14/2025 3:06 PM CDT) Only the most recent of2 resultswithin the time period is included. us Provider Scanning ECG ORDERABLES Final Result * ECHOCARDIOGRAM W/ CONTRAST AGENT (05/13/2025 3:35 PM CDT) EJECTION FRACTION EF: INTERFACE SYSTEM 05/13/2025 2:58 PM CDT Narrative INTERFACE SYSTEM - 05/13/2025 5:28 [place] [address] [email or web address] [email or web address] Echocardiogram Patient: Niyah Adams Study ID: ECHO COMPLETE - Gender: M : 1960 Age: 65 Race: CAU Height 175.3cm Study Date: 05/13/2025 Weight: 113.4kg Access. #: [id number] BP: *Referring Physician:* Gloria Carter *Ordering Physician:* Gloria Carter political science faculty member: Nurse: Indications: CHF. STUDY CONCLUSIONS: SUMMARY: - Left ventricle: The cavity size was normal. Wall thickness was normal. Global systolic function is normal. The estimated ejection fraction is 55-60%. Left ventricular diastolic function parameters are normal for the patient's age. - Left atrium: The atrium is normal in size. - Right ventricle: The cavity size is normal. Systolic function is normal. Cardiac Anatomy: LEFT VENTRICLE: The cavity size was normal. Wall thickness was normal. Global systolic function is normal. The estimated ejection fraction is 55-60%. Left ventricular diastolic function parameters are normal for the patient's age. AORTIC VALVE: Trileaflet. The leaflets are mildly thickened. No significant regurgitation. The mean systolic gradient is 5mm Hg. The peak systolic gradient is 10mm Hg. The LVOT to aortic valve VTI ratio is 0.77. The valve area is 2.7cm^2. The ratio of LVOT to aortic valve peak velocity is 0.77. AORTA: Aortic root: The root is upper normal in size. MITRAL VALVE: Structurally normal valve. No significant regurgitation. The mean diastolic gradient is 2mm Hg. The peak diastolic gradient is 5mm Hg. LEFT ATRIUM: The atrium is normal in size. RIGHT VENTRICLE: The cavity size is normal. Systolic function is normal. PULMONIC VALVE: Structurally normal valve. No significant regurgitation. TRICUSPID VALVE: Structurally normal valve. Trivial regurgitation. RIGHT ATRIUM: The atrium was normal in size. SYSTEMIC VEINS: Inferior vena cava: The IVC is normal-sized. PERICARDIUM: There is no pericardial effusion. Measurements Left ventricle Value Ref IVS, ED, LAX (N) 1.0 cm 0.6 - 1.0 TRE, LAX (L) 3.0 cm 4.2 - 5.8 TRE/bsa, LAX (L) 1.3 cm/m^2 2.2 - 3.0 TRE, LAX chord (N) 4.4 cm 4.2 - 5.8 ESD, LAX chord (N) 3.1 cm 2.5 - 4.0 TRE/bsa, LAX chord (L) 1.9 cm/m^2 2.2 - 3.0 ESD/bsa, LAX chord (N) 1.4 cm/m^2 1.3 - 2.1 FS, LAX chord (N) 30 % 25 - 43 IVS, ED (N) 1.0 cm 0.6 - 1.0 PW, ED (N) 0.9 cm 0.6 - 1.0 EDV, 2-p (N) 128 ml 62 - 150 ESV, 2-p (N) 42 ml 21 - 61 EF, 2-p (N) 67 % 52 - 72 SV, 2-p 86 ml --------- SV/bsa, 2-p 37.7 ml/m^2 --------- E', lat jessenia, TDI (L) 9.8 cm/sec >=10.0 E/e', lat jessenia, TDI (N) 8 <=13 E', med jessenia, TDI (N) 13.6 cm/sec >=7.0 E/e', med jessenia, TDI 6 --------- E', avg, TDI 11.7 cm/sec --------- E/e', avg, TDI (N) 7 <=14 LVOT Value Ref Diam, S 2.1 cm --------- Area 3.5 cm^2 --------- Peak carla, S 1.23 m/sec --------- VTI, S 22.9 cm --------- Peak grad, S 6 mm Hg --------- Right ventricle Value Ref TRE minor ax, A4C base (N) 3.5 cm 2.5 - 4.1 TRE minor ax, A4C mid (N) 3.0 cm 1.9 - 3.5 TRE major ax, A4C (H) 8.8 cm 5.9 - 8.3 TAPSE, MM (N) 2.8 cm >=1.7 Pressure, S 16 mm Hg --------- S' lateral (N) 17.7 cm/sec >=9.5 Left atrium Value Ref AP dim, ES (N) 3.8 cm 3.0 - 4.0 AP dim index, ES (N) 1.7 cm/m^2 1.5 - 2.3 SI dim, A4C 5.4 cm --------- Area ES, A4C (N) 16 cm^2 <=20 Area/bsa ES, A4C 7.09 cm^2/m^2 --------- SI dim, A2C 5.7 cm --------- SI dim, shorter 5.4 cm --------- Vol, ES, 1-p A2C (N) 52 ml 18 - 58 Vol/bsa, ES, 1-p A2C (N) 23 ml/m^2 11 - 43 Vol, ES, 2-p 45 ml --------- Vol/bsa, ES, 2-p (N) 20 ml/m^2 16 - 34 LA/Ao root ratio 1 --------- Right atrium Value Ref SI dim, ES, A4C (N) 5.2 cm 3.4 - 5.3 SI dim/bsa, ES, A4C (N) 2.3 cm/m^2 1.8 - 3.0 Area, ES, A4C (N) 16 cm^2 10 - 18 Vol, ES, 1-p A4C 42 ml --------- Vol/bsa, ES, 1-p A4C (N) 18 ml/m^2 11 - 39 Aortic valve Value Ref Peak v, S 1.6 m/sec --------- Mean v, S 1.02 m/sec --------- VTI, S 29.7 cm --------- Mean grad, S 5 mm Hg --------- Peak grad, S 10 mm Hg --------- LVOT/AV, VTI ratio 0.77 --------- REBEKA, VTI 2.7 cm^2 --------- REBEKA/bsa, VTI 1.18 cm^2/m^2 --------- LVOT/AV, Vpeak ratio 0.77 --------- REBEKA, Vmax 2.7 cm^2 --------- REBEKA/bsa, Vmax 1.17 cm^2/m^2 --------- Mitral valve Value Ref Mean v, D 0.69 m/sec --------- Peak E 0.77 m/sec --------- Peak A 1.01 m/sec --------- Decel time 274 ms --------- PHT 80 ms --------- Mean grad, D 2 mm Hg --------- Peak grad, D 5 mm Hg --------- Peak E/A ratio 0.8 --------- A-VTI 32.2 cm --------- MVA, PHT 2.8 cm^2 --------- MVA/bsa, PHT 1.21 cm^2/m^2 --------- Pulmonic valve Value Ref Peak v, S 0.85 m/sec --------- Peak grad, S 3 mm Hg --------- Tricuspid valve Value Ref TR peak v (N) 1.5 m/sec <=2.8 Peak RV-RA grad, S 11 mm Hg --------- Aortic root Value Ref Root diam, 3.8 cm --------- Ascending aorta Value Ref AAo AP diam, S 3.8 cm --------- AAo AP diam/bsa, S 1.7 cm/m^2 --------- Pulmonary artery Value Ref Pressure, S 13 mm Hg --------- Systemic veins Value Ref Estimated RA pressure 5 mm Hg --------- Legend: (L) and (H) wilian values outside specified reference range. (N) arteaga values inside specified reference range. Procedure data: Procedure information: A transthoracic echocardiogram was performed. Scanning was performed from the parasternal, apical, and subcostal acoustic windows. Intravenous contrast (Definity) was administered. Transthoracic echocardiogram. Complete 2D, complete spectral Doppler, and color Doppler. Birthdate: Patient birthdate: 1960. Age: Patient is 65year(s) old. Sex: gender: male. Height: 175.3cm. 69in. Weight: 113.4kg. 250lb. Body mass index: 36.9kg/m^2. Body surface area: 2.27m^2. Study date: Study date: 05/13/2025. Study time: 02:58 PM. Prepared and Electronically Authenticated Dionicio Mcdermott [id number]:24 Procedure Note Dionicio Mcdermott MD - 05/13/[address] [place] [address] [email or web address] Transthoracic Echocardiogram Patient: Niyah Adams Study ID: ECHO COMPLETE - Gender: M : 1960 Age: 65 Race: JING Height 175.3cm Study Date: 05/13/2025 Weight: 113.4kg Access. #: [id number] BP: *Referring Physician:Gloria Martinez *Ordering Physician:Gloria Martinez political science faculty member: Nurse: Indications: CHF. STUDY CONCLUSIONS: SUMMARY: - Left ventricle: The cavity size was normal. Wall thickness was normal. Global systolic function is normal. The estimated ejection fraction is 55-60%. Left ventricular diastolic function parameters are normal forthe patient's age. - Left atrium: The atrium is normal in size. - Right ventricle: The cavity size is normal. Systolic function isnormal. Cardiac Anatomy: LEFT VENTRICLE: The cavity size was normal. Wall thickness was normal.Global systolic function is normal. The estimated ejection fraction is 55-60%.Left ventricular diastolic function parameters are normal for the patient'ann. AORTIC VALVE: Trileaflet. The leaflets are mildly thickened. Nosignificant regurgitation. The mean systolic gradient is 5mm Hg. The peak systolic gradient is 10mm Hg. The LVOT to aortic valve VTI ratio is 0.77. Thevalve area is 2.7cm^2. The ratio of LVOT to aortic valve peak velocity is0.77. AORTA: Aortic root: The root is upper normal in size. MITRAL VALVE: Structurally normal valve. No significantregurgitation. The mean diastolic gradient is 2mm Hg. The peak diastolic gradient is 5mmHg. LEFT ATRIUM: The atrium is normal in size. RIGHT VENTRICLE: The cavity size is normal. Systolic function isnormal. PULMONIC VALVE: Structurally normal valve. No significantregurgitation. TRICUSPID VALVE: Structurally normal valve. Trivial regurgitation. RIGHT ATRIUM: The atrium was normal in size. SYSTEMIC VEINS: Inferior vena cava: The IVC is normal-sized. PERICARDIUM: There is no pericardial effusion. Measurements Left ventricle Value Ref IVS, ED, LAX (N) 1.0 cm 0.6 - 1.0 TRE, LAX (L) 3.0 cm 4.2 - 5.8 TRE/bsa, LAX (L) 1.3 cm/m^2 2.2 - 3.0 TRE, LAX chord (N) 4.4 cm 4.2 - 5.8 ESD, LAX chord (N) 3.1 cm 2.5 - 4.0 TRE/bsa, LAX chord (L) 1.9 cm/m^2 2.2 - 3.0 ESD/bsa, LAX chord (N) 1.4 cm/m^2 1.3 - 2.1 FS, LAX chord (N) 30 % 25 - 43 IVS, ED (N) 1.0 cm 0.6 - 1.0 PW, ED (N) 0.9 cm 0.6 - 1.0 EDV, 2-p (N) 128 ml 62 - 150 ESV, 2-p (N) 42 ml 21 - 61 EF, 2-p (N) 67 % 52 - 72 SV, 2-p 86 ml --------- SV/bsa, 2-p 37.7 ml/m^2 --------- E', lat jessenia, TDI (L) 9.8 cm/sec >=10.0 E/e', lat jessenia, TDI (N) 8 <=13 E', med jessenia, TDI (N) 13.6 cm/sec >=7.0 E/e', med jessenia, TDI 6 --------- E', avg, TDI 11.7 cm/sec --------- E/e', avg, TDI (N) 7 <=14 LVOT Value Ref Diam, S 2.1 cm --------- Area 3.5 cm^2 --------- Peak carla, S 1.23 m/sec --------- VTI, S 22.9 cm --------- Peak grad, S 6 mm Hg --------- Right ventricle Value Ref TRE minor ax, A4C base (N) 3.5 cm 2.5 - 4.1 TRE minor ax, A4C mid (N) 3.0 cm 1.9 - 3.5 TRE major ax, A4C (H) 8.8 cm 5.9 - 8.3 TAPSE, MM (N) 2.8 cm >=1.7 Pressure, S 16 mm Hg --------- S' lateral (N) 17.7 cm/sec >=9.5 Left atrium Value Ref AP dim, ES (N) 3.8 cm 3.0 - 4.0 AP dim index, ES (N) 1.7 cm/m^2 1.5 - 2.3 SI dim, A4C 5.4 cm --------- Area ES, A4C (N) 16 cm^2 <=20 Area/bsa ES, A4C 7.09 cm^2/m^2 --------- SI dim, A2C 5.7 cm --------- SI dim, shorter 5.4 cm --------- Vol, ES, 1-p A2C (N) 52 ml 18 - 58 Vol/bsa, ES, 1-p A2C (N) 23 ml/m^2 11 - 43 Vol, ES, 2-p 45 ml --------- Vol/bsa, ES, 2-p (N) 20 ml/m^2 16 - 34 LA/Ao root ratio 1 --------- Right atrium Value Ref SI dim, ES, A4C (N) 5.2 cm 3.4 - 5.3 SI dim/bsa, ES, A4C (N) 2.3 cm/m^2 1.8 - 3.0 Area, ES, A4C (N) 16 cm^2 10 - 18 Vol, ES, 1-p A4C 42 ml --------- Vol/bsa, ES, 1-p A4C (N) 18 ml/m^2 11 - 39 Aortic valve Value Ref Peak v, S 1.6 m/sec --------- Mean v, S 1.02 m/sec --------- VTI, S 29.7 cm --------- Mean grad, S 5 mm Hg --------- Peak grad, S 10 mm Hg --------- LVOT/AV, VTI ratio 0.77 --------- REBEKA, VTI 2.7 cm^2 --------- REBEKA/bsa, VTI 1.18 cm^2/m^2 --------- LVOT/AV, Vpeak ratio 0.77 --------- REBEKA, Vmax 2.7 cm^2 --------- REBEKA/bsa, Vmax 1.17 cm^2/m^2 --------- Mitral valve Value Ref Mean v, D 0.69 m/sec --------- Peak E 0.77 m/sec --------- Peak A 1.01 m/sec --------- Decel time 274 ms --------- PHT 80 ms --------- Mean grad, D 2 mm Hg --------- Peak grad, D 5 mm Hg --------- Peak E/A ratio 0.8 --------- A-VTI 32.2 cm --------- MVA, PHT 2.8 cm^2 --------- MVA/bsa, PHT 1.21 cm^2/m^2 --------- Pulmonic valve Value Ref Peak v, S 0.85 m/sec --------- Peak grad, S 3 mm Hg --------- Tricuspid valve Value Ref TR peak v (N) 1.5 m/sec <=2.8 Peak RV-RA grad, S 11 mm Hg --------- Aortic root Value Ref Root diam, 3.8 cm --------- Ascending aorta Value Ref AAo AP diam, S 3.8 cm --------- AAo AP diam/bsa, S 1.7 cm/m^2 --------- Pulmonary artery Value Ref Pressure, S 13 mm Hg --------- Systemic veins Value Ref Estimated RA pressure 5 mm Hg --------- Legend: (L) and (H) wilian values outside specified reference range. (N) arteaga values inside specified reference range. Procedure data: Procedure information: A transthoracic echocardiogram was performed.Scanning was performed from the parasternal, apical, and subcostal acousticwindows. Intravenous contrast (Definity) was administered. Transthoracic echocardiogram. Complete 2D, complete spectral Doppler, and colorDoppler. Birthdate: Patient birthdate: 1960. Age: Patient is 65year(s)old. Sex: gender: male. Height: 175.3cm. 69in. Weight: 113.4kg.250lb. Body mass index: 36.9kg/m^2. Body surface area: 2.27m^2. Studydate: Study date: 05/13/2025. Study time: 02:58 PM. Prepared andElectronically Authenticated Dionicio Mcdermott [id number]:28:24 us Gloria Carter PATCH WASHER US ORDERABLES Final Res ult INTERFACE SYSTEM Refer to clinic/hospital department * (ABNORMAL) CBC WITH DIFFERENTIAL (05/13/2025 2:11 AM CDT) Only the most recent of6 resultswithin the time period is included. WBC 12.1(H) 4.0 - 9.8 K/uL 05/13/2025 3:10 AM CDT [facility] RBC 3.67(L) 4.50 - 5.40 M/uL 05/13/2025 3:10 AM CDT [facility] HEMOGLOBIN 10.6(L) 13.6 - 16.5 g/dL 05/13/2025 3:10 AM CDT [facility] HEMATOCRIT 32.4(L) 40.0 - 48.0 % 05/13/2025 3:10 AM CDT [facility] MCV 88.3 82.0 - 99.0 fL 05/13/2025 3:10 AM CDT [facility] MCH 28.9 27.2 - 32.6 pg 05/13/2025 3:10 AM CDT [facility] MCHC 32.7 31.5 - 35.5 g/dL 05/13/2025 3:10 AM CDT [facility] - [facility] RDW 13.4 11.5 - 14.5 % 05/13/2025 3:10 AM CDT [facility] RDW-STDEV 43.6 37.1 - 48.7 fL 05/13/2025 3:10 AM T [facility] PLATELETS 604(H) 140 - 350 K/uL 05/13/2025 3:10 AM T [facility] - [facility] MPV 8.9(L) 9.3 - 12.4 fL 05/13/2025 3:10 AM T [facility] NEUTROPHILS 72 % 05/13/2025 3:10 AM T [facility] LYMPHOCYTES 16 % 05/13/2025 3:10 AM T [facility] MONOCYTES 12 % 05/13/2025 3:10 AM [employer] [facility] EOSINOPHILS 0 % 05/13/2025 3:10 AM T [facility] - [facility] BASOPHILS 0 % 05/13/2025 3:10 AM T [facility] - . [facility] IMMATURE GRANULOCYTES 1 % 05/13/2025 3:10 AM [employer] [facility] Comment:IG (Immature Granulo cyte) count includes Metamyelocytes, Myelocytes, and Promyelocytes NEUTROPHIL ABSOLUTE 8.69(H) 1.90 - 7.00 K/uL 05/13/2025 3:10 AM [employer] [facility] - [facility] LYMPHOCYTE ABSOLUTE 1.88 0.70 - 4.50 K/uL 05/13/2025 3:10 AM [employer] [facility] MONOCYTE ABSOLUTE 1.39(H) 0.10 - 1.30 K/uL 05/13/2025 3:10 AM CDT [facility] EOSINOPHIL ABSOLUTE 0.00 0.00 - 0.70 K/uL 05/13/2025 3:10 AM [facility] BASOPHILS ABSOLUTE 0.02 0.00 - 0.20 K/uL 05/13/2025 3:10 AM [employer] [facility] - . [facility] IMMATURE GRANULOCYTES ABSOLUTE 0.07(H) 0.00 - 0.03 K/uL 05/13/2025 3:10 AM T [employer] [facility] Blood Venipuncture / Unknown 05/13/2025 2:11 AM CDT 05/13/2025 2:56 AM CDT us Timbo Peng MD HEMATOLOGY ORDERABLE S Final Result [facility] [employer] [facility] CLIA# [id number] [address] [place] [address] * (ABNORMAL) BASIC METABOLIC PANEL (05/13/2025 2:11 AM CDT) Only the most recent of4 resultswithin the time period is included. SODIUM 137 136 - 145 mmol/L 05/13/2025 3:44 AM T [facility] POTASSIUM 3.7 3.5 - 5.0 mmol/L 05/13/2025 3:44 AM T [facility] Comment:Significant change f rom prior result, correlate clinically and redraw if necessary. CHLORIDE 101 98 - 107 mmol/L 05/13/2025 3:44 AM T [facility] CO2 26 22 - 29 mmol/L 05/13/2025 3:44 AM [facility] [employer] [facility] CALCIUM 8.3(L) 8.6 - 10.2 mg/dL 05/13/2025 3:44 AM T [facility] BUN 12 8 - 23 mg/dL 05/13/2025 3:44 AM T [facility] CREATININE 0.74 0.67 - 1.17 mg/dL 05/13/2025 3:44 AM T [facility] GLUCOSE 151(H) 74 - 99 mg/dL 05/13/2025 3:44 AM [facility] GFR >60 >=60 mL/min/1.7 3 sq meter 05/13/2025 3:44 AM [facility] Comment:eGFR calculated with 2020 CKD-EPI equation. Vegetarian diet, extremely high or low muscle mass, and may affect results. Cystatin C with Glomerular Filtration Rate is a suitable alternative for these patients. ANION GAP 10 8 - 16 mmol/L 05/13/2025 3:44 AM CDT [facility] Blood Venipuncture / Unknown 05/13/2025 2:11 AM CDT 05/13/2025 2:56 AM CDT Gloria Carter PATCH WASHER CHEMISTRY ORDERABLES Stefania l Result [facility] CLIA# [id number] [address] [facility] [address] [address] [place] [address] * XR CHEST PA OR AP 1 VW (05/12/2025 10:44 AM CDT) Only the most recent of5 resultswithin the time period is included. Anatomical Region Laterality Modality Chest Computed Radiogr aphy 05/12/2025 10:4 4 AM CDT Impressions 05/12/2025 11:38 AM CDT IMPRESSION: 1. Cardiomegaly. Hypoaerated lungs with scattered subsegmental atelectasis. No radiographically visible pleural effusion or pneumothorax. DICTATION LOCATION: Location [facility] Narrative 05/12/2025 11:38 AM CDT EXAM: Portable chest. DATE: 05/12/2025 10:44 AM. HISTORY: Chest pain. Status post thoracentesis. COMPARISON: 05/11/2025. CT chest 05/10/2025. FINDINGS: Single frontal view of the chest demonstrates lungs to be hypoaerated with crowding of the central and bibasilar markings. Bibasilar subsegmental atelectasis. Heart size is mildly enlarged without overt pulmonary edema. No large pleural effusion. Monitoring wires and leads over the chest. No airspace consolidation or pneumothorax. Degenerative changes of the spine and shoulders. Procedure Note Roberto Alcantar DO - 05/12/2025 EXAM: Portable chest. DATE: 05/12/2025 10:44 AM. HISTORY: Chest pain. Status post thoracentesis. COMPARISON: 05/11/2025. CT chest 05/10/2025. FINDINGS: Single frontal view of the chest demonstrates lungs to be hypoaerated with crowding of the central and bibasilar markings. Bibasilar subsegmental atelectasis. Heart size is mildly enlarged without overt pulmonary edema. No large pleural effusion. Monitoring wires and leads over the chest. No airspace consolidation or pneumothorax. Degenerative changes of the spine and shoulders. IMPRESSION: 1. Cardiomegaly. Hypoaerated lungs with scattered subsegmental atelectasis. No radiographically visible pleural effusion or pneumothorax. DICTATION LOCATION: Location [address] [place] [address] Lucia Acosta MD DIAGNOSTIC IMAGING ORDERABLES Final Result * LACTATE DEHYDROGENASE (05/12/2025 3:20 AM CDT) Only the most recent of2 resultswithin the time period is included. Pathologist [facility] LD (LACTATE DEHYDROGENASE) 186 135 - 225 U/L 05/12/2025 9:34 AM CDT [facility] Blood Venipuncture / Unknown 05/12/2025 3:20 AM CDT 05/12/2025 3:33 AM CDT Lucia Acosta MD CHEMISTRY ORDERABLES Final Re sult [facility]# [id number] [address] [place] [address] * (ABNORMAL) HEMOGLOBIN A1C (05/12/2025 3:20 AM CDT) Pathologist [facility] HEMOGLOBIN A1C 6.1(H) <5.7 % 05/12/2025 2:09 PM CDT [facility] EST. AVG GLUCOSE, A1C 128 mg/dL 05/12/2025 2:09 PM T [facility] Blood Venipuncture / Unknown 05/12/2025 3:20 AM CDT 05/12/2025 3:33 AM CDT Narrative [facility] - 05/12/2025 2:09 PM CDT HGB A1C INTERPRETATION NORMAL: <5.7% PRE-DIABETES: 5.7 - 6.4% DIABETES: 6.5% OR GREATER Gloria Carter PATCH WASHER CHEMISTRY ORDERABLES Stefania l Result [facility] CLIA# [id number] [address] [place] [address] * (ABNORMAL) SPUTUM CULTURE WITH GRAM STAIN (05/11/2025 4:19 PM CDT) CULTURE STREPTOCOCCUS PNEUMONIAE(A) BOBBY MCG/ML 05/14/2025 10:31 AM CDT [facility] CULTURE 1+ or few Normal upper respiratory judah BOBBY MCG/ML 05/14/2025 10:31 AM CDT [facility] GRAM STAIN Non diagnostic pattern 05/14/2025 10:31 AM CDT [facility] GRAM STAIN 4+ (Heavy) Polymorphonuclear WBC 05/14/2025 10:31 AM T [facility] Sputum COUGHED SPUTUM SPECIMEN / Unknown Collection / Unknown 05/11/2025 4:19 PM CDT 05/11/2025 4:22 PM CDT Narrative Organism Antibiotic Method Susceptibility Streptococcus pneumoniae VANCOMYCIN [place] Susceptible Streptococcus pneumoniae AZITHROMYCIN [place] Susceptible Streptococcus pneumoniae CLINDAMYCIN [place] Susceptible Streptococcus pneumoniae DOXYCYCLINE [place] Susceptible Streptococcus pneumoniae LEVOFLOXACIN [place] Susceptible Streptococcus pneumoniae TRIMETHOPRIM/ SULFAMETHOXAZOLE [place] Susceptible Streptococcus pneumoniae CEFTRIAXONE (MENINGITIS) E TEST 0.032 mcg/mL: Susceptible Streptococcus pneumoniae CEFTRIAXONE (NON-MENINGITIS) E TEST 0.032 mcg/mL: Susceptible Streptococcus pneumoniae MEROPENEM E TEST Susceptible Streptococcus pneumoniae AMOXICILLIN E TEST Susceptible Streptococcus pneumoniae PENICILLIN IV (MENINGITIS) E TEST 0.016 mcg/mL: Susceptible Streptococcus pneumoniae PENICILLIN IV (NON-MENINGITIS) E TEST 0.016 mcg/mL: Susceptible Timbo Peng MD MICROBIOLOGY - GENER AL ORDERABLES Final Result Performing Organization Address [facility]/ZIP Co de Phone Number [employer] [facility] CLIA# [id number] [address] [place] [address] * ANAEROBIC/AEROBIC CULTURE W GRAM STAIN (05/11/2025 2:03 PM CDT) CULTURE No aerobic or anaerobic growth 05/17/2025 2:01 PM CDT [facility] GRAM STAIN No organisms observed 05/17/2025 2:01 PM CDT [facility] GRAM STAIN 4+ (Heavy) Polymorphonuclear WBC 05/17/2025 2:01 PM CDT [facility] Body fluid (Pleura, right) Collection / Unknown 05/11/2025 2:03 PM CDT 05/11/2025 2:48 PM CDT Timbo Peng MD MICROBIOLOGY - GENER AL ORDERABLES Final Result Performing Organization Address [facility] Co de Phone Number [employer] [facility] CLIA# [id number] [address] [place] [address] * (ABNORMAL) CELL COUNT WITH DIFFERENTIAL, BODY FLUID (05/11/2025 2:03 PM CDT) APPEARANCE, BODY FLUID Cloudy 05/11/2025 3:57 PM CDT [facility] COLOR, FLD 05/11/2025 3:57 PM CDT [facility] Comment:orange TOTAL NUCLEATED CELLS, FLD (AUTO) 9,271(H) 1,395 - 3,734 /ul 05/11/2025 3:57 PM CDT [facility] - . [facility] TOTAL RBC'S, FLD (AUTO) 21,000 No Ref Range Estab /ul 05/11/2025 3:57 PM CDT [facility] NEUTROPHILS, FLD 51(H) 0 - 1 % 05/11/2025 3:57 PM CDT [facility] - [facility] LYMPHOCYTE, FLD 31 18 - 36 % 05/11/2025 3:57 PM CDT [facility] - . [facility] EOSINOPHIL, FLD 12 No Ref Range Estab % 05/11/2025 3:57 PM CDT [facility]ORY SERVICES - . [facility] MONOCYTE/MACRO PHAGE, FLD 5(L) 64 - 80 % 05/11/2025 3:57 PM CDT [facility] - [facility] Body fluid (Pleura, right) Collection / Unknown 05/11/2025 2:03 PM CDT 05/11/2025 3:11 PM CDT Timbo Peng MD BODY FLUIDS AND RICHIE BERRY Final Result [facility] SERVICES [facility] CLIA# [id number] [address] [facility] [place] [address] * TRIGLYCERIDE, BODY FLUID (05/11/2025 2:03 PM CDT) FLUID TYPE, TRIGLYCERIDE PLEURA 05/13/2025 10:15 AM CDT [facility] TRIGLYCERIDE, FLD 40 See Comment mg/dL 05/13/2025 10:15 AM CDT [facility] Comment: ADDITIONAL INFORMATION Pleural fluid triglyceride concentrations > 110 mg/dL are consistent with chylous effusions. Triglyceride concentrations <50 mg/dL are usually not due to chylous effusions. Peritoneal fluid triglyceride concentrations > 187 mg/dL are most consistent with chylous effusion. All other fluids refer to http://www.[employer].com for further interpretive information. This test has been modified from the mixing place supervisor's instructions. Its performance characteristics were determined by [facility] in a manner consistent with CLIA requirements. This test has not been cleared or approved by the U.S. Food and Drug Administration. Body fluid (Pleura, right) Collection / Unknown 05/11/2025 2:03 PM CDT 05/11/2025 2:48 PM CDT Narrative [facility] - 05/13/2025 10:15 AM CDT Performing Organization Information: Site ID: EO Name: [facility] Address: [address] [place] [id number] Director: Tanvi Ferrer M.D. Ph.D. Timbo Peng MD BODY FLUIDS AND STOO LS Final Result Performing Organization Address [facility] Co de Phone Number [facility] [phone] * PROTEIN, BODY FLUID (05/11/2025 2:03 PM CDT) PROTEIN, FLD 4.5 g/dL 05/11/2025 3:19 PM CDT [facility] Body fluid (Pleura, right) Collection / Unknown 05/11/2025 2:03 PM CDT 05/11/2025 2:48 PM CDT [facility] 05/11/2025 3:19 PM CDT Interpretive Criteria: Transudate: <2.0 g/dL Exudate: >2.0 g/dL The reference range and other method performance specifications are unavailable for this body fluid. Comparison of this result with the concentration in the blood, serum, or plasma is recommended. Timbo Peng MD BODY FLUIDS AND STOO LS Final Result Performing Organization Address [facility] Co de Phone Number [facility] [employer] [facility]# [id number] [address] [place] [address] * LACTATE DEHYDROGENASE, BODY FLUID (05/11/2025 2:03 PM CDT) LD, FLD 362 U/L 05/11/2025 3:19 PM CDT [facility] Body fluid (Pleura, right) Collection / Unknown 05/11/2025 2:03 PM CDT 05/11/2025 2:48 PM CDT [facility] [employer] [facility] - 05/11/2025 3:19 PM CDT Interpretive Criteria: Transudate: < 200 U/L or Fluid/Serum Ratio < 0.6 Exudate: > 200 U/L or Fluid/Serum Ratio > 0.6 The reference range and other method performance specifications are unavailable for this body fluid. Comparison of this result with the concentration in the blood, serum or plasma is recommended. Timbo Peng MD BODY FLUIDS AND STOO LS Final Result Performing Organization Address City/[facility]/ZIP Co de Phone Number [facility] CLIA# [id number] [address] [place] [address] * GLUCOSE, BODY FLUID (05/11/2025 2:03 PM CDT) GLUCOSE, FLD 105 mg/dL 05/11/2025 3:19 PM CDT [facility] Body fluid (Pleura, right) Collection / Unknown 05/11/2025 2:03 PM CDT 05/11/2025 2:48 PM CDT [facility] - 05/11/2025 3:19 PM CDT Interpretive Criteria: Transudate: Fluid/Serum Ratio >0.5 Exudate: Fluid/Serum Ratio <0.5 or Fluid Glucose <60 mg/dL The reference range and other method performance specifications are unavailable for this body fluid. Comparison of this result with the concentration in the blood, serum or plasma is recommended. Timbo Peng MD BODY FLUIDS AND STOO LS Final Result Performing Organization Address City/[facility]/ZIP Co de Phone Number [facility] CLIA# [id number] [address] [place] [address] * AMYLASE, BODY FLUID (05/11/2025 2:03 PM CDT) AMYLASE, FLD 64 U/L 05/11/2025 3:19 PM CDT [facility] [employer] [facility] Comment: Interpretive Criteria: Amylase Fluid Normal (U/L): </= Serum Amylase The reference range and other method performance specifications are unavailable for this body fluid. Comparison of this result with the concentration in the blood, serum, or plasma is recommended. Body fluid (Pleura, right) Collection / Unknown 05/11/2025 2:03 PM CDT 05/11/2025 2:48 PM CDT Timbo Peng MD BODY FLUIDS AND STOO LS Final Result Performing Organization Address [facility]/ZIP Co de Phone Number [facility] CLIA# [id number] [address] [place], [place] [address] * (ABNORMAL) PH, BODY FLUID (05/11/2025 2:03 PM CDT) PH, FLD 7.37(L) 7.40 - 7.64 05/11/2025 2:59 PM CDT [facility] [employer] [facility] Body fluid (Pleura, right) Collection / Unknown 05/11/2025 2:03 PM CDT 05/11/2025 2:48 PM CDT Narrative [facility] [employer] [facility] - 05/11/2025 2:59 PM CDT Reference Range: Normal Serous Fluids (pleural,pericardial) = 7.40 - 7.64 Pleural Transudates: 7.40 - 7.50 Exudates: 7.35 - 7.45 No Reference range established for other fluid types. Pleural fluid pH < 7.30 can be seen with empyema, malignancy, rheumatoid pleurisy, SLE, tuberculosis, and esophageal rupture. A pH < 6.00 is suggestive of esophageal rupture. us Timbo Peng MD BODY FLUIDS AND STOO LS Final Result Performing Organization Address City/[facility]/ZIP Co de Phone Number [facility] CLIA# [id number] [address] [address] * CYTOLOGY, NON GYNE (05/11/2025 2:03 PM CDT) CASE REPORT Medical Cytology Report Case: [id number] Authorizing Provider: Danish Timbo Donovan, Collected: 05/11/2025 02:03 PM Ordering Location: [facility] Received: 05/12/2025 07:35 AM Surgical Progressive Care Pathologist: Anais Onofre MD Specimen: Pleural fluid, right side 9:35 AM CDT [facility] FINAL DIAGNOSIS Right pleural fluid: - No atypical cells identified. See microscopic description. 9:35 AM T [facility] at 0935 CDT GROSS DESCRIPTION Received is a container labeled Niyah Adams and right side pleural fluid. It contains 1000 mL of slightly cloudy yellow fluid. One ThinPrep and 1 cell block made. One Deng-stained cytospin slide received from Hematology. 9:35 AM T [facility] MICROSCOPIC DESCRIPTION The slides are labeled [id number] and Niyah Adams. The ThinPrep and cell block slides show predominantly many small lymphocytes and some eosinophils and neutrophils. Immunostains for Von-EP4 and TTF-1 are negative, arguing against a carcinoma. Immunostains for CD3 and CD20 show a predominance of T lymphocytes with scant B lymphocytes, supporting the reactive nature. 9:35 AM T [facility] CLINICAL INFORMATION No Dx found. 9:35 AM T [facility] COMMENT Special stain, immunohistochemical, and/or in situ hybridization results are interpreted with controls that demonstrate appropriate staining reactions. Note on use of immunohistochemistry reagents and in situ hybridization probes: These tests were developed and their performance characteristics determined by [facility], Department of Laboratory Medicine. It has not been cleared or approved by the U.S. Food and Drug Administration. The FDA has determined that such clearance or approval is not necessary. The test is used for clinical purposes. It should not be regarded as investigational or for research. This laboratory is certified to perform high complexity testing. Cases may have been signed out in part or completely in the following laboratories: [facility], CLIA #[id number] [address] [place] [address] [facility], CLIA #[id number] [address] [place] [address]. 9:35 AM CDT [facility] Body fluid PLEURAL FLUID SPECIMEN / Unknown Collection / Unknown 05/11/2025 2:03 PM CDT 05/12/2025 7:35 AM CDT Timbo Peng MD PATHOLOGY/CYTOLOGY O RDERABLES Final Result Performing Organization Address [facility]/ZIP Co de Phone Number [facility] CLIA# [id number] [address] [place] [address] [place] [address] * BLOOD CULTURE (05/11/2025 12:23 PM CDT) Only the most recent of2 resultswithin the time period is included. BLOOD CULTURE No growth 05/16/2025 2:10 PM CDT [facility] Blood (Peripheral) Venipuncture / Unknown 05/11/2025 12:23 PM CDT 05/11/2025 1:07 PM CDT Timbo Peng MD MICROBIOLOGY - GENER AL ORDERABLES Final Result [facility] CLIA# [id number] [address] [place], [place] [address] [address] * (ABNORMAL) PROTIME-INR (05/11/2025 12:23 PM CDT) Only the most recent of2 resultswithin the time period is included. PROTIME 15.7(H) 12.7 - 15.1 Seconds 05/11/2025 1:25 PM CDT [facility] INR 1.2(H) 0.9 - 1.1 05/11/2025 1:25 PM CDT [facility] Blood Venipuncture / Unknown 05/11/2025 12:23 PM CDT 05/11/2025 1:09 PM CDT [facility] - 05/11/2025 1:25 PM CDT INR Therapeutic Range: Adult: 2.0 - 3.0 for pulmonary embolism or prophylaxis against venous thrombosis or systemic embolization. 2.0 - 3.0 for patients with tissue heart valves. 2.5 - 3.5 for patients with mechanical heart valves or post [place]. Pediatric (12 years and under): 1.5 - 3.0 Although the target range in children is not well established, INR values of 1.5 - 3.0 are recommended for most patients. Higher values have been used in children with prosthetic cardiac valves and hereditary clotting disorders. [place] (<3 days) therapeutic ranges have not been established. Timbo Peng MD HEMATOLOGY ORDERABLE S Final Result [facility]# [id number] [address] [place] [address] * (ABNORMAL) PROCALCITONIN (05/11/2025 12:16 PM CDT) PROCALCITONIN 0.29(H) <=0.25 ng/mL 05/11/2025 1:51 PM CDT [facility] Blood Venipuncture / Unknown 05/11/2025 12:16 PM CDT 05/11/2025 1:09 PM CDT [facility] - 05/11/2025 1:51 PM CDT The utility of procalcitonin is limited/NOT recommended in certain populations (e.g. newborns, dialysis/ESRD, patients with recent major surgery/trauma/mchugh, liver cirrhosis, viral hepatitis, certain cancers, etc.). Procalcitonin levels MUST be interpreted in the context of the patient's clinical condition and CANNOT be solely relied upon for diagnosis of infection. <0.25 ng/mL: Bacterial infection unlikely, particularly lower respiratory tract infections. <0.5 ng/mL: Low risk for progression to severe sepsis/septic shock. Localized infection possible. Measurements done early (<6 hours) after systemic process starts may still be low. 0.5-2 ng/mL: Moderate risk for progression to severe sepsis/septic shock. >2 ng/mL: High risk for progression to severe sepsis/septic shock. If antibiotics ARE administered, repeat testing is recommended every 2-3 days to help guide antibiotic cessation. Once a decrease of 80% or more has occurred from baseline, discontinuation of antibiotics should strongly be considered in clinically stable patients. Procalcitonin is produced in the setting of systemic inflammation, particularly bacterial infections. It is detectable within 2-4 hours and peaks within 6-24 hours. Timbo Peng MD CHEMISTRY ORDERABLES Final Result Performing Organization Address [facility] Co de Phone Number [facility]# [id number] [address] [facility] [place] [address] * (ABNORMAL) C-REACTIVE PROTEIN (05/11/2025 12:16 PM CDT) [facility] CRP 129.0(H) <5.0 mg/L 05/11/2025 1:45 PM CDT [facility] [employer] [facility] Blood Venipuncture / Unknown 05/11/2025 12:16 PM CDT 05/11/2025 1:09 PM CDT Timbo Peng MD CHEMISTRY ORDERABLES Final Result Performing Organization Address [facility] Co de Phone Number [facility] [employer] [facility] CLIA# [id number] [address] [facility] [place] [address] * TRIGLYCERIDE (05/11/2025 12:16 PM CDT) [facility] TRIGLYCERIDE 144 <150 mg/dL 05/11/2025 1:45 PM CDT [facility] [employer] [facility] Blood Venipuncture / Unknown 05/11/2025 12:16 PM CDT 05/11/2025 1:09 PM CDT Narrative [facility] LABORATORY [facility] - 05/11/2025 1:45 PM CDT TRIGLYCERIDES mg/dL Normal < 150 Borderline High 150 - 199 High 200 - 499 Very High >= 500 Based on AHA/NCEP Guidelines. Timbo Peng MD CHEMISTRY ORDERABLES Final Result Performing Organization Address City/[facility]/ZIP Co de Phone Number [facility] CLIA# [id number] [address] [place] [address] * (ABNORMAL) PROTEIN TOTAL (05/11/2025 12:16 PM CDT) [facility] TOTAL PROTEIN 6.3(L) 6.7 - 8.6 g/dL 05/11/2025 1:45 PM CDT [facility] Blood Venipuncture / Unknown 05/11/2025 12:16 PM CDT 05/11/2025 1:09 PM CDT Timbo Peng MD CHEMISTRY ORDERABLES Final Result Performing Organization Address [facility]/ZIP Co de Phone Number [facility] CLIA# [id number] [address] [place] [address] * RESPIRATORY PATHOGEN PCR PANEL (05/11/2025 10:28 AM CDT) Pathologist [facility] Respiratory Pathogen PCR Panel NOT DETECTED No respiratory pathogen nucleic acids detected. 05/11/2025 11:48 AM CDT [facility] COVID-19 PCR NOT DETECTED Not Detected 05/11/2025 11:48 AM CDT [facility] Upper Respiratory ENTIRE NASOPHARYNX / Unknown Collection / Unknown 05/11/2025 10:28 AM CDT 05/11/2025 10:46 AM CDT Narrative [facility] - 05/11/2025 11:48 AM CDT The Film Array Respiratory Panel (RP2.1) is a multiplex nucleic acid detection test for 22 targets. Viruses: Adenovirus Coronavirus HKU1, NL63, 229E, and OC43 COVID-19/Severe Acute Respiratory Syndrome Coronavirus 2 Influenza A with the following subtypes: H1, H1-2009, and H3 Influenza B Human Metapneumovirus Parainfluenza virus 1, 2, 3, and 4 Respiratory Syncytial virus (RSV) Rhinovirus/Enterovirus (cannot differentiate due to genetic similarities) Bacteria: Bordetella pertussis Bordetella parapertussis Chlamydophila pneumoniae Mycoplasma pneumoniae us Timbo Peng MD MICROBIOLOGY - [facility] ORDERABLES Final Result [facility]# [id number] [address] [place] [address] * CT CHEST WO CONTRAST (05/10/2025 7:52 PM CDT) Anatomical Region Laterality Modality Chest Computed Tomogra phy 05/10/2025 7:50 PM CDT Impressions 05/10/2025 8:06 PM CDT IMPRESSION: 1. Moderate-sized right pleural effusion. 2. Mild emphysema. 3. Gallbladder distention, which may be secondary to fasting. Correlate with physical exam to exclude acute cholecystitis. DICTATION LOCATION: Location 4. Narrative 05/10/2025 8:06 PM CDT EXAMINATION: CT CHEST WO CONTRAST DATE: 05/10/2025 7:52 PM INDICATION: Left chest pain. TECHNIQUE: Computed tomography (CT) of the chest was performed without intravenous contrast. The mA was adjusted according to patient size, and/or iterative reconstruction technique was employed. COMPARISON: None. FINDINGS: There is mild emphysema. There is mild atelectasis bilaterally. Calcified pulmonary nodules and calcified hilar lymph nodes are consistent with old granulomatous disease. There is a moderate-sized pericardial effusion. There is mucous plugging on the left. The heart size is normal. There are coronary artery calcifications. No pericardial effusion. There is mild bilateral gynecomastia. Calcifications in the liver and spleen are consistent with old granulomatous disease. The gallbladder is distended. Partially visualized is a 19 mm stone in left kidney. There are old healed bilateral rib fractures. There are changes of lateral right chest wall hernia repair. There is mild chronic anterior wedging of multiple vertebral bodies. Procedure Note Dorian Stanley MD - 05/10/2025 EXAMINATION: CT CHEST WO CONTRAST DATE: 05/10/2025 7:52 PM INDICATION: Left chest pain. TECHNIQUE: Computed tomography (CT) of the chest was performed without intravenous contrast. The mA was adjusted according to patient size, and/or iterative reconstruction technique was employed. COMPARISON: None. FINDINGS: There is mild emphysema. There is mild atelectasis bilaterally. Calcified pulmonary nodules and calcified hilar lymph nodes are consistent with old granulomatous disease. There is a moderate-sized pericardial effusion. There is mucous plugging on the left. The heart size is normal. There are coronary artery calcifications. No pericardial effusion. There is mild bilateral gynecomastia. Calcifications in the liver and spleen are consistent with old granulomatous disease. The gallbladder is distended. Partially visualized is a 19 mm stone in left kidney. There are old healed bilateral rib fractures. There are changes of lateral right chest wall hernia repair. There is mild chronic anterior wedging of multiple vertebral bodies. IMPRESSION: 1. Moderate-sized right pleural effusion. 2. Mild emphysema. 3. Gallbladder distention, which may be secondary to fasting. Correlate with physical exam to exclude acute cholecystitis. DICTATION LOCATION: Location 4. us Dany Henson MD CT ORDERABLES Final Resul t * BRAIN NATRIURETIC PEPTIDE, BNP OR PROBNP (05/10/2025 6:33 PM CDT) PROBNP, N TERMINAL <36 <124 pg/mL 2024 10:13 PM CDT [facility] LABORATORY SERVICES [facility] Comment: INTERPRETIVE COMMENT based on diagnosis: Diagnostic NT pro-BNP cutoffs for Heart Failure in the absence of renal failure is suggested for the following ranges <75 years: <125 pg/mL >=75 years: <450 pg/mL Exclusionary rule out cut-point for Acute Decompensated Heart Failure(ADHF) All ages: <300 pg/mL Diagnostic NT pro-BNP cutoffs for Acute Decompensated Heart Failure(ADHF) in the absence of renal failure is suggested for the following ages <50 years: > 450 pg/mL 50-75 years: > 900 pg/mL >75 years: >1800 pg/mL Blood Venipuncture / Unknown 05/10/2025 6:33 PM CDT 05/10/2025 6:43 PM CDT Jose Luis Rudolph MD CHEMISTRY ORDERABLES Final Resul t [facility] LABORATORY SERVICES [facility]# [id number] [address] [facility] [place] [address] * (ABNORMAL) COMPREHENSIVE METABOLIC PANEL (05/10/2025 6:33 PM CDT) SODIUM 134(L) 136 - 145 mmol/L 05/10/2025 7:21 PM T [facility] LAB[facility]ORY SERVICES - . [facility] POTASSIUM 4.9 3.5 - 5.0 mmol/L 05/10/2025 7:21 PM T [facility] LABORATORY SERVICES - . [facility] CHLORIDE 95(L) 98 - 107 mmol/L 05/10/2025 7:21 PM T [facility] LAB[facility]ATORY SERVICES - [facility] CO2 28 22 - 29 mmol/L 05/10/2025 7:21 PM T [facility]ORY SERVICES - . [facility] CALCIUM 10.2 8.6 - 10.2 mg/dL 05/10/2025 7:21 PM T [facility]ATORY SERVICES - [facility] BUN 9 8 - 23 mg/dL 05/10/2025 7:21 PM T [facility] LABORATORY SERVICES - . [facility] CREATININE 0.72 0.67 - 1.17 mg/dL 05/10/2025 7:21 PM T [facility] LABORATORY SERVICES - [facility] GLUCOSE 104(H) 74 - 99 mg/dL 05/10/2025 7:21 PM T [facility]ORY SERVICES - . [facility] TOTAL PROTEIN 7.8 6.7 - 8.6 g/dL 05/10/2025 7:21 PM T [facility]ATORY SERVICES - [facility] ALBUMIN 3.4(L) 3.5 - 5.2 g/dL 05/10/2025 7:21 PM T [facility] LABORATORY [facility] BILIRUBIN TOTAL 0.4 0.0 - 1.1 mg/dL 05/10/2025 7:21 PM T [facility] ALKALINE PHOSPHATASE 102 40 - 129 U/L 05/10/2025 7:21 PM [facility] AST 31 <41 U/L 05/10/2025 7:21 PM [facility] LABORATORY [facility] Comment:Hemolysis present. R esult may be falsely elevated. ALT 21 <42 U/L 05/10/2025 7:21 PM [facility] GFR >60 >=60 mL/min/1.7 3 sq meter 05/10/2025 7:21 PM [facility] Comment:eGFR calculated with 2020 CKD-EPI equation. Vegetarian diet, extremely high or low muscle mass, and may affect results. Cystatin C with Glomerular Filtration Rate is a suitable alternative for these patients. ANION GAP 11 8 - 16 mmol/L 05/10/2025 7:21 PM T [facility] Blood Venipuncture / Unknown 05/10/2025 6:33 PM CDT 05/10/2025 6:43 PM CDT [facility] - 05/10/2025 7:21 PM CDT Samples containing indocyanine green cause interferences on Total and/or Direct Bilirubin and must not be measured. Dany Henson MD CHEMISTRY ORDERABLES Final Result [id number] [address] [place] [address] * EKG 12-LEAD (05/10/2025 5:19 PM CDT) Only the most recent of2 resultswithin the time period is included. 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: taylor : 1960 Requested By: Order Number: [id number] Reading : Frederick Morales Measurements Intervals [place] Rate: 81 P: 58 [place]: 173 QRS: 87 QRSD: 86 T: 27 QT: 343 QTc: 398 Interpretive Statements Sinus rhythm Ventricular premature complex Borderline right axis deviation Electronically Signed On 05-11-2025 8:06:46 CDT by Frederick Morales Procedure Note Frederick Morales MD - 05/11/[address] [address] Test Date: 2025-05-10 Pat Name: NIYAH ADAMS Department: 38 Room: 4064 Gender: Male B2B Outside 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 Representative: taylor : 1960 Requested By: Order Number: [id number] Reading : Frederick Morales Measurements Intervals [place] Rate: 81 P: 58 [place]: 173 QRS: 87 QRSD: 86 T: 27 QT: 343 QTc: 398 Interpretive Statements Sinus rhythm Ventricular premature complex Borderline right axis deviation Electronically Signed On 05-11-2025 8:06:46 CDT by Frederick Morales us Protocol Sjmm Emergency ECG ORDERABLES Stefania l Result Performing Organization Address City/State/[facility] Co de Phone Number INTERFACE SYSTEM Refer to clinic/hospital department * IR INJECTION (04/19/2025 12:15 PM CDT) Narrative 04/20/2025 8:31 AM CDT Order information only. Exam was auto-finalized. us Josh Huizar MD IR ORDERABLES Final Result * [place] ANES INSERT CATH, ART, PERCUT, SHORTTERM (04/19/2025 [...] PROCEDURE/MINOR SURGICAL ORD ERABLES Final Result * [place] ANES INSERT ENDOTRACHEAL AIRWAY (04/19/2025 10:08 AM [...] Additional Procedure Information: atraumatic and dentition unchanged Result [facility] Josh Huizar MD PROCEDURE/MINOR SURGICAL ORD ERABLES Final Result * [place] ANESTHESIA BLOCK PB PLACEHOLDER CHARGE (04/19/2025 9:57 [...] Erector Spinae Laterality: Right Injection technique: Single-shot [place] Identification: ultrasound guided Local injected: Bupivacaine 0.25% Total Volume Injected (mL): 40 Needle Needle type: Short-bevel Needle gauge: 21 G Needle length: 6 cm Needle localization: Ultrasound Guidance Josh Huizar MD PROCEDURE/MINOR SURGICAL ORD ERABLES Final Result * VERIFICATION BLOOD GROUP (04/19/2025 8:15 AM CDT) ABO GROUP O 04/19/2025 10:03 AM CDT [facility] -- [facility] RH (D) TYPE Negative 04/19/2025 10:03 AM CDT [facility]ORATORY SERVICES -- [facility] Blood Venipuncture / Unknown 04/19/2025 8:15 AM CDT 04/19/2025 8:27 AM CDT Result [facility] Domingo Stewart MD BLOOD BANK ORDERABLES Final Result [facility] [employer] [facility] CLIA# [id number] [address] [place] [address] * [place] ANES VNPNXR 3 YEARS/> PHYS/QHP SKILL, PERIPHERAL [...] PROCEDURE/MINOR SURGICAL ORD ERABLES Final Result * (ABNORMAL) PTT (04/06/2025 3:37 PM CDT) PTT 37.0(H) 24.4 - 36.4 seconds 04/06/2025 4:25 PM CDT [facility] [employer] [facility] Comment: PTT Therapeutic Range: Heparin Level PTT (seconds) <0.10 units/mL <55.8 0.10 - 0.30 units/mL 55.8 - 74.3 0.30 - 0.70 units/mL* 74.3 - 111.2* 0.70 - 1.00 units/mL 111.2 - 138.9 *corresponds to therapeutic range for unfractionated heparin Blood Venipuncture / Unknown 04/06/2025 3:37 PM CDT 04/06/2025 4:05 PM CDT Janet Gardner PATCH WASHER HEMATOLOGY ORDERABLES Final Result [facility] [employer] [facility] CLIA# [id number] [address] [place] [address] * TYPE AND SCREEN (04/06/2025 3:37 PM CDT) ABO GROUP O 04/06/2025 5:31 PM CDT [facility] LABORATORY SERVICES -- [facility] RH (D) TYPE Negative 04/06/2025 5:31 PM CDT [facility] LAB[facility]ATORY SERVICES -- .[facility] ANTIBODY SCREEN Negative 04/06/2025 5:31 PM CDT [facility]ORY SERVICES -- [facility] Blood Venipuncture / Unknown 04/06/2025 3:37 PM CDT 04/06/2025 4:05 PM CDT Wilian Zambrano MD BLOOD BANK ORDERABLES Edited R esult - Final [facility]ORY SERVICES -- [facility] CLIA# [id number] [address] [place] [address] from Last 3 Months Insurance Erick DAVALOS, [facility] [address] [facility] [address] [place] [address] RX [employer] RX Member Subscriber Plan / Payer (Ef fective 2021-Present) Name:Mercedes Niyah Relation to Subscriber:Self Name:Niyah Adams Payer ID:Not on file Group ID:[id number] Type:RX Medicare Part D Address: [place] RX [employer] PLANS (INTERNAL) [facility] Internal Plans Advance Directives For more information, please contact: [phone] * Full Code (Latest Code Status on File) Date Activated Date Inactivated Comments 05/11/2025 7:59 AM 05/13/2025 6:43 PM * Full Code Date Activated Date Inactivated Comments 04/19/2025 1:49 PM 04/20/2025 6:19 PM * Full Code Date Activated Date Inactivated Comments 04/19/2025 8:12 AM 04/19/2025 1:49 PM
[2025-06-09 12:56] LABS: Alanine Aminotransferase 23 U/L (6-50); Albumin Level 4.2 g/dL (3.5-5.1); Alkaline Phosphatase 82 U/L (38-126); Anion Gap 6 mmol/L (4-12); Aspartate Amino Transferase 30 U/L (17-59); Bilirubin,Total 0.6 mg/dL (0.2-1.3); Blood Urea Nitrogen 7 mg/dL (9-20); Carbon Dioxide 33 mmol/L (22-30); Chloride 102 mmol/L (98-107); Estimated Glomerular Filt Rate > 60; Sodium 141 mmol/L (137-145); Total Protein 6.6 g/dL (6.3-8.2)
[2025-06-09 13:01] LABS: Calcium 10.0 mg/dL (8.4-10.2); Glucose 98 mg/dL (65-110); Osmolality Calculated 290 mOsm/kg (285-295); Potassium 4.4 mmol/L (3.4-5.0)
== END 2025-06-09 11:51 | disposition home or self-care (01) ==
LOC: CHSIMG 11:52
PROVIDERS: PCP Nurse Practitioner Family; Visit Provider Internal Medicine Rheumatology
DX: M25.519 Pain in unspecified shoulder (principal); R09.89 Other specified symptoms and signs involving the circulatory and respiratory systems; Z51.81 Encounter for therapeutic drug level monitoring; R91.8 Other nonspecific abnormal finding of lung field; J90 Pleural effusion, not elsewhere classified
CPT/HCPCS: 36415; 71046; 73030; 80048; 80076; 85025

== ENCOUNTER 2025-06-18 08:49 | Outpatient (CLI) | payer MEDICARE, SELFPAY ==
--- NOTE | ~2025-06-18 | CT_ITS ---
EXAMINATION: CT diagnostic chest w con DATE: 06/18/2025 09:32 INDICATION: HERNIATION OF R LUNG,PLEURAL EFFUSION, PNEUMONIA TECHNIQUE: Computed tomography (CT) of the chest was performed with 100 mL Omnipaque-350 intravenous contrast. Additional 3D reconstructions utilizing coronal maximum intensity projection (MIP) were performed. Automated exposure control and iterative reconstruction technique were employed. The dose-length product was 862.61 mGy-cm. COMPARISON: Chest CT dated 05/10/2025 FINDINGS: Interval decrease in size of a now small posterior layering right pleural effusion. Dependent compressive atelectasis in the right lower lobe. Calcified nodules in the left upper and lower lobes as well as calcified left hilar and mediastinal lymph nodes consistent with old granulomatous disease. Again seen is an old fracture of the posterior right ninth rib and increased separation of the lateral right eighth and ninth ribs with shallow herniation of the pleural space and pleural effusion into the intercostal space. There is discontinuity of the costochondral cartilage at the anterior right ninth rib suggesting either prior trauma or surgery and there is likely secondary heterotopic ossification along the widened intercostal space. Heart size is normal. Atherosclerotic coronary artery calcifications. No pericardial effusion. Thoracic aorta is normal in caliber with no dissection. No pathologically enlarged thoracic lymphadenopathy. Diffuse scattered splenic calcific lesions also consistent with old granulomatous disease. Visualized upper abdomen is otherwise unremarkable. Mild thoracic spondylosis with bridging osteophytes at multiple levels consistent with diffuse idiopathic skeletal hyperostosis (DISH). IMPRESSION: 1. Decrease in size of a small right pleural effusion with shallow herniation of the effusion within the pleural space through a chronically widened intercostal space between the right eighth and ninth ribs which appears to result from distraction of an either chronic fracture or surgical defect of the anterior anterior costal cartilage. 2. No acute cardiopulmonary disease. Reviewed, dictated and finalized at location A. IMPRESSION: 1. Decrease in size of a small right pleural effusion with shallow herniation o f the effusion within the pleural space through a chronically widened intercost al space between the right eighth and ninth ribs which appears to result from d istraction of an either chronic fracture or surgical defect of the anterior ant erior costal cartilage. 2. No acute cardiopulmonary disease.
--- OUTSIDE RECORDS SUMMARY | 2025-06-18 08:55 | XMS_ITS | Clinical Summary ---
Author Organization [facility] Address [address] [place] [address] Care Team Providers Care Wrist Hemmer Name Role Phone Unavailable Primary Care Provider [...] inhaler Take 2 Puffs by inhalation. 06/11/20 Active lisinopriL (PRINIVIL) 10 mg tablet Take [...] 100 mg by mouth daily at bedtime. 10/10/20 Active acetaminophen (TYLENOL) 325 mg tablet Take 2 Tablets (650 mg) by mouth every 6 hours as needed for Pain, Mild / Temperature. 04/20/20 Active naloxone (NARCAN) 4 mg/spray [place], Non-Aerosol EMERGENCY USE ONLY: Administer 1 spray (4 mg) in one nostril one time. May repeat in alternating nostrils every 2-3 min until responsive or EMS arrives. 2 Each 3 04/20/20 Active gabapentin (NEURONTIN) 300 mg capsuleIndication s:Acute post-operative pain,Herniation of right lung Take 1 Capsule (300 mg) by mouth 3 times daily. 270 Capsule 3 05/10/20 Active fluticasone-umecl idinium-vilantero l (Trelegy Ellipta) 100-62.5-25 mcg Disk with Device Starting 05/14: Take 1 Puff by inhalation daily. 60 Each 5 3:23 PM CDT 05/14/20 Active predniSONE (DELTASONE) 20 mg tablet Starting 05/14: Take 2 Tablets (40 mg) by mouth daily with breakfast for 3 days, THEN 1.5 Tablets (30 mg) daily with breakfast for 1 day, THEN 1 Tablet (20 mg) daily with breakfast for 1 day, THEN 0.5 Tablets (10 mg) daily with breakfast. 23 Tablet 5 3:23 PM CDT 05/14/20 25 025 Active ondansetron (ZOFRAN) 4 mg Tablet Take 1 Tablet (4 mg) by mouth every 6 hours as needed for Nausea/Vomiting. 30 Tablet 5 3:23 PM CDT 05/13/20 25 Active famotidine (PEPCID) 20 mg tablet Take 1 Tablet (20 mg) by mouth 2 times daily. 60 Tablet 5 3:23 PM CDT 05/13/20 Active amoxicillin-clavu lanate (AUGMENTIN) 875-125 mg tablet Take 1 Tablet by mouth every 12 hours. 10 Tablet 05/14/20 Active Active Problems Problem Noted Date Diagnosed Date Chronic obstructive lung disease 05/12/2025 Tobacco abuse disorder 05/12/2025 Pleural effusion, right 05/12/2025 History of pulmonary embolism 06/07/2023 RA (rheumatoid arthritis) 06/07/2023 Lumbar radiculopathy 04/04/2023 Overview (05/12/2025): Added automatically from request for surgery [id number] Bipolar disorder, in partial remission, most recent [...] Resolved Date Dyspnea on exertion 05/11/2025 05/13/20 25 Pleural effusion 05/11/2025 05/13/2025 Herniation of right lung 06/07/2023 Encounters Date Type Department Care Team Description 06/15/2025 External Device Data STL ABSTRACTION Provider, Abstract 06/11/2025 Telephone [facility] Cardiovas and Thor Surg at [facility] [address] [place] [address] Janet Gardner NP Follow Up 06/08/2025 External Device Data STL ABSTRACTION Provider, Abstract 05/18/2025 External Device Data STL ABSTRACTION Provider, Abstract 05/18/2025 External Device Data STL ABSTRACTION Provider, Abstract 05/18/2025 External Device Data STL ABSTRACTION Provider, Abstract 05/14/2025 Orders Only [facility] Cardiovas and Thor Surg at [address] [phone] Christie Gauthier NP 05/11/2025 External Device Data STL ABSTRACTION Provider, Abstract 05/11/2025 External Device Data STL ABSTRACTION Provider, Abstract 05/11/2025 External Device Data STL ABSTRACTION Provider, Abstract 05/10/2025 6:14 PM CDT - 05/13/2025 4:37 PM CDT Hospital Encounter [facility] ST Surgical Progressive [facility] [address] [place] [phone] Dany Henson MD Dunn, MD Lonnie Rodriguez, MD Danish Poe, MD Dave Keith Sabrina, MD Pleural effusion, right Discharge Disposition: Home or Self Care 05/10/2025 Travel 05/10/2025 Refill [facility] Cardiovas and Thor Surg at [address] [phone] Janet Gardner NP Acute post-operative pain (Primary Dx); Herniation of right lung 05/06/2025 Telephone [facility] Cardiovas and Thor Surg at [address] [phone] Christie Gauthier NP Pain 2025 External Device Data STL ABSTRACTION Provider, Abstract 05/04/2025 External Device Data STL ABSTRACTION Provider, Abstract 04/30/2025 Telephone [facility] Cardiovas and Thor Surg at [address] [phone] Wilian Zambrano MD Hospital Follow Up; Pain 04/26/2025 1:00 PM CDT Office Visit [facility] Cardiovas and Thor Surg at [facility] [address] [place] [address] Christie Gauthier NP Herniation of right lung (Primary Dx); Acute post-operative pain 04/26/2025 Abstract [facility] Cardiovas and Thor Surg at [facility] [address] [facility] [place] [address] Wilian Zambrano MD 04/20/2025 External Device Data STL ABSTRACTION Provider, Abstract 04/20/2025 External Device Data STL ABSTRACTION Provider, Abstract 04/20/2025 External Device Data STL ABSTRACTION Provider, Abstract 04/19/2025 11:10 AM CDT - 04/19/2025 2:30 PM CDT Surgery [facility] CV Operating Room [address] [place] [phone] Wilian Zambrano MD RIGHT CHEST WALL HERNIA REPAIR 04/19/2025 9:50 AM CDT Anesthesia Event [facility] CV Operating Room [address] [place] [phone] Josh Huizar MD Buechler, Anne H, ANP 04/19/2025 8:09 AM CDT - 04/20/2025 4:09 PM CDT Hospital Encounter [facility] Surgical Progressive Care [address] [place] [phone] Wilian Zambrano MD Discharge Disposition: Home or Self Care 04/06/2025 3:00 PM CDT - 04/06/2025 11:59 PM CDT Hospital Encounter [place] [id number] [place] [address] Wilian Zambrano MD Discharge Disposition: Home or Self Care 04/06/2025 2:15 PM CDT Office Visit [facility] Cardiovas and Thor Surg at [facility] [address] [place] [address] Wilian aZmbrano MD Herniation of right lung (Primary Dx) [...] drink = 0.6 oz pur e alcohol) Feeling Safe Answer Date Recorded Are you in a relationship wi th someone who hurts you emotionally and/or physically? No 05/10/2025 Food Insecurity Answer Date Recorded Patient needs follow up regardin 04/06/2025 Transportation Needs Answer Date Record ed Patient needs follow up regardin 04/06/2025 Utility Needs Answer Date Recorded Patient needs follow up regardin 04/06/2025 Sex and Gender Information Value Date Recorded [...] PCV21) 10/12/2024 10/12/2019, 10/26/2016, 10/06/2014 [place] Preventative Visit/Annual Wellness Visit 10/21/2024 INFLUENZA VACCINE (#1) 2025 0, 10/10/2019, 10/26/2016, Additional history exists Pre-Diabetes and Diabetes Screening 05/12/2028 05/12/2025 DTAP/TDAP/TD VACCINES (2 - T d or Tdap) 07/31/2031 07/31/2021, 10/07/2017 Abdominal Aortic Aneurysm (A AA) Screening Completed 08/09/2020, 07/04/2020 Medical Devices Implanted Type Area Rag Room Supervisor Device Identifier Shelf Expiration Date Model / Serial / Lot Mesh 1s [id number] Vent Hernia [id number] - [id number] Implanted:Qty : 1 on 04/19/2025 by Wilian Zambrano MD at [facility] Right: Chest HUMERA BIO [id number] 05/20/2026 [id number] / / [id number] Procedures Procedure Name [...] PM CDT CYTOLOGY, NON GYNE Pathology 05/11/2025 2: 03 PM CDT CELL COUNT WITH DIFFERENTIAL, BODY [...] 04/19/2025 11:10 AM CDT CHEST WALL HERNIA AR RMVL NONINFCT MESH/PROSTH AA/PARASTOMAL HRNA RPR 04/19/2025 11:10 AM CDT CHEST WALL HERNIA AR ANES INSERT CATH, ART, PERCUT, SHORTTERM Routine 04/19/2025 10:30 AM CDT AR ANES INSERT ENDOTRACHEAL AIRWAY Routine 04/19/2025 10:08 AM CDT AR ANESTHESIA BLOCK PB PLACEHOLDER CHARGE Routine 04/19/2025 9:57 AM CDT VERIFICATION BLOOD GROUP Stat 04/19/2025 8:15 AM CDT Encounter for blood typing PERIPHERAL IV ADULT Routine 04/19/2025 7 :13 AM CDT AR ANES VNPNXR 3 YEARS/> PHYS/QHP SKILL Routine [...] INTERFACE SYSTEM - 05/13/2025 5:28 [place] [address] [email or web address] [email or web address] Echocardiogram Patient: Niyah Adams Study ID: ECHO COMPLETE - Gender: M : 1960 Age: 65 Race: [facility] Height 175.3cm Study Date: 05/13/2025 Weight: 113.4kg Access. #: [id number] BP: *Referring Physician:* Gloria Carter *Ordering Physician:* Gloria Carter instructional resource teacher: Nurse: Indications: CHF. STUDY CONCLUSIONS: SUMMARY: - [...] PM. Prepared and Electronically Authenticated Dionicio Mcdermott [id number] Procedure Note Dionicio Mcdermott MD - 05/13/2025 [place] [address] [email or web address] [email or web address] Echocardiogram Patient: Niyah Adams Study ID: ECHO COMPLETE - Gender: M : 1960 Age: 65 Race: JING Height 175.3cm Study Date: 05/13/2025 Weight: 113.4kg Access. #: [id number] BP: *Referring Physician:Gloria Martinez *Ordering Physician:Gloria Martinez instructional resource teacher: Nurse: Indications: CHF. STUDY CONCLUSIONS: SUMMARY: - [...] SV/bsa, 2-p 37.7 ml/m^2 --------- E', lat ejssenia, TDI (L) 9.8 cm/sec >=10.0 E/e', lat jessenia, TDI (N) 8 <=13 E', med jessenia, TDI (N) 13.6 cm/sec >=7.0 E/e', med jesseina, TDI 6 --------- E', avg, TDI 11.7 [...] 02:58 PM. Prepared andElectronically Authenticated Dionicio Mcdermott [id number] us Gloria Carter LOSS PREVENTION LEAD US ORDERABLES Final Res ult INTERFACE SYSTEM Refer to clinic/hospital department * (ABNORMAL) CBC WITH DIFFERENTIAL (05/13/2025 2:11 AM CDT) Only the most recent of6 resultswithin the time period is included. WBC 12.1(H) 4.0 - 9.8 K/uL 05/13/2025 3:10 AM CDT [facility] RBC 3.67(L) 4.50 - 5.40 M/uL 05/13/2025 3:10 AM CDT [facility] HEMOGLOBIN 10.6(L) 13.6 - 16.5 g/dL 05/13/2025 3:10 AM CDT [facility] HEMATOCRIT 32.4(L) 40.0 - 48.0 % 05/13/2025 3:10 AM CDT [facility] MCV 88.3 82.0 - 99.0 fL 05/13/2025 3:10 AM CDT [facility] MCH 28.9 27.2 - 32.6 pg 05/13/2025 3:10 AM CDT [facility] MCHC 32.7 31.5 - 35.5 g/dL 05/13/2025 3:10 AM CDT [facility] RDW 13.4 11.5 - 14.5 % 05/13/2025 3:10 AM CDT [facility] RDW-STDEV 43.6 37.1 - 48.7 fL 05/13/2025 3:10 AM CDT [facility] PLATELETS 604(H) 140 - 350 K/uL 05/13/2025 3:10 AM CDT [facility] MPV 8.9(L) 9.3 - 12.4 fL 05/13/2025 3:10 AM T [facility] NEUTROPHILS 72 % 05/13/2025 3:10 AM [facility] LYMPHOCYTES 16 % 05/13/2025 3:10 AM T [facility] - . [facility] MONOCYTES 12 % 05/13/2025 3:10 AM CDT [facility] - . [facility] EOSINOPHILS 0 % 05/13/2025 3:10 AM CDT [facility] - . [facility] BASOPHILS 0 % 05/13/2025 3:10 AM T [facility] - . [facility] IMMATURE GRANULOCYTES 1 % 05/13/2025 3:10 AM T [facility] Comment:IG (Immature Granulo cyte) count includes Metamyelocytes, Myelocytes, and Promyelocytes NEUTROPHIL ABSOLUTE 8.69(H) 1.90 - 7.00 K/uL 05/13/2025 3:10 AM CDT [employer] [facility] LYMPHOCYTE ABSOLUTE 1.88 0.70 - 4.50 K/uL 05/13/2025 3:10 AM T [facility] - . [facility] MONOCYTE ABSOLUTE 1.39(H) 0.10 - 1.30 K/uL 05/13/2025 3:10 AM T [facility] - . [facility] EOSINOPHIL ABSOLUTE 0.00 0.00 - 0.70 K/uL 05/13/2025 3:10 AM T [facility] - . [facility] BASOPHILS ABSOLUTE 0.02 0.00 - 0.20 K/uL 05/13/2025 3:10 AM T [facility] IMMATURE GRANULOCYTES ABSOLUTE 0.07(H) 0.00 - 0.03 K/uL 05/13/2025 3:10 AM [facility] Blood Venipuncture / Unknown 05/13/2025 2:11 AM CDT 05/13/2025 2:56 AM CDT Timbo Peng MD HEMATOLOGY ORDERABLE S Final Result [facility] CLIA# [id number] [address] [place] [address] * (ABNORMAL) BASIC METABOLIC PANEL (05/13/2025 2:11 AM CDT) Only the most recent of4 resultswithin the time period is included. SODIUM 137 136 - 145 mmol/L 05/13/2025 3:44 AM [facility] POTASSIUM 3.7 3.5 - 5.0 mmol/L 05/13/2025 3:44 AM [facility] Comment:Significant change f rom prior result, correlate clinically and redraw if necessary. CHLORIDE 101 98 - 107 mmol/L 05/13/2025 3:44 AM [facility] CO2 26 22 - 29 mmol/L 05/13/2025 3:[address] [facility] CALCIUM 8.3(L) 8.6 - 10.2 mg/dL 05/13/2025 3:44 AM [facility] BUN 12 8 - 23 mg/dL 05/13/2025 3:[address] [facility] CREATININE 0.74 0.67 - 1.17 mg/dL 05/13/2025 3:[address] [facility] GLUCOSE 151(H) 74 - 99 mg/dL 05/13/2025 3:44 AM [facility] GFR >60 >=60 mL/min/1.7 3 sq meter 05/13/2025 3:44 AM [facility] Comment:eGFR calculated with 2020 CKD-EPI equation. Vegetarian diet, extremely high or low muscle mass, and may affect results. Cystatin C with Glomerular Filtration Rate is a suitable alternative for these patients. ANION GAP 10 8 - 16 mmol/L 05/13/2025 3:44 AM [facility] Blood Venipuncture / Unknown 05/13/2025 2:11 AM CDT 05/13/2025 2:56 AM CDT Gloria Carter LOSS PREVENTION LEAD CHEMISTRY ORDERABLES Stefania justin Result [facility] MARIELENA# [id number] [address] [place] [address] * XR CHEST PA OR AP 1 VW (05/12/2025 10:44 AM CDT) Only the most recent of5 resultswithin the time period is included. Anatomical Region Laterality Modality Chest Computed Radiogr aphy 05/12/2025 10:4 4 AM CDT Impressions 05/12/2025 11:38 AM CDT IMPRESSION: 1. Cardiomegaly. Hypoaerated lungs with scattered subsegmental atelectasis. No radiographically visible pleural effusion or pneumothorax. DICTATION LOCATION: Location 9 [facility] Narrative 05/12/2025 11:38 AM CDT EXAM: Portable [...] the spine and shoulders. Procedure Note Roberto Alcantar, - 05/12/2025 EXAM: Portable chest. DATE: 05/12/2025 [...] pleural effusion or pneumothorax. DICTATION LOCATION: Location [address] [place] [address] Result [facility] Lucia Acosta MD DIAGNOSTIC IMAGING ORDERABLES Final Result * LACTATE DEHYDROGENASE (05/12/2025 3:20 AM CDT) Only the most recent of2 resultswithin the time period is included. Pathologist [facility] LD (LACTATE DEHYDROGENASE) 186 135 - 225 U/L 05/12/2025 9:34 AM CDT [facility] Blood Venipuncture / Unknown 05/12/2025 3:20 AM CDT 05/12/2025 3:33 AM CDT Result [facility] Lucia Acosta MD CHEMISTRY ORDERABLES Final Re sult Performing Organization Address City/[facility] Co de Phone Number [facility]# [id number] 5 [facility] [place] [address] * (ABNORMAL) HEMOGLOBIN A1C (05/12/2025 3:20 AM CDT) [facility] HEMOGLOBIN A1C 6.1(H) <5.7 % 05/12/2025 2:09 PM CDT [facility] EST. AVG GLUCOSE, A1C 128 mg/dL 05/12/2025 2:09 PM CDT [facility] Blood Venipuncture / Unknown 05/12/2025 3:20 AM CDT 05/12/2025 3:33 AM CDT Narrative [facility] - 05/12/2025 2:09 PM CDT HGB A1C INTERPRETATION NORMAL: <5.7% PRE-DIABETES: 5.7 - 6.4% DIABETES: 6.5% OR GREATER Result [facility] Gloria Carter NP CHEMISTRY ORDERABLES Stefania l Result [facility] CLIA# [id number] [address] [place] [id number] * (ABNORMAL) SPUTUM CULTURE WITH GRAM STAIN (05/11/2025 4:19 PM CDT) CULTURE STREPTOCOCCUS PNEUMONIAE(A) BOBBY MCG/ML 05/14/2025 10:[address] [facility] CULTURE 1+ or few Normal upper respiratory judah BOBBY MCG/ML 05/14/2025 10:[address] [facility] GRAM STAIN Non diagnostic pattern 05/14/2025 10:[address] [facility] GRAM STAIN 4+ (Heavy) Polymorphonuclear WBC 05/14/2025 10:[address] [facility] Sputum COUGHED SPUTUM SPECIMEN / Unknown Collection [...] mcg/mL: Susceptible Timbo Peng MD MICROBIOLOGY - [facility] ORDERABLES Final Result [facility] [id number] [address] [place] [address] * ANAEROBIC/AEROBIC CULTURE W GRAM STAIN (05/11/2025 2:03 PM CDT) CULTURE No aerobic or anaerobic growth 05/17/2025 2:01 PM CDT [facility] SERVICES - [facility] GRAM STAIN No organisms observed 05/17/2025 2:01 PM CDT [facility] LABORATORY SERVICES - . [facility] GRAM STAIN 4+ (Heavy) Polymorphonuclear WBC 05/17/2025 2:01 PM CDT [facility] LABORATORY SERVICES - . [facility] Body fluid (Pleura, right) Collection / Unknown 05/11/2025 2:03 PM CDT 05/11/2025 2:48 PM CDT Timbo Peng MD MICROBIOLOGY - GENER AL ORDERABLES Final Result [facility]AT[facility] [id number] [address] [place] [address] * (ABNORMAL) CELL COUNT WITH DIFFERENTIAL, BODY FLUID (05/11/2025 2:03 PM CDT) APPEARANCE, BODY FLUID Cloudy 05/11/2025 3:57 PM CDT [facility] LAB[facility]ATORY SERVICES - . [facility] COLOR, FLD 05/11/2025 3:57 PM CDT [facility]ORY SERVICES - . [facility] Comment:orange TOTAL NUCLEATED CELLS, FLD (AUTO) 9,271(H) 1,395 - 3,734 /ul 05/11/2025 3:57 PM CDT [facility]ATORY SERVICES - . [facility] TOTAL RBC'S, FLD (AUTO) 21,000 No Ref Range Estab /ul 05/11/2025 3:57 PM CDT [facility]ORY SERVICES - . [facility] NEUTROPHILS, FLD 51(H) 0 - 1 % 05/11/2025 3:57 PM CDT [facility]ORATORY SERVICES - [facility] LYMPHOCYTE, FLD 31 18 - 36 % 05/11/2025 3:57 PM CDT [facility] SERVICES - [facility] EOSINOPHIL, FLD 12 No Ref Range Estab % 05/11/2025 3:57 PM CDT [facility] SERVICES - . [facility] MONOCYTE/MACRO PHAGE, FLD 5(L) 64 - 80 % 05/11/2025 3:57 PM CDT [facility] Body fluid (Pleura, right) Collection / Unknown 05/11/2025 2:03 PM CDT 05/11/2025 3:11 PM CDT us Timbo Peng MD BODY FLUIDS AND RICHIE BERRY Final Result [facility] CLIA# [id number] [address] [facility] [place] [address] * TRIGLYCERIDE, BODY FLUID (05/11/2025 2:03 PM CDT) FLUID TYPE, TRIGLYCERIDE PLEURA 05/13/2025 10:15 AM CDT [facility] TRIGLYCERIDE, FLD 40 See Comment mg/dL 05/13/2025 10:15 AM CDT [facility] Comment: ADDITIONAL INFORMATION Pleural fluid triglyceride concentrations > 110 mg/dL are consistent with chylous effusions. Triglyceride concentrations <50 mg/dL are usually not due to chylous effusions. Peritoneal fluid triglyceride concentrations > 187 mg/dL are most consistent with chylous effusion. All other fluids refer to http://www.[employer].com for further interpretive information. This test has been modified from the building maintenance mechanic's instructions. Its performance characteristics were determined by [facility] in a manner consistent with CLIA requirements. This test has not been cleared or approved by the U.S. Food and Drug Administration. Body fluid (Pleura, right) Collection / Unknown 05/11/2025 2:03 PM CDT 05/11/2025 2:48 PM CDT Narrative [facility] - 05/13/2025 10:15 AM CDT Performing Organization Information: Site ID: EO Name: [facility] Address: [address] [place] [phone] Director: Tanvi Ferrer M.D. Ph.D. Timbo Peng MD BODY FLUIDS AND STOO LS Final Result [facility] TAMMI CUMMINS [phone] * PROTEIN, BODY FLUID (05/11/2025 2:03 PM CDT) PROTEIN, FLD 4.5 g/dL 05/11/2025 3:19 PM CDT [facility] Body fluid (Pleura, right) Collection / Unknown 05/11/2025 2:03 PM CDT 05/11/2025 2:48 PM CDT [facility] - 05/11/2025 3:19 PM CDT Interpretive Criteria: Transudate: <2.0 g/dL Exudate: >2.0 g/dL The reference range and other method performance specifications are unavailable for this body fluid. Comparison of this result with the concentration in the blood, serum, or plasma is recommended. Timbo Peng MD BODY FLUIDS AND STOO LS Final Result Performing Organization Address [facility] Co de Phone Number [facility]# [id number] [address] [place] [address] * LACTATE DEHYDROGENASE, BODY FLUID (05/11/2025 2:03 PM CDT) LD, FLD 362 U/L 05/11/2025 3:19 PM CDT [facility] Body fluid (Pleura, right) Collection / Unknown 05/11/2025 2:03 PM CDT 05/11/2025 2:48 PM CDT [facility] - 05/11/2025 3:19 PM CDT Interpretive Criteria: [...] STOO LS Final Result Performing Organization Address [facility] Co de Phone Number [facility] [id number] [address] [place] [address] * GLUCOSE, BODY FLUID (05/11/2025 2:03 PM CDT) GLUCOSE, FLD 105 mg/dL 05/11/2025 3:19 PM CDT [facility] Body fluid (Pleura, right) Collection / Unknown 05/11/2025 2:03 PM CDT 05/11/2025 2:48 PM CDT [facility] - 05/11/2025 3:19 PM [...] STOO LS Final Result Performing Organization Address [facility] de Phone Number [facility] CLIA# [id number] [address] [place] [address] * AMYLASE, BODY FLUID (05/11/2025 2:03 PM CDT) AMYLASE, FLD 64 U/L 05/11/2025 3:19 PM CDT [facility] Comment: Interpretive Criteria: Amylase Fluid Normal [...] STOO LS Final Result Performing Organization Address [facility]/ZIP Co de Phone Number [facility] CLIA# [id number] [address] [place] [address] * (ABNORMAL) PH, BODY FLUID (05/11/2025 2:03 PM CDT) PH, FLD 7.37(L) 7.40 - 7.64 05/11/2025 2:59 PM CDT [facility] Body fluid (Pleura, right) Collection / Unknown 05/11/2025 2:03 PM CDT 05/11/2025 2:48 PM CDT Narrative [facility] Q-Bot [facility] - 05/11/2025 2:59 PM CDT Reference Range: Normal Serous Fluids (pleural,pericardial) = 7.40 - 7.64 Pleural Transudates: 7.40 - 7.50 Exudates: 7.35 - 7.45 No Reference range established for other fluid types. Pleural fluid pH < 7.30 can be seen with empyema, malignancy, rheumatoid pleurisy, SLE, tuberculosis, and esophageal rupture. A pH < 6.00 is suggestive of esophageal rupture. Timbo Peng MD BODY FLUIDS AND STOO LS Final Result Performing Organization Address City/[facility]/ZIP Co de Phone Number [facility] [facility] CLIA# [id number] [address] [place] [address] * CYTOLOGY, NON GYNE (05/11/2025 2:03 PM CDT) CASE REPORT Medical Cytology Report Case: [id number] Authorizing Provider: Timbo Peng, Collected: 05/11/2025 02:03 PM Ordering Location: [facility] ST Received: 05/12/2025 07:35 AM Surgical Progressive Care Pathologist: Anais Onofre MD Specimen: Pleural fluid, right side 9:35 AM T [facility] FINAL DIAGNOSIS Right pleural fluid: - No atypical cells identified. See microscopic description. 9:35 AM T [facility] at 0935 CDT GROSS DESCRIPTION Received is a container labeled Niyah Mercedes and right side pleural fluid. It contains 1000 mL of slightly cloudy yellow fluid. One ThinPrep and 1 cell block made. One Deng-stained cytospin slide received from Hematology. 9:35 AM T [facility] MICROSCOPIC DESCRIPTION The slides are labeled [id number] and Niyah Adams. The ThinPrep and cell block slides show predominantly many small lymphocytes and some eosinophils and neutrophils. Immunostains for Von-EP4 and TTF-1 are negative, arguing against a carcinoma. Immunostains for CD3 and CD20 show a predominance of T lymphocytes with scant B lymphocytes, supporting the reactive nature. 9:[address] [facility] CLINICAL INFORMATION No Dx found. 9:[address] [facility] COMMENT Special stain, immunohistochemical, and/or in situ hybridization results are interpreted with controls that demonstrate appropriate staining reactions. Note on use of immunohistochemistry reagents and in situ hybridization probes: These tests were developed and their performance characteristics determined by [facility], Department of Laboratory Medicine. It has not [...] part or completely in the following laboratories: [facility], CLIA #[id number] [address] [place] [address] [facility], CLIA #[id number] [address] [place] [address] [place] [address]. 9:35 AM CDT [facility] Body fluid PLEURAL FLUID SPECIMEN / Unknown Collection / Unknown 05/11/2025 2:03 PM CDT 05/12/2025 7:35 AM CDT Timbo Peng MD PATHOLOGY/CYTOLOGY O RDERABLES Final Result Performing Organization Address City/[facility]/ZIP Co de Phone Number [facility]# [id number] [address] [place] [address] * BLOOD CULTURE (05/11/2025 12:23 PM CDT) Only the most recent of2 resultswithin the time period is included. BLOOD CULTURE No growth 05/16/2025 2:10 PM CDT [facility] Blood (Peripheral) Venipuncture / Unknown 05/11/2025 12:23 PM CDT 05/11/2025 1:07 PM CDT Timbo Peng MD MICROBIOLOGY - GENER AL ORDERABLES Final Result Performing Organization Address City/[facility] Co de Phone Number [facility] [id number] [facility] [place] [address] * (ABNORMAL) PROTIME-INR (05/11/2025 12:23 PM CDT) Only the most recent of2 resultswithin the time period is included. PROTIME 15.7(H) 12.7 - 15.1 Seconds 05/11/2025 1:25 PM CDT [facility] INR 1.2(H) 0.9 - 1.1 05/11/2025 1:25 PM CDT [facility] Blood Venipuncture / Unknown 05/11/2025 12:23 PM CDT 05/11/2025 1:09 PM CDT [facility] - 05/11/2025 1:25 PM CDT INR Therapeutic Range: Adult: 2.0 - 3.0 for pulmonary embolism or prophylaxis against venous thrombosis or systemic embolization. 2.0 - 3.0 for patients with tissue heart valves. 2.5 - 3.5 for patients with mechanical heart valves or post [place]. Pediatric (12 years and under): 1.5 - 3.0 Although the target range in children is not well established, INR values of 1.5 - 3.0 are recommended for most patients. Higher values have been used in children with prosthetic cardiac valves and hereditary clotting disorders. [place] (<3 days) therapeutic ranges have not been established. us Timbo Peng MD HEMATOLOGY ORDERABLE S Final Result [facility] CLIA# [id number] [address] [place] [address] * (ABNORMAL) PROCALCITONIN (05/11/2025 12:16 PM CDT) PROCALCITONIN 0.29(H) <=0.25 ng/mL 05/11/2025 1:51 PM CDT [facility] Blood Venipuncture / Unknown 05/11/2025 12:16 PM CDT 05/11/2025 1:09 PM CDT [facility] - 05/11/2025 1:51 PM CDT The utility [...] CHEMISTRY ORDERABLES Final Result Performing Organization Address [facility] Co de Phone Number [facility] CLIA# [id number] [address] [place] [address] * (ABNORMAL) C-REACTIVE PROTEIN (05/11/2025 12:16 PM CDT) CRP 129.0(H) <5.0 mg/L 05/11/2025 1:45 PM CDT [facility] Blood Venipuncture / Unknown 05/11/2025 12:16 PM CDT 05/11/2025 1:09 PM CDT Timbo Peng MD CHEMISTRY ORDERABLES Final Result Performing Organization Address [facility] de Phone Number [facility]# [id number] [address] [place] [address] * TRIGLYCERIDE (05/11/2025 12:16 PM CDT) TRIGLYCERIDE 144 <150 mg/dL 05/11/2025 1:45 PM CDT [facility] Blood Venipuncture / Unknown 05/11/2025 12:16 PM CDT 05/11/2025 1:09 PM CDT Narrative [facility] - 05/11/2025 1:45 PM CDT TRIGLYCERIDES mg/dL Normal < 150 Borderline High 150 - 199 High 200 - 499 Very High >= 500 Based on AHA/NCEP Guidelines. Timbo Peng MD CHEMISTRY ORDERABLES Final Result Performing Organization Address [facility]/ZIP Co de Phone Number [facility]# [id number] [address] [place] [address] * (ABNORMAL) PROTEIN TOTAL (05/11/2025 12:16 PM CDT) [facility] TOTAL PROTEIN 6.3(L) 6.7 - 8.6 g/dL 05/11/2025 1:45 PM CDT [facility] Blood Venipuncture / Unknown 05/11/2025 12:16 PM CDT 05/11/2025 1:09 PM CDT Timbo Peng MD CHEMISTRY ORDERABLES Final Result Performing Organization Address [facility] Co de Phone Number [facility]# [id number] [address] [place] [address] * RESPIRATORY PATHOGEN PCR PANEL (05/11/2025 10:28 AM CDT) [facility] Respiratory Pathogen PCR Panel NOT DETECTED No respiratory pathogen nucleic acids detected. 05/11/2025 11:48 AM CDT [facility] COVID-19 PCR NOT DETECTED Not Detected 05/11/2025 11:48 AM CDT [facility] Upper Respiratory ENTIRE NASOPHARYNX / Unknown Collection / Unknown 05/11/2025 10:28 AM CDT 05/11/2025 10:46 AM CDT Narrative [facility] - 05/11/2025 11:48 AM CDT The Film [...] pertussis Bordetella parapertussis Chlamydophila pneumoniae Mycoplasma pneumoniae Timbo Peng MD MICROBIOLOGY - GENER AL ORDERABLES Final Result Performing Organization Address City/State/[facility] Co de Phone Number [facility]# [id number] [address] [facility] [address] [place] [address] * CT CHEST WO CONTRAST (05/10/2025 7:52 [...] exclude acute cholecystitis. DICTATION LOCATION: Location 4. Dany Henson MD CT ORDERABLES Final Resul t * BRAIN NATRIURETIC PEPTIDE, BNP OR PROBNP (05/10/2025 6:33 PM CDT) PROBNP, N TERMINAL <36 <124 pg/mL 2024 10:13 PM CDT [facility] SERVICES [facility] Comment: INTERPRETIVE COMMENT based on diagnosis: Diagnostic [...] 6:33 PM CDT 05/10/2025 6:43 PM CDT us Jose Luis Rduolph MD CHEMISTRY ORDERABLES Final Resul t [facility] SERVICES - [facility]# [id number] [address] [place] [address] * (ABNORMAL) COMPREHENSIVE METABOLIC PANEL (05/10/2025 6:33 PM CDT) SODIUM 134(L) 136 - 145 mmol/L 05/10/2025 7:21 PM CDT [facility] SERVICES - [facility] POTASSIUM 4.9 3.5 - 5.0 mmol/L 05/10/2025 7:21 PM T [facility] SERVICES - [facility] CHLORIDE 95(L) 98 - 107 mmol/L 05/10/2025 7:21 PM CDT [facility] - [facility] CO2 28 22 - 29 mmol/L 05/10/2025 7:21 PM CDT [facility] - [facility] CALCIUM 10.2 8.6 - 10.2 mg/dL 05/10/2025 7:21 PM CDT [facility] - [facility] BUN 9 8 - 23 mg/dL 05/10/2025 7:21 PM T [facility] - [facility] CREATININE 0.72 0.67 - 1.17 mg/dL 05/10/2025 7:21 PM T [facility] GLUCOSE 104(H) 74 - 99 mg/dL 05/10/2025 7:21 PM T [facility] - [facility] TOTAL PROTEIN 7.8 6.7 - 8.6 g/dL 05/10/2025 7:21 PM T [facility] - [facility] ALBUMIN 3.4(L) 3.5 - 5.2 g/dL 05/10/2025 7:21 PM CDT [facility] - [facility] BILIRUBIN TOTAL 0.4 0.0 - 1.1 mg/dL 05/10/2025 7:21 PM CDT [facility] - [facility] ALKALINE PHOSPHATASE 102 40 - 129 U/L 05/10/2025 7:21 PM CDT [facility] - [facility] AST 31 <41 U/L 05/10/2025 7:21 PM CDT [facility] Comment:Hemolysis present. R esult may be falsely elevated. ALT 21 <42 U/L 05/10/2025 7:21 PM CDT [facility] GFR >60 >=60 mL/min/1.7 3 sq meter 05/10/2025 7:21 PM CDT [facility] Comment:eGFR calculated with 2020 CKD-EPI equation. Vegetarian diet, extremely high or low muscle mass, and may affect results. Cystatin C with Glomerular Filtration Rate is a suitable alternative for these patients. ANION GAP 11 8 - 16 mmol/L 05/10/2025 7:21 PM T [facility] Blood Venipuncture / Unknown 05/10/2025 6:33 PM CDT 05/10/2025 6:43 PM CDT Narrative [facility] - 05/10/2025 7:21 PM CDT Samples containing indocyanine green cause interferences on Total and/or Direct Bilirubin and must not be measured. us Dany Henson MD CHEMISTRY ORDERABLES Final Result [facility]# [id number] [address] [facility] [address] * EKG 12-LEAD (05/10/2025 5:19 PM CDT) Only the most recent of2 resultswithin the time period is included. 05/10/2025 5:19 PM CDT Narrative INTERFACE SYSTEM - 05/11/2025 8:[address] 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 [address] [facility], [place] [address] Test Date: 2025-05-10 Pat Name: NIYAH ADAMS Department: 38 Room: 4064 Gender: Male Belting And Webbing Inspector: [email or web address] : 1960 Requested By: Order Number: [id number] Reading MD: Frederick Morales Measurements Intervals [place] Rate: 81 P: 58 AR: 173 QRS: 87 QRSD: 86 T: 27 QT: 343 QTc: 398 Interpretive Statements Sinus rhythm Ventricular premature complex Borderline right axis deviation Electronically Signed On 05-11-2025 8:06:46 CDT by Frederick Morales us Protocol [facility] Emergency MD ECG ORDERABLES Stefania l Result INTERFACE SYSTEM Refer to clinic/hospital department * IR INJECTION (04/19/2025 12:15 PM CDT) Narrative 04/20/2025 8:31 AM CDT Order information only. Exam was auto-finalized. us Josh Huizar MD IR ORDERABLES Final Result * AR ANES INSERT CATH, ART, PERCUT, SHORTTERM (04/19/2025 10:30 AM CDT) Narrative Josh Huizar MD - 04/19/2025 10:30 AM CDT Josh Hiuzar MD 04/19/2025 10:30 AM Arterial Line Insertion [...] secured, dressing applied and antibiotic disc placed us Josh Huizar MD PROCEDURE/MINOR SURGICAL ORD ERABLES Final Result * AR ANES INSERT ENDOTRACHEAL AIRWAY (04/19/2025 10:08 AM CDT) Narrative Josh Huizar MD - 04/19/2025 10:08 AM CDT Josh Huizar MD 04/19/2025 10:29 AM Airway Date/Time: 04/19/2025 10:08 AM Location: OR Plan: routine intubation Patient Identity Confirmed by: Verbally with patient and armband Airway: not difficult Staffing Performed: Anesthesiologist (/DO) Authorized by: Josh Huizar MD Performed by: [...] Additional Procedure Information: atraumatic and dentition unchanged us Josh Huizar MD PROCEDURE/MINOR SURGICAL ORD ERABLES Final Result * AR ANESTHESIA BLOCK PB PLACEHOLDER CHARGE (04/19/2025 9:57 AM CDT) Josh Hurley MD - 04/19/2025 9:57 AM CDT Josh [...] Erector Spinae Laterality: Right Injection technique: Single-shot [place] Identification: ultrasound guided Local injected: Bupivacaine 0.25% Total Volume Injected (mL): 40 Needle Needle type: Short-bevel Needle gauge: 21 G Needle length: 6 cm Needle localization: Ultrasound Guidance us Josh Huizar MD PROCEDURE/MINOR SURGICAL ORD ERABLES Final Result * VERIFICATION BLOOD GROUP (04/19/2025 8:15 AM CDT) ABO GROUP O 04/19/2025 10:03 AM CDT [facility] SERVICES -- [facility] RH (D) TYPE Negative 04/19/2025 10:03 AM CDT [facility] SERVICES -- [facility] Blood Venipuncture / Unknown 04/19/2025 8:15 AM CDT 04/19/2025 8:27 AM CDT us Domingo Stewart MD BLOOD BANK ORDERABLES Final Result [facility] [id number] [address] [facility] [place] [address] * AR ANES VNPNXR 3 YEARS/> PHYS/QHP SKILL, PERIPHERAL [...] - 36.4 seconds 04/06/2025 4:25 PM CDT [facility] Comment: PTT Therapeutic Range: Heparin Level PTT (seconds) <0.10 units/mL <55.8 0.10 - 0.30 units/mL 55.8 - 74.3 0.30 - 0.70 units/mL* 74.3 - 111.2* 0.70 - 1.00 units/mL 111.2 - 138.9 *corresponds to therapeutic range for unfractionated heparin Blood Venipuncture / Unknown 04/06/2025 3:37 PM CDT 04/06/2025 4:05 PM CDT Janet Gardner NP HEMATOLOGY ORDERABLES Final Result [facility]# [id number] [address] [place] [address] * TYPE AND SCREEN (04/06/2025 3:37 PM CDT) ABO GROUP O 04/06/2025 5:31 PM CDT [facility] RH (D) TYPE Negative 04/06/2025 5:31 PM CDT [facility] ANTIBODY SCREEN Negative 04/06/2025 5:31 PM CDT [facility] -- [facility] Blood Venipuncture / Unknown 04/06/2025 3:37 PM CDT 04/06/2025 4:05 PM CDT Wilian Zambrano MD BLOOD BANK ORDERABLES Edited R esult - Final [facility] -- [facility] CLIA# [id number] [address] [place] [address] from Last 3 Months Insurance [facility] [id number] [id number] [facility] [id number] [id number] RX [employer] RX Member Subscriber Plan / Payer (Ef fective 2021-Present) Name:Niyah Adams Relation to Subscriber:Self Name:Niyah Adams Payer ID:Not on file Group ID:[id number] Type:RX Medicare Part D Address: [address] RX [place] PLANS (INTERNAL) [facility] Internal Plans Advance Directives For more information, please contact: [phone] * Full Code (Latest Code Status on File) Date Activated Date Inactivated Comments 05/11/2025 7:59 AM 05/13/2025 6:43 PM * Full Code Date Activated Date Inactivated Comments 04/19/2025 1:49 PM 04/20/2025 6:19 PM * Full Code Date Activated Date Inactivated Comments 04/19/2025 8:12 AM 04/19/2025 1:49 PM
--- OUTSIDE RECORDS SUMMARY | 2025-06-18 08:55 | XMS_ITS | Encounter Summary ---
Author Organization [facility] Address [facility] [place] [address] Care Team Providers Care Blacksmith Hammer Operator Name Role Phone Unknown, Provider Primary Care Provider Unavaila ble Encounter Details Date Type Department Care Team (Late st Contact Info) Description 08/03/2024 Lab Requisition [facility] - DermPath Lab [address] [place] [address] Ki Dover MD [facility] DERMATOLOGY [address] [place] [phone] Neoplasm of uncertain behavior of skin Social History Tobacco Use Types Packs/Day Years Used Date Smoking Tobacco: Never Assessed Sex and Gender Information Value Date Recorded Sex Assigned at Not on file 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 Gender Identity Not on file Sexual Orientation Not on file documented as of this encounter Plan of Treatment Not on file documented as of this encounter Procedures Procedure Name Priority Date/Time Associated Diagnosis Comments DERMATOPATHOLOGY Routine 08/03/2024 3:33 AM CDT Neoplasm of uncertain behavior of skin documented in this encounter Results * DERMATOPATHOLOGY (08/03/2024 3:33 AM CDT) Case Report Dermatopathology Report Case: [id number] Authorizing Provider: Ki Dover MD Collected: 08/03/2024 03:33 AM Ordering Location: [facility] - Received: 08/04/2024 11:08 [...] characteristic determined by the Dermatopathology Laboratory at [facility], directed by Dr. Philippe Klein. These tests need not be, and therefore are not, approved by the [place] Food and Drug Administration. The tests are used for clinical purposes. Billing Codes Specimen Charges Stain Charges 03714 1 11:27 AM CDT DERMATOPATHOLOGY LABORATORY Embedded Images 11:27 AM CDT DERMATOPATHOLOGY LABORATORY Pathology/Cytolo gy TISSUE SPECIMEN FROM SKIN / Unknown 08/03/2024 3:33 AM CDT 08/04/2024 11:08 AM CDT us Ki Dover MD LAB - PATHOLOGY/CYTOLOGY ORDE GEORGE Final Result DERMATOPATHOLOGY LABORATORY [facility] - Department of Dermatology [facility] [address] [facility], [address] [phone] documented in this encounter Visit Diagnoses Diagnosis Neoplasm of uncertain behavior of skin documented in this encounter Care Teams Blacksmith Hammer Operator Relationship Specialty Start Date End Date Unknown, Provider PCP - General 10/26/16 documented as of this encounter
--- OUTSIDE RECORDS SUMMARY | 2025-06-18 08:59 | XMS_ITS | Clinical Summary ---
Author Organization [facility] Address [address] [place] [address] Care Team Providers Care Garment Presser Name Role Phone Unknown, Provider Primary Care Provider Unavaila ble Source Comments [facility],non-owned Affiliates and Associated Physician Practices is amultiple site organization consisting of ambulatory clinics and hospital sitesin [place], [place], [place] and [place]. This disclosure is being madepursuant to the Care Everywhere program and may not contain all information available regarding this patient. 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
--- OUTSIDE RECORDS SUMMARY | 2025-06-18 09:00 | XMS_ITS | Clinical Summary ---
Author Organization [facility] Care Team Providers Care Hvac Specialist Name Role Phone Unavailable Primary Care Provider [...]
== END 2025-06-18 08:50 | disposition home or self-care (01) ==
LOC: CHSIMG 08:50
PROVIDERS: PCP Nurse Practitioner Family
DX: J98.4 Other disorders of lung (principal); J90 Pleural effusion, not elsewhere classified; J15.4 Pneumonia due to other streptococci
CPT/HCPCS: 71260; Q9967

== ENCOUNTER 2025-08-19 09:51 | Emergency (ER) | payer MEDICARE, SELFPAY ==
[2025-08-19 09:56] VITALS: BP 140/98; PULSE 75; RESP 12; TEMP 36.8; O2SAT 99
--- NOTE | 2025-08-19 09:58 | ED.ALLEREA ---
HPI - Allergic Reaction General Chief complaint: Allergic Reaction Stated complaint: allergic reaction tyenne-RA medication-itching Source: patient and family Mode of arrival: ambulatory Limitations: no limitations History of Present Illness HPI narrative: This is a 65-year-old male who presents with his with some itching that started a few days ago after he has started on new rheumatoid arthritis medications. Patient has no wheezing no shortness of breath no fever chills no nausea vomiting no abdominal pain no throat swelling no tongue swelling. Has itching diffusely with no visual rash with no shortness of breath no chest pain no chest tightness. complaint: allergic reaction Onset (ago): day(s) Exposure: medication Symptoms: itching Severity: mild Treatment prior to arrival: benadryl Related Data Home Medications ?Medication ?Instructions ?Recorded ?Confirmed ?Last Taken ?Type idkvzggx-ndr-gwnew acid 0.4 1 tablet PO DAILY 03/20/22 06/23/25 Unknown History mg-lycopene 300 mcg-lutein 250 mcg tablet (Sentry Senior) gabapentin 300 mg capsule 300 mg PO TID 08/19/25 Unknown History rivaroxaban 10 mg tablet (Xarelto) 10 mg PO Q24H 08/19/25 Unknown History tocilizumab-aazg 162 mg/0.9 mL 162 mg subcut WEEKLY 08/19/25 Unknown History subcutaneous pen injector (Tyenne Autoinjector) Allergies Allergy/AdvReac Type Severity Reaction Status Date / Time methotrexate Allergy Unknown Hives / Verified 08/19/25 09:56 Red Face Review of Systems Review of Systems: All systems reviewed & are unremarkable except as noted in HPI and below PMFSH Past Medical History Medical History Finger tendinitis Personal history of tobacco use Nondependent alcohol abuse, in remission Benign paroxysmal positional vertigo Salivary gland tumor Medical marijuana use CLAUDIO (obstructive sleep apnea) Rheumatoid arthritis Peripheral neuropathy Morbid obesity Fibromyalgia Asthma COPD (chronic obstructive pulmonary disease) HTN (hypertension) Surgical History Surgical History S/P thoracotomy 04/19/2025 - Dr. Spain - R thoracotomy with repair of chest wall History of incision and drainage (~12/2019) perirectal abscess History of foot surgery right foot toes cut off in Jr High History of colonoscopy (~10/2014) History of appendectomy Social History Social History Smoking status: Current every day smoker Alcohol intake: never Substance use: never Living arrangements: with family Gender identity (if verbalized by the patient): Male Exam Const: General: healthy appearing and no acute distress Nutritional Appearance: well nourished and obese Orientation/consciousness: patient oriented x3 Limitations: no limitations HENMT: Head: normal to inspection Neck: Neck: normal visual inspection, no lymphadenopathy and no meningeal signs Chest: Chest palpation & inspection: normal inspection of the chest Resp: Effort & Inspection: normal respiratory effort Auscultation: clear to auscultation bilaterally Cardio: Rate: regular rate Rhythm: regular rhythm GI: GI Palp: Yes Soft to palpation Auscultation: normal bowel sounds Skin: General skin exam: normal color Rashes: no rashes Neuro: General: patient oriented x3 and moves all extremities Extrem: General: normal to inspection, no clubbing, cyanosis or edema and no pedal edema Course Course Emergency Course: Medical decision making narrative: The patient was evaluated by myself in the emergency department. History obtained from patient who is an independent historian and physical exam performed and witnessed by the nurse. External medical records were reviewed at this time. Patient received a dose of 80mg IM Depo-Medrol. Repeat assessment: Patient doing well on repeat exam with no acute distress Symptoms have improved since arrival to the emergency department. Repeat vitals are stable Patient agrees with discussion and after shared medical decision-making and agrees with discharge. All questions answered to the patient's satisfaction. Advised patient to follow-up with his primary within next 3 to 5 days for further evaluation and treatment. Patient provided with strict return precautions and return to ED if any worsening symptoms. Critical Care Time Critical Care Time Critical Care Time: No Discharge Plan Discharge Clinical Impression: Allergic reaction caused by a drug Qualifiers: Encounter type: initial encounter Qualified Code(s): T78.40XA - Allergy, unspecified, initial encounter Patient Disposition: Home Condition: Stable Instructions: Antibiotic Form, General Allergic Reaction (ED) Additional Instructions: Advised to discontinue medication that is causing itching and follow with rheumatology/primary care within the next 3 to 5 days further evaluation and treatment. Advised patient to take his prednisone 20mg daily x5 days and Benadryl as needed. Patient Language: Italian Prescriptions: New hydroxyzine pamoate 25 mg capsule 25 mg PO TID PRN (Reason: itching) Qty: 20 0RF No Action gabapentin 300 mg capsule 300 mg PO TID Xarelto 10 mg tablet 10 mg PO Q24H Tyenne Autoinjector 162 mg/0.9 mL pen injector 162 mg SUBCUT WEEKLY albuterol sulfate 90 mcg/actuation HFA aerosol inhaler 2 puff INHALATION Q4H MDD 12 puffs PRN (Reason: shortness of breath or wheezing) Qty: 8.5 0RF Sentry Senior 0.4 mg-300 mcg- 250 mcg tablet 1 tablet PO DAILY hydrocodone-acetaminophen 10-325 mg tablet 1 tablet PO TID PRN (Reason: pain (scale score 7-10)) Qty: 10 0RF lamotrigine 100 mg tablet See Rx Instructions .ROUTE .COMPLEX Qty: 90 1RF Dose Instruction: TAKE 1 TABLET BY MOUTH EVERYDAY AT BEDTIME Rx Instructions: TAKE 1 TABLET BY MOUTH EVERYDAY AT BEDTIME amitriptyline 50 mg tablet See Rx Instructions .ROUTE .COMPLEX Qty: 60 2RF Dose Instruction: TAKE 2 TABLET BY MOUTH DAILY Rx Instructions: TAKE 2 TABLET BY MOUTH DAILY lisinopril 10 mg tablet See Rx Instructions .ROUTE .COMPLEX Qty: 90 2RF Dose Instruction: TAKE 1 TABLET BY MOUTH EVERY DAY Rx Instructions: TAKE 1 TABLET BY MOUTH EVERY DAY cyclobenzaprine 10 mg tablet See Rx Instructions .ROUTE .COMPLEX Qty: 90 1RF Dose Instruction: TAKE 1 TABLET BY MOUTH THREE TIMES A DAY NEEDED FOR PAIN Rx Instructions: TAKE 1 TABLET BY MOUTH THREE TIMES A DAY NEEDED FOR PAIN Follow-up/Referrals: Katherine Ritchie APRN [Primary Care Provider, Family Practice] Time of Disposition: 10:04
[2025-08-19] MEDS: methylPREDNISolone ACETATE 40 MG/ML VIAL 80 MG IM (10:14)
--- OUTSIDE RECORDS SUMMARY | 2025-08-19 10:42 | XMS_ITS | Patient Health Record ---
Author Organization [facility] Address [address] [place] [address] Care Team Providers Care Transportation Mechanic Name Role Phone Elvira Tucker Primary Care Provider [phone] Reason For Referral No Information Medications Medication SIG (Take, Route, Frequency, Duration) Notes Start Date End Date Status LORazepam 1 MG 1 daily Orally Once a day; Duration: 30 days 05/29/2016 Active LaMICtal 100 MG 1 tablet Orally once daily; Duration: 30 days 10/03/2016 Active LaMICtal ODT 100 MG one table Orally Onc e a day; Duration: 30 days 05/29/2016 Active HYDROcodone-Acetaminophen 10-325 MG 1 tablet as needed Orally every 6 hrs Active Gabapentin 100 MG 1 capsule Orally Thr ee times a day Active LORazepam 1 MG 1/2 - 1 tablet Orall y Once a day prn; Duration: 30 days 10/03/2016 Active Problems Problem Type SNOMED Code ICD Code Onset Dates Problem Status W/U Status Risk Notes Problem Mood disorder (17701464) Mood disorder (F39) Active confirmed Plan Of Treatment No Information Insurance Providers Payer Name Payer Address Payer Phone Subscriber Number Group Number Insured Name Patient Relationship to Insured Coverage Start Date Coverage End Date [facility] [address] [place] [address] [phone] [id number] Sarabjit Long Self - patient is the insured 6 Medical (General) History Medical History History ICD Code Parkison's Disease
--- OUTSIDE RECORDS SUMMARY | 2025-08-19 10:42 | XMS_ITS | Clinical Summary ---
Author Organization [facility] Address [address] [place] [address] Care Team Providers Care Bath Design Sales Consultant Name Role Phone Unavailable Primary Care Provider [...] Temperature. 04/20/20 Active naloxone (NARCAN) 4 mg/spray [place], Non-Aerosol EMERGENCY USE ONLY: Administer 1 spray [...] Each 5 3:23 PM CDT 05/14/20 Active ondansetron (ZOFRAN) 4 mg Tablet Take 1 Tablet (4 mg) by mouth every 6 hours as needed for Nausea/Vomiting. 30 Tablet 5 3:23 PM CDT 05/13/20 Active famotidine (PEPCID) 20 mg tablet Take 1 Tablet (20 mg) by mouth 2 times daily. 60 Tablet 5 3:23 PM CDT 05/13/20 25 Active amoxicillin-clavu lanate (AUGMENTIN) 875-125 mg tablet Take 1 Tablet by mouth every 12 hours. 10 Tablet 05/14/20 Active Active Problems Problem Noted Date Diagnosed Date Chronic obstructive lung disease 05/12/2025 Tobacco abuse disorder 05/12/2025 Pleural effusion, right 05/12/2025 History of pulmonary embolism 06/07/2023 RA (rheumatoid arthritis) 06/07/2023 Lumbar radiculopathy 04/04/2023 Overview (05/12/2025): Added automatically from request for surgery [id number] Bipolar disorder, in partial remission, most recent [...] Encounters Date Type Department Care Team Description 08/11/2025 External Device Data STL ABSTRACTION Provider, Abstract 08/11/2025 External Device Data STL ABSTRACTION Provider, Abstract 08/10/2025 External Device Data STL ABSTRACTION Provider, Abstract 07/07/2025 External Device Data STL ABSTRACTION Provider, Abstract 07/06/2025 External Device Data STL ABSTRACTION Provider, Abstract 07/02/2025 Telephone [facility] Cardiovas and Thor Surg at [address] [address] Wilian Zambrano MD Imaging Results 06/15/2025 External Device Data STL ABSTRACTION Provider, Abstract 06/11/2025 Telephone [facility] Cardiovas and Thor Surg at [address] [address] Janet Gardner NP Follow Up 06/08/2025 [...] 5 years 2004 Lung Cancer Screening 2009 RSV VACCINE (60+ or ) (1 - Risk 50-74 years 1-dose series) 2009 ZOSTER VACCINE (2 of 3) 11/15/2014 09/20/2014 COLORECTAL SCREENING 04/10/2022 04/10/2012 Colorectal Cancer Screening 04/10/2022 PNEUMOCOCCAL VACCINE 50+ YEA RS (3 of 3 - PCV20 or PCV21) 10/12/2024 10/12/2019, 10/26/2016, 10/06/2014 INFLUENZA VACCINE (#1) 2025 , 10/10/2019, 10/26/2016, Additional history exists Pre-Diabetes and Diabetes Screening 05/12/2028 05/12/2025 DTAP/TDAP/TD VACCINES (2 - T d or Tdap) 07/31/2031 07/31/2021, 10/07/2017 Abdominal Aortic Aneurysm (A AA) Screening Completed 08/09/2020, 07/04/2020 Medical Devices Implanted Type Area Operator Receptionist Device Identifier Shelf Expiration Date Model / Serial / Lot Mesh 1s [id number] Vent Hernia [id number] - [id number] Implanted:Qty : 1 on 04/19/2025 by Wilian Zambrano MD at [facility] Biological Right: Chest HUMERA BIO [id number] 05/20/2026 [id number] 20P / / [id number] Procedures Procedure Name Priority Date/Time Associated Diagnosis Comments HEMOGLOBIN A1C Routine 05/12/2025 3:20 AM CDT from Last 3 Months or Most Recently Relevant to Health Maintenance Results * (ABNORMAL) HEMOGLOBIN A1C (05/12/2025 3:20 AM CDT) HEMOGLOBIN A1C 6.1(H) <5.7 % 05/12/2025 2:09 PM CDT [facility] EST. AVG GLUCOSE, A1C 128 mg/dL 05/12/2025 2:09 PM CDT [facility] Blood Venipuncture / Unknown 05/12/2025 3:20 AM CDT 05/12/2025 3:33 AM CDT Narrative [facility] - 05/12/2025 2:09 PM CDT HGB A1C INTERPRETATION NORMAL: <5.7% PRE-DIABETES: 5.7 - 6.4% DIABETES: 6.5% OR GREATER Gloria Raquel Carter LINE ASSEMBLER CHEMISTRY ORDERABLES Stefania l Result [facility] CLIA# [id number] [address] [place] [address] from Last 3 Months or Most Recently Relevant to Health Maintenance Insurance [place] [id number] [facility] [id number] RX OPTUM RX Member Subscriber Plan / Payer (Ef fective 2021-Present) Name:Sarabjit Long Relation to Subscriber:Self Name:Sarabjit Long Payer ID:Not on file Group ID:[id number] Type:RX Medicare Part D Address: SONIYA [place]ANGEL[address]A RX LICONA PLANS (INTERNAL) [facility] Internal Plans Advance Directives For more information, please contact: [phone] * Full Code (Latest Code Status on File) Date Activated Date Inactivated Comments 05/11/2025 7:59 AM 05/13/2025 6:43 PM * Full Code Date Activated Date Inactivated Comments 04/19/2025 1:49 PM 04/20/2025 6:19 PM * Full Code Date Activated Date Inactivated Comments 04/19/2025 8:12 AM 04/19/2025 1:49 PM
--- OUTSIDE RECORDS SUMMARY | 2025-08-19 10:43 | XMS_ITS | Clinical Summary ---
Author Organization [facility] Address [address] [place] [address] Care Team Providers Care Silica Filter Operator Name Role Phone Unknown, Provider Primary Care Provider Unavaila ble Source Comments [facility],non-owned Affiliates and Associated Physician Practices is amultiple site organization consisting of ambulatory clinics and hospital sitesin [place], [place], [place] and [place]. This disclosure is being madepursuant to the Care Everywhere program and may not contain all information available regarding this patient. 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
--- OUTSIDE RECORDS SUMMARY | 2025-08-19 10:43 | XMS_ITS | Patient Health Record ---
Author Organization [facility] [employer] Address [address] [place] [address] Care Team Providers Care Supervisor Mold Construction Name Role Phone Rasheed Love Unavailable [phone] Reason For Referral No Information Medications Medication SIG (Take, Route, Frequency, Duration) Notes Start Date End Date Status Doxycycline Hyclate 100 MG Capsule Oral Active predniSONE 10 MG Tablet Oral Active DULoxetine HCl 30 MG Capsule Delayed Release Particles Oral Ac tive Gabapentin 600 MG Tablet Oral Active diazePAM 10 MG Tablet Oral Active lamoTRIgine 25 MG Tablet Oral Active Furosemide 20 MG Tablet Oral Active Amoxicillin 500 MG Capsule Oral Active oxyCODONE-Acetaminophen 10-3 25 MG Tablet Oral Active Escitalopram Oxalate 20 MG Tablet Oral Active buPROPion HCl ER (XL) 300 MG Tablet Extended Release 24 Hour Oral Active Amitriptyline HCl 10 MG Tablet Oral Active methylPREDNISolone 4 MG Tabl et Therapy Pack Oral Active lamoTRIgine 100 MG Tablet Oral Active HYDROcodone-Acetaminophen 10-325 MG Tablet Oral Active busPIRone HCl 15 MG Tablet Oral Active LORazepam 1 MG Tablet Oral Active buPROPion HCl ER (XL) 150 MG Tablet Extended Release 24 Hour Oral Active diazePAM 5 MG Tablet Oral Active Clotrimazole-Betamethasone 1-0.05 % Cream External Active Cyclobenzaprine HCl 10 MG Tablet Oral Active DULoxetine HCl 60 MG Capsule Delayed Release Particles Oral Ac tive Meloxicam 15 MG Tablet Oral Active Cyclobenzaprine HCl 5 MG Tablet Oral Active Social History Social History Additional Details Category Social Info Options Details Migrated Social History Migrated Social History Tobacco Years: Current every day smoker 11/23/2021 Plan Of Treatment No Information Insurance Providers Payer Name Payer Address Payer Phone Subscriber Number Group Number Insured Name Patient Relationship to Insured Coverage Start Date Coverage End Date [place] [address] [place] [address] [id number] NIYAH ADAMS Self - patient is the insured [employer] Medicare Replacement/ Advantage - Hmo [address] [address] [place] [address] [id number] NIYAH ADAMS Self - patient is the insured
--- OUTSIDE RECORDS SUMMARY | 2025-08-19 10:43 | XMS_ITS | Patient Health Record ---
Author Organization [facility] Address [address] [place], [place] [address] Care Team Providers Care Torpedo Specialist Name Role Phone CYNTHIA GARCIA Unavailable [phone] Wendy Mitchell Unavailable Unavailable Reason For Referral No Information Plan Of Treatment No Information Insurance Providers Payer Name Payer Address Payer Phone Subscriber Number Group Number Insured Name Patient Relationship to Insured Coverage Start Date Coverage End Date [facility] [address] [address] [place], [place] [id number] NIYAH ADAMS Self - patient is the insured
--- OUTSIDE RECORDS SUMMARY | 2025-08-19 10:43 | XMS_ITS | Encounter Summary ---
Author Organization [facility] Address [facility] [facility] [place] [address] Care Team Providers Care Education And Development Manager Name Role Phone Unknown, Provider Primary Care Provider Unavaila ble Encounter Details Date Type Department Care Team (Late st Contact Info) Description 08/03/2024 Lab Requisition [facility] - DermPath Lab [address] [place] [address] Ki Dover MD [facility] D[facility] [address] [place] [phone] Neoplasm of uncertain behavior of skin Social History Tobacco Use Types Packs/Day Years Used Date Smoking Tobacco: Never Assessed Sex and Gender Information Value Date Recorded Sex Assigned at Not on file 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 Gender Identity Not on file Sexual Orientation Not on file documented as of this encounter Plan of Treatment Not on file documented as of this encounter Procedures Procedure Name Priority Date/Time Associated Diagnosis Comments DERMATOPATHOLOGY Routine 08/03/2024 3:33 AM CDT Neoplasm of uncertain behavior of skin documented in this encounter Results * DERMATOPATHOLOGY (08/03/2024 3:33 AM CDT) Case Report Dermatopathology Report Case: [id number] Authorizing Provider: Ki Dover MD Collected: 08/03/2024 03:33 AM Ordering Location: [facility] - Received: 08/04/2024 11:08 AM [...] characteristic determined by the Dermatopathology Laboratory at [facility], directed by Dr. Philippe Klein. These tests need not be, and therefore are not, approved by the [place] Food and Drug Administration. The tests are used for clinical purposes. Billing Codes Specimen Charges Stain Charges 11365 1 11:27 AM CDT DERMATOPATHOLOGY LABORATORY Embedded Images 11:27 AM CDT DERMATOPATHOLOGY LABORATORY Pathology/Cytolo gy TISSUE SPECIMEN FROM SKIN / Unknown 08/03/2024 3:33 AM CDT 08/04/2024 11:08 AM CDT us Ki Dover MD LAB - PATHOLOGY/CYTOLOGY ORDE GEORGE Final Result DERMATOPATHOLOGY LABORATORY [facility] - Department of Dermatology [facility] [address] [facility] [phone] documented in this encounter Visit Diagnoses Diagnosis Neoplasm of uncertain behavior of skin documented in this encounter Care Teams Education And Development Manager Relationship Specialty Start Date End Date Unknown, Provider PCP - General 10/26/16 documented as of this encounter
--- OUTSIDE RECORDS SUMMARY | 2025-08-19 10:43 | XMS_ITS | Clinical Summary ---
Author Organization [facility] Care Team Providers Care Sleep Manager Name Role Phone Unavailable Primary Care Provider [...] 2009 Zoster Immunization (1 of 2) 2009 Influenza Immunization (#1) 2025 SARS-COV-2 Immunization ( - 2023-25 season) 2025 Respiratory Syncytial Virus (RSV) Immunization (Adult) [...]
--- NOTE | 2025-08-19 10:45 | PC.NURSE ---
On 08/19/25, the student, [ned bustamante ], provided care and completed [facility] documentation on this patient. I have reviewed the student's documentation and agree with the findings.
--- OUTSIDE RECORDS SUMMARY | 2025-08-19 11:14 | XMS_ITS | Clinical Summary ---
Author Organization [facility] Address [address] [address] Care Team Providers Care Deckhand Shrimp Boat Name Role Phone Unavailable Primary Care Provider [...] Temperature. 04/20/20 Active naloxone (NARCAN) 4 mg/spray [place], Non-Aerosol EMERGENCY USE ONLY: Administer 1 spray [...] (05/12/2025): Added automatically from request for surgery [id number] Bipolar disorder, in partial remission, most recent [...] Data STL ABSTRACTION Provider, Abstract 07/02/[address] [facility] Cardiovas and Thor Surg at [address] [address] Wilian Zambrano MD Imaging Results 06/15/2025 External Device Data ST[facility] ABSTRACTION Provider, Abstract 06/11/[address] [facility] Cardiovas and Thor Surg at [address] [phone] Janet Gardner NP Follow Up [...] 08/09/2020, 07/04/2020 Medical Devices Implanted Type Area Handle Machine Operator Device Identifier Shelf Expiration Date Model / Serial / Lot Mesh 1s [id number] Vent Hernia [id number] - [id number] Implanted:Qty : 1 on 04/19/2025 by Wilian Zambrano MD at [facility] Biological Right: Chest HUMERA BIO [id number] 05/20/2026 [id number] 20P / / [id number] Procedures Procedure Name Priority Date/Time Associated Diagnosis Comments HEMOGLOBIN A1C Routine 05/12/2025 3:20 AM CDT from Last 3 Months or Most Recently Relevant to Health Maintenance Results * (ABNORMAL) HEMOGLOBIN A1C (05/12/2025 3:20 AM CDT) HEMOGLOBIN A1C 6.1(H) <5.7 % 05/12/2025 2:09 PM CDT [facility] EST. AVG GLUCOSE, A1C 128 mg/dL 05/12/2025 2:09 PM CDT [facility] Blood Venipuncture / Unknown 05/12/2025 3:20 AM CDT 05/12/2025 3:33 AM CDT Narrative [facility] - 05/12/2025 2:09 PM CDT HGB A1C INTERPRETATION NORMAL: <5.7% PRE-DIABETES: 5.7 - 6.4% DIABETES: 6.5% OR GREATER Gloria Raquel Carter VISION MIXER CHEMISTRY ORDERABLES Stefania l Result [facility] CLIA# [id number] [address] [place] [address] from Last 3 Months or Most Recently Relevant to Health Maintenance Insurance [place] [id number] [facility] [address] RX OPTUM RX Member Subscriber Plan / Payer (Ef fective 2021-Present) Name:Sarabjit Long Relation to Subscriber:Self Name:Sarabjit Long Payer ID:Not on file Group ID:[id number] Type:RX Medicare Part D Address: [address] RX LICONA PLANS (INTERNAL) [facility] Internal Plans Advance Directives For more information, please contact: [phone] * Full Code (Latest Code Status on File) Date Activated Date Inactivated Comments 05/11/2025 7:59 AM 05/13/2025 6:43 PM * Full Code Date Activated Date Inactivated Comments 04/19/2025 1:49 PM 04/20/2025 6:19 PM * Full Code Date Activated Date Inactivated Comments 04/19/2025 8:12 AM 04/19/2025 1:49 PM
--- OUTSIDE RECORDS SUMMARY | 2025-08-19 11:14 | XMS_ITS | Clinical Summary ---
Author Organization [facility] Care Team Providers Care Bedspread Cutter Hand Name Role Phone Unavailable Primary Care [...]
--- OUTSIDE RECORDS SUMMARY | 2025-08-19 11:14 | XMS_ITS | Clinical Summary ---
Author Organization [facility] Address [address] [place] [address] Care Team Providers Care Lime Slaker Name Role Phone Unknown, Provider Primary Care Provider Unavaila ble Source Comments [facility],non-owned Affiliates and Associated Physician Practices is amultiple site organization consisting of ambulatory clinics and hospital sitesin [place], [place], [place] and [place]. This disclosure is being madepursuant to the Care Everywhere program and may not contain all information available regarding this patient. 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
--- OUTSIDE RECORDS SUMMARY | 2025-08-19 11:14 | XMS_ITS | Encounter Summary ---
Author Organization [facility] Address [facility] [place] [address] Care Team Providers Care Flying Shear Operator Name Role Phone Unknown, Provider Primary Care Provider Unavaila ble Encounter Details Date Type Department Care Team (Late st Contact Info) Description 08/03/2024 Lab Requisition [facility] - DermPath Lab [address] [place] [address] Ki Dover MD [facility] DERMATOLOGY [address] [place] [phone] Neoplasm of uncertain behavior of skin Social History Tobacco Use Types Packs/Day Years Used Date Smoking Tobacco: Never Assessed Sex and Gender Information Value Date Recorded Sex Assigned at Not on file Legal 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 Gender Identity Not on file Sexual Orientation Not on file documented as of this encounter Plan of Treatment Not on file documented as of this encounter Procedures Procedure Name Priority Date/Time Associated Diagnosis Comments DERMATOPATHOLOGY Routine 08/03/2024 3:33 AM CDT Neoplasm of uncertain behavior of skin documented in this encounter Results * DERMATOPATHOLOGY (08/03/2024 3:33 AM CDT) Case Report Dermatopathology Report Case: [id number] Authorizing Provider: Ki Dover MD Collected: 08/03/2024 [...] characteristic determined by the Dermatopathology Laboratory at [facility], directed by Dr. Philippe Klein. These tests need not be, and therefore are not, approved by the [place] Food and Drug Administration. The tests are used for clinical purposes. Billing Codes Specimen Charges Stain Charges 13920 1 11:27 AM CDT DERMATOPATHOLOGY LABORATORY Embedded Images 11:27 AM CDT DERMATOPATHOLOGY LABORATORY Pathology/Cytolo gy TISSUE SPECIMEN FROM SKIN / Unknown 08/03/2024 3:33 AM CDT 08/04/2024 11:08 AM CDT us Ki Dover MD LAB - PATHOLOGY/CYTOLOGY ORDE GE[place] Final Result DERMATOPATHOLOGY LABORATORY [facility] - Department of [facility]ermatology [facility] [address] [facility], 3rd Floor [address] [phone] documented in this encounter Visit Diagnoses Diagnosis Neoplasm of uncertain behavior of skin documented in this encounter Care Teams Flying Shear Operator Relationship Specialty Start Date End Date Unknown, Provider PCP - General 10/26/16 documented as of this encounter
== END 2025-08-19 10:38 | disposition home or self-care (01) ==
LOC: CHSED 10:16
PROVIDERS: Emergency Provider Emergency Medicine; PCP Nurse Practitioner Family
DX: L29.9 Pruritus, unspecified (principal); T50.905A Adverse effect of unspecified drugs, medicaments and biological substances, initial encounter; I10 Essential (primary) hypertension; J44.9 Chronic obstructive pulmonary disease, unspecified; M06.9 Rheumatoid arthritis, unspecified; F17.200 Nicotine dependence, unspecified, uncomplicated; Z79.899 Other long term (current) drug therapy; Z79.01 Long term (current) use of anticoagulants
CPT/HCPCS: 96372; 99283; J1010

== ENCOUNTER 2025-09-17 10:11 | Outpatient (CLI) | payer MEDICARE, SELFPAY ==
--- NOTE | ~2025-09-17 | XR_ITS ---
XR chest 2V 09/17/2025 11:01 Indication: Abnormal findings Procedure: 2 view chest Comparison: Comparison to multiple prior studies sequentially, with oldest reviewed study dated 03/17/2024. Findings: Small right pleural effusion. Heart size normal. No focal pneumonia, edema or pneumothorax. No acute osseous abnormality. Impression: 1: Small right pleural effusion. Reviewed, dictated and finalized at location I. ATOR ATTENDANT Impression: 1: Small right pleural effusion.
--- NOTE | ~2025-09-17 | XR_ITS ---
XR shoulder LT min 2V 09/17/2025 11:01 Indication: Rheumatoid arthritis Procedure: 2 views left shoulder Comparison: 06/09/2025 Findings: There is polyarticular osteoarthritis, moderate in the glenohumeral joint. No fracture, subluxation or dislocation. No erosive changes. No soft tissue abnormality. No foreign bodies. Impression: 1: Polyarticular osteoarthritis, moderate at the glenohumeral joint. Reviewed, dictated and finalized at location I. SITE MANAGER Impression: 1: Polyarticular osteoarthritis, moderate at the glenohumeral joint.
--- NOTE | ~2025-09-17 | XR_ITS ---
XR ankle LT min 3V, XR foot LT min 3V 09/17/2025 11:01 (accession [id number]), 09/17/2025 11:02 (accession [id number]) Indication: Rheumatoid arthritis Procedure: 3 views left ankle and 3 views left foot Comparison: No prior studies for comparison. Findings: There is mild polyarticular osteoarthritis. There are degenerative calcaneal enthesophytes. No erosive changes to suggest inflammatory arthropathy Lisfranc joint intact. No acute fracture or traumatic malalignment. No foreign bodies. Ankle mortise intact. Impression: 1: Mild polyarticular osteoarthritis. Reviewed, dictated and finalized at location I. CTURES ENGINEER Impression: 1: Mild polyarticular osteoarthritis. Impression: 1: Mild polyarticular osteoarthritis.
--- NOTE | ~2025-09-17 | XR_ITS ---
XR knee RT 3V 09/17/2025 11:02 Indication: Rheumatoid arthritis Procedure: 3 views right knee Comparison: No prior studies for comparison. Findings: Moderate tricompartment osteoarthritis most advanced in the medial compartment. No fracture, subluxation or dislocation. There is a small osteochondroma originating from the proximal tibial metaphysis posteriorly. No erosive changes to suggest inflammatory arthropathy. No significant joint ef fusion. Impression: 1: Moderate tricompartment osteoarthritis. Reviewed, dictated and finalized at location I. OVEMENT MANAGER Impression: 1: Moderate tricompartment osteoarthritis.
--- NOTE | ~2025-09-17 | XR_ITS ---
XR hand RT 2V, XR wrist RT min 3V 09/17/2025 11:02 Indication: Rheumatoid arthritis Procedure: 2 views right hand and 3 views right wrist Comparison: No prior studies for comparison. Findings: There is mild polyarticular osteoarthritis. No evidence for erosive change to suggest inflammatory arthropathy. There are healed second and fifth metacarpal fractures. No focal soft tissue abnormality. No foreign bodies. Impression: 1: Mild polyarticular osteoarthritis, most advanced at the third metacarpal phalangeal joint. Reviewed, dictated and finalized at location I. E TRAINER Impression: 1: Mild polyarticular osteoarthritis, most advanced at the third metacarpal pha langeal joint. Impression: 1: Mild polyarticular osteoarthritis, most advanced at the third metacarpal pha langeal joint.
--- NOTE | ~2025-09-17 | XR_ITS ---
XR knee LT 3V 09/17/2025 11:01 Indication: Rheumatoid arthritis Procedure: 3 views left knee Comparison: No prior studies for comparison. Findings: Moderate tricompartment osteoarthritis. There is an osteochondroma originating from the medial aspect of the proximal tibial metaphysis. There is a foreign body in the soft tissues overlying the proximal tibia medially. No significant joint effusion. No erosive changes to suggest inflammatory arthropathy. Impression: 1: Moderate tricompartment osteoarthritis. Reviewed, dictated and finalized at location I. ER OXYHYDROGEN Impression: 1: Moderate tricompartment osteoarthritis.
--- NOTE | ~2025-09-17 | XR_ITS ---
XR ankle RT min 3V, XR foot RT min 3V 09/17/2025 11:01 (accession [id number]), 09/17/2025 11:02 (accession [id number]) Indication: Rheumatoid arthritis Procedure: 3 views right ankle and 3 views right foot Comparison: No prior studies for comparison. Findings: Status post amputation of the right first toe at the proximal phalanx. Mild polyarticular osteoarthritis. Prominent degenerative calcaneal enthesophytes. No erosive changes to suggest inflammatory arthropathy. Impression: 1: No radiographic evidence for inflammatory arthropathy. Reviewed, dictated and finalized at location I. ME TAX PREPARER Impression: 1: No radiographic evidence for inflammatory arthropathy. Impression: 1: No radiographic evidence for inflammatory arthropathy.
--- NOTE | ~2025-09-17 | XR_ITS ---
XR elbow LT 2V, XR elbow RT 2V 09/17/2025 11:01 Indication: Rheumatoid arthritis Procedure: 2 views each elbow Comparison: No prior studies for comparison. Findings: Prominent degenerative calcaneal enthesophyte at the right olecranon process. There is mild osteoarthritis of the elbows bilaterally. No erosive changes to suggest inflammatory arthropathy. No significant joint effusion. No foreign bodies. Impression: 1: Mild osteoarthritis of the elbows. Reviewed, dictated and finalized at location I. ER GOLD LEAF Impression: 1: Mild osteoarthritis of the elbows. Impression: 1: Mild osteoarthritis of the elbows.
--- NOTE | ~2025-09-17 | XR_ITS ---
XR shoulder RT min 2V 09/17/2025 11:01 Indication: Rheumatoid arthritis Procedure: 2 views right shoulder Comparison: 06/09/2025 Findings: There is mild-moderate polyarticular osteoarthritis. No erosive changes. No fracture or traumatic malalignment. There is anatomic alignment. No soft tissue abnormality. 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 Reviewed, dictated and finalized at location I. 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
--- NOTE | ~2025-09-17 | XR_ITS ---
XR hand LT 2V, XR wrist LT min 3V 09/17/2025 11:02 Indication: Rheumatoid arthritis Procedure: 2 views left hand and 3 views left wrist Comparison: No prior studies for comparison. Findings: No fracture, subluxation or dislocation. Mild polyarticular osteoarthritis. No erosive changes to suggest inflammatory arthropathy. No foreign bodies. Impression: 1: Mild polyarticular osteoarthritis. Reviewed, dictated and finalized at location I. AR STAY FUSER TENDER Impression: 1: Mild polyarticular osteoarthritis. Impression: 1: Mild polyarticular osteoarthritis.
--- OUTSIDE RECORDS SUMMARY | 2025-09-17 10:15 | XMS_ITS | Encounter Summary ---
Author Organization [facility] Address [facility] [place] [address] Care Team Providers Care Calliope Player Name Role Phone Unknown, Provider Primary Care Provider Unavaila ble Encounter Details Date Type Department Care Team (Late st Contact Info) Description 08/03/2024 Lab Requisition [facility] - DermPath Lab [address] [place] [address] Ki Dover MD [facility] DERMATOLOGY [address] [place] [phone] Neoplasm of uncertain behavior of skin Social History Tobacco Use Types Packs/Day Years Used Date Smoking Tobacco: Never Assessed Sex and Gender Information Value Date Recorded Sex Assigned at Not on file 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 Gender Identity Not on file Sexual Orientation Not on file documented as of this encounter Plan of Treatment Not on file documented as of this encounter Procedures Procedure Name Priority Date/Time Associated Diagnosis Comments DERMATOPATHOLOGY Routine 08/03/2024 3:33 AM CDT Neoplasm of uncertain behavior of skin documented in this encounter Results * DERMATOPATHOLOGY (08/03/2024 3:33 AM CDT) Case Report Dermatopathology Report Case: [id number] Authorizing Provider: Ki Dover MD Collected: 08/03/2024 03:33 AM Ordering Location: [facility] - Received: 08/04/2024 11:08 [...] characteristic determined by the Dermatopathology Laboratory at [facility], directed by Dr. Philippe Klein. These tests need not be, and therefore are not, approved by the [place] Food and Drug Administration. The tests are used for clinical purposes. Billing Codes Specimen Charges Stain Charges 55793 1 11:27 AM CDT DERMATOPATHOLOGY LABORATORY Embedded Images 11:27 AM CDT DERMATOPATHOLOGY LABORATORY Pathology/Cytolo gy TISSUE SPECIMEN FROM SKIN / Unknown 08/03/2024 3:33 AM CDT 08/04/2024 11:08 AM CDT us Ki Dover MD LAB - PATHOLOGY/CYTOLOGY ORDE GE[place] Final Result DERMATOPATHOLOGY LABORATORY [facility] - Department of Dermatology [facility] [address] [facility], 3rd Floor [address] [phone] documented in this encounter Visit Diagnoses Diagnosis Neoplasm of uncertain behavior of skin documented in this encounter Care Teams Calliope Player Relationship Specialty Start Date End Date Unknown, Provider PCP - General 10/26/16 documented as of this encounter
--- OUTSIDE RECORDS SUMMARY | 2025-09-17 10:15 | XMS_ITS | Encounter Summary ---
Author Organization [facility] Address [facility] [place] [address] Care Team Providers Care Telephone Information Supervisor Name Role Phone Luisito Mcmillan MD Unavailable [phone] Kvng Liu MD Unavailable Andi Plasencia MD Unavailable Chris Wu MD Unavailable Morgan Land MD Unavailable [phone] Dinesh Castillo DO Primary Care Provider [phone] Reason for Visit * Reason Onset Date Comments Joint Pain 06/01/2022 He was wanting t o know about getting a brace for his RIGHT knee Encounter Details Date Type Department Care Team (Late st Contact Info) Description 06/01/2022 Telephone [facility] [place] [address] [place] [id number] Jesenia Jeronimo LPN Joint Pain (He was wanting to know about getting a brace for his RIGHT knee) Social History Tobacco Use Types Packs/Day Years Used Date Smoking Tobacco: Every Day Cigarettes 1 53.9 Started: 1972 Smokeless Tobacco: Never Comments:quit for [...] Sex Assigned at Male 11/27/2024 8:48 AM PREMISES TECHNICIAN Legal Sex Male 6:03 PM CDT [...] Care Team (Late st Contact Info) Description 09/21/2025 1:00 PM PREMISES TECHNICIAN Office Visit [facility] [place] [address] [facility] 1 [place] [address] Александр Metcalf, DO [address] [place] [address] documented as of this encounter Visit Diagnoses Not on filedocumented in this encounter Additional Health Concerns Assessment Noted Time PHQ-9 Depression Total Score: 16 022 4:21 PM PREMISES TECHNICIAN documented as of this encounter Care Teams Telephone Information Supervisor Relationship Specialty Start Date End Date Dinesh Castillo DO [address] [place] [address] PCP - General FAMILY PRACTICE 04/27/22 Luisito Mcmillan MD [address] [facility]. [address] [place] [address] [place] Machine Tender CARDIOVASCULAR DISEASE 12/31/18 [place] [address] [place] [address] Referring Physician RHEUMATOLOGY 12/17/19 Andi Plasencia MD [address] [place] [address] Consulting Physician HEMATOLOGY/ONCOLOGY 12/17/19 Chris Wu MD [address] [place] [address] Consulting Physician CLINICAL CARDIAC ELECTROPHYSIOLOGY 12/17/19 Morgan Land MD [address] [place] [address] UROLOGY 07/14/21 documented as of this encounter
--- OUTSIDE RECORDS SUMMARY | 2025-09-17 10:15 | XMS_ITS | Clinical Summary ---
Author Organization [facility] Address [address] [place] [address] Care Team Providers Care Lineman A Class Name Role Phone Unavailable Primary Care Provider [...] Temperature. 04/20/20 Active naloxone (NARCAN) 4 mg/spray [place], Non-Aerosol EMERGENCY USE ONLY: Administer 1 spray [...] (05/12/2025): Added automatically from request for surgery [id number] Bipolar disorder, in partial remission, most recent [...] Data STL ABSTRACTION Provider, Abstract 07/02/2025 Telephone [facility] Cardiovas and Thor Surg at [facility] Heart [address] [place] [address] Wilian Zambrano MD Imaging Results from Last 3 Months Family History Medical [...] 08/09/2020, 07/04/2020 Medical Devices Implanted Type Area Outpatient Physical Therapist Assistant Device Identifier Shelf Expiration Date Model / Serial / Lot Mesh 1s [id number] Vent Hernia [id number] - [id number] Implanted:Qty : 1 on 04/19/2025 by Wilian Zambrano MD at [facility] Biological Right: Chest HUMERA BIO [id number] 05/20/2026 [id number] / / [id number] Procedures Procedure Name Priority Date/Time Associated Diagnosis Comments HEMOGLOBIN A1C Routine 05/12/2025 3:20 AM CDT from Last 3 Months or Most Recently Relevant to Health Maintenance Results * (ABNORMAL) HEMOGLOBIN A1C (05/12/2025 3:20 AM CDT) HEMOGLOBIN A1C 6.1(H) <5.7 % 05/12/2025 2:09 PM CDT [facility] LABOR[facility]ORY [facility] EST. AVG GLUCOSE, A1C 128 mg/dL 05/12/2025 2:09 PM CDT [facility] Blood Venipuncture / Unknown 05/12/2025 3:20 AM CDT 05/12/2025 3:33 AM CDT Narrative [facility] LABOR[facility]ORY [facility] - 05/12/2025 2:09 PM CDT HGB A1C INTERPRETATION NORMAL: <5.7% PRE-DIABETES: 5.7 - 6.4% DIABETES: 6.5% OR GREATER us Gloria Carter HIGH SCHO[employer] COACH CHEMISTRY ORDERABLES Stefania justin Result [facility]# [id number] [address] [place] [id number] from Last 3 Months or Most Recently Relevant to Health Maintenance Insurance [facility] [id number] [facility] [id number] RX [employer] RX Member Subscriber Plan / Payer (Ef fective 2021-Present) Name:Sarabjit Long Relation to Subscriber:Self Name:Sarabjit Long Payer ID:Not on file Group ID:[id number] Type:RX Medicare Part D Address: [place] RX [place] PLANS (INTERNAL) [facility] Internal Plans Advance Directives For more information, please contact: [phone] * Full Code (Latest Code Status on File) Date Activated Date Inactivated Comments 05/11/2025 7:59 AM 05/13/2025 6:43 PM * Full Code Date Activated Date Inactivated Comments 04/19/2025 1:49 PM 04/20/2025 6:19 PM * Full Code Date Activated Date Inactivated Comments 04/19/2025 8:12 AM 04/19/2025 1:49 PM
--- OUTSIDE RECORDS SUMMARY | 2025-09-17 10:16 | XMS_ITS | Patient Health Record ---
Author Organization formerly [facility] Address [address] [place] [address] Care Team Providers Care Conveyor Console Operator Name Role Phone Elvira Tucker Primary Care Provider [phone] Reason For Referral No Information Medications [...] W/U Status Risk Notes Problem Mood disorder ([id number]) Mood disorder (F39) Active confirmed Plan Of Treatment No Information Insurance Providers Payer Name Payer Address Payer Phone Subscriber Number Group Number Insured Name Patient Relationship to Insured Coverage Start Date Coverage End Date [facility] [address] [place] [address] [id number] Sarabjit Long Self - patient is the insured 6 Medical (General) History Medical History History ICD Code Parkison's Disease
--- OUTSIDE RECORDS SUMMARY | 2025-09-17 10:16 | XMS_ITS | Encounter Summary ---
Author Organization [facility] Address [facility] [place] [address] Care Team Providers Care Maintainer Central Office Name Role Phone Luisito Mcmillan MD Unavailable [phone] Kvng Liu MD Unavailable Andi Plasencia MD Unavailable [phone] Chris Wu MD Unavailable Morgan Land MD Unavailable [phone] Stefanie Franco [facility] Primary Care Provider + Dinesh Castillo DO Primary Care Provider [phone] Encounter Details Date Type Department Care Team (Late st Contact Info) Description 03/15/2022 Telephone [facility] [place] [address] [id number] Taryn Marshall, RN Social History Tobacco Use [...] Sex Assigned at Male 11/27/2024 8:48 AM DESIGN ANALYST Legal Sex Male 6:03 PM CDT Gender Identity Not on file Sexual Orientation Not on file documented as of this encounter Plan of Treatment Upcoming Encounters Date Type Department Care Team (Late st Contact Info) Description 09/21/2025 1:00 PM DESIGN ANALYST Office Visit [address] 1 [place] [address] Александр Metcalf DO [facility] [place] [address] documented as of this encounter Visit Diagnoses Not on filedocumented in this encounter Additional Health Concerns Assessment Noted Time PHQ-9 Depression Total Score: 16 022 4:21 PM DESIGN ANALYST documented as of this encounter Care Teams Maintainer Central Office Relationship Specialty Start Date End Date Stefanie Franco FNP- [address] [address] PCP - General Nurse Practitioner Family 09/05/2104/26 Dinesh Castillo DO [address] [place] [address] PCP - General FAMILY PRACTICE 04/27/22 Luisito Mcmillan MD [facility]. [address] [address] [place] Narrative Writer CARDIOVASCULAR DISEASE 12/31/18 [place] [address] [place] [address] Referring Physician RHEUMATOLOGY 12/17/19 Andi Plasencia MD [address] [address] Consulting Physician HEMATOLOGY/ONCOLOGY 12/17/19 Chris Wu MD [address] [place] [address] Consulting Physician CLINICAL CARDIAC ELECTROPHYSIOLOGY 12/17/19 Morgan Land MD [address] [place] [address] UROLOGY 07/14/21 documented as of this encounter
--- OUTSIDE RECORDS SUMMARY | 2025-09-17 10:16 | XMS_ITS | Clinical Summary ---
Author Organization [facility] Care Team Providers Care In Store Marketer Name Role Phone Unavailable Primary Care Provider [...]
--- OUTSIDE RECORDS SUMMARY | 2025-09-17 10:16 | XMS_ITS | Encounter Summary ---
Author Organization [facility] Address [facility] [place] [address] Care Team Providers Care Junior Financial Analyst Name Role Phone Luisito Mcmillan MD Unavailable [phone] Cynthia Meadows MD Primary Care Provider [phone] Kvng Liu MD Unavailable Andi Plasencia MD Unavailable [phone] Chris Wu MD Unavailable Roberto Ventura MD Primary Care Provider [phone] Wendy Mitchell NP Primary Care Provider Unav ailable EmeryMorgan ackerman MD Unavailable [phone] Stefanie Frnaco [facility] Primary Care Provider + Dinesh Castillo DO Primary Care Provider [phone] Encounter Details Date Type Department Care Team (Late st Contact Info) Description 01/22/2019 Abstract [facility] at [place], [address] [address] Larry Quezada [place] Social History Tobacco Use [...] Sex Assigned at Male 11/27/2024 8:48 AM PHYSICIAN PEDIATRICIAN Legal Sex Male 6:03 PM CDT Gender Identity Not on file Sexual Orientation Not on file documented as of this encounter Plan of Treatment Upcoming Encounters Date Type Department Care Team (Late st Contact Info) Description 09/21/2025 1:00 PM PHYSICIAN PEDIATRICIAN Office Visit [facility] [place] [address] [facility] [place] [address] Александр Metcalf, DO [address] [place] [address] documented as of this encounter Procedures Procedure [...] Result * CBC (OUTSIDE LAB) (12/18/2018) Pathologist [facility] WBC 6.9 HGB 15.2 HCT 44.4 PLT 236 12/18/2018 us Doc [facility] Abstract LAB-OUTSIDE/ABSTRACTED Edite d Result - Final documented in this encounter Visit Diagnoses Not on filedocumented in this encounter Care Teams Junior Financial Analyst Relationship Specialty Start Date End Date Cynthia Meadows MD [address] [place] [address] PCP - General FAMILY PRACTICE 01/01/19 12/16/19 Roberto Ventura MD [address] [place] [address] PCP - General INTERNAL MEDICINE 12/17/19 07/10/20 Wendy Mitchell NP [address] [place] [address] PCP - General NURSE PRACTITIONER 07/11/20 09/04/21 Stefaine Franco FNP- [address] [place] [address] PCP - General Nurse Practitioner Family 09/05/2104/26 Dinesh Castillo DO [address] [place], [place] [address] PCP - General FAMILY PRACTICE 04/27/22 Luisito Mcmillan MD [address] [phone] [place] [employer]ance And Control System Engineer CARDIOVASCULAR DISEASE 12/31/18 [place] [address] [place], [place] [address] Referring Physician RHEUMATOLOGY 12/17/19 Andi Plasencia MD [address] [facility] [address] [place] [address] Consulting Physician HEMATOLOGY/ONCOLOGY 12/17/19 Chris Wu MD [address] [place] [address] Consulting Physician CLINICAL CARDIAC ELECTROPHYSIOLOGY 12/17/19 Morgan Land MD [address] [place] [address] UROLOGY 07/14/21 documented as of this encounter
--- OUTSIDE RECORDS SUMMARY | 2025-09-17 10:16 | XMS_ITS | Patient Health Record ---
Author Organization [facility] Address [address] [place], [place] [address] Care Team Providers Care Track Walker Name Role Phone CYNTHIA GARCIA Unavailable [phone] Wendy Mitchell Unavailable Unavailable Reason For Referral No Information Plan Of Treatment No Information Insurance Providers Payer Name Payer Address Payer Phone Subscriber Number Group Number Insured Name Patient Relationship to Insured Coverage Start Date Coverage End Date [facility] [address] [address] [place], [place] [id number] NIYAH ADAMS Self - patient is the insured
--- OUTSIDE RECORDS SUMMARY | 2025-09-17 10:16 | XMS_ITS | Encounter Summary ---
Author Organization [facility] Address [facility] [place] [address] Care Team Providers Care Studio Musician Name Role Phone Luisito Mcmillan MD Unavailable [phone] Cynthia Meadows MD Primary Care Provider [phone] Kvng Liu MD Unavailable Andi Plasencia MD Unavailable [phone] Chris Wu MD Unavailable Roberto Ventura MD Primary Care Provider [phone] Wendy Mitchell NP Primary Care Provider Unav ailable EmeryMorgan ackerman MD Unavailable [phone] Stefanie Franco [facility] Primary Care Provider + Dinesh Castillo DO Primary Care Provider [phone] Encounter Details Date Type Department Care Team (Late Contact Info) Description 04/03/2016 Abstract [facility] CONVERSION [address] [place] [address] , Generic Conversion, Social History Tobacco Use Types Packs/Day Years Used Date Smoking Tobacco: Never Assessed Sex and Gender Information Value Date Recorded Sex Assigned at Male 11/27/2024 8:48 AM QUALITY REVIEW TRAINER Legal Sex Male 6:03 PM CDT Gender Identity Not on file Sexual Orientation Not on file documented as of this encounter Plan of Treatment Upcoming Encounters Date Type Department Care Team (Late Contact Info) Description 09/21/2025 1:00 PM QUALITY REVIEW TRAINER [facility] [address], [address] [address] Александр Metcalf DO [address] [place] [address] documented as of this encounter Visit Diagnoses Not on filedocumented in this encounter Care Teams Studio Musician Relationship Specialty Start Date End Date Cynthia Meadows MD [address] [place] [address] PCP - General FAMILY PRACTICE 01/01/19 12/16/19 Roberto Ventura MD [address] [address] PCP - General INTERNAL MEDICINE 12/17/19 07/10/20 Wendy Mitchell NP [address] [place] [address] PCP - General NURSE PRACTITIONER 07/11/20 09/04/21 Stefanie Franco, [facility] [address] [place] [address] PCP - General Nurse Practitioner [facility] 09/05/2104/26 Dinesh Castillo DO [address] [place] [address] PCP - General FAMILY PRACTICE 04/27/22 Luisito Mcmillan MD [address] [address] Reading Bonsai Tender CARDIOVASCULAR DISEASE 12/31/18 [place] [address] [place] [address] Referring Physician RHEUMATOLOGY 12/17/19 Andi Plasencia MD [address] [facility] [address] [place] [address] Consulting Physician HEMATOLOGY/ONCOLOGY 12/17/19 Chris Wu MD [address] [facility] [address] [place] [address] Consulting Physician CLINICAL CARDIAC ELECTROPHYSIOLOGY 12/17/19 Morgan Land MD [address] [facility] [address] [place] [address] UROLOGY 07/14/21 documented as of this encounter
--- OUTSIDE RECORDS SUMMARY | 2025-09-17 10:16 | XMS_ITS | Encounter Summary ---
Author Organization [facility] Address [facility] [place] [address] Care Team Providers Care Branch Coordinator Name Role Phone Luisito Mcmillan MD Unavailable [phone] Kvng Liu MD Unavailable Andi Plasencia MD Unavailable [phone] Chris Wu MD Unavailable Morgan Land MD Unavailable [phone] Dinesh Castillo DO Primary Care Provider [phone] Encounter Details Date Type Department Care Team (Late st Contact Info) Description 05/27/2023 Therapy Plan [facility] [address] [place] [address] Kvng Liu MD [address] [place] [address] Social History Tobacco Use Types [...] Sex Assigned at Male 11/27/2024 8:48 AM REDYE HAND Legal Sex Male 6:03 PM CDT Gender Identity Not on file Sexual Orientation Not on file documented as of this encounter Plan of Treatment Upcoming Encounters Date Type Department Care Team (Late st Contact Info) Description 09/21/2025 1:00 PM REDYE HAND Office Visit [address] 1 [place] [address] Александр Metcalf DO [address] [place] [address] documented as of this encounter Visit Diagnoses Diagnosis Rheumatoid arthritis ([facility]/HCC)- Primary documented in this encounter Additional Health Concerns Assessment Noted Time PHQ-9 Depression Total Score: 16 022 4:21 PM REDYE HAND documented as of this encounter Care Teams Branch Coordinator Relationship Specialty Start Date End Date Dinesh Castillo DO [address] [place] [address] PCP - General FAMILY PRACTICE 04/27/22 Luisito Mcmillan MD [address] [address] [place] Clerical Order Filler CARDIOVASCULAR DISEASE 12/31/18 [place] [address] [place] [address] Referring Physician RHEUMATOLOGY 12/17/19 Andi Plasencia MD [address] [address] Consulting Physician HEMATOLOGY/ONCOLOGY 12/17/19 Chris Wu MD [address] [address] Consulting Physician CLINICAL CARDIAC ELECTROPHYSIOLOGY 12/17/19 Morgan Land MD [address] [place] [address] UROLOGY 07/14/21 documented as of this encounter
--- OUTSIDE RECORDS SUMMARY | 2025-09-17 10:16 | XMS_ITS | Encounter Summary ---
Author Organization [facility] Address [facility] [place] [address] Care Team Providers Care Convolute Tube Winder Name Role Phone Luisito Mcmillan MD Unavailable [phone] Cynthia Meadows MD Primary Care Provider [phone] Kvng Liu MD Unavailable Andi Plasencia MD Unavailable [phone] Chris Wu MD Unavailable Roberto Ventura MD Primary Care Provider [phone] Wendy Mitchell NP Primary Care Provider Unav ailable EmeryMorgan ackerman MD Unavailable [phone] Stefanie Franco [facility] Primary Care Provider + Dinesh Castillo DO Primary Care Provider [phone] Encounter Details Date Type Department Care Team (Late Contact Info) Description 12/15/2015 Abstract [facility] CONVERSION [address] [place] [address] , Generic Conversion, Social History Tobacco Use Types Packs/Day Years Used Date Smoking Tobacco: Never Assessed Sex and Gender Information Value Date Recorded Sex Assigned at Male 11/27/2024 8:48 AM HUMAN RELATIONS TEACHER Legal Sex Male 6:03 PM CDT Gender Identity Not on file Sexual Orientation Not on file documented as of this encounter Plan of Treatment Upcoming Encounters Date Type Department Care Team (Late Contact Info) Description 09/21/2025 1:00 PM HUMAN RELATIONS TEACHER Office Visit [facility] [address], [address] [address] Александр Metcalf DO [address] [place] [address] documented as of this encounter Visit Diagnoses Not on filedocumented in this encounter Care Teams Convolute Tube Winder Relationship Specialty Start Date End Date Cynthia Meadows MD [address] [place] [address] PCP - General FAMILY PRACTICE 01/01/19 12/16/19 Roberto Ventura MD [address] [address] PCP - General INTERNAL MEDICINE 12/17/19 07/10/20 Wendy Mitchell NP [address] [place] [address] PCP - General NURSE PRACTITIONER 07/11/20 09/04/21 Stefanie Franco, [facility] [address] [place] [address] PCP - General Nurse Practitioner [facility] 09/05/2104/26 Dinesh Castillo DO [address] [place] [address] PCP - General FAMILY PRACTICE 04/27/22 Luisito Mcmillan MD [address] [address] [place] Mainframe Consultant CARDIOVASCULAR DISEASE 12/31/18 [place] [address] [place] [address] Referring Physician RHEUMATOLOGY 12/17/19 Andi Plasencia MD [address] [facility] [email or web address] [address] [place] [address] Consulting Physician HEMATOLOGY/ONCOLOGY 12/17/19 Chris Wu MD [address] [facility] [address] [place] [phone] Consulting Physician CLINICAL CARDIAC ELECTROPHYSIOLOGY 12/17/19 Morgan Land MD [address] [facility] [email or web address] [address] [place] [address] UROLOGY 07/14/21 documented as of this encounter
--- OUTSIDE RECORDS SUMMARY | 2025-09-17 10:16 | XMS_ITS | Encounter Summary ---
Author Organization [facility] Address [facility] [place] [address] Care Team Providers Care Machine Sneller Name Role Phone Luisito Mcmillan MD Unavailable [phone] Kvng Liu MD Unavailable Andi Plasencia MD Unavailable [phone] Chris Wu MD Unavailable Morgan Land MD Unavailable Dinesh Castillo DO Primary Care Provider [phone] Reason for Visit * Auth/Cert (Routine) Specialty Diagnoses / Procedures Referred By Contac t Referred To Contact Diagnoses Lumbar radiculopathy lr Procedures NJX AA&/STRD TFRML EPI LUMBAR/SACRAL 1 LEVEL INJECTION EPIDURAL TRANSFORAMINAL l45 and l5s1 Judi Livingston MD Three [facility] [address] [place] [address] Phone: tel: fax: Referral ID Status Reason Start Date Expiration Date Visits Re quested Visits Authorized [id number] 1 1 Encounter Details Date Type Department Care Team (Late st Contact Info) Description 03/05/2025 Hospital Encounter [facility] [place] [address] [phone] Judi Livingston MD Three [facility] [address] [place] [address] Social History Tobacco Use Types Packs/Day [...] Sex Assigned at Male 11/27/2024 8:48 AM CASEWORKER Legal Sex Male 6:03 PM CDT Gender Identity Not on file Sexual Orientation Not on file documented as of this encounter Plan of Treatment Upcoming Encounters Date Type Department Care Team (Late st Contact Info) Description 09/21/2025 1:00 PM CASEWORKER Office Visit [facility] [address] [address] Александр Metcalf DO [address] [place] [address] documented as of this encounter Visit Diagnoses Diagnosis Lumbar radiculopathy- Primary Thoracic or lumbosacral neuritis or radiculitis, unspecified documented in this encounter Admitting Diagnoses Diagnosis Lumbar radiculopathy Thoracic or lumbosacral neuritis or radiculitis, unspecified documented in this encounter Additional Health Concerns Assessment Noted Time PHQ-9 Depression Total Score: 16 022 4:21 PM CASEWORKER documented as of this encounter Care Teams Machine Sneller Relationship Specialty Start Date End Date Dinesh Castillo DO [address] [place] [address] PCP - General FAMILY PRACTICE 04/27/22 Luisito Mcmillan MD [address] [address] [place] Complaint Adjuster CARDIOVASCULAR DISEASE 12/31/18 [place] [address] [place] [address] Referring Physician RHEUMATOLOGY 12/17/19 Andi Plasencia MD [address] [employer] [address] [place] [phone] Consulting Physician HEMATOLOGY/ONCOLOGY 12/17/19 Chris Wu MD [address] [employer] [address] [place] [phone] Consulting Physician CLINICAL CARDIAC ELECTROPHYSIOLOGY 12/17/19 Morgan Land MD [address] [employer] [address] [place] [address] UROLOGY 07/14/21 documented as of this encounter
--- OUTSIDE RECORDS SUMMARY | 2025-09-17 10:16 | XMS_ITS | Clinical Summary ---
Author Organization [facility] Address [address] [place] [address] Care Team Providers Care Echo Vascular Technologist Name Role Phone Luisito Mcmillan MD Unavailable [phone] Kvng Liu MD Unavailable Andi Plasencia MD Unavailable [phone] Chris Wu MD Unavailable Morgan Land MD Unavailable [phone] Dinesh Castillo DO Primary Care Provider [phone] Allergies Active Allergy Reactions Criticality Noted Date Comments Methotrexate Other (see comment),Rash,Unknown,Hives Low 01/07/2019 Oral lesions Medications cyclobenzaprine 10 MG tabletIndicatio ns:Fibromyalgia Take [...] into the skin every 7 days. Active gabapentin (NEURONTIN) 300 MG capsule Take 1 capsule (300 mg total) by mouth 3 (three) times daily. 05/10/2025 Active escitalopram (LEXAPRO) 10 MG tablet Take 1 tablet (10 mg total) by mouth daily. 02/05/2025 Active Active Problems Problem Noted Date Diagnosed Date Lumbar radiculopathy 04/04/2023 Overview (04/04/2023): Added automatically from request for surgery [id number] Sprain of lateral collateral ligament of left knee, initial encounter 11/10/2021 Bipolar disorder, in partial remission, most recent episode depressed 09/27/2021 Primary osteoarthritis of right knee 08/25/2021 [...] without complicati on 07/02/2017 RA (rheumatoid arthritis) 12/25/2016 Fibrosis, lung 11/27/2016 Overview (12/17/2019): Description: on ct scan Depressive disorder 08/19/2013 Overview (09/16/2020): Anxiety and depression History of substance abuse 08/19/2013 Overview (03/16/2020): Hx of substance abuse Benign prostatic hyperplasia 08/19/2013 Overview (03/16/2020): BPH (benign prostatic hyperplasia) Chronic obstructive lung disease Resolved Problems Problem Noted Date Diagnosed Date Resolved Date Herniation of right lung 06/07/2023 History of pulmonary embolism 06/07/2023 02/03/2025 Current smoker 12/21/2020 09/27/2021 Assessment & Plan (12/21/2020 11:35 AM GUEST SERVICE HOST): We discussed smoking cessation. Should TKA be [...] 09/16/2020 Bipolar affective disorder, currently depressed, moderate 03/19/2020 09/27/2021 Perineal abscess 01/06/2020 03/16/2020 Abscess 12/24/2019 03/16/2020 Overview (12/24/2019): Added automatically from request for surgery [id number] Other chronic pain 12/17/2019 5 Low back [...] 09/27/2021 Assessment & Plan (12/21/2020 11:40 AM GUEST SERVICE HOST): We discussed the adverse effects of weight on osteoarthritis of the knee. We discussed the need to decrease BMI to <40 to decrease risk of post operative complications if in the future he would like to proceed with TKA. Contusion of rib 11/27/2016 02/03/2025 Smokers' cough 11/27/2016 02/03/2025 Sleep apnea 11/27/2016 09/27/2021 Encounter for preventive health examination 04/13/2016 12/17/2019 Hypogonadism 08/19/2013 09/27/2021 Overview (09/16/2020): Hypogonadism male Finding of prostate 03/12/2012 12/03/19 21 Encounters Date Type Department Care Team Description 08/31/2025 Orders Only [address] [address] лАександр Metcalf DO 06/18/2025 11:15 AM CDT Office Visit [address] [address] Charlette Mcdonald FNP-BC Knee Pain (BILATERAL) 06/18/2025 11:00 AM CDT - 06/18/2025 11:59 PM CDT Hospital Encounter [facility] [address] [place] [address] Charlette Mcdonald FNP-BC Discharge Disposition: Home or Self Care (Routine Discharge) 06/18/2025 Travel from Last 3 Months Immunizations Immunization Administration Dates Next Due Fluzone 6 Months+ Quad (0.5 mL Prefilled Syringe) 06/15/2020,10/10/2019 Influenza (Generic) 08/14/2013 Influenza Adult (Generic) 06/15/2020,10/26/2016, 08/14/2013 PFIZER COVID-19 (ORIGINAL FO RMULATION, PURPLE CAP) mRNA, LNP-S, PF, 30 MCG/0.3 ML DOSE 05/20/2021 Pneumococcal (Pneumovax 23) 10/12/2019, 4 Pneumococcal (Prevnar 13) 10/26/2016 Tdap (Generic) 07/31/2021 Zoster (Zostavax) [address]197 Unt/0.65Ml 09/20/2014 Family History Medical History Relation Comments Diabetes Brother No Known Problems Father Heart Disease Mother Stroke Mother COVID Son choked Downs Son Heart Son Relation Status Comments Brother Alive Father Alive no issues Mother Son Social History Tobacco Use Types Packs/Day Years Used Date Smoking Tobacco: Every Day Cigarettes 1 53.9 Started: 1972 Smokeless Tobacco: Never Tobacco Cessation:Ready [...] Sex Assigned at Male 11/27/2024 8:48 AM GUEST SERVICE HOST Legal Sex Male 6:03 PM CDT Gender Identity Not on file Sexual Orientation Not on file Last Filed Vital Signs Vital Sign Reading Time Taken Comments Blood Pressure 148/83 11/27/2024 9:41 AM GUEST SERVICE HOST Pulse 81 11/27/2024 9:41 AM GUEST SERVICE HOST Temperature 37.1 C (98.7 F) 11/27/2024 9:10 AM GUEST SERVICE HOST Respiratory Rate 20 11/27/2024 9:41 AM GUEST SERVICE HOST Oxygen Saturation 100% 11/27/2024 9:41 AM GUEST SERVICE HOST Inhaled Oxygen Concentration - - Weight 127.5 kg (281 lb) 06/18/2025 11:17 AM CDT Height 175.3 cm (5' 9) 06/18/2025 11:17 AM CDT Body Mass Index 41.5 06/18/2025 11:17 AM CDT Plan of Treatment Upcoming Encounters Date Type Department Care Team (Late st Contact Info) Description 09/21/2025 1:00 PM GUEST SERVICE HOST Office Visit [address] [address] Александр Metcalf, [address] [place] [address] Health Maintenance Due Date Last Done Comments Colorectal Cancer Screening Colonoscopy (10 Years) 1960 Zoster Vaccines (2 of 3) 11/15/2014 09/20/2014 RSV Immunization or 60+ Years (1 - Risk 60-74 years 1-dose series) 2019 Annual Medicare Wellness Visit 2024 Pneumococcal Vaccine: 50+ Years (3 of 3 - PCV20 or PCV21) 10/12/2024 10/12/2019, 10/26/2016, 10/06/2014 COVID-19 Vaccine (3 - season) 2025 07/01/2021, 05/20/2021 Influenza Adult (#1) 2025 06/15/2020, 06/15/2020, 10/10/2019, Additional history exists Lung Cancer Screening 05/10/2026 05/10/2025, 021 DTaP, Tdap and Td Vaccines (2 - Td or Tdap) 07/31/2031 07/31/2021, 10/07/2017 Hepatitis C Completed 11/10/2019 AAA SCREENING Completed 05/10/2025, 04/21, 08/01/2021, Additional history exists Hepatitis A Vaccines Aged Out No long er eligible based on patient's age to complete this topic Meningococcal B Vaccine Aged Out No l onger eligible based on patient's age to complete this topic Meningococcal Vaccine Aged Out No mark kamar eligible based on patient's age to complete this topic RSV Immunizations Under 20 Months Aged Out No longer eligible based on patient's age to complete this topic Medical Devices Implanted Type Area Restaurant Line Cook Device Identifier Shelf Expiration Date Model / Serial / Lot Medt Implantable Loop Recorder-2018 Implanted:10/06 by Chris Wu MD (Quantity not on file) Explanted:Qty: 1 on 07/12/2020 by Chris Wu MD Implantable Loop Recorder [employer] CARDIAC RHYTHM AND HEART FAILURE - DIV M [id number] / [id number] S / Procedures Procedure Name Priority Date/Time Associated Diagnosis Comments XR KNEE STAND AP HUMBLE ONLY Routine 06/18/2025 11:18 AM CDT Primary osteoarthritis of left knee Primary osteoarthritis of right knee XR KNEE HUMBLE 3V Routine 06/18/2025 11:18 AM CDT Primary osteoarthritis of left knee Primary osteoarthritis of right knee CTA CHEST Routine 08/01/2021 11:51 AM CDT Mass of right chest wall Intercostal pain CT CHEST W CON Routine 12/14/2020 11:28 AM GUEST SERVICE HOST Mass of right chest wall HEPATITIS C ANTIBODY Routine 11/10/2019 12:06 PM GUEST SERVICE HOST Screening examination for poliomyelitis from Last 3 Months or Most Recently Relevant to Health Maintenance Results * XR KNEE HUMBLE 3V (06/18/2025 11:18 AM CDT) Anatomical Region Laterality Modality Knee Radiographic Gabbie ging 06/23/2025 9:12 AM CDT Impressions 06/23/2025 9:41 AM CDT IMPRESSION: No acute findings. Stable degenerative changes. Ordered By: CHARLETTE MCDONAL[place] Interpreted By: Andrew Costa MD, 06/23/2025 9:12 AM Narrative 06/23/2025 9:41 AM CDT [address] [place] [address] Examination: Bilateral knees. Exam time: 1006 hours. Clinical history: Pain. Comparison: 05/13/2024. Technique: [place] and weightbearing AP, PA and lateral views each. Findings: No fracture, dislocation or other acute bony abnormality is identified. There are stable, relatively symmetric, moderate to marked degenerative changes manifested by patellofemoral and medial femorotibial joint space narrowing and periarticular osteophyte formation. These remain greater in the medial femorotibial compartments. No other significant bone or joint abnormality is noted. No acute soft tissue abnormality. Procedure Note Andrew Costa MD - 06/23/[address] [place] [address] Examination: Bilateral knees. Exam time: 1006 hours. Clinical history: Pain. Comparison: 05/13/2024. Technique: [place] and weightbearing AP, PA and lateral views each. Findings: No fracture, dislocation or other acute bony abnormality isidentified. There are stable, relatively symmetric, moderate to markeddegenerative changes manifested by patellofemoral and medial femorotibialjoint space narrowing and periarticular osteophyte formation. These remaingreater in the medial femorotibial compartments. No other significant boneor joint abnormality is noted. No acute soft tissue abnormality. IMPRESSION: No acute findings. Stable degenerative changes. Ordered By: CHARLETTE MCDONAL[place] Interpreted By: Andrew Costa MD, 06/23/2025 9:12 AM us Charlette Mcdonald PASSENGER REPRESENTATIVE-BC GENERAL IMAGING Final Resu lt * XR KNEE STAND AP HUMBLE ONLY (06/18/2025 11:18 AM CDT) Anatomical Region Laterality Modality Knee Radiographic Gabbie ging 06/23/2025 9:12 AM CDT Impressions 06/23/2025 9:41 AM CDT IMPRESSION: No acute findings. Stable degenerative changes. Ordered By: CHARLETTE MCDONALD Interpreted By: Andrew Costa MD, 06/23/2025 9:12 AM Narrative 06/23/2025 9:41 AM CDT [address] [place] [address] Examination: Bilateral knees. Exam time: 1006 hours. Clinical history: Pain. Comparison: 05/13/2024. Technique: [place] and weightbearing AP, PA and lateral views each. Findings: No fracture, dislocation or other acute bony abnormality is identified. There are stable, relatively symmetric, moderate to marked degenerative changes manifested by patellofemoral and medial femorotibial joint space narrowing and periarticular osteophyte formation. These remain greater in the medial femorotibial compartments. No other significant bone or joint abnormality is noted. No acute soft tissue abnormality. Procedure Note Andrew Costa MD - 06/23/[address] [place] [address] Examination: Bilateral knees. Exam time: 1006 hours. Clinical history: Pain. Comparison: 05/13/2024. Technique: [place] and weightbearing AP, PA and lateral views each. Findings: No fracture, dislocation or other acute bony abnormality isidentified. There are stable, relatively symmetric, moderate to markeddegenerative changes manifested by patellofemoral and medial femorotibialjoint space narrowing and periarticular osteophyte formation. These remaingreater in the medial femorotibial compartments. No other significant boneor joint abnormality is noted. No acute soft tissue abnormality. IMPRESSION: No acute findings. Stable degenerative changes. Ordered By: CHARLETTE MCDONALD Interpreted By: Andrew Costa MD, 06/23/2025 9:12 AM Charlette Mcdonald PASSENGER REPRESENTATIVE-BC GENERAL IMAGING Final Resu lt * CTA CHEST (08/01/2021 11:51 AM CDT) [...] Interpreted By: Gus Tijerina, 08/01/2021 3:22 PM Wendy Valerio SAW SUPERINTENDENT CT Final Resul t * CT CHEST W CON (12/14/2020 11:28 AM GUEST SERVICE HOST) Anatomical Region Laterality Modality Chest Computed Tomogra phy 12/14/2020 12:2 1 PM GUEST SERVICE HOST Impressions 12/14/2020 12:27 PM GUEST SERVICE HOST IMPRESSION: Healed right posterior ninth and lateral [...] 12/14/2020 12:21 PM Narrative 12/14/2020 12:27 PM GUEST SERVICE HOST IMAGING STUDIES: CT CHEST W CON DATE: [...] Cristhian Fletcher, 12/14/2020 12:21 PM Wendy Valerio SAW SUPERINTENDENT CT Final Resul t * HEPATITIS C ANTIBODY (11/10/2019 12:06 PM GUEST SERVICE HOST) HEPATITIS C AB NON-REACTI VE NON-REACTI VE 11/10/2019 8:33 PM GUEST SERVICE HOST [facility] 11/10/2019 12:0 6 PM GUEST SERVICE HOST Kvng Liu MD LABORATORY Final Result [facility] [address] [place] [address], from Last 3 Months or Most Recently Relevant to Health Maintenance Insurance [id number] MEDICARE Care Teams Echo Vascular Technologist Relationship Specialty Start Date End Date Dinesh Castillo DO [address] [place] [address] PCP - General FAMILY PRACTICE 04/27/22 Luisito Mcmillan MD [address] [facility] [address] [place] [address] [place] Plant Operator CARDIOVASCULAR DISEASE 12/31/18 [place] [address] [place] [address] Referring Physician RHEUMATOLOGY 12/17/19 [place] [address] [place] [address] [place] [phone] Consulting Physician HEMATOLOGY/ONCOLOGY 12/17/19 Chris Wu MD [address] [phone] Consulting Physician CLINICAL CARDIAC ELECTROPHYSIOLOGY 12/17/19 Morgan Land MD [address] [phone] UROLOGY 07/14/21
--- OUTSIDE RECORDS SUMMARY | 2025-09-17 10:16 | XMS_ITS | Clinical Summary ---
Author Organization [facility] Address [address] [place] [address] Care Team Providers Care Admitting Manager Name Role Phone Unknown, Provider Primary Care Provider Unavaila ble Source Comments [facility],non-owned Affiliates and Associated Physician Practices is amultiple site organization consisting of ambulatory clinics and hospital sitesin [place], [place], [place] and [place]. This disclosure is being madepursuant to the Care Everywhere program and may not contain all information available regarding this patient. 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
--- OUTSIDE RECORDS SUMMARY | 2025-09-17 10:16 | XMS_ITS | Encounter Summary ---
Author Organization [facility] Address [facility] [place] [address] Care Team Providers Care Subject Scientific Research Name Role Phone Luisito Mcmillan MD Unavailable [phone] Cynthia Meadows MD Primary Care Provider [phone] Kvng Liu MD Unavailable Andi Plasencia MD Unavailable [phone] Chris Wu MD Unavailable Roberto Ventura MD Primary Care Provider [phone] Wendy Mitchell NP Primary Care Provider Unav ailable EmeryMorgan ackerman MD Unavailable [phone] Stefanie Franco [facility] Primary Care Provider + Dinesh Castillo DO Primary Care Provider [phone] Encounter Details Date Type Department Care Team (Late st Contact Info) Description 03/28/2019 Abstract [facility] CONVERSION [address] [place] [address] , Generic Conversion, Social History [...] Sex Assigned at Male 11/27/2024 8:48 AM SENIOR C SOFTWARE DEVELOPER Legal Sex Male 6:03 PM CDT Gender Identity Not on file Sexual Orientation Not on file documented as of this encounter Plan of Treatment Upcoming Encounters Date Type Department Care Team (Late st Contact Info) Description 09/21/2025 1:00 PM SENIOR C SOFTWARE DEVELOPER Office Visit [facility] [address] [facility] [place] [address] Александр Metcalf DO [address] [place] [address] documented as of this encounter Visit Diagnoses Not on filedocumented in this encounter Care Teams Subject Scientific Research Relationship Specialty Start Date End Date Cynthia Meadows MD [address] [place] [address] PCP - General FAMILY PRACTICE 01/01/19 12/16/19 Roberto Ventura MD [address] [place] [phone] PCP - General INTERNAL MEDICINE 12/17/19 07/10/20 Wendy Mitchell NP [address] [place] [phone] PCP - General NURSE PRACTITIONER 07/11/20 09/04/21 Stefanie Franco FNP- [address] [place] [phone] PCP - General Nurse Practitioner Family 09/05/2104/26 Dinesh Castillo DO [address] [place] [address] PCP - General FAMILY PRACTICE 04/27/22 Luisito Mcmillan MD [address] [address] Lisa Technical Lead CARDIOVASCULAR DISEASE 12/31/18 [place] [address] [place] [address] Referring Physician RHEUMATOLOGY 12/17/19 Andi Plasencia MD 7 [facility] [employer] [address] [place] [phone] Consulting Physician HEMATOLOGY/ONCOLOGY 12/17/19 Chris Wu MD [address] [place] [phone] Consulting Physician CLINICAL CARDIAC ELECTROPHYSIOLOGY 12/17/19 Morgan Land MD [address] [place] [phone] UROLOGY 07/14/21 documented as of this encounter
--- OUTSIDE RECORDS SUMMARY | 2025-09-17 10:16 | XMS_ITS | Encounter Summary ---
Author Organization [facility] Address [facility] [place] [address] Care Team Providers Care Mini Baccarat Dealer Name Role Phone Luisito Mcmillan MD Unavailable [phone] Kvng Liu MD Unavailable Andi Plasencia MD Unavailable [phone] Chris Wu MD Unavailable Morgan Land MD Unavailable [phone] Stefanie Franco [facility] Primary Care Provider + Dinesh Castillo DO Primary Care Provider [phone] Reason for Visit * Reason Onset Date Comments Follow Up 03/15/2022 Encounter Details Date Type Department Care Team (Late st Contact Info) Description 03/15/2022 Telephone [facility] [place] [address] [phone] Taryn Marshall, RN Follow Up Social History [...] Sex Assigned at Male 11/27/2024 8:48 AM SITE RELIABILITY ENGINEER Legal Sex Male 6:03 PM CDT [...] st Contact Info) Description 09/21/2025 1:00 PM SITE RELIABILITY ENGINEER Office Visit [address] [address] Ал[place]санд[place] [address] [place] [id number] documented as of this encounter Visit Diagnoses Not on filedocumented in this encounter Additional Health Concerns Assessment Noted Time PHQ-9 Depression Total Score: 16 022 4:21 PM SITE RELIABILITY ENGINEER documented as of this encounter Care Teams Mini Baccarat Dealer Relationship Specialty Start Date End Date Stefanie Franco FNP-BC [address] [place] [phone] PCP - General Nurse Practitioner Family 09/05/2104/26 Dinesh Castillo DO [address] [place] [address] PCP - General FAMILY PRACTICE 04/27/22 Luisito Mcmillan MD [facility]. [address] [address] [place] Floor Inspector CARDIOVASCULAR DISEASE 12/31/18 [place] [address] [place] [address] Referring Physician RHEUMATOLOGY 12/17/19 Andi Plasencia MD [address] [place] [phone] Consulting Physician HEMATOLOGY/ONCOLOGY 12/17/19 Chris Wu MD [address] [place] [address] Consulting Physician CLINICAL CARDIAC ELECTROPHYSIOLOGY 12/17/19 Morgan Land MD [address] [place] [phone] UROLOGY 07/14/21 documented as of this encounter
== END 2025-09-17 10:12 | disposition home or self-care (01) ==
LOC: CHSIMG 10:13
PROVIDERS: PCP Nurse Practitioner Family; Visit Provider Internal Medicine Rheumatology
DX: M25.50 Pain in unspecified joint (principal); M13.0 Polyarthritis, unspecified; J90 Pleural effusion, not elsewhere classified
CPT/HCPCS: 71046; 73030; 73070; 73110; 73120; 73562; 73610; 73630